=== PATIENT | male | born 1945 | race Caucasian/White ===

== ENCOUNTER → 2017-07-29 11:52 | Outpatient (CLI) | payer MEDICARE, SELFPAY ==
[2017-07-29 13:28] LABS: AST(SGOT) 51 U/L (15-37); Alanine Aminotransfer ALT/SGPT 31 U/L (16-61); Albumin, Serum 3.2 g/dL (3.2-5.0); Alkaline Phosphatase 59 U/L (45-117); Anion Gap 5 (5-15); BUN 24 mg/dL (7-18); BUN/Creat Ratio 18.9 RATIO (10-20); Calcium,Total 8.5 mg/dL (8.5-10.1); Chloride 105 mmol/L (98-107); Cholesterol 156 mg/dL (200); Creatinine, Serum 1.27 mg/dL (0.70-1.30); EST Glomerular Filtration Rate 59 mL/min (>60); Est Glom Filt Rate - Afr Amer 71 mL/min (>60); Globulin 3.9 g/dL (2.2-4.2); Glucose 100 mg/dL (74-106); High Density Lipoprotein 47 mg/dL; Protein, Total 7.1 g/dL (6.4-8.2); Sodium Level 141 mmol/L (136-145); Triglycerides 131 mg/dL; Very Low Density Lipoprotein 26 mg/dL (5-40)
== END ==
PROVIDERS: Family Provider Family Medicine; PCP Family Medicine; Visit Provider Internal Medicine Cardiovascular Disease
DX: E78.00 Pure hypercholesterolemia, unspecified (principal)
CPT/HCPCS: 36415; 80048; 80061; 80076

== ENCOUNTER → 2018-06-01 11:04 | Outpatient (CLI) | payer MEDICARE, SELFPAY ==
[2018-06-01 09:49] VITALS: BMI 33.7
[2018-06-01 12:03] LABS: Anion Gap 8 (5-15); BUN 22 mg/dL (7-18); BUN/Creat Ratio 16.1 RATIO (10-20); Calcium,Total 8.2 mg/dL (8.5-10.1); Chloride 109 mmol/L (98-107); Creatinine, Serum 1.37 mg/dL (0.70-1.30); EST Glomerular Filtration Rate 54 mL/min (>60); Est Glom Filt Rate - Afr Amer 65 mL/min (>60); Glucose 104 mg/dL (74-106); Potassium 3.8 mmol/L (3.5-5.1); Sodium Level 143 mmol/L (136-145)
[2018-06-01 12:19] LABS: BNP,B-Type NATRIURETIC PEPTIDE 68.5 pg/mL (0-100)
--- OUTSIDE RECORDS SUMMARY | 2018-09-02 19:56 | XMS RPT_ITS ---
:1945 Author Organization OHIP Support Name Relationship Address Phone R Unavailable Unavailable Unavailable STAKE, BERE Unavailable [address] + [place] [address] R Unavailable Unavailable Unavailable STAKE, BERE Unavailable [address] + [place] [address] R Unavailable Unavailable Unavailable STAKE, BERE Unavailable [address] + [place] [address] R Unavailable Unavailable Unavailable STAKE, BERE Unavailable [address] + [place] [address] STAKE, BERE Unavailable Unavailable + STAKE, BERE Unavailable Unavailable + STAKE, BERE Unavailable Unavailable + STAKE, BERE Unavailable [address] + [place] [address] STAKE, BERE Unavailable Unavailable + STAKE, BERE Unavailable Unavailable Unavailable STAKE SR., GLADYS Unavailable Unavailable Unavailable STAKE, BERE Unavailable Unavailable Unavailable STAKE SR., GLADYS Unavailable Unavailable Unavailable STAKE, BERE Unavailable [address] + [place] [address] STAKE, BERE Unavailable [address] + [place] [address] STAKE, BERE Unavailable Unavailable + STAKE, BERE Unavailable Unavailable + STAKE, BERE Unavailable Unavailable Unavailable STAKE SR., GLADYS Unavailable Unavailable Unavailable R Unavailable Unavailable Unavailable STAKE, BERE Unavailable [address] + [place] [address] STAKE, BERE Unavailable Unavailable + STAKE, BERE Unavailable Unavailable Unavailable STAKE SR., GLADYS Unavailable Unavailable Unavailable STAKE, BERE Unavailable Unavailable Unavailable STAKE SR., GLADYS Unavailable Unavailable Unavailable STAKE, BERE Unavailable Unavailable Unavailable STAKE SR., GLADYS Unavailable Unavailable Unavailable STAKE, BERE Unavailable Unavailable Unavailable STAKE SR., GLADYS Unavailable Unavailable Unavailable R Unavailable Unavailable Unavailable STAKE, BERE Unavailable [address] + [place] [address] R Unavailable Unavailable Unavailable STAKE, BERE Unavailable [address] + [place] [address] R Unavailable Unavailable Unavailable STAKE, BERE Unavailable [address] + [place] [address] STAKE, BERE Unavailable Unavailable Unavailable STAKE SR., GLADYS Unavailable Unavailable Unavailable STAKE, BERE Unavailable Unavailable Unavailable STAKE SR., GLADYS Unavailable Unavailable Unavailable R Unavailable Unavailable Unavailable STAKE, BERE Unavailable [address] + [place] [address] R Unavailable Unavailable Unavailable STAKE, BERE Unavailable [address] + [place] [address] R Unavailable Unavailable Unavailable STAKE, BERE Unavailable [address] + [place] [address] R Unavailable Unavailable Unavailable STAKE, BERE Unavailable [address] + [place] [address] Care Team Providers Name Role Phone José Aleman Attending Unavailable TOMLISK, TAYLA Referring Unavailable Rasheeda Moreau Attending Unavailable TOMCHAK, TAYLA Referring Unavailable Devora Sanders Attending Unavailable José Aleman Attending Unavailable TAYLA VICTORIA Referring Unavailable TOMLISK, TAYLA Primary Care Unavailable AshJosé bella Attending Unavailable Ash, José Referring Unavailable TOMCHAK, TAYLA Primary Care Unavailable Rasheeda Moreau Attending Unavailable TOMLISK, TAYLA Referring Unavailable Rossi Lynch Attending Unavailable Annita Carreon Attending Unavailable JOSE LUISKTAYLA Referring Unavailable TOMLISK, TAYLA Primary Care Unavailable Rasheeda Moreau Attending Unavailable TOMLISK, TAYLA Referring Unavailable TOMCHAK, TAYLA Primary Care Unavailable AshJosé bella Attending Unavailable Ash, [place] Referring Unavailable TOMCHAK, TAYLA Primary Care Unavailable Rasheeda Moreau Attending Unavailable JOSE LUISK, TAYLA Referring Unavailable Rasheeda Moreau Attending Unavailable TOMLISK, TAYLA Referring Unavailable Carlos Melissa Primary Care Unavailable VALUSCÉSAR Attending Unavailable SELF, SELF Referring Unavailable TOMCHAK, TAYLA Daniel Primary Care Unavailable VALUS, CÉSAR Daniel Attending Unavailable VALUS, CÉSAR Daniel Referring Unavailable TOMCHAK, TAYLA Daniel Primary Care Unavailable VALUS, CÉSAR Daniel Attending Unavailable VALUS, CÉSAR Daniel Referring Unavailable TOMCHAK, TAYLA Daniel Primary Care Unavailable KRISTINA MONTESINOS Attending Unavailable JAGUARKRISTINA Referring Unavailable TOMCHAK, TAYLA Daniel Primary Care Unavailable JAGUARKRISTINA BRITTON Attending Unavailable VALUSCÉSAR Referring Unavailable TOMCHAK, TAYLA Daniel Primary Care Unavailable JAGUARKRISTINA BRITTON Attending Unavailable TOMCHAK, TAYLA Daniel Referring Unavailable TOMCHAK, TAYLA Daniel Primary Care Unavailable JAGUARKRISTINA BRITTON Attending Unavailable TOMCHAK, TAYLA Daniel Referring Unavailable TOMCHAK, TAYLA Daniel Primary Care Unavailable KRISTINA MONTESINOS Attending Unavailable TOMCHAK, TAYLA Daniel Referring Unavailable TOMCHAK, TAYLA Daniel Primary Care Unavailable JAGUARKRISTINA Attending Unavailable SWATHI ZUÑIGA Referring Unavailable TOMCHAK, TAYLA Daniel Primary Care Unavailable Tomchak, Tayla Daniel Admitting Unavailable Tomchak, Tayla Daniel Attending Unavailable Tomchak, Tayla Daniel Primary Care Unavailable Tomchak, Tayla Daniel Primary Care Unavailable Sokari, Telemate Admitting Unavailable Sokari, Telemate Attending Unavailable VIAU, AVNI ALCALA Attending Unavailable TOMCHAK, TAYLA KHAN Primary Care Unavailable VIAU, AVNI ALCALA Attending Unavailable TOMCHAK, TAYLA KHAN Primary Care Unavailable VIAU, AVNI ALCALA Attending Unavailable TOMCHAK, TAYLA KHAN Primary Care Unavailable VIAU, AVNI ALCALA Attending Unavailable TOMCHAK, TAYLA KHAN Primary Care Unavailable VIAU, AVNI ALCALA Attending Unavailable TOMCHAK, TAYLA KHAN Primary Care Unavailable VIAU, AVNI ALCALA Attending Unavailable TOMCHAK, TAYLA KHAN Primary Care Unavailable VIAU, AVNI ALCALA Attending Unavailable TOMCHAK, TAYLA KHAN Primary Care Unavailable Viau, Dr. Avni Lemus Attending Unavailable Viau, Dr. Avni Lemus Admitting Unavailable Viau, Dr. Avni Lemus Admitting Unavailable Viau, Dr. Avni Lemus Attending Unavailable Viau, Dr. Avni Lemus Admitting Unavailable Viau, Dr. Avni Lemus Attending Unavailable PROBLEMS PROBLEMS DATE TYPE CONDITION / CODE ATTENDING STATUS SOURCE Unknown I50.22 - Chronic systolic Prieto, Active [place] 8 (congestive) heart [facility] Community failure / I50.22(ICD-10) Hospital Repository Unknown I48.1 - Persistent atrial Prieto Active [place] 8 fibrillation / [facility] I48.1(ICD-10) Hospital Repository Unknown Z95.810 - Presence of Jeff Moreau [place] 8 automatic (implantable) [facility] cardiac defibrillator / Hospital Z95.810(ICD-10) Repository Unknown I43 - Cardiomyopathy in Jeff Moreauoster 8 diseases classified [facility] elsewhere / I43(ICD-10) Hospital Repository Unknown I51.9 - Heart disease, Prieto, Active [place] 8 unspecified / [facility] I51.9(ICD-10) Hospital Repository Unknown I25.10 - Atherosclerotic Jeff Moreau [place] 8 heart disease of [place] [facility] coronary artery without Hospital angina pectoris / Repository I25.10(ICD-10) Unknown I10 - Essential (primary) Ash, [place] Active [place] 8 hypertension / Community I10(ICD-10) Hospital Repository Unknown Z95.5 - Presence of Ash, José Active [place] 8 coronary angioplasty [facility] implant and graft / Hospital Z95.5(ICD-10) Repository Admitting Spinal stenosis, VIA, [place] [address] diagnosis lumbosacral region / [facility] M48.07(ICD-10) Repository Admitting Spondylolisthesis, VIA, [place] [address] diagnosis lumbosacral region / [facility] Three M43.17(ICD-10) Repository Admitting Other intervertebral disc VIAU, [place] [address] diagnosis degeneration, lumbar [facility] Three region / M51.36(ICD-10) Repository Admitting Wedge compression [place] [address] diagnosis fracture of second lumbar [facility] Three vertebra, subsequent Repository encounter for fracture with routine healing / S32.020D(ICD-10) Admitting Unspecified fracture of VIAU, [place] [address] diagnosis second lumbar vertebra, [facility] Three initial encounter for Repository open fracture / S32.029B(ICD-10) Admitting Wedge compression [facility], [place] [address] diagnosis fracture of second lumbar [facility] Three vertebra, initial Repository encounter for closed fracture / S32.020A(ICD-10) Admitting Low back pain / AVNI CRUZ [place] [address] diagnosis M54.5(ICD-10) [facility] Repository Admitting Pain in left hip / JAGUAR [place] [address] diagnosis M25.552(ICD-10) [facility] Repository Admitting Follow-up / 145() JAGUAR, [place] [address] diagnosis [facility] Repository Admitting Unknown / UNK(Unknown) AVNI CRUZ [place] [address] diagnosis [facility] Repository Admitting Pain, unspecified / AVNI CRUZ [place] [address] diagnosis R52(ICD-10) [facility] Repository Admitting Paperwork / 111() JAGUAR, [place] [address] diagnosis [facility] Repository Admitting Lab Review / 165() JAGUAR, [place] [address] diagnosis [facility] Repository Admitting Presence of left VALUS, CÉSAR [place] [address] diagnosis artificial hip joint / [facility] Z96.642(ICD-10) [facility] Repository Unknown E78.00 - Pure Ash, [place] Active [place] 8 hypercholesterolemia, Community unspecified / Hospital E78.00(ICD-10) Repository Unknown E78.0 - Pure Ash, José Active [place] 8 hypercholesterolemia / Community E78.0(ICD-10) Hospital Repository PROCEDURES PROCEDURES No Procedure Records FoundRESULTS RESULTS PACEMAKER CHECK Observed: 06/01/2018 Status: F Source: [place] 12:53 PM [facility] RE[facility]IT[facility] [address] [place] [address]. [address] [place] [address] Pacemaker Check Date of Service: 06/01/18 1249 MR#: [id number] Acct: [id number] Name: GLADYS VIDAL Miguel Sr. Rep #: [id number] : 1945 From: Rasheeda Moreau Age/Sex: 73/M Location: [facility] Status: Signed Billing Codes ICD Device Billing: ICD Dev Prog Eval, Dual 06/01/18 1251 <Electronically signed by Rasheeda Moreau > Date Rasheeda Moreau 06/01/18 1253<Electronically signed by José Aleman MD> Cosigner Signature: Date (if applicable) José Aleman MD CC: BASIC METABOLIC Collected: 06/01/2018 Status: F Source: [place] PROFILE (BMP) 11:12 AM [facility] REPOSITORY TYPE CODE TESTS RESULT OUT OF RANGE REFERENCE UNITS LAB L501.0100 74-106 mg/dL Normal GLU 104 Result Comment: Fasting Glucose result from 100 to 125 mg/dL suggests IMPAIRED HOMEOSTASIS per A.D.A. criteria. Please note revised GLUCOSE reference range effective 2017. LAB L501.1000 7-18 mg/dL High BUN 22 LAB L501.1100 0.70-1.30 mg/dL High CREAT,SERUM 1.37 Result Comment: The validity of the calculated GFR AND GFRAA in patients over 70 years has not been determined. Clinical correlation is essential. LAB L501.1110 >60 mL/min Low EST GFR 54 Result Comment: Non- GFR Calc LAB L501.1115 >60 mL/min Normal EST GFR - AA 65 Result Comment: GFR Calc LAB L501.1300 10-20 RATIO Normal BUN/CRE 16.1 LAB L501.2200 8.5-10.1 mg/dL Low CA 8.2 LAB L501.5300 136-145 mmol/L NA Normal 143 LAB L501.5600 3.5-5.1 mmol/L K Normal 3.8 LAB L501.5900 98-107 mmol/L High CL 109 LAB L501.6100 21.0-32.0 mmol/L Normal CO2 26.0 LAB L501.6200 5-15 Normal GAP 8 Performed By: #### L500.2500 #### [facility] [address] [place], [address] BNP,B-TYPE NATRIURETIC Collected: 06/01/2018 Status: F Source: [place] PEPTIDE 11:12 AM [facility] REPOSITORY TYPE CODE TESTS RESULT OUT OF RANGE REFERENCE UNITS LAB L503.6620 0-100 pg/mL Normal B-TYPE 68.5 ANTONETTE PEP Performed By: #### L503.6620 #### [facility] [address] [place], [address] CARDIOLOGY VISIT Observed: 06/01/2018 Status: F Source: [place] REPORT 10:13 AM [facility] REPOSITORY [facility] [address] [place] [address] OFFICE VISIT Date of Service: 06/01/18 MR#: [id number] Acct: [id number] Name: GLADYS VIDAL . Rep #: [id number] : 1945 Provider: José Aleman MD Age/Sex: 73/M Location: [facility] Status: Signed HPI HPI Chief Complaint: Follow-up visit Details: GLADYS VIDAL, is a 73 M who presents to the office today for a follow-up visit. He is a gentleman with a history of cardiomyopathy that is out of proportion to his coronary artery disease. He did have an LAD stent placed in 2016. He also has a history of persistent atrial fibrillation. He denies any chest pain but has been markedly short of breath with exertion as well as at rest. He says that he has been compliant with his diet as well as with his diuretics. He remember he had been on amiodarone and he developed a rash and this was discontinued yesterday. He has had no dizziness or diaphoresis no near syncope or syncope. His physical exam today is significant for fine rales at the bases regular rate and rhythm and trace pitting edema. His blood pressure is under good control. Intake Vital Signs06/01/18 Height 5 ft 11 in 06/01/18 Weight: 242 lb 06/01/18 Body Mass Index (BMI) 33.7 06/01/18 Blood Pressure 124/72 H 06/01/18 Blood Pressure Location Lt brachial Intake Visit Reasons: 6 M FU Manager Strategy & Account Required: No Accompanied by: Is patient in pain?: No Allergies No Known Allergies Allergy (Verified 06/01/18 09:50) Medications Apixaban [Eliquis] 5 mg PO BID 10/31/15 [History Confirmed 06/01/18] Clopidogrel Bisulfate [Plavix] 75 mg PO DAILY 10/31/15 [History Confirmed 06/01/18] Lisinopril [Zestril] 2.5 mg PO DAILY 10/31/15 [History Confirmed 06/01/18] Multivitamins,Ther W-Minerals [Multivitamin With Minerals] 1 tab PO DAILY 10/31/15 [History Confirmed 06/01/18] Tamsulosin HCl [Flomax] 0.4 mg PO DAILY 10/31/15 [History Confirmed 06/01/18] Albuterol IH (ProAir) [Proair Hfa (SP)Vent Pts] 2 puff INHALATION Q4H PRN PRN 07/05/17 [History Confirmed 06/01/18] metoprolol succinate ER 50 mg tablet,extended release 24 hr 50 mg PO .COMPLEX #90 tab 08/13/17 [Rx Confirmed 06/01/18] furosemide 40 mg tablet 40 mg PO BID #180 tab 11/26/17 [Rx Confirmed 06/01/18] rosuvastatin 20 mg tablet 20 mg PO QDAY 11/26/17 [History Confirmed 06/01/18] spironolactone 50 mg tablet 50 mg PO DAILY #90 tab 06/01/18 [Rx Confirmed 06/01/18] PFSH Medical History Severe left ventricular systolic dysfunction (Chronic) Cardiomyopathy in diseases classified elsewhere (Chronic) Hypertension (Chronic) Persistent atrial fibrillation (Chronic) Chronic systolic (congestive) heart failure (Chronic) Atherosclerosis of coronary artery of [place] heart without angina pectoris (Chronic) Hyperlipidemia (Chronic) 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) BPH (benign prostatic hyperplasia) (Chronic) Surgical History History of coronary artery stent placement (Chronic 10/12/15) ICD (implantable cardioverter-defibrillator), dual, in situ (Chronic 02/25/16) History of cardioversion (Chronic 10/2015) History of total left hip arthroplasty (Chronic 02/24/17) Family History Brother Diabetes Social History Smoking Status: Never smoker second hand exposure: No alcohol intake: never substance use type: does not use caffeine: Yes Type: tea what type of physical activity do you participate in: walking frequency: daily duration: < 15 minutes/day seatbelt use: never do you feel safe at home: Yes ROS Const Const: Negative for fatigue, weakness, night sweats, excessive sweating, frequent falls, headache(s) or daytime sleepiness Eyes Eyes: Negative for loss of peripheral vision, transient loss of vision, blind spots, double vision or blurry vision ENT ENT: Negative for headache(s), dizziness, balance problems, Nosebleed/epistaxis, tongue swelling or lip swelling Cardio Chest Pain: No Palpitations: No Edema: None Muscle aches with walking: None Resp Respiratory: Positive for SOB at rest and SOB with activity; negative for SOB orthopnea\SOB lying down, Cough or paroxysmal nocturnal dyspnea GI GI: Negative nausea, vomiting, heartburn, black,tarry stools or bright, red blood in stools : Negative for hematuria Musc Musc: Negative for balance problems, muscle aches/ myalgia, muscle weakness or joint pain Skin Skin: Negative non-healing lesions, unusual bruising or rash Neuro Neuro: Negative for weakness, frequent falls, headache(s), double vision, dizziness, lightheadedness, orthostatic symptoms, blurry vision or lack of coordination Pascual Hematologic/Lymphatic: Negative for easy bruising or easy bleeding Endo Endo: Negative for fatigue, excessive sweating, cold intolerance, heat intolerance, increased thirst/drinking or hair loss Psych Psych: Negative for anxiety or depression Allergy Allergy/Immunology: Negative for throat swelling, Negative for tongue swelling, Negative for hives, Negative for rash, Negative for lip swelling Cardiology Exam Const Appearance: cooperative, healthy appearing, well developed, well groomed and no acute distress Nutritional Appearance: well nourished and average body habitus Orientation: alert, awake and oriented x3 Head Head: normal to inspection, normocephalic and atraumatic Ears: hearing grossly normal bilaterally and external ears normal Nose: external nose normal, nasal mucous membranes and turbinates normal, nares normal, septum normal, no nasal discharge Face and Sinus: face symmetric Mouth: oral mucosae normal, tongue normal, oropharynx normal and moist mucous membranes Teeth and gingiva: dentition normal Throat: posterior oropharynx normal, tonsils normal and uvula midline Eyes General: appearance normal, both eyes and all related structures Eyelids: eyelids normal Conjunctivae: conjunctivae normal Pupils: PERRL, normal by confrontation and accommodation normal EOM: EOM intact bilaterally Neck Neck: normal visual inspection, trachea midline and no JVD JVD: +5 Carotids: normal carotid upstroke and bounding pulses Chest Auscultation: Bilateral: Rales Cardio Palpation: normal PMI Rate: regular rate Rhythm: irregular rhythm Heart sounds: S1 normal, S2 normal and normal, physiologic split S2; negative rub, gallop or murmur GI GI: normal to inspection, soft, no hepatosplenomegaly and bowel sounds present Neuro General: alert, awake, oriented x3, no focal sensory deficit, gait normal and moves all extremities Skin Skin: no rashes or lesions noted Extremities Pulses: Normal: Right Femoral Pulse, Left Femoral Pulse, Right Dorsalis Pedis Pulse, Left Dorsalis Pedis Pulse, Right Posterior Tibial Pulse, Left Posterior Tibial Pulse, Right Radial Pulse, Left Radial Pulse Lower Extremity Edema: None: Bilateral Musculoskel Musculoskeletal: No joint tenderness Psych Psychological: normal affect Assessment AND Plan 1. Chronic systolic (congestive) heart failure I50.22 Plan He does have a history of chronic congestive heart failure he remains on the lisinopril as well as the metoprolol and also on potassium. My recommendation will be to continue the Lasix and add spironolactone 50 mg a day to his regimen. I do agree to discontinuing his amiodarone as I suspect this may be contributing to some of his shortness of breath. His last ejection fraction as you know was noted to be 20%. Orders Orders: 2. Persistent atrial fibrillation I48.1 Plan He does have a history of chronic persistent atrial fibrillation and is on anticoagulation as well as beta-tahir for rate control. 3. Essential hypertension I10 Plan He does have a history of hypertension which appears to well controlled with the lisinopril and the beta-tahir no changes will be made with regard to the above. 4. ICD (implantable cardioverter-defibrillator), dual, in situ Z95.810 [facility] DF4 @ [facility] per Dr Espinal Revision for dislodged atrial lead...Insertion of new atrial lead with atrial lead revision 04/2016 @ [facility] Plan He does have an ICD implanted which is being followed by transtelephonic monitoring. His last interrogation appeared to be in April. I would ask that this be rechecked again today. 5. History of coronary artery stent placement Z95.5 [id number] LAD @ [facility] Plan He does have a history of coronary artery disease status post angioplasty and stenting of his left anterior descending artery he has not had any angina and the plan will be to continue him on the same medications. Plan Detail Other Medications New: Discontinued: Follow Up 3 Months (mmm) Coding Level of Care Code Off vis,est,level 4 Diagnoses Chronic systolic (congestive) heart failure I50.22 Persistent atrial fibrillation I48.1 Essential hypertension I10 Hypertension type: essential hypertension ICD (implantable cardioverter-defibrillator), dual, in situ Z95.810 History of coronary artery stent placement Z95.5 Coding Level of Care Code Off vis,est,level 4 Diagnoses Chronic systolic (congestive) heart failure I50.22 Persistent atrial fibrillation I48.1 Essential hypertension I10 Hypertension type: essential hypertension ICD (implantable cardioverter-defibrillator), dual, in situ Z95.810 History of coronary artery stent placement Z95.5 06/01/18 1013 <Electronically signed by José Aleman MD> Date José Aleman MD Cosigner Signature: Date (if applicable) CC: Tayla Victoria MD PACEMAKER CHECK Observed: 04/29/2018 Status: F Source: [place] 3:53 PM [facility] REPOSITORY [place] [facility] [address] [place] [address] Pacemaker Check Date of Service: 04/28/18 9459 MR#: [id number] Acct: [id number] Name: GLADYS VIDAL . Rep #: [id number] : 1945 From: Rasheeda Moreau Age/Sex: 73/M Location: [facility] Status: Signed Billing Codes ICD Device Billing: ICD Dev Interrogate (Rmt) 04/28/18 1811 <Electronically signed by Rasheeda Moreau > Date Rasheeda Moreau 04/29/18 1553<Electronically signed by José Aleman MD> Cosigner Signature: Date (if applicable) José Aleman MD CC: BONE SCAN - WHOLE Observed: 03/18/2018 Status: F Source: [facility] BODY 1:12 PM [facility] REPOSITORY Final Report Accession No: [id number] Performed: Mar 18 2018 1:12PM Examination: BONE SCAN - WHOLE BODY NUCLEAR MEDICINE TOTAL BODY BONE SCAN HISTORY: Lumbar spine fracture; low back pain; left hip pain. COMPARISON: CT lumbar spine 03/08/2018. METHOD: The patient was injected intravenously with 22.7 mCi of Tc-99m MDP, scintigraphy of the entire skeleton was performed more than three hours later. FINDINGS: There is no evidence of significant uptake at L2. There is no evidence of increased linear uptake at L4. There is mild heterogeneous uptake in the cervical, thoracic, lumbar spine. There are degenerative changes in the major and minor joints bilaterally. IMPRESSION: No evidence of acute or subacute compression fractures. Degree of uptake at L2 is consistent with a chronic compression fracture. Degenerative changes throughout the spine as well as in the major and minor joints bilaterally. Interpreting Physician: NASEEM FRAGOSO M.D. Trans: istumb : cc: XR HIP LEFT 2 VIEWS Observed: 03/10/2018 Status: F Source: [facility] 1:45 PM [facility] REPOSITORY EXAM: XR HIP LEFT 3 VIEWS,, 03/10/2018 13:39 PM COMPARISON: Compared to prior study dated January 04, 2018. CLINICAL INDICATIONS: PAIN RELEVANT CLINICAL HISTORY: M25.552:Left hip pain FINDINGS: 3 images obtained. Soft Tissue: There is no obvious soft tissue swelling. Chondrocalcinosis evident within the symphysis pubis. Bone: No acute osseous abnormality is identified. Hip: Total hip arthroplasty in place. Hardware intact and stable in alignment. No periprosthetic lucency. IMPRESSION: Stable total hip arthroplasty. No acute osseous abnormality. SPINE LUMBAR W/O Observed: 03/08/2018 Status: F Source: [facility] CONTRAST 9:02 AM [facility] REPOSITORY Final Report Accession No: [id number] Performed: Mar 08 2018 9:02AM Examination: CT SPINE LUMBAR W/O CONTRAST EXAM: CT SPINE LUMBAR W/O CONTRAST CLINICAL STATEMENT: Low back pain. Previous lumbar spine surgery. COMPARISON: Lumbar spine x-rays, 02/11/2018. TECHNIQUE: CT examination of the lumbar spine without IV contrast. Coronal and sagittal reformations were performed. Dose reduction techniques were achieved by using automated exposure control and/or adjustment of mA and/or kV according to patient size and/or use of iterative reconstruction technique. FINDINGS: There are postoperative changes from previous laminectomy and pedicle screw and ana fixation as well as posterior osseous fusion at L3-L4 and L4-L5. The hardware is intact and in good position. There is good solid osseous fusion posteriorly along the posterior elements at L3-L4 and L4-L5. Grade 1 retrolisthesis at L5-S1 measures 3 mm. Osteopenia. Chronic compression fracture at L4 with 40% loss of vertebral body height is stable. Superior endplate compression fracture at L2 with 40% loss of vertebral body height. This may be a subacute compression fracture. No retropulsion of bone fragments into the spinal canal. This compression fracture is stable from the recent lumbar spine x-rays. No new compression fracture. L5-S1, moderate to severe degenerative disc disease with vacuum disc phenomenon. Severe facet arthropathy. Grade 1 retrolisthesis. These findings result in moderate central canal stenosis with lateral recess stenosis bilaterally. Disc space narrowing, endplate osteophytes and facet arthropathy result in severe foraminal narrowing bilaterally. L4-L5, the spinal canal is decompressed. No spinal canal stenosis. No foraminal narrowing. L3-L4, the spinal canal is decompressed. No significant spinal canal stenosis. No foraminal narrowing. L2-L3, severe facet arthropathy. Ligamentum flavum thickening. Mild degenerative disc disease. Diffuse disc bulge. Moderate central canal stenosis. No foraminal narrowing. Mild degenerative disc disease. No spinal stenosis. No foraminal narrowing. No paraspinal soft tissue swelling. No paraspinal masses. IMPRESSION: 1. There are postoperative changes from previous laminectomy, pedicle screw and ana fixation as well as posterior osseous fusion at L3-L4 and L4-L5. Hardware is intact. There is good solid osseous fusion posteriorly at these levels. 2. Chronic compression fracture at L4 is stable. 3. Compression fracture at L2 with 40% loss of vertebral body height may be subacute. This compression fracture is stable from lumbar spine x-rays from 02/11/2018. No retropulsion of bone fragments into the spinal canal. 4. Moderate to severe degenerative disc disease at L5-S1 and severe facet arthropathy. Grade 1 retrolisthesis at this level. These findings result in moderate central canal stenosis with stenosis of the lateral recesses bilaterally. Severe bilateral neural foraminal narrowing. 5. At L2-L3, there are severe facet arthropathy with ligamentum flavum thickening as well as disc bulge resulting in moderate spinal canal stenosis. Interpreting Physician: YUNIEL ZEPEDA M.D. Trans: bminni : cc: INJECT FOR MYELO Observed: 03/08/2018 Status: F Source: [facility] AND/OR CT-SPINE 9:02 AM [facility] REPOSITORY Final Report Accession No: [id number] Performed: Mar 08 2018 9:02AM Examination: INJECT FOR MYELO AND/OR CT-SPINE EXAMINATION: INJECT FOR MYELO AND/OR CT-SPINE CLINICAL STATEMENT: Low back pain with previous lumbar spine surgery. Injection for CT myelogram. COMPARISON: Plain film examination dated 02/11/2018. FLUOROSCOPY TIME: Fluoro time measures 41 seconds and 2 images were obtained. FINDINGS: According to the note from the technologist, the myelogram injection was attempted, but access could not be obtained. The myelogram was therefore aborted and the patient was sent to CT. IMPRESSION: Unsuccessful myelogram injection. Refer to the CT performed the same day. Interpreting Physician: AVNI PALAFOX M.D. Trans: n/a : cc: HISTORY AND Observed: 03/04/2018 Status: F Source: [facility] PHYSICAL-DICTATED 2:29 PM [facility] REPOSITORY [facility] Niurka [address] [place] [id number] NAME GLADYS VIDAL [facility] [id number] 1945 DATE PRE-SURGICAL HISTORY AND PHYSICAL CHIEF COMPLAINT A 72-year-old male with low left back pain and radiation to the posterior lateral thigh. HISTORY OF PRESENT ILLNESS This man underwent a laminectomy and fusion at L3 through L5 in the middle of 2012. He recently had a total hip replacement in February of 2017. Over the last month or so, he has complained of lower back pain, left lateral thigh pain, and was suggested by the total joint surgeon that he follow up with his lumbar spine. There has been no precipitating event or injury. On exam, there is left-sided low back discomfort, mild spasm [ ] motor, sensory reflex asymmetry of each lower extremity. X-rays obtained show previous laminectomy and fusion with instrumentation L3 through L5 with disk degeneration L5-S1. In light of his current complaint, it was recommended that he have an MRI. However, he cannot have an MRI, so CT myelogram of the lumbar spine was advised. PAST MEDICAL HISTORY Includes mitral regurgitation, hypertension, hyperlipidemia, heart failure, coronary artery disease, cardiomyopathy, benign prostatic hyperplasia, and atrial fibrillation. ALLERGIES He has no known drug allergies. MEDICATIONS Include aspirin, Plavix, Lasix, garlic, Mevacor, Lopressor, Micro-K, Xarelto, and tamsulosin. PHYSICAL EXAM GENERAL APPEARANCE: Alert, oriented. HEENT: Pupils equal, round, reactive. Extraocular muscles are intact. Trachea midline. NECK: Supple. No palpable masses. LUNGS: Clear bilateral. HEART: Normal sinus rhythm. No rub or gallop. ABDOMEN: Soft, nontender. Bowel sounds present x4. SPINE AND EXTREMITIES: As in History of Present Illness. No clubbing, cyanosis, or edema noted. IMPRESSION Status post spinal fusion. PLAN CT myelogram, lumbar. Dictated by JENNIFER Villela MD D 03/04/2018 14:29 [id number] T 03/04/2018 15:20 DKF/MODL Electronically Signed By Avni Cruz M.D. on 24 Mar 2018 17:57:43 GMT SPINE LUMBAR 2 OR 3 Observed: 02/11/2018 Status: F Source: [facility] VIEWS 10:15 AM [facility] REPOSITORY Final Report Accession No: [id number] Performed: Feb 11 2018 10:15AM Examination: SPINE LUMBAR 2 OR 3 VIEWS CLINICAL HISTORY: Having left-sided lower back and leg pain. History of left total hip replacement one year ago. LUMBAR SPINE: 02/11/2018 COMPARISON: Lumbar spine 03/11/2015. FINDINGS: Three views are provided which demonstrate five lumbar-type vertebral bodies which are normally aligned with previous posterior fusion extending from L3 through L5 with compression deformity of L4 now with some callus formation. There is compression deformity of the superior endplate of L2, new since the previous examination, however, of unknown chronicity. Degenerative disc disease at L3-L4, L4-L5 and L5-S1 persists. No subluxations or hardware associated complications. There is laminectomy at L3, L4 and L5. There is a partially visualized left hip prosthesis in place which is anatomically aligned. There are some calcified granulomas in the right aspect of the pelvis. The visualized pelvic bones appear intact. The surrounding soft tissues are normal. IMPRESSION: 1. Previous fusion extending from L3 through L5 without significant interval change or hardware associated complications. 2. Compression deformity of the superior endplate of L2, new since previous study, however, of unknown chronicity. 3. No obvious acute fractures or subluxations. Interpreting Physician: ITZEL KRISHNAMURTHY M.D. Trans: lcoope : cc: PACEMAKER CHECK Observed: 01/13/2018 Status: F Source: [facility] 4:35 PM [facility] REPOSITORY [facility] [address] [place] [address] Pacemaker Check Date of Service: 01/12/18 1310 MR#: [id number] Acct: [id number] Name: GLADYS VIDAL Miguel Sr. Rep #: [id number] : 1945 From: Rasheeda Moreau Age/Sex: 72/M Location: [facility] Status: Signed Billing Codes ICD Device Billing: ICD Dev Interrogate (Rmt) 01/12/18 1311 <Electronically signed by Rasheeda Moreau > Date Rasheeda Moreau 01/13/18 1635<Electronically signed by José Aleman MD> Cosigner Signature: Date (if applicable) José Aleman MD CC: C REACTIVE PROTEIN Collected: 01/04/2018 Status: F Source: [facility] 12:46 PM [facility] REPOSITORY TYPE CODE TESTS RESULT OUT OF REFERENCE UNITS RANGE LAB CRP <10.00 mg/L C High Reactive 11.80 Protein Performed By: #### CRP #### [place] [address] #### ESRE #### [place] [address] ESR WESTERGREN - [facility] Collected: 01/04/2018 Status: F Source: [facility] 12:46 PM [facility] REPOSITORY TYPE CODE TESTS RESULT OUT OF REFERENCE UNITS RANGE LAB ESR <20 mm/hr ESR High [place]gren 44 Performed By: #### CRP #### [address] [address] #### ESRE #### [address] [address] XR HIP LEFT 2 VIEWS Observed: 01/04/2018 Status: F Source: [facility] 11:49 AM [facility] REPOSITORY EXAM: Three-view left hip VIEWS,, 01/04/2018 11:43 AM COMPARISON: September 09, 2017 CLINICAL INDICATIONS: pain RELEVANT CLINICAL HISTORY: Z96.642:Status post total replacement of left hip 30MM Calibration sphere of left hip;AP/LAT view; FINDINGS: 3 images obtained. There is redemonstration of a total left hip replacement. No acute fracture or hardware failure. No radiopaque foreign body or pathologic soft tissue calcifications. Osteoarthritic changes are noted at the right hip and SI joints. There is partial visualization of a lumbar spine fixation IMPRESSION: Status post total left hip replacement without acute fracture or hardware failure HIP 2-3 VIEWS Observed: 12/29/2017 Status: F Source: [facility] LEFT + PELVIS 11:59 AM [facility] REPOSITORY Exam Date/Time: 12/29/2017 12:09 EDT Reason for Exam: left hip pain Report STUDY: XR Hip 2-3 Views Left + Pelvis; 12/29/2017 12:09 pm INDICATION: left hip pain. COMPARISON: None. ACCESSION NUMBER(S): [id number] ORDERING CLINICIAN: Tayla Victoria TECHNIQUE: A single AP view of the pelvis as well as AP and lateral views of the left hip were obtained. FINDINGS: The patient is status post left total hip arthroplasty. Postoperative changes are seen in the lower lumbar spine. There is no acute fracture or dislocation identified. Mild to moderate hypertrophic degenerative changes are seen in the sacroiliac joints and pubic symphysis. Multiple rounded calcifications are seen throughout the pelvis, most consistent with phleboliths. IMPRESSION: 1. Postoperative changes status post left total hip arthroplasty. 2. No evidence of acute fracture or dislocation. 3. Postoperative and degenerative changes, as described above. FINAL REPORT Dictated: 12/29/2017 3:16 pm Joaquin Garza MD Signed (Electronic Signature): 12/29/2017 3:16 pm Signed by: Joaquin Garza MD Technologist: MB CARDIOLOGY VISIT Observed: 11/27/2017 Status: F Source: [facility] REPORT 1:05 PM [facility] REPOSITORY [facility] [address] [place] [address]. [address] [place] [address] OFFICE VISIT Date of Service: 11/26/17 MR#: [id number] Acct: [id number] Name: MARCYGLADYS Rivera . Rep #: [id number] : 1945 Provider: Annita Carreon Age/Sex: 72/M Location: [facility] Status: Signed HPI [facility] Details: GLADYS VIDAL, is a 72 M who presents to the office today for a cardiovascular follow-up. He has a history of cardiomyopathy that is out of proportion with his coronary artery disease. He had stenting to his LAD in 2016. He also has a history of persistent atrial fibrillation and did require a pacemaker. At his last office visit we had adjusted his diuretics based upon his symptoms. Unfortunately had misunderstood instructions from her primary care doctor who wanted her to decrease this to once a day. She has discontinued this over the last several weeks and patient has noted increase in weight gain and lower extremity edema. He does not have any worsening shortness of breath. He does not have any chest heaviness/tightness or chest discomfort. He does not have any palpitations. He does not have any lightheadedness or dizziness. He does not have any near-syncope. Intake Vital Signs11/26/17 Height 5 ft 11 in 11/26/17 Weight: 243 lb 11/26/17 Body Mass Index (BMI) 33.9 Intake Visit Reasons: 4 M Manager Strategy & Account Required: No Is patient in pain?: No Allergies No Known Allergies Allergy (Verified 11/26/17 10:02) Medications Apixaban [Eliquis] 5 mg PO BID 10/31/15 [History Confirmed 11/26/17] Clopidogrel Bisulfate [Plavix] 75 mg PO DAILY 10/31/15 [History Confirmed 11/26/17] Garlic 1,500 mg PO DAILY 10/31/15 [History Confirmed 11/26/17] Lisinopril [Zestril] 2.5 mg PO DAILY 10/31/15 [History Confirmed 11/26/17] Multivitamins,Ther W-Minerals [Multivitamin With Minerals] 1 tab PO DAILY 10/31/15 [History Confirmed 11/26/17] Potassium Chloride [K-Dur] 10 meq PO BID 10/31/15 [History Confirmed 11/26/17] Tamsulosin HCl [Flomax] 0.4 mg PO DAILY 10/31/15 [History Confirmed 11/26/17] amiodarone 200 mg tablet 200 mg PO QDAY 06/01/17 [History Confirmed 11/26/17] Albuterol IH (ProAir) [Proair Hfa (SP)Vent Pts] 2 puff INHALATION Q4H PRN PRN 07/05/17 [History Confirmed 11/26/17] metoprolol succinate ER 50 mg tablet,extended release 24 hr 50 mg PO .COMPLEX #90 tab 08/13/17 [Rx Confirmed 11/26/17] furosemide 40 mg tablet 40 mg PO BID #180 tab 11/26/17 [Rx Confirmed 11/26/17] rosuvastatin 20 mg tablet 20 mg PO QDAY 11/26/17 [History Confirmed 11/26/17] Ejection fraction %: 20 to 24 PFSH Medical History Severe left ventricular systolic dysfunction (Chronic) Cardiomyopathy in diseases classified elsewhere (Chronic) Hypertension (Chronic) Persistent atrial fibrillation (Chronic) Chronic systolic (congestive) heart failure (Chronic) Atherosclerosis of coronary artery of [place] heart without angina pectoris (Chronic) Hyperlipidemia (Chronic) 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) BPH (benign prostatic hyperplasia) (Chronic) Surgical History History of coronary artery stent placement (Chronic 10/12/15) ICD (implantable cardioverter-defibrillator), dual, in situ (Chronic 02/25/16) History of cardioversion (Chronic 10/2015) History of total left hip arthroplasty (Chronic 02/24/17) Family History Brother Diabetes Social History Smoking Status: Never smoker second hand exposure: No alcohol intake: never substance use type: does not use caffeine: Yes Type: tea what type of physical activity do you participate in: walking frequency: daily duration: < 15 minutes/day seatbelt use: never do you feel safe at home: Yes ROS Const Const: Negative for fatigue, weakness, difficulty sleeping, frequent falls, headache(s) or excessive sweating Eyes Eyes: Negative for loss of peripheral vision, transient loss of vision, blurry vision or double vision ENT ENT: Negative for headache(s) or balance problems Cardio Chest Pain: No Edema: None, Bilateral (Trace ankle edema) Muscle aches with walking: None Resp Respiratory: Positive for SOB with activity (SOB when walking and with ADL) and other (slightly diminished); negative for SOB at rest, SOB orthopnea\SOB lying down or paroxysmal nocturnal dyspnea GI GI: Negative nausea or heartburn : Negative for hematuria Musc Musc: Negative for muscle aches/ myalgia, muscle weakness, joint pain or balance problems Skin Skin: Negative non-healing lesions, unusual bruising or rash Neuro Neuro: Negative for weakness, frequent falls, headache(s), blurry vision or double vision Pascual Hematologic/Lymphatic: Negative for easy bruising Endo Endo: Negative for fatigue or excessive sweating Psych Psych: Negative for anxiety or depression Allergy Allergy/Immunology: Negative for rash Cardiology Exam Const Appearance: cooperative, healthy appearing, well developed, well groomed and no acute distress Nutritional Appearance: well nourished and average body habitus Orientation: alert, awake and oriented x3 Head Head: normal to inspection, normocephalic and atraumatic Ears: hearing grossly normal bilaterally and external ears normal Nose: external nose normal, nasal mucous membranes and turbinates normal, nares normal, septum normal, no nasal discharge Face and Sinus: face symmetric Mouth: oral mucosae normal, tongue normal, oropharynx normal and moist mucous membranes Teeth and gingiva: dentition normal Throat: posterior oropharynx normal, tonsils normal and uvula midline Eyes General: appearance normal, both eyes and all related structures Eyelids: eyelids normal Conjunctivae: conjunctivae normal Pupils: PERRL, normal by confrontation and accommodation normal EOM: EOM intact bilaterally Neck Neck: normal visual inspection, trachea midline and no JVD JVD: +5 Carotids: normal carotid upstroke and bounding pulses Chest Chest inspection: normal inspection of the chest, symmetric chest movement and normal respiratory effort Auscultation: Bilateral: Clear to Auscultation Cardio Palpation: normal PMI Rate: regular rate Rhythm: regular rhythm Heart sounds: S1 normal, S2 normal and normal, physiologic split S2; negative rub, gallop or murmur GI GI: normal to inspection, soft, no hepatosplenomegaly and bowel sounds present Neuro General: alert, awake, oriented x3, no focal sensory deficit, gait normal and moves all extremities Skin Skin: no rashes or lesions noted Extremities Pulses: Normal: Right Femoral Pulse, Left Femoral Pulse, Right Dorsalis Pedis Pulse, Left Dorsalis Pedis Pulse, Right Posterior Tibial Pulse, Left Posterior Tibial Pulse, Right Radial Pulse, Left Radial Pulse Upper Extremity: amputated thumb and right index finger on left hand Lower Extremity Edema: None: Bilateral Musculoskel Musculoskeletal: No joint tenderness Psych Psychological: normal affect Supplemental Info Echocardiogram in 2017 demonstrated moderately dilated LV with an estimated ejection fraction of 20%. Severe global left ventricular dysfunction when compared to previous echocardiogram no significant change. BMP that was done in primary care office demonstrated BUN of 22, potassium 4.3, sodium 142 TSH was 1.68 Hemoglobin A1c was 6.3 Assessment AND Plan 1. Atherosclerosis of [place] coronary artery of [place] heart without angina pectoris I25.10 JME-LUS-Vxaq LAD 10/12/2015 Plan - BOB Choudhary Stable, from a cardiac standpoint patient does not have any symptoms of angina. We recommend that they continue with current aggressive medical management and risk factor modification. 2. Cardiomyopathy in diseases classified elsewhere I43 EF 20% per echo 09/2016 Plan - BOB Choudhary Patient does have some lower edema. His weight has gone up. He is not short of breath. He did accidentally stop his Lasix. Will resume this. His primary care doctor did instruct him to decrease it to once a day and use it twice a day if needed. Did verbalize this again with and . 3. Essential hypertension I10 Plan - BOB Choudhary Blood pressure is well controlled on current medications, we do not recommend any changes at this time. 4. Persistent atrial fibrillation I48.1 Plan - BOB Choudhary Rate is controlled. He is anticoagulated with a factor Xa inhibitor. Will not make any adjustments. 5. ICD (implantable cardioverter-defibrillator), dual, in situ Z95.810 [facility] [facility] Epi [employer] DF4 @ [facility] per Dr Espinal Revision for dislodged atrial lead...Insertion of new atrial lead with atrial lead revision 04/2016 @ [facility] Plan - BOB Choudhary ICD is functioning appropriately. We will continue to monitor with routine scheduled ICD interrogations. Patient has not had any discharges from their device. 6. Pure hypercholesterolemia E78.00 Plan - BOB Choudhary Recent lipid profile done from PCP demonstrates a total cholesterol 159, HDL 46, LDL 86. This is managed by primary care doctor. Will not make any adjustments. Plan Detail Other Medications New: Additional Comments - BOB Choudhary The above patient was discussed with Dr. Aleman, he agrees with plan of care. Thank you for allowing us to participate in patient's plan of care, if you have any questions please do not hesitate to call. This note was generated using a voice recognition system and there may be incorrect words, spelling or punctuation errors that were not noted when reviewing the office note prior to saving. Follow Up 6 Months (CLINICAL LABORATORY MANAGER) Coding Level of Care Code Off vis,est,level 3 Diagnoses Atherosclerosis of [place] coronary artery of [place] heart without angina pectoris I25.10 Coronary Disease-Associated Artery/Lesion type: [place] artery Cardiomyopathy in diseases classified elsewhere I43 Essential hypertension I10 Hypertension type: essential hypertension Persistent atrial fibrillation I48.1 ICD (implantable cardioverter-defibrillator), dual, in situ Z95.810 Pure hypercholesterolemia E78.00 Hyperlipidemia type: pure hypercholesterolemia Coding Level of Care Code Off vis,est,level 3 Diagnoses Atherosclerosis of [place] coronary artery of [place] heart without angina pectoris I25.10 Coronary Disease-Associated Artery/Lesion type: [place] artery Cardiomyopathy in diseases classified elsewhere I43 Essential hypertension I10 Hypertension type: essential hypertension Persistent atrial fibrillation I48.1 ICD (implantable cardioverter-defibrillator), dual, in situ Z95.810 Pure hypercholesterolemia E78.00 Hyperlipidemia type: pure hypercholesterolemia 11/26/17 1541 <Electronically signed by Annita ROJAS> Date Annita ROJAS 11/27/17 1305<Electronically signed by José Aleman MD> Cosigner Signature: Date (if applicable) José Aleman MD CC: TAYLA VICTORIA PACEMAKER CHECK Observed: 10/21/2017 Status: F Source: [facility] 11:50 AM [facility] REPOSITORY [facility] [address] [place] [address]. [address] [place] [address] Pacemaker Check Date of Service: 10/06/17 1457 MR#: [id number] Acct: [id number] Name: GLADYS VIDAL . Rep #: [id number] : 1945 From: Rasheeda Moreau Age/Sex: 72/M Location: [facility] Status: Signed Comments Summary Comments: Remote Dual Chamber ICD Evaluation: Remote interrogation shows no VT/VF episodes and 23 MS episodes since 06/26/17. Stored e-grams for MS episodes show PAT with appropriate MS. Presenting rhythm shows AAI pacing @ 65 ppm. APPIAN BPM DEVELOPER=1.7%. Battery longevity approx 5.7 to 6 yrs. Lead impedances and sensing remain stable. Normal remote ICD function. Pt notified remote transmission received and next f/u appt scheduled for in 3 mos. Device Device Date Interviewed: 10/06/17 Follow-up Location: remote Interview Reason: scheduled follow up Space Sciences Director: [employer] Name: Epi Martinez DR Model: [id number] Serial #: [id number] Implant Date: 02/25/16 Year(s): 1 Implant Physician: Dr. Khang Espinal/ [facility] Patient Characteristics Atrial Indication: Paroxysmal atrial fibrillation Patient Substrate: Ischemic cardiomyopathy Ejection fraction %: 20 to 24 (09/16/2016) By: Echo Underlying rhythm: Sinus rhythm Pacemaker Dependent: No Device Characteristics Device: Dual Chamber Type: Implantable defibrillator Remote Follow-Up: [employer] Leads Lead #1 Space Sciences Director Lead 1: [employer] Model Lead 1: Serial# Lead 1: [id number] Date Implanted Lead 1: 02/25/16 Position Lead 1: RA Lead #2 Space Sciences Director Lead 2: [employer] Model Lead 2: [id number] Serial# Lead 2: [id number] Date Implanted Lead 2: 02/25/16 Position Lead 2: RV Lead #3 Space Sciences Director Lead 3: [employer] Model Lead 3: Serial# Lead 3: [id number] Date Implanted Lead 3: 04/24/16 Position Lead 3: RA Diagnostics Pacing % RA Pacin % RV Pacin.7 Mode Switching Total # Episodes: 23 % Mode switched: 1 Arrhythmias VF Episodes: 0 Fast VT Episodes: 0 Slow VT Episodes: 0 Non-Sust Episodes: 0 Measurements Battery Charge Time (Sec): 9.5 Battery %: 79 Predicted Remaining Longevity (months or years): 5.7 to 6 years RA Measurements Signal Amplitude (mV): 3.0 Impedance (Ohms): 380 RV Measurements Signal Amplitude (mV): 11.7 Impedance (Ohms): 540 Shock Impedance (Ohms): 75 Tachy Settings VF Therapies VF Therapy Status On On On On On On Energy 30 30 30 30 30 30 Pathway ATP: During charging on FVT Therapies FVT Therapy Status On On On On On On VT Therapies FVT Therapy Status Off Off Off Off Off Off Comments: Emre Settings Emre Settings Pacemaker Mode DDDR Lower Rate Limit (bpm) 60 Hysteresis Rate (bpm) Max Track Rate (bpm) 130 Max Sensor Rate (bpm) Max AV Delay (msec) 250 Max PV Delay (msec) Max PVARP (msec) Output/Sensing V/PW (ms) 2.5/0.5 2.5/0.5 Sensitivity RA RV LV Comments: Billing Codes ICD Device Billing: ICD Dev Interrogate (Rmt) Assessment AND Plan Problems 1. ICD (implantable cardioverter-defibrillator), dual, in situ Z95.810 [facility] Fortify Assura DF4 @ [facility] per Dr Espinal Revision for dislodged atrial lead...Insertion of new atrial lead with atrial lead revision 04/2016 @ [facility] 2. Cardiomyopathy in diseases classified elsewhere I43 EF 20% per echo 09/2016 3. Persistent atrial fibrillation I48.1 4. Chronic systolic (congestive) heart failure I50.22 5. Severe left ventricular systolic dysfunction I51.9 10/21/17 0832 <Electronically signed by Rasheeda Moreau > Date Rasheeda Moreau 10/21/17 1150<Electronically signed by José Aleman MD> Ted Signature: Date (if applicable) José Aleman MD CC: XR HIP LEFT 2 VIEWS Observed: 09/09/2017 Status: F Source: [facility] 2:28 PM [facility] REPOSITORY EXAM: XR HIP LEFT 2 VIEWS VIEWS,, 09/09/2017 14:20 PM COMPARISON: June 17, 2017 CLINICAL INDICATIONS: PAIN RELEVANT CLINICAL HISTORY: M25.552:Pain in left hip AP,LAT W/30MM CALIBRATION SPHERE; FINDINGS: 3 images obtained. Soft Tissue: There is no obvious soft tissue swelling. Bone: No acute osseous abnormality is identified. Hip: Status post left total hip arthroplasty. The femoral and acetabular components appear unchanged. IMPRESSION: Intact left total hip arthroplasty. No acute osseous abnormality. C METABOLIC Collected: 07/29/2017 Status: F Source: [place] PROFILE (BMP) 12:02 PM [facility] REPOSITORY TYPE CODE TESTS RESULT OUT OF RANGE REFERENCE UNITS LAB L501.0100 74-106 mg/dL Normal GLU 100 Result Comment: Fasting Glucose result from 100 to 125 mg/dL suggests IMPAIRED HOMEOSTASIS per A.D.A. criteria. Please note revised GLUCOSE reference range effective 2017. LAB L501.1000 7-18 mg/dL High BUN 24 LAB L501.1100 0.70-1.30 mg/dL Normal CREAT,SERUM 1.27 Result Comment: The validity of the calculated GFR AND GFRAA in patients over 70 years has not been determined. Clinical correlation is essential. LAB L501.1110 >60 mL/min Low EST GFR 59 Result Comment: Non- GFR Calc LAB L501.1115 >60 mL/min Normal EST GFR - AA 71 Result Comment: GFR Calc LAB L501.1300 10-20 RATIO Normal BUN/CRE 18.9 LAB L501.2200 8.5-10.1 mg/dL CA Normal 8.5 LAB L501.5300 136-145 mmol/L NA Normal 141 LAB L501.5600 3.5-5.1 mmol/L K Normal 4.0 LAB L501.5900 98-107 mmol/L CL Normal 105 LAB L501.6100 21.0-32.0 mmol/L Normal CO2 31.0 LAB L501.6200 5-15 Normal GAP 5 Performed By: #### L500.2500, L500.3400, L500.4100 #### [facility] [address] [place], [address] LIVER PROFILE Collected: 07/29/2017 Status: F Source: [place] 12:02 PM [facility] REPOSITORY TYPE CODE TESTS RESULT OUT OF RANGE REFERENCE UNITS LAB L501.1500 6.4-8.2 g/dL Normal T PROT 7.1 LAB L501.1800 3.2-5.0 g/dL Normal ALB 3.2 LAB L501.1950 2.2-4.2 g/dL Normal GLOB 3.9 LAB L501.4100 15-37 U/L High AST 51 LAB L501.4305 45-117 U/L Normal ALK P 59 LAB L501.4405 16-61 U/L Normal ALT 31 Result Comment: Please note revised ALT reference range effective 2017. LAB L501.4600 0.20-1.00 mg/dL Normal T BILI 0.40 LAB L501.4700 0.00-0.30 mg/dL Normal D BILI 0.10 Performed By: #### L500.2500, L500.3400, L500.4100 #### [facility] [address] [place], [place], [address] LIPID PROFILE Collected: 07/29/2017 Status: F Source: [place] 12:02 [facility] REPOSITORY TYPE CODE TESTS RESULT OUT OF RANGE REFERENCE UNITS LAB L501.4900 200 mg/dL Normal CHOL 156 Result Comment: <200 mg/dL Desirable 200-240 mg/dL Borderline >240 mg/dL High Risk LAB L501.5000 mg/dL Normal TRIG 131 Result Comment: The drugs N-Acetylcysteine and Metamizole may falsely depress this assay. Serum Triglycerides Reference Interval Normal <150 mg/dL Borderline high 150 - 199 mg/dL High 200 - 499 mg/dL Very High > or = 500 mg/dL LAB L501.6400 mg/dL Normal HDL 47 Result Comment: The drugs N-Acetylcysteine and Metamizole may falsely depress this assay. Reference Range HDL <40 mg/dL Low HDL Cholesterol HDL >or= 60 mg/dL High HDL Cholesterol LAB L501.6500 0-130 mg/dL Normal LDL 83 LAB L501.6600 5-40 mg/dL Normal VLDL 26 Performed By: #### L500.2500, L500.3400, L500.4100 #### [facility] [address] [place], [address] CARDIOLOGY VISIT Observed: 07/29/2017 Status: F Source: [place] REPORT 11:40 AM [facility] REPOSITORY [facility] [address] [place] [address] OFFICE VISIT Date of Service: 07/29/17 MR#: [id number] Acct: [id number] Name: GLADYS VIDAL . Rep #: [id number] : 1945 Provider: José Aleman MD Age/Sex: 72/M Location: [facility] Status: Signed HPI HPI Chief Complaint: Follow-up visits. Details: GALDYS VIDAL, is a 72 M who presents to the office today for he is a gentleman with a history of ischemic cardiomyopathy out of proportion to his coronary artery disease. His estimated ejection fraction is approximately 20%. You do remember that his cardiac catheterization had demonstrated left anterior descending artery disease for which he underwent angioplasty and stenting. He also had atrial fibrillation and required a pacemaker defibrillator. He was recently evaluated and noted to be retaining fluid and had his Lasix increased. He appears to be much better at this time and his weight is remaining around 220 pounds. He has had no dizziness or diaphoresis no near syncope or syncope and has not had any neck arm or jaw discomfort to suggest angina. His physical exam today demonstrates clear lung lombardo regular rate and rhythm and trace pitting edema only. Intake Vital Signs07/29/17 Height 5 ft 11 in Intake Visit Reasons: f/up (had to cxl last apt d/t hand injury) Allergies No Known Allergies Allergy (Verified 11/11/15 10:20) Medications Apixaban [Eliquis] 5 mg PO BID 10/31/15 [History Confirmed 07/05/17] Clopidogrel Bisulfate [Plavix] 75 mg PO DAILY 10/31/15 [History Confirmed 07/05/17] Garlic 1,500 mg PO DAILY 10/31/15 [History Confirmed 07/05/17] Lisinopril [Zestril] 2.5 mg PO DAILY 10/31/15 [History Confirmed 07/05/17] Lovastatin [Mevacor] 40 mg PO QHS 10/31/15 [History Confirmed 07/05/17] Metoprolol(XL)Succ [Toprol Xl (Beta Tahir)] 50 mg PO BID 10/31/15 [History Confirmed 07/05/17] Multivitamins,Ther W-Minerals [Multivitamin With Minerals] 1 tab PO DAILY 10/31/15 [History Confirmed 07/05/17] Potassium Chloride [K-Dur] 10 meq PO BID 10/31/15 [History Confirmed 07/05/17] Tamsulosin HCl [Flomax] 0.4 mg PO DAILY 10/31/15 [History Confirmed 07/05/17] amiodarone 200 mg tablet 200 mg PO QDAY 06/01/17 [History Confirmed 07/05/17] furosemide 40 mg tablet 40 mg PO BID tab 06/16/17 [History Confirmed 07/05/17] Albuterol IH (ProAir) [Proair Hfa (SP)Vent Pts] 2 puff INHALATION Q4H PRN PRN 07/05/17 [History Confirmed 07/05/17] PFSH Medical History Severe left ventricular systolic dysfunction (Chronic) Cardiomyopathy in diseases classified elsewhere (Chronic) Hypertension (Chronic) Persistent atrial fibrillation (Chronic) Chronic systolic (congestive) heart failure (Chronic) Atherosclerosis of coronary artery of [place] heart without angina pectoris (Chronic) Hyperlipidemia (Chronic) 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) BPH (benign prostatic hyperplasia) (Chronic) Surgical History History of coronary artery stent placement (Chronic 10/12/15) ICD (implantable cardioverter-defibrillator), dual, in situ (Chronic 02/25/16) History of cardioversion (Chronic 10/2015) History of total left hip arthroplasty (Chronic 02/24/17) Family History Brother Diabetes Social History Smoking Status: Never smoker second hand exposure: No alcohol intake: never substance use type: does not use caffeine: Yes Type: tea what type of physical activity do you participate in: walking frequency: daily duration: < 15 minutes/day seatbelt use: never do you feel safe at home: Yes ROS Const Const: Negative for fatigue, weakness, difficulty sleeping, frequent falls, headache(s) or excessive sweating Eyes Eyes: Negative for loss of peripheral vision, transient loss of vision, blurry vision or double vision ENT ENT: Negative for headache(s), Negative for dizziness, Negative for Nosebleed/epistaxis, Negative for balance problems Cardio Chest Pain: No Edema: None, Bilateral (Trace ankle edema) Muscle aches with walking: None Resp Respiratory: Positive for SOB with activity (SOB when walking and with ADL) and other (slightly diminished); negative for SOB at rest, SOB orthopnea\SOB lying down or paroxysmal nocturnal dyspnea GI GI: Negative nausea or heartburn : Negative for hematuria Musc Musc: Negative for muscle aches/ myalgia, muscle weakness, joint pain or balance problems Skin Skin: Negative non-healing lesions, unusual bruising or rash Neuro Neuro: Negative for weakness, Negative for frequent falls, Negative for blurry vision, Negative for headache(s), Negative for dizziness, Positive for lightheadedness (Occasional dizziness when changing positions), Negative for orthostatic symptoms, Negative for double vision Pascual Hematologic/Lymphatic: Negative for easy bruising Endo Endo: Negative for fatigue, excessive sweating or increased thirst/drinking Psych Psych: Negative for anxiety or depression Allergy Allergy/Immunology: Negative for hives, Negative for rash Cardiology Exam Const Appearance: cooperative, healthy appearing, well developed, well groomed and no acute distress Nutritional Appearance: well nourished and average body habitus Orientation: alert, awake and oriented x3 Head Head: normal to inspection, normocephalic and atraumatic Ears: hearing grossly normal bilaterally and external ears normal Nose: external nose normal, nasal mucous membranes and turbinates normal, nares normal, septum normal, no nasal discharge Face and Sinus: face symmetric Mouth: oral mucosae normal, tongue normal, oropharynx normal and moist mucous membranes Teeth and gingiva: dentition normal Throat: posterior oropharynx normal, tonsils normal and uvula midline Eyes General: appearance normal, both eyes and all related structures Eyelids: eyelids normal Conjunctivae: conjunctivae normal Pupils: PERRL, normal by confrontation and accommodation normal EOM: EOM intact bilaterally Neck Neck: normal visual inspection, trachea midline and no JVD JVD: +5 Carotids: normal carotid upstroke and bounding pulses Chest Chest inspection: normal inspection of the chest, symmetric chest movement and normal respiratory effort Auscultation: Bilateral: Clear to Auscultation Cardio Palpation: normal PMI Rate: regular rate Rhythm: regular rhythm Heart sounds: S1 normal, S2 normal and normal, physiologic split S2; negative rub, gallop or murmur GI GI: normal to inspection, soft, no hepatosplenomegaly and bowel sounds present Neuro General: alert, awake, oriented x3, no focal sensory deficit, gait normal and moves all extremities Skin Skin: no rashes or lesions noted Extremities Pulses: Normal: Right Femoral Pulse, Left Femoral Pulse, Right Dorsalis Pedis Pulse, Left Dorsalis Pedis Pulse, Right Posterior Tibial Pulse, Left Posterior Tibial Pulse, Right Radial Pulse, Left Radial Pulse Lower Extremity Edema: None: Bilateral Musculoskel Musculoskeletal: No joint tenderness Psych Psychological: normal affect Assessment AND Plan 1. Severe left ventricular systolic dysfunction I51.9 Plan He does have evidence of severe left ventricular systolic dysfunction with global hypokinesis he is on the beta-tahir and SOILA inhibitor as well as diuretics which will be continued on a twice daily basis. I to obtain a chemistry profile today to make sure that his renal function and electrolytes are not being jeopardized. 2. Persistent atrial fibrillation I48.1 Plan He did have a history of atrial fibrillation and apparently appears to be in sinus rhythm at this time he will continue with his amiodarone also to decrease the amount of ventricular arrhythmias he has been having. 3. History of coronary artery stent placement Z95.5 JJM-XQZ-Cvta LAD @ [facility] Plan He does have a history of left anterior descending artery stent placement and he has not had any angina he will remain on the aspirin Plavix and beta-tahir for the above. 4. Essential hypertension I10 Plan His blood pressure remains under good control on the current medical therapy and I would not suggest that we make any changes. 5. Pure hypercholesterolemia E78.00 Plan Secondary risk factor modification with his statin will continue. Overall he continues to do well and I would not suggest any major changes. Orders Orders: 6. ICD (implantable cardioverter-defibrillator), dual, in situ Z95.810 [facility] Epi Hernandez DF4 @ [facility] per Dr Espinal Revision for dislodged atrial lead...Insertion of new atrial lead with atrial lead revision 04/2016 @ [facility] Plan He has been following up in our defibrillator clinic and his pacer ICD check from June did not demonstrate any VT or VF episodes and there was adequate lead and battery impedance noted. Plan Detail Other Orders Orders: Follow Up 4 Months Coding Level of Care Code Off vis,est,level 4 Diagnoses Severe left ventricular systolic dysfunction I51.9 Persistent atrial fibrillation I48.1 History of coronary artery stent placement Z95.5 Essential hypertension I10 Hypertension type: essential hypertension Pure hypercholesterolemia E78.00 Hyperlipidemia type: pure hypercholesterolemia ICD (implantable cardioverter-defibrillator), dual, in situ Z95.810 Coding Level of Care Code Off vis,est,level 4 Diagnoses Severe left ventricular systolic dysfunction I51.9 Persistent atrial fibrillation I48.1 History of coronary artery stent placement Z95.5 Essential hypertension I10 Hypertension type: essential hypertension Pure hypercholesterolemia E78.00 Hyperlipidemia type: pure hypercholesterolemia ICD (implantable cardioverter-defibrillator), dual, in situ Z95.810 07/29/17 1140 <Electronically signed by José Aleman MD> Date José Aleman MD Cosigner Signature: Date (if applicable) CC: TAYLA VICTORIA OFFICE VISIT REPORT Observed: 07/08/2017 Status: F Source: [place] 8:12 AM [place] [id number] [place] [address] OFFICE VISIT Date of Service: 06/26/17 MR#: [id number] Acct: [id number] Patient: GLADYS VIDAL Sr. Rep #: [id number] : 1945 Provider: Rasheeda Moreau Age/Sex: 72/M Location: [facility] Status: Signed Comments Summary Comments: Remote Dual Chamber ICD Evaluation: Remote ICD interrogation shows no VT/VF episodes and no MS episodes since last check 03/14 17. presenting rhythm shows AAI pacing @ 64 ppm. APPIAN BPM DEVELOPER=<1%. Battery longevity approx 6 to 6.3 yrs. Lead impedance and sensing remain stable. Normal remote ICD function. Pt notified remote transmission received and next f/u appt scheduled for in 3 mos. Device Device Date Interviewed: 06/27/17 Follow-up Location: remote Interview Reason: scheduled follow up Space Sciences Director: [facility] Name: Epi Martinez DR Model: [id number] Serial #: [id number] Implant Date: 02/25/16 Year(s): 1 Implant Physician: Dr. Khang Espinal/ [facility] Patient Characteristics Atrial Indication: Paroxysmal atrial fibrillation Patient Substrate: Ischemic cardiomyopathy Ejection fraction %: 20 to 24 (09/16/2016) By: Echo Underlying rhythm: Sinus rhythm Pacemaker Dependent: No Device Characteristics Device: Dual Chamber Type: Implantable defibrillator Remote Follow-Up: Karthik Device Physical Exam Yes Incision well healed Leads Lead #1 Space Sciences Director Lead 1: [facility] Model Lead 1: Serial# Lead 1: [id number] Date Implanted Lead 1: 02/25/16 Position Lead 1: RA Additional Details: Atrial Lead fell into ventricle replaced on 04/24/16 @ [facility] via Dr. Espinal Lead #2 Space Sciences Director Lead 2: [facility] [facility] Model Lead 2: [id number] Serial# Lead 2: [id number] Date Implanted Lead 2: 02/25/16 Position Lead 2: RV Lead #3 Space Sciences Director Lead 3: [facility] Model Lead 3: Serial# Lead 3: [id number] Date Implanted Lead 3: 04/24/16 Position Lead 3: RA Diagnostics Pacing % RA Pacin % RV Pacin Mode Switching Total # Episodes: 0 % Mode switched: 0 Arrhythmias VF Episodes: 0 Fast VT Episodes: 0 Slow VT Episodes: 0 Non-Sust Episodes: 0 Measurements Battery Charge Time (Sec): 9.3 Battery %: 82 Predicted Remaining Longevity (months or years): 6 to 6.3 years RA Measurements Signal Amplitude (mV): 3.2 Impedance (Ohms): 380 RV Measurements Signal Amplitude (mV): 11.7 Impedance (Ohms): 550 Shock Impedance (Ohms): 69 Tachy Settings VF Therapies VF Therapy Status On On On On On On Energy 30 30 30 30 30 30 Pathway ATP: During charging on FVT Therapies FVT Therapy Status On On On On On On VT Therapies FVT Therapy Status Off Off Off Off Off Off Comments: Emre Settings Emre Settings Pacemaker Mode DDDR Lower Rate Limit (bpm) 60 Hysteresis Rate (bpm) Max Track Rate (bpm) 130 Max Sensor Rate (bpm) Max AV Delay (msec) 250 Max PV Delay (msec) Max PVARP (msec) Output/Sensing V/PW (ms) 2.5/0.5 2.5/0.5 Sensitivity RA RV LV Comments: Billing Codes ICD Device Billing: ICD Dev Interrogate (Rmt) Assessment AND Plan Problems 1. ICD (implantable cardioverter-defibrillator), dual, in situ Z95.810 2. Ischemic cardiomyopathy I25.5 EF 20% 3. CHF (congestive heart failure) I50.33 4. Afib I48.2 06/30/17 1412 <Electronically signed by Rasheeda Moreau > Date Rasheeda Moreau 07/08/17 0812<Electronically signed by José Aleman MD> Ted Signature: Date (if applicable) José Aleman MD CC: ALLERGIES ALLERGIES DATE TYPE / CODE NAME / CODE REACTION SEVERITY SOURCE 06/01/2018 Drug No Known Unknown [facility] Allergy/416 Allergies/F34212 Hospital 387851(SNOM 0388(RXNORM) Repository ED CT) Drug NO KNOWN [facility] Three Class/88383 ALLERGIES Repository 1003(SNOMED CT) Drug/114611 No Known [facility] 003(SNOMED Allergies [facility] CT) System Repository ENCOUNTERS ENCOUNTERS ADMIT/DISCHARGE ACCOUNT NUMBER ADMITTING ENCOUNTER LOCATION SOURCE CLASS 06/01/2018 [id number] Ambulatory [facility] ding:LAB Repository 06/01/2018/06/01/20 [id number] Ambulatory BMSBuilding: [place] [address] B[facility] Repository 06/01/2018/06/01/20 [id number] Ambulatory BMSBuilding: [place] 18 BMS.[facility] Repository 05/12/2018/05/12/20 [id number] [place], [place] [address] [facility] EDRoom: Repository 05/12/2018 [id number] Ambulatory [address] [place] [address] Repository 04/28/2018/04/28/20 [id number] Ambulatory BMSBuilding: [place] 18 BMS[facility] Repository 04/08/2018/04/08/20 [id number] Ambulatory Building:[place] [address] [facility] R Repository 03/23/2018/03/27/20 [id number] [facility] [address] [facility] [id number] Ambulatory Building:[facility] Repository 03/18/[id number] Mame Ambulatory [facility] Repository 03/11/2018/03/11/20 [id number] [facility] 03/10/2018 [id number] Ambulatory Building:[facility] Repository 03/10/2018 [id number] Ambulatory Building:[facility] Repository 03/08/2018/03/08/[id number] Mame Ambulatory [address] lding:[address] CareRoom: [place] [address] 3117Bed: Repository [id number] 02/11/[id number] Mame Ambulatory [facility] Repository 02/11/2018/02/12/20 [id number] [facility] [facility] 02/11/2018 [id number] [facility] 01/20/2018 [id number] Ambulatory Building:[facility] Repository 01/12/2018/01/13/20 [id number] Ambulatory BMSBuilding: [place] 18 B[facility] Repository 01/11/2018 [id number] [facility] 01/04/2018 [id number] Ambulatory Building:[facility] Repository 01/04/2018 [id number] Ambulatory Building:[facility] Repository 01/04/2018 [id number] Ambulatory Building:[facility] Repository 12/29/2017 [id number] Ambulatory Building:[facility] Repository 12/29/2017/12/30/19 [id number] [facility] Catholic Roman Catholic [address] [place] [address] ding:[facility] Repository 12/29/2017 [id number] Ambulatory [address] [place] [address] Repository 11/26/2017/11/27/19 [id number] Ambulatory BMSBuilding: [place] 18 BMS[facility] Repository 11/25/2017 [id number] Ambulatory BMS [facility] Repository 10/06/2017/10/07/19 [id number] Ambulatory BMSBuilding: [place] 18 BMS[facility] Repository 09/09/2017 [id number] Ambulatory Building:[facility] Repository 09/09/2017 [id number] Ambulatory Building:[facility] Repository 07/29/2017 [id number] Ambulatory [facility] ding:LAB Repository 07/29/2017/07/29/19 [id number] Ambulatory BMSBuilding: [place] 18 BMS[facility] Repository 07/29/2017 [id number] Ambulatory BMSBuilding: [place] BMS.[facility] Repository 06/26/2017/06/26/19 [id number] Ambulatory BMSBuilding: [place] 18 BMS[facility] Repository PAYERS PAYERS ENCOUNTER GUARANTOR PAYER SUBSCRIBER SOURCE 06/01/2018 GLADYS VIDAL Primary GLADYS VIDAL [place] Sr[address] Insurance:ANTHEM : Community [employer] [id number] [place] Number: Repository [place] [address]Boq: [id number] Date:1972-44-95NV [address] () [address]QBT[place]Y, [place] [address]JY: 06/01/2018 Secondary NOT GIVENUNK [place] Insurance:SELF PAY [facility] Number: Effective Repository Date:2018-06-01 06/01/2018 GLADYS W STAKE Primary GLADYS W STAKE [place] Sr[address] Insurance:ANTHEM Sr.: Community [employer] [id number] [facility]oudoun [facility], [place] Number: Repository [place] [address]Gkt: [id number] Date:9956-45-59VO [address]OX () [address]BUQF[place], [place] [address]KP: 06/01/2018 Secondary NOT GIVENUNK [place] Insurance:SELF PAY [facility] Number: Effective Repository Date:2018-06-01 06/01/2018 GLADYS W STAKE Primary GLADYS W STAKE [place] Sr[address] Insurance:ANTHEM Sr.: Community [employer] [id number] [facility]oud[facility], [place] Number: Repository [place] [address]Smh: [id number] Date:4422-48-26HL [address]OX () [address]CGFISDH, [place] [address]WW: 06/01/2018 Secondary NOT GIVENUNK [place] Insurance:SELF PAY [facility] Number: Effective Repository Date:2018-06-01 05/12/2018 GLADYS W STAKE Primary GLADYS W STAKE Roman Catholic SRDOB: Insurance:ANTHEMPolic SRDOB: [facility] W y Number: Effective [id number] [place] [address] Date:2018-05-12 [facility] [id number] Name:CD:[id number] [address] [place] [address]Btz: 202129UHOJWUGSALONI WEBBER [address]Ouj: 17737CX: (855) (HP) [phone] (HP) (WP) 05/12/2018 GLADYS VIDALDOB: Primary GLADYS VIDALDOB: Turner W Insurance:[facility] [id number] [place] [address] Number: Miguel IRAHETA Repository VARGAS [id number] [place] [id number]: Date:Plan Name:Health [place] [id number]: (QG) (HP) 04/28/2018 GLADYS VIDAL Primary GLADYS Rivera [facility] [place] [address] Insurance:ANTHEM Sr.: Community [place] MEDICARE SENIOR [id number] [facility] Number: Repository [place] [address]Kut: [id number] Date:7091-24-90BW [address]OX () 120866HUBJWCU, [place] [address]PO: 04/28/2018 Secondary NOT GIVENUNK [place] Insurance:SELF PAY [facility] Number: Effective Repository Date:2018-04-28 04/08/2018 GLADYS VIDAL Primary GLADYS Rivera [facility]: Insurance:ANTHEM SR.: Three Repository W MANAGED [id number] [place] MEDICAREPolicy W [place] [facility], Number: ROCKY KAYE [address]Gpv: [id number] [place] [address]Hok: Date:3213-34-80WX BOX () 384951HDLQGML, [place] () [address]VW: 04/08/2018 Secondary GLADYS VIDAL [facility] Insurance:ANTHEM SR.: Three Repository MANAGED [id number] MEDICAREPolicy Miguel IRAHETA Number: VARGAS [id number] [place] [address]Lle: Date:1426-04-63BL [address]VEBWBEU, [place] () [address]YB: 03/23/2018 GLADYS VIDAL [facility] Insurance:ANTH SR.: Three Repository W MANAGED [id number] [place] MEDICAREPolicy W [place], Number: ROCKY KAYE [id number]: [id number] [place] [address]Waq: Date:8996-15-28HP BOX (HP) 376131YTPCKGQ, [place] () [address]TC: 03/23/2018 [facility] Insurance:[facility] Three Repository MANAGED [id number] MEDICAREJeseanselmo Rivera MYRTLE Number: VARGAS [id number] [place] [address]Fdb: Date:4682-36-00CK [address]MQUTLCB, [place] () [address]ES: 2018 GLADYS VIDAL [facility]: Insurance:HUMANA STAKEDOB: Three Repository W MANAGED [id number] MYRTLE MEDICAREPolanselmo LUKEKIMMANNY, Number: [place]OCK[place] KAYE [id number]: [id number] [place] [address] Date:2013-06-15 - (HP) 4961-59-62YU [address] [place] [address]JS: 2018 Secondary [facility] Insurance:[facility]: Three Repository MANAGED [id number] MEDICAREPolicy W [place] Number: VARGAS [id number] [place] [address] Date:0068-57-21PM [address]RQXVEWS, [place] [address]FL: 03/18/2018 Primary GLADYSEVE VIDAL [facility] Insurance:[employer] SRDOB: Lor buitrago [address] [place] [address] Number: [id number] [facility] [id number] Miguel IRAHETA Repository Date:Raheel VARGAS, Name:HealthKentucky [facility] [place] [address]Fzn: [place]ndon [place], [place] [address]RR: (780) (FW) [phone] 03/11/2018 GLADYS VIDAL Primary GLADYS VIDAL [facility].: Insurance:ANTHEM SR.: Three Repository W MANAGED [id number] IRAHE[place] MEDICAREPolicy Miguel IRAHETA [facility], Number: [place] [address]Bmv: [id number] [place] [address] Date:8067-27-18KI BOX (ON) 467700MPKIJJY, [place] [address]ZS: 03/11/2018 Secondary GLADYS VIDAL [facility] Insurance:ANTH SR.: Three Repository MANAGED [id number] MEDICAREPolicrigoberto Miguel IRAHETA Number: VARGAS [id number] [place] [address] Date:8604-37-82BQ [address] 000635FKAITDE, [place] [address]LU: 03/10/2018 GLADYS VIDAL Primary GLADYS VIDAL [facility].: Insurance:MEDICARE SR.: Turner W [facility] [place] [id number] Yariel IRAHETA [facility] Number: Miguel IRAHETA [place] STREETLOUDCLEVELAND CLIN[facility] [id number] STREETUDCLEVELAND CLINIC [facility] Repository [place], [place] [address]Rex: Date:4566-34-48Nqol [place], [place] [address]Zmn: Name:CARE (LZ) (RD) 03/10/2018 GLADYS Rivera STAKE Primary GLADYS W [facility].: Insurance:MEDICARE SR.: [place] [facility] [place] [id number] Yariel IRAHETA PPOPolicy Number: Miguel IRAHETA [place] STREETLOUDONVOHIOHEALTH DOCTORS [facility] [id number] STREETLOUDONVILL Repository [place], [place] [address]Rxj: Date:9309-03-56Yfwc E, [place] [address]Igp: Name:CARE (HP) (HP) 03/08/2018 Primary GLADYS Rivera [facility] Insurance:[facility] SRDOB: [place] [address]Pol[facility] Number: [id number] [facility] [id number] Miguel IRAHETA Repository Date:Plan [facility], Name:HealthElectronic [place] [address]Guh: [place], [place] [address]DZ: (025) (HP) [phone] 02/11/2018 Primary GLADYS Rivera [facility] Insurance:[facility] SRDOB: [place] [address]reat [facility] Number: [id number] [facility] [id number] Miguel IRAHETA Repository Date:Plan [facility], Name:HealthElectronic [place] [address]Zcd: [place], [place] [address]NT: (952) (HP) [phone] 02/11/2018 GLADYS VIDAL Primary GLADYS Rivera [facility].: Insurance:[facility] ER[facility] Repository MANAGED [id number] MYRTLE MEDICAREPolicy Miguel IRAHETA [facility], Number: [place], [place] [address]Ddx: [id number] [place] [address] Date:4641-00-75AS BOX () 516086ZCTZCNC, [place] [address]DT: 02/11/2018 Secondary GLADYS Rivera [facility] Insurance:[facility] ER.: Three Repository MANAGED [id number] MEDICAREPolanselmo IRAHETA Number: VARGAS [id number] [place] [address] Date:7612-18-24TU [address]03VTZGYLR, [place] [address]WU: 02/11/2018 GLADYS VIDAL Primary GLADYS MORENO [facility].: Insurance:HUMANA STAKEDOB: Three Repository W MANAGED [id number] [place] MEDICAREPolicy W [place], Number: ROCKY KAYE [address]Vhs: [id number] [place] [address] Date:2013-06-15 - () 8071-64-66FU [address] [place] [address]EU: 02/11/2018 Secondary GLADYS VIDAL [facility] Insurance:ANTHEM SR.: Three Repository [facility] [id number] MEDICAREPolicrigoberto IRAHETA Number: VARGAS [id number] [place] [address] Date:1690-69-96FH [address]857SWUIUET, [place] [address]ZV: 01/20/2018 GLADYS VIDAL Primary GLADYS VIDAL [facility]: Insurance:MEDICARE SR.: [place] [facility] [place] [id number] [facility] PPOPolicy Number: [facility] [id number] [facility] Rep[place], [place] [address]Ytl: Date:1413-82-02Gxcy [place], [place] [address]Qrk: Name:CARE () () 01/12/2018 GLADYS VIDAL Primary GLADYS VIDAL [place] [address] Insurance:ANTHEM Sr.: Community [place] MEDICARE SENIOR [id number] [facility] Number: [place]ository [place] [address]Kqw: [id number] Date:9488-94-17QJ BOX () 173471XJIYLXE, [place] [address]GB: 01/12/2018 Secondary NOT GIVENUNK [place] Insurance:SELF PAY [facility] Number: Effective Repository Date:2018-01-12 01/11/2018 GLADYS MORENO [facility] STAKEDOB: Insurance:HUMANA STAKEDOB: Three Repository W MANAGED [id number] [place] MEDICAREPolicy Miguel [place], Number: [place] [address]Wij: [id number] [place] [address] Date:7162-11-67UX BOX () 07648AHMWNYNFW, [place] [address]NZ: 01/04/[address] [facility].: Insurance:MEDICARE SR.: [place] [facility] [place] [id number] [place], [place] [address]OPolicy Number: Miguel [facility] STREETLOUDONVILL [id number] STREETLOUDONVILL Repository [place], [place] [address]Frf: Date:1108-81-79Bghs [place], [place] [address]Xbr: Name:CARE (HP) (HP) 01/04/[address] [facility].: Insurance:MEDICARE SR.: [place] [facility] [place] [id number] [place], [place] [address]OPolicy Number: Miguel [facility] STREETLOUDONVILL [id number] STREETLOUDONVILL Rep[place], [place] [address]Nrg: Date:8296-17-68Twaz [place], [place] [address]Yny: Name:CARE (HP) (HP) 01/04/[address] [facility].: Insurance:MEDICARE SR.: Turner [facility] [place] [id number] [facility] PPOPolicy Number: Miguel [facility] CountyLOGANCLEVELAND CLINIC [facility] [id number] STREETLOUDONVILL Repository [place], [place] [address]Ctg: Date:1305-38-59Witj [place], [place] [address]Who: Name:CARE (HP) (HP) 12/29/2017 GLADYS VIDAL Primary GLADYS VIDAL [facility] SR.: Insurance:MEDICARE SR.: [place] [facility] [place] [id number] [facility] PPOPolicy Number: Miguel [facility] DONELLOHIOHEALTH DOCTORS [facility] [id number] STREETLOUDONVILL Repository [place], [place] [address]Jbo: Date:3563-89-96Zhse [place], [place] [address]Npt: Name:CARE (HP) (HP) 12/29/2017 GLADYS VIDAL Primary GLADYS VIDAL [employer] SRDOB: Insurance:ANTHEMPolic SRDOB: [facility] y Number: Effective [id number] [facility] Date:2017-12-29 [facility], 6721-70-00Vuxh[address] Name:CD:[id number] [facility] [address]Mnx: [id number], [place] [address]Grx: [address]QD: (855) (VN) [phone] (HP) () 12/29/2017 GLADYS STAKEDOB: Primary GLADYS [facility]: Turner Insurance:[facility] [id number] [facility] y Number: Miguel IRAHETA [facility] CenterLOGANPROGRESS WEST HOSPITALKELLY, [id number] [place] [address]Cub: Date:Plan Name:[facility] [phone]: (HP) (HP) 11/26/2017 GLADYS VIDAL Primary GLADYS Rivera [facility] [place] Sr[address] Insurance:ANTHEM Sr.: Community [place] MEDICARE SENIOR [id number] Loudoun Medical Center, [place] Number: Repository [place] [address]Hzl: [id number] Date:2385-10-32YO BOX () 5[address]19NAXVOQX[address] [place] [address]JL: 11/26/2017 Secondary NOT GIVENUNK [place] Insurance:SELF PAY [facility] Number: Effective Repository Date:2017-11-26 11/25/2017 GLADYS VIDAL Primary GLADYS Rivera STAKE [place] Sr[address] Insurance:ANTHEM Sr.: Community [place] MEDICARE SENIOR [id number] Loudoun Medical Center, [place] Number: [place]ository [place] [address]Dvv: [id number] Date:6079-82-35OQ BOX () 76[address]17FRNHHXI[address] [place] [address]GX: 11/25/2017 Secondary NOT GIVENUNK [place] Insurance:SELF PAY [facility] Number: Effective Repository Date:2017-11-25 10/06/2017 GLADYS VIDAL Primary GLADYS Rivera STAKE [place] [address] Insurance:ANTHEM Sr.: Community [place] MEDICARE SENIOR [id number] Loudoun Medical Center, [place] Number: [place]ository [place] [address]Pwi: [id number] Date:8212-76-02ZF BOX () 280569EMFNOVL, [place] [address]XS: 10/06/2017 Secondary NOT GIVENUNK [place] Insurance:SELF PAY [facility] Number: Effective Repository Date:2017-10-06 09/09/2017 GLADYS VIDAL Primary GLADYS VIDAL [facility] SR: Insurance:MEDICARE SR.: Turner W [facility] [id number] [facility] Number: [facility] [id number] STREETLOUDONVILL Rep[place], [place] [address]Rmv: Date:7057-26-57Ulid [place], [place] [address]Aen: Name:CARE () (HP) 09/09/2017 GLADYS VIDAL Primary GLADYS VIDAL [facility] SR.: Insurance:MEDICARE SR.: [place] [id number] [facility] PPOPolicy Number: Miguel [facility] STREETLOUDONVOHIOHEALTH DOCTORS HOSPITAL [id number] STREETLOUDONVILL Rep[place], [place] [address]Ski: Date:6020-79-04Bzse [place], [place] [address]Znn: Name:CARE () (HP) 07/29/2017 GLADYS VIDAL Primary GLADYS Rivera [facility] [place] [address] Insurance:ANTHEM Sr.: Community [place] MEDICARE SENIOR [id number] Loudoun Medical Center, [place] Number: Repository [place] [address]Apr: [id number] Date:0312-43-39UW BOX () 732913UYLFZXI[address] [place] [address]RW: 07/29/2017 Secondary NOT GIVENUNK [place] Insurance:SELF PAY [facility] Number: Effective Repository Date:2017-07-29 07/29/2017 GLADYS VIDAL Primary GLADYS Rivera STAKE [place] [address] Insurance:ANTHEM .: Community [place] MEDICARE SENIOR [id number] Loudoun Medical Center, [place] Number: [place]ository [place] [address]Qml: [id number] Date:0514-35-47DL BOX () 726085CFRIOQG, [place] [address]UP: 07/29/2017 Secondary NOT GIVENUNK [place] Insurance:SELF PAY [facility] Number: Effective Repository Date:2017-07-28 07/29/2017 GLADYS VIDAL Primary GLADYS Rivera STAKE [place] [address] Insurance:ANTHEM Sr.: Community [place] MEDICARE SENIOR [id number] Loudoun Medical Center, [place] Number: Repository [place] [address]Yct: [id number] Date:9990-86-46OA BOX () 932909YZSDGFJ, [place] [address]CX: 07/29/2017 Secondary NOT GIVENUNK [place] Insurance:SELF PAY [facility] Number: Effective Repository Date:2017-07-29 06/26/2017 GLADYS W STAKE Primary GLADYS W STAKE [place] Sr[address] Insurance:ANTHEM Sr.: Community [place] MEDICARE SENIOR [id number] Loudoun Medical Center, [place], [facility] Number: [place]ository [place] [address]Mnf: [id number] Date:4922-42-72IR BOX () 530680JPZMTYN, [place] [address]CP: 06/26/2017 Secondary NOT GIVENUNK [place] Insurance:SELF PAY [facility] Number: Effective Repository Date:2017-05-19
== END ==
LOC: LAB 11:06
PROVIDERS: Family Provider Family Medicine; PCP Family Medicine; Referring Provider Internal Medicine Cardiovascular Disease; Visit Provider Internal Medicine Cardiovascular Disease
DX: I50.22 Chronic systolic (congestive) heart failure (principal)
CPT/HCPCS: 36415; 80048; 83880

== ENCOUNTER → 2018-08-31 11:20 | Outpatient (CLI) | payer MEDICARE, SELFPAY ==
[2018-08-31 10:20] VITALS: BMI 33.3
--- NOTE | 2018-08-31 11:30 | RAD_ITS ---
STUDY: X-RAY CHEST REASON FOR EXAM: Male, 73 years old. Shortness of breath. TECHNIQUE: Frontal and lateral views of the chest. COMPARISON: 04/25/2016. FINDINGS: The lungs are clear and expanded. There is no demonstrated pleural abnormality. Normal size heart. 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 Normal mediastinum and gideon. Normal visualized pulmonary arteries. Normal visualized aortic arch and descending thoracic aorta. There are diffuse degenerative changes of the visualized thoracic spine. Normal visualized ribs, clavicles, and shoulders. There is no demonstrated abnormality of the visualized soft tissue structures of the upper abdomen. RAD/Chest PA and Lateral IMPRESSION: No acute chest disease. Electronically Signed: Nino Milligan MD at 15:11 EDT , Service support ,
[2018-08-31 12:49] LABS: Absolute Lymphocyte Count 2.17 X10^3/ul (0.83-4.51); Absolute Neutrophil Count 6.2 X10^3/uL (2.0-7.7); Basophil# 0.01 X10^3/uL; Basophil% 0.1 % (0-1); Eosinophil# 0.35 X10^3/uL; Eosinophils% 3.6 % (0-5); Hematocrit 38.8 % (40-54); Hemoglobin 12.3 g/dl (13.0-16.5); Lymphocyte # 2.17 X10^3/ul (4.0); Lymphocyte % 22.1 % (19-41); Mean Corp Hgb Conc 31.7 g/gl (32-36); Mean Corpuscular Hgb 30.6 pg (27.0-32.0); Mean Corpuscular Volume 96.5 fL (80-94); Mean Platelet Vol. 10.9 fl (6.2-12.0); Monocyte# 1.02 X10^3/uL; Monocyte% 10.4 % (0-10); Neutrophil # 6.23 X10^3/uL (2.7-7.7); Neutrophil % 63.5 % (47-70); Platelet Count 215 K/mm3 (150-450); RBC Distribution Width CV 14.6 % (11.6-14.6); RBC Distribution Width SD 49.9 fl (35.1-43.9); Red Blood Count 4.02 M/mm3 (4.6-6.2); White Blood Count 9.8 K/mm3 (4.4-11.0)
[2018-08-31 12:50] LABS: POSITIVE COUNT NO; POSITIVE DIFFERENTIAL NO; POSITIVE MORPHOLOGY NO
[2018-08-31 13:25] LABS: BNP,B-Type NATRIURETIC PEPTIDE 34.6 pg/mL (0-100)
[2018-08-31 13:36] LABS: Anion Gap 11 (5-15); BUN 41 mg/dL (7-18); BUN/Creat Ratio 17.5 RATIO (10-20); Calcium,Total 8.9 mg/dL (8.5-10.1); Chloride 104 mmol/L (98-107); Creatinine, Serum 2.34 mg/dL (0.70-1.30); EST Glomerular Filtration Rate 29 mL/min (>60); Est Glom Filt Rate - Afr Amer 35 mL/min (>60); Glucose 90 mg/dL (74-106); Potassium 4.1 mmol/L (3.5-5.1); Sodium Level 139 mmol/L (136-145)
== END ==
PROVIDERS: Family Provider Family Medicine; PCP Family Medicine; Referring Provider Physician Assistant Medical; Visit Provider Physician Assistant Medical
DX: I11.0 Hypertensive heart disease with heart failure (principal); I50.22 Chronic systolic (congestive) heart failure; I43 Cardiomyopathy in diseases classified elsewhere; I48.1 Persistent atrial fibrillation; R06.09 Other forms of dyspnea
CPT/HCPCS: 36415; 71046; 80048; 83880; 85025

== ENCOUNTER → 2018-09-13 11:45 | Outpatient (CLI) | payer MEDICARE, SELFPAY ==
[2018-08-31 10:20] VITALS: BMI 33.3
[2018-09-13 12:49] LABS: Anion Gap 8 (5-15); BUN 39 mg/dL (7-18); BUN/Creat Ratio 19.2 RATIO (10-20); Calcium,Total 8.5 mg/dL (8.5-10.1); Chloride 107 mmol/L (98-107); Creatinine, Serum 2.03 mg/dL (0.70-1.30); EST Glomerular Filtration Rate 34 mL/min (>60); Est Glom Filt Rate - Afr Amer 41 mL/min (>60); Glucose 126 mg/dL (74-106); Potassium 3.6 mmol/L (3.5-5.1); Sodium Level 144 mmol/L (136-145)
== END ==
PROVIDERS: Family Provider Family Medicine; PCP Family Medicine; Referring Provider Physician Assistant Medical; Visit Provider Physician Assistant Medical
DX: I10 Essential (primary) hypertension (principal)
CPT/HCPCS: 36415; 80048

== ENCOUNTER → 2018-09-28 11:49 | Outpatient (CLI) | payer MEDICARE, SELFPAY ==
[2018-08-31 10:20] VITALS: BMI 33.3
--- NOTE | 2018-09-28 11:52 | US_ITS ---
HISTORY: SCROTAL MASS LEFT PAIN COUPLE MONTHS EXAMINATION: US Scrotum (Contents) TECHNIQUE: Realtime ultrasound of the testicles was performed with grayscale, Color Doppler and spectral Doppler analysis. COMPARISON: None FINDINGS: The right testicle shows normal size and echogenicity. Right testicle measures approximately 3.3 x 2.3 x 2.3 cm. The left testicle appears smaller than the right although this may be positional and artifactual. Left testicular measurements are 2 x 1.9 x 1.6 cm. Left intra-testicular circumscribed simple cyst measuring 0.4 x 0.3 cm. Bilateral testicular blood flow and no suspicious testicular lesion. Bilateral moderate hydroceles, predominately simple on the right and complex on the left. Left hydrocele shows internal echoes. No epididymal enlargement seen. A left inguinal hernia is suspected. US/Testicular with Arterial Flow IMPRESSION: 1. Bilateral moderate hydroceles, predominantly simple on the right and complex on the left. 2. A left inguinal hernia is suspected. If symptoms warrant, suggest further correlation with pelvic CT and this could be performed. without contrast. 3. No suspicious intratesticular lesion seen. at 0613 Reported and signed by: Tucker Wilkinson MD Electronically Signed: Tucker Wilkinson, at 6:12 EDT Tel , Service support ,
== END ==
PROVIDERS: Family Provider Family Medicine; PCP Family Medicine; Referring Provider Family Medicine; Visit Provider Family Medicine
DX: N50.89 Other specified disorders of the male genital organs (principal)
CPT/HCPCS: 76870; 93976

== ENCOUNTER → 2018-10-01 10:54 | Outpatient (CLI) | payer MEDICARE, SELFPAY ==
[2018-10-01 09:30] VITALS: BMI 33.9
[2018-10-01 11:07] VITALS: BP 137/71; PULSE 118; RESP 20; TEMP 36.7; O2SAT 98; BMI 33.9
[2018-10-01] MEDS: Furosemide 40 MG/4 ML Vial IV (12:04)
== END ==
PROVIDERS: Family Provider Family Medicine; PCP Family Medicine; Visit Provider Physician Assistant Medical
DX: I50.21 Acute systolic (congestive) heart failure (principal)
CPT/HCPCS: 96374; A4216; J1940

== ENCOUNTER 2018-10-02 08:34 | Outpatient (CLI) | payer MEDICARE, SELFPAY ==
[2018-10-01 11:07] VITALS: BMI 33.9
[2018-10-02] MEDS: Furosemide 40 MG/4 ML Vial IV (09:10)
[2018-10-02 09:11] VITALS: PULSE 60; RESP 16; TEMP 36.6; O2SAT 96; BMI 32.5
== END 2018-10-02 09:16 | disposition home or self-care (01) ==
PROVIDERS: Family Provider Family Medicine; PCP Family Medicine; Referring Provider Physician Assistant Medical; Visit Provider Physician Assistant Medical
DX: Z00.00 Encounter for general adult medical examination without abnormal findings (principal)
CPT/HCPCS: 96374; J1940

== ENCOUNTER → 2018-10-04 | Outpatient (CLI) | payer MEDICARE, SELFPAY ==
[2018-10-01 11:07] VITALS: BMI 33.9
[2018-10-02 09:11] VITALS: BMI 32.5
[2018-10-04] MEDS: Furosemide 40 MG/4 ML Vial IV (12:46)
[2018-10-04 12:47] VITALS: BP 120/67; PULSE 60; RESP 16; TEMP 36.7; O2SAT 97; BMI 31.8
== END | disposition home or self-care (01) ==
LOC: MEDOUTP 12:27
PROVIDERS: Family Provider Family Medicine; PCP Family Medicine; Referring Provider Physician Assistant Medical; Visit Provider Physician Assistant Medical
DX: I50.9 Heart failure, unspecified (principal)
CPT/HCPCS: 96374; A4216; J1940

== ENCOUNTER → 2018-10-05 | Outpatient (CLI) | payer MEDICARE, SELFPAY ==
[2018-10-01 11:07] VITALS: BMI 33.9
[2018-10-04 15:22] VITALS: BMI 31.8
[2018-10-05] MEDS: Furosemide 40 MG/4 ML Vial IV (12:32)
[2018-10-05 12:44] VITALS: BP 113/54; PULSE 59; RESP 18; TEMP 37.1; O2SAT 97; BMI 31.7
== END | disposition home or self-care (01) ==
LOC: MEDOUTP 12:18
PROVIDERS: Family Provider Family Medicine; PCP Family Medicine; Referring Provider Physician Assistant Medical; Visit Provider Physician Assistant Medical
DX: I50.9 Heart failure, unspecified (principal)
CPT/HCPCS: 96374; A4216; J1940

== ENCOUNTER → 2018-10-06 12:37 | Outpatient (CLI) | payer MEDICARE, SELFPAY ==
[2018-10-01 11:07] VITALS: BMI 33.9
[2018-10-05 12:44] VITALS: BMI 31.7
[2018-10-06 13:10] VITALS: BP 112/50; PULSE 55; RESP 18; TEMP 36.6; O2SAT 98; BMI 31.7
[2018-10-06] MEDS: Furosemide 40 MG/4 ML Vial IV (13:23)
[2018-10-06 13:38] LABS: Anion Gap 5 (5-15); BUN 37 mg/dL (7-18); BUN/Creat Ratio 16.9 RATIO (10-20); Calcium,Total 8.6 mg/dL (8.5-10.1); Chloride 105 mmol/L (98-107); Creatinine, Serum 2.19 mg/dL (0.70-1.30); EST Glomerular Filtration Rate 31 mL/min (>60); Est Glom Filt Rate - Afr Amer 38 mL/min (>60); Estimated Creatinine Clearance 32.48 ml/min; Glucose 110 mg/dL (74-106); Potassium 4.1 mmol/L (3.5-5.1); Sodium Level 141 mmol/L (136-145)
== END ==
PROVIDERS: Family Provider Family Medicine; PCP Family Medicine; Referring Provider Physician Assistant Medical; Visit Provider Physician Assistant Medical
DX: I50.9 Heart failure, unspecified (principal)
CPT/HCPCS: 96374; 36415; 80048; J1940

== ENCOUNTER → 2018-10-11 | Outpatient (CLI) | payer MEDICARE, SELFPAY ==
[2018-10-11 14:27] VITALS: BMI 32.1
[2018-10-11 16:37] LABS: Anion Gap 8 (5-15); BUN 34 mg/dL (7-18); BUN/Creat Ratio 16.1 RATIO (10-20); Calcium,Total 9.1 mg/dL (8.5-10.1); Chloride 102 mmol/L (98-107); Creatinine, Serum 2.11 mg/dL (0.70-1.30); EST Glomerular Filtration Rate 33 mL/min (>60); Est Glom Filt Rate - Afr Amer 40 mL/min (>60); Glucose 133 mg/dL (74-106); Potassium 4.4 mmol/L (3.5-5.1); Sodium Level 139 mmol/L (136-145)
== END | disposition home or self-care (01) ==
LOC: LAB 15:16
PROVIDERS: Family Provider Family Medicine; PCP Family Medicine; Referring Provider Physician Assistant Medical; Visit Provider Physician Assistant Medical
DX: I50.22 Chronic systolic (congestive) heart failure (principal)
CPT/HCPCS: 36415; 80048

== ENCOUNTER → 2018-10-14 | Outpatient (CLI) | payer MEDICARE, SELFPAY ==
[2018-10-11 14:27] VITALS: BMI 32.1
--- NOTE | 2018-10-14 14:48 | CT_ITS ---
STUDY: CT ABDOMEN AND PELVIS WITHOUT CONTRAST REASON FOR EXAM: Male, 73 years old. Left groin pain and swelling. RADIATION DOSAGE (If Supplied By Facility): CTDIvol = ( 16.95 ) mGy, DLP = ( 1364.79 ) mGycm TECHNIQUE: Transaxial images were obtained from the dome of the diaphragm to the symphysis pubis without oral contrast, and without intravenous contrast. Sagittal and coronal images were reconstructed. Individualized dose optimization techniques were used for this CT. COMPARISON: None. FINDINGS: The visualized lung bases are unremarkable. And dual-chamber pacemaker is seen. There is decreased attenuation of the liver consistent with steatosis. Normal gallbladder and extrahepatic biliary system. Normal spleen. There is diffuse atrophy of the pancreas. Normal bilateral adrenal glands. Normal right kidney. Normal left kidney. There is a small hiatal hernia. Normal small intestine. Normal colon. The appendix is visualized and appears normal. There is diffuse atherosclerotic calcification of the abdominal aorta, without a demonstrated aneurysm. Normal inferior vena cava. Normal retroperitoneum. Normal urinary bladder. There is enlargement of the prostate gland. It measures 4.6 cm x 5.8 cm. There is peripheral calcification along the left lateral wall of the prostate gland. Moderate sized left inguinal hernia containing a portion of the sigmoid colon. There are diffuse degenerative changes of the visualized lumbar spine. Prior intrapedicular screw fixation at the L3-L4, L4-L5 and L5-S1 levels. 50% loss of height of the superior endplate of the L4 vertebrae. CT/Abdomen/Pel W ORAL Cont Only IMPRESSION: Moderate sized left inguinal hernia containing a portion of the sigmoid colon. Fatty infiltration of the liver. Electronically Signed: Max Miranda, at 15:28 EDT , Service support ,
== END | disposition home or self-care (01) ==
LOC: CT 14:47
PROVIDERS: Family Provider Family Medicine; PCP Family Medicine; Referring Provider Surgery; Visit Provider Surgery
DX: R10.32 Left lower quadrant pain (principal); R19.09 Other intra-abdominal and pelvic swelling, mass and lump
CPT/HCPCS: 74176

== ENCOUNTER → 2018-10-21 | Outpatient (CLI) | payer MEDICARE, SELFPAY ==
[2018-10-21 15:17] VITALS: BMI 33.2
[2018-10-21 17:58] LABS: Anion Gap 10 (5-15); BUN 90 mg/dL (7-18); BUN/Creat Ratio 22.5 RATIO (10-20); Calcium,Total 8.8 mg/dL (8.5-10.1); Chloride 101 mmol/L (98-107); EST Glomerular Filtration Rate 16 mL/min (>60); Est Glom Filt Rate - Afr Amer 19 mL/min (>60); Glucose 135 mg/dL (74-106); Potassium 4.1 mmol/L (3.5-5.1); Sodium Level 141 mmol/L (136-145)
== END | disposition home or self-care (01) ==
LOC: LAB 16:20
PROVIDERS: Family Provider Family Medicine; PCP Family Medicine; Referring Provider Internal Medicine Cardiovascular Disease; Visit Provider Internal Medicine Cardiovascular Disease
DX: I48.92 Unspecified atrial flutter (principal)
CPT/HCPCS: 36415; 80048; 83735

== ENCOUNTER 2018-10-26 10:49 | Day surgery (SDC) | payer MEDICARE, SELFPAY ==
[2018-10-21 15:17] VITALS: BMI 33.2
--- NOTE | 2018-10-21 16:02 | HP_ITS ---
HPI HPI History of Present Illness Surgical H&P: Yes Details: GLADYS VIDAL, is a 73 M who presents to the office today for a cardiovascular follow-up, last week he was in the office for concerns over weight gain and increased shortness of breath and fatigue. We did in the past try adjusting oral diuretics, this did not seem to help, patient then did undergo IV diuretics last week.He has a history of cardiomyopathy that is out of proportion with his coronary artery disease. He had stenting to his LAD in 2016. He also has a history of persistent atrial fibrillation and did require a pacemaker defibrillator which is a dual-chamber. He has recently noted that he has been more short of breath and has also gained weight. He has gained approximately 12 to 14 pounds over the last year. He is fatigued and has been short of breath. His physical exam here today demonstrates occasional rales at the bases regular rate and rhythm and 1+ pitting edema. His electrocardiogram done today demonstrates what appears to be atrial flutter with a controlled rate at 81 bpm and ventricular pacing. Intake Vital Signs 10/21/18 Height 6 ft 10/21/18 Weight: 245 lb 10/21/18 Body Mass Index (BMI) 33.2 10/21/18 Blood Pressure 100/60 10/21/18 Respiratory Rate 28 H 10/21/18 Pulse Rate 80 10/21/18 Pulse Ox 94 Intake Visit Reasons: PreOp Clearance Allergies No Known Allergies Allergy (Verified 10/21/18 15:17) Medications Apixaban [Eliquis] 5 mg PO BID 10/31/15 [History Confirmed 10/11/18] Clopidogrel Bisulfate [Plavix] 75 mg PO DAILY 10/31/15 [History Confirmed 10/11/18] Lisinopril [Zestril] 2.5 mg PO DAILY 10/31/15 [History Confirmed 10/11/18] Multivitamins,Ther W-Minerals [Multivitamin With Minerals] 1 tab PO DAILY 10/31/15 [History Confirmed 10/11/18] Tamsulosin HCl [Flomax] 0.4 mg PO DAILY 10/31/15 [History Confirmed 10/11/18] metoprolol succinate ER 50 mg tablet,extended release 24 hr 50 mg PO .COMPLEX #90 tab 08/13/17 [Rx Confirmed 10/11/18] rosuvastatin 20 mg tablet 20 mg PO QDAY 11/26/17 [History Confirmed 10/11/18] albuterol sulfate HFA 90 mcg/actuation aerosol inhaler 1 puff INHALATION Q6H PRN 10/07/18 [History Confirmed 10/11/18] amiodarone 200 mg tablet 200 mg PO DAILY #60 tab 10/21/18 [Rx Confirmed 10/21/18] furosemide 40 mg tablet 60 mg PO BID tab 10/21/18 [History Confirmed 10/21/18] metolazone 2.5 mg tablet 2.5 mg PO .mon and thursday #20 tab 10/21/18 [Rx Confirmed 10/21/18] [facility] Medical History Ischemic cardiomyopathy (Chronic) Atrial flutter with rapid ventricular response (Acute 10/18/18) Essential (primary) hypertension (Chronic) Severe left ventricular systolic dysfunction (Chronic) Persistent atrial fibrillation (Chronic) Atherosclerosis of coronary artery of [place] heart without angina pectoris (Chronic) Hyperlipidemia (Chronic) BPH (benign prostatic hyperplasia) (Chronic) Surgical History History of coronary artery stent placement (Resolved 10/12/15) ICD (implantable cardioverter-defibrillator), dual, in situ (Chronic 02/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) History of colonoscopy (Acute ~2016) History of umbilical hernia repair (Acute) History of cardioversion (Chronic ~10/2015) History of total left hip arthroplasty (Chronic ~02/24/17) Traumatic amputation of multiple fingers (Resolved ~06/2017) Family History Brother Diabetes Heart disease Mother Heart disease Father Heart disease Social History Smoking Status: Never smoker second hand exposure: No alcohol intake: current alcohol intake frequency: holidays/special occasions only substance use type: does not use caffeine: No what type of physical activity do you participate in: walking frequency: daily duration: < 15 minutes/day seatbelt use: never do you feel safe at home: Yes ROS Const Const: Positive for fatigue and weakness; negative for headache(s), frequent falls, difficulty sleeping or excessive sweating Eyes Eyes: Negative for loss of peripheral vision, transient loss of vision, blurry vision, double vision or tunnel vision ENT ENT: Positive for dizziness; negative for headache(s), Nosebleed/epistaxis or balance problems Cardio Chest Pain: No Palpitations: No Edema: Right Muscle aches with walking: None Additional Details: Ascites and scrotal edema Resp Respiratory: Positive for SOB with activity (had to stop and rest walking in from lobby); negative for SOB at rest, SOB orthopnea\SOB lying down, Cough or paroxysmal nocturnal dyspnea GI GI: Negative nausea, vomiting, heartburn or black,tarry stools : Negative for hematuria Musc Musc: Negative for muscle aches/ myalgia, muscle weakness, joint pain or balance problems Skin Skin: Negative non-healing lesions, rash or unusual bruising Neuro Neuro: Positive for dizziness, lightheadedness and weakness; negative for near syncope, syncope, orthostatic symptoms, frequent falls, headache(s), blurry vision, double vision or lack of coordination [place] Hematologic/Lymphatic: Negative for easy bleeding or easy bruising Endo Endo: Positive for fatigue; negative for excessive sweating or increased thirst/drinking Psych Psych: Negative for anxiety or depression Allergy Allergy/Immunology: Negative for hives, Negative for rash Cardiology Exam Const Appearance: cooperative, healthy appearing, no acute distress, well developed and well groomed Nutritional Appearance: average body habitus and well nourished Orientation: alert, awake and oriented x3 Head Head: normal to inspection, normocephalic and atraumatic Ears: hearing grossly normal bilaterally and external ears normal Nose: external nose normal, nares normal, nasal mucous membranes and turbinates normal, septum normal, no nasal discharge Face and Sinus: face symmetric Mouth: oral mucosae normal, tongue normal, oropharynx normal and moist mucous membranes Teeth and gingiva: dentition normal Throat: posterior oropharynx normal, tonsils normal and uvula midline Eyes General: appearance normal, both eyes and all related structures Eyelids: eyelids normal Conjunctivae: conjunctivae normal Pupils: PERRL, normal by confrontation and accommodation normal EOM: EOM intact bilaterally Neck Neck: normal visual inspection, trachea midline and no JVD JVD: +5 Carotids: normal carotid upstroke and bounding pulses Chest Chest inspection: normal inspection of the chest, symmetric chest movement and normal respiratory effort Auscultation: Bilateral: Clear to Auscultation Cardio Palpation: normal PMI Rate: regular rate Rhythm: regular rhythm Heart sounds: S1 normal, S2 normal and normal, physiologic split S2; negative rub, gallop or murmur GI GI: normal to inspection, soft, no hepatosplenomegaly and bowel sounds present Neuro General: alert, awake, oriented x3, gait normal, moves all extremities and no focal sensory deficit Skin Skin: no rashes or lesions noted Extremities Lower Extremity Edema: +1: Bilateral Musculoskel Musculoskeletal: No joint tenderness Psych Psychological: normal affect Assessment & Plan 1. Acute on chronic systolic (congestive) heart failure I50.23 Plan He does have what appears to be an exacerbation of his congestive heart failure he currently is on an SOILA inhibitor, beta-tahir and diuretics. My recommendation would be in light of his renal dysfunction to increase his Lasix to 60 mg twice a day, discontinue his spironolactone, and use intermittent metolazone. 2. Atrial flutter with rapid ventricular response I48.92 Plan He does have atrial flutter with a rapid ventricular response rate he has been on anticoagulation. My recommendation will be for us to consider DC cardioversion to see whether improving atrial kick would improve his left ventricular function as well as prevent him from going to heart failure. As he has been on anticoagulation I will see whether we can perform this within the next 24 to 48 hours. I have plan on cardioverting him but he says that he has to go to a concert so we will plan on doing this next week. Orders Orders: 12 Lead EKG performed by [facility] Today Basic Metabolic Profile (BMP) Today Magnesium Today 3. Ischemic cardiomyopathy I25.5 Plan He does have a history of ischemic cardiomyopathy which is out of proportion to his coronary disease. Recommendation will be for him to remain on his current medical therapy. He may be considered a candidate for Entresto. 4. Atherosclerosis of [place] coronary artery of [place] heart without angina pectoris I25.10 [id number] LAD w/ 3.0 x 18 mm Resolute 10/12/2015 Plan He does have atherosclerotic cardiovascular disease but has not had any angina recently. We will continue to follow him. He is scheduled to have a stress test in the next few weeks. 5. ICD (implantable cardioverter-defibrillator), dual, in situ Z95.810 [facility] DF4 @ [facility] per Dr Espinal Revision for dislodged atrial lead...Insertion of new atrial lead with atrial lead revision 04/2016 @ [facility] Plan He does have a dual-chamber defibrillator it was recently evaluated and he was noted to have periods of atrial flutter. I would recommend that we attempt to DC cardioversion. After we are able to get him back in sinus rhythm he may be a candidate for amiodarone therapy to maintain sinus rhythm. 6. Pure hypercholesterolemia E78.00 Plan He does have a history of hyperlipidemia and will continue with aggressive risk factor modification. Plan Detail Other Medications New: amiodarone 200 mg PO DAILY 60 tabs 0RF Changed: From: metolazone take one tablet 30 minutes prior to your morning dose of lasix tomorrow morning then otherwise as directed 10 tabs 0RF To: metolazone 2.5 mg PO .thu and thursday 20 tabs 0RF Discontinued: spironolactone Discontinued Reason: Order Changed 25 mg (1/2 x 50 mg) PO DAILY 90 tabs 3RF Follow Up 1 Month (mmm) Coding Level of Care Code Off vis,est,level 5 Diagnoses Acute on chronic systolic (congestive) heart failure I50.23 Atrial flutter with rapid ventricular response I48.92 Ischemic cardiomyopathy I25.5 Atherosclerosis of [place] coronary artery of [place] heart without angina pectoris I25.10 ??Coronary Disease-Associated Artery/Lesion type: [place] artery ICD (implantable cardioverter-defibrillator), dual, in situ Z95.810 Pure hypercholesterolemia E78.00 ??Hyperlipidemia type: pure hypercholesterolemia Coding Level of Care Code Off vis,est,level 5 Diagnoses Acute on chronic systolic (congestive) heart failure I50.23 Atrial flutter with rapid ventricular response I48.92 Ischemic cardiomyopathy I25.5 Atherosclerosis of [place] coronary artery of [place] heart without angina pectoris I25.10 ??Coronary Disease-Associated Artery/Lesion type: [place] artery ICD (implantable cardioverter-defibrillator), dual, in situ Z95.810 Pure hypercholesterolemia E78.00 ??Hyperlipidemia type: pure hypercholesterolemia Supplemental Info Supplemental Information Diagnostics Electrocardiogram 10/21/18 Pacemaker Check 10/20/18 10/21/18 1602 <Electronically signed by José Aleman MD> Date José Aleman MD
[2018-10-25 14:30] VITALS: BMI 33.2
--- NOTE | 2018-10-26 12:40 | PCM.OP.PRO ---
Problem List (1) Ascites Status: Acute (2) Bilateral hydrocele Status: Acute (3) Atherosclerosis of coronary artery of [place] heart without angina pectoris Status: Chronic Qualifiers: Comment: [id number] LAD w/ 3.0 x 18 mm Resolute 10/12/2015 (4) Essential (primary) hypertension Status: Chronic (5) Hyperlipidemia Status: Chronic Qualifiers: (6) ICD (implantable cardioverter-defibrillator), dual, in situ Status: Chronic Comment: [facility] Fort[facility] Mary DF4 @ [facility] per Dr Espinal Revision for dislodged atrial lead...Insertion of new atrial lead with atrial lead revision 04/2016 @ [facility] (7) Ischemic cardiomyopathy Status: Chronic (8) Persistent atrial fibrillation Status: Chronic (9) Severe left ventricular systolic dysfunction Status: Chronic (10) History of coronary artery stent placement Status: Resolved Comment: [id number] LAD w/ 3.0 x 18 mm Resolute Procedure Report Date of Procedure: 10/26/18 - Conscious sedation CONSCIOUS SEDATION REPORT BRIEF HISTORY OF PRESENT ILLNESS: The patient is a 73-year-old male who presented to [facility] for an elective outpatient cardioversion due to underlying atrial fibrillation. The patient reports no PO intake since midnight. The patient does not have a history of obstructive sleep apnea, but does report snoring routinely. The patient reports no history of smoking and COPD. The patient denies any recent constitutional symptoms such as fevers, chills, nausea or vomiting. The patient denies previous anesthetic complications. Patient's last known ejection fraction was 20%. Patient did take his Eliquis on the morning of the procedure. PHYSICAL EXAMINATION: VITAL SIGNS: Reviewed and were acceptable. GENERAL: The patient is a male, in no apparent distress, speaking in full sentences. HEENT: Normocephalic, atraumatic. Poor dentition. Mucous membranes are moist and pink. Good mouth opening noted. Trachea is midline. Good neck mobility. MP IV CHEST: S1, S2 irregularly irregular. No murmurs, rubs or gallops were noted. LUNGS: Clear to auscultation bilaterally without appreciable wheezes, rales or rhonchi. ABDOMEN: Soft, nontender, nondistended. Positive bowel sounds. EXTREMITIES: There is no clubbing, cyanosis or edema. ASA Class: II DESCRIPTION OF PROCEDURE: After confirmation of informed consent, the patient's anesthesia plan was reviewed in detail. Etomidate was chosen. Risks and benefits were reviewed and the patient agreed to proceed. At 12:22 PM, the patient was given 4 mg of etomidate. The patient achieved an appropriate level of sedation and received 1 attempt synchronized cardioversion, at [address] Aleman at the bedside. This was successful in achieving normal sinus rhythm. The patient was monitored until 12:30 PM, at which time the patient reached their baseline mental status and function. The patient tolerated the procedure well. COMPLICATIONS: None ESTIMATED BLOOD LOSS: None RECOMMENDATIONS: Okay to recover in usual fashion. Code Visit 9xxxx: Other Procedure See Report - 28342 -8 minutes conscious sedation
--- NOTE | 2018-10-26 12:44 | PRO.PCM_ITS ---
Problem List (1) Ascites Status: Acute (2) Bilateral hydrocele Status: Acute (3) Atherosclerosis of coronary artery of [place] heart without angina pectoris Status: Chronic Qualifiers: Comment: [id number] LAD w/ 3.0 x 18 mm Resolute 10/12/2015 (4) Essential (primary) hypertension Status: Chronic (5) Hyperlipidemia Status: Chronic Qualifiers: (6) ICD (implantable cardioverter-defibrillator), dual, in situ Status: Chronic Comment: [facility] Fort[facility] Mary DF4 @ [facility] per Dr Espinal Revision for dislodged atrial lead...Insertion of new atrial lead with atrial lead revision 04/2016 @ [facility] (7) Ischemic cardiomyopathy Status: Chronic (8) Persistent atrial fibrillation Status: Chronic (9) Severe left ventricular systolic dysfunction Status: Chronic (10) History of coronary artery stent placement Status: Resolved Comment: [id number] LAD w/ 3.0 x 18 mm Resolute Procedure Report Date of Procedure: 10/26/18 - Conscious sedation CONSCIOUS SEDATION REPORT BRIEF HISTORY OF PRESENT ILLNESS: The patient is a 73-year-old male who presented to [facility] for an elective outpatient cardioversion due to underlying atrial fibrillation. The patient reports no PO intake since midnight. The patient does not have a history of obstructive sleep apnea, but does report snoring routinely. The patient reports no history of smoking and COPD. The patient denies any recent constitutional symptoms such as fevers, chills, nausea or vomiting. The patient denies previous anesthetic complications. Patient's last known ejection fraction was 20%. Patient did take his Eliquis on the morning of the procedure. PHYSICAL EXAMINATION: VITAL SIGNS: Reviewed and were acceptable. GENERAL: The patient is a male, in no apparent distress, speaking in full sentences. HEENT: Normocephalic, atraumatic. Poor dentition. Mucous membranes are moist and pink. Good mouth opening noted. Trachea is midline. Good neck mobility. MP IV CHEST: S1, S2 irregularly irregular. No murmurs, rubs or gallops were noted. LUNGS: Clear to auscultation bilaterally without appreciable wheezes, rales or rhonchi. ABDOMEN: Soft, nontender, nondistended. Positive bowel sounds. EXTREMITIES: There is no clubbing, cyanosis or edema. ASA Class: II DESCRIPTION OF PROCEDURE: After confirmation of informed consent, the patient's anesthesia plan was reviewed in detail. Etomidate was chosen. Risks and benefits were reviewed and the patient agreed to proceed. At 12:22 PM, the patient was given 4 mg of etomidate. The patient achieved an appropriate level of sedation and received 1 attempt synchronized cardioversion, at [address] Aleman at the bedside. This was successful in achieving normal sinus rhythm. The patient was monitored until 12:30 PM, at which time the patient reached their baseline mental status and function. The patient tolerated the procedure well. COMPLICATIONS: None ESTIMATED BLOOD LOSS: None RECOMMENDATIONS: Okay to recover in usual fashion. Code Visit 9xxxx: Other Procedure See Report - 34849 -8 minutes conscious sedation
--- NOTE | 2018-10-26 13:55 | CARDIOVERS ---
Cardioversion Cardioversion: DC cardioversion. 73-year-old man status post pacemaker placement with a history of symptomatic atrial flutter. The patient has been therapeutically anticoagulated. The patient was brought to the cardiac catheterization lab in the postabsorptive nonsedated state. Patient was seen by Dr. Dickson of the critical care division. Anterior-posterior pads were applied. The patient was administered 4 mg of intravenous etomidate. 200 J of synchronized DC cardioversion energy were applied with prompt reversal to AV sequentially paced rhythm. The patient tolerated the procedure well. Post op EKG confirmed the above. Conclusion: Successful DC cardioversion from atrial flutter to AV sequentially paced rhythm.
== END 2018-10-26 13:50 | disposition home or self-care (01) ==
LOC: CLSP 10:50
PROVIDERS: Family Provider Family Medicine; PCP Family Medicine; Referring Provider Internal Medicine Cardiovascular Disease; Visit Provider Internal Medicine Cardiovascular Disease
DX: I48.92 Unspecified atrial flutter (principal); I50.23 Acute on chronic systolic (congestive) heart failure; I25.5 Ischemic cardiomyopathy; I25.10 Atherosclerotic heart disease of native coronary artery without angina pectoris; E78.00 Pure hypercholesterolemia, unspecified; I48.1 Persistent atrial fibrillation; N40.0 Benign prostatic hyperplasia without lower urinary tract symptoms; Z95.810 Presence of automatic (implantable) cardiac defibrillator; Z79.01 Long term (current) use of anticoagulants; Z79.899 Other long term (current) drug therapy
CPT/HCPCS: 92960; 93005; J7040

== ENCOUNTER → 2018-10-29 | Outpatient (CLI) | payer MEDICARE, SELFPAY ==
[2018-10-07 09:32] VITALS: BMI 33.0
[2018-10-25 14:30] VITALS: BMI 33.2
--- NOTE | 2018-10-29 06:44 | ECHOCS_ITS ---
Reason For Study: DYSPNEA Procedure This was a 2D Doppler, Color Flow transthoracic echocardiogram. Contrast injection was performed. The study was technically difficult. Exam performed in department. Left Ventricle Normal LV size. The estimated ejection fraction is 50 %. No regional wall motion abnormalities noted. Right Ventricle Normal RV size. ICD or pacer leads identified within the right ventricle. Normal systolic function. Atria Normal left atrium. Normal right atrium. Mitral Valve Normal mitral valve. Mild (1+) eccentric mitral valve insufficiency. Tricuspid Valve Normal tricuspid valve. Aortic Valve Normal aortic valve. Pulmonic Valve Normal pulmonic valve. Great Vessels Normal aortic root. The pulmonary artery is normal size. Normal inferior vena cava. Pericardium/Pleural No pericardial effusion. Medication Diluted definity 4ml given slow IV push to enhance endocardial definition. MMode/2D Measurements & Calculations LVIDd: 5.1 cm IVSd: 0.78 cm Ao root diam: 4.1 cm LVIDs: 4.2 cm LVPWd: 0.86 cm RVDd: 4.3 cm FS: 17.9 % LAV(MOD-bp): 98.6 ml EDV(MOD-sp4): 148.4 ml EDV(MOD-sp2): 118.2 ml LAV(MOD-bp) Indexed: 42.5 ml/m2 ESV(MOD-sp4): 87.6 ml EF(MOD-sp2): 51.1 % LAV(MOD-sp2): 78.0 ml EF(MOD-sp4): 41.0 % LAV(MOD-sp4): 108.3 ml SV(MOD-sp4): 60.8 ml SV(MOD-sp2): 60.4 ml LA A4 area: 31.6 cm2 LA dimension(2D): 4.7 cm RA A4 area: 18.7 cm2 Time Measurements MV dec time: 0.16 sec Doppler Measurements & Calculations MV E max toni: 69.6 cm/sec Lat Peak E' Toni: 8.3 cm/sec Med Peak E' Toni: 3.3 cm/sec MV A max toni: 53.1 cm/sec E/E' lat: 8.4 E/E' med: 21.2 MV E/A: 1.3 Ao V2 max: 111.2 cm/sec LV V1 max: 80.2 cm/sec PA V2 max: 88.2 cm/sec Ao max P.0 mmHg LV V1 max P.6 mmHg TR max toni: 251.3 cm/sec TR max P.3 mmHg Interpretation Summary Normal LV size. The estimated ejection fraction is 50 %. No regional wall motion abnormalities noted. ICD or pacer leads identified within the right ventricle. Contrast injection was performed. Ordering Physician: Annita Carreon/José Aleman Referring Physician: TAYLA TOLLIVER Performed By: Shana Godfrey, LOPEZ, RVT
--- NOTE | 2018-10-29 16:02 | STRESSREP ---
Stress Test Report Pharmacologic myocardial perfusion stress test. 73-year-old man with a history of atrial fibrillation. Resting EKG demonstrates normal sinus rhythm with a rate of 60 bpm. Resting blood pressures 112/54 mmHg. 0.4 mg of regadenoson was infused per usual protocol followed by rapid intravenous and flush injection continuous EKG monitoring was performed. The maximum heart rate attained was 83 bpm which was 56% of maximum predicted heart rate the maximum workload was 1 metabolic equivalent. At rest there were no ST or T wave changes noted suggest abnormal flow reserve at peak infusion nonspecific ST-T wave changes were noted with no meet the criteria for ischemia. No clinical angina was noted. Myocardial perfusion protocol. 14.6 mCi of technetium 99 sestamibi was injected at rest. 0.4 mg of regadenoson was infused per usual protocol peak infusion 44.5 mCi of technetium 99m sestamibi was injected stress images were obtained stress and rest images were reconstructed in comparing the short axis vertical long horizontal long axis. Gated images were also obtained per Perfusion SPECT analysis: Review of the stress images demonstrate uniform perfusion of all areas of the myocardium except for small portion of the apex this is present on the stress and resting images. No obvious reversibility is no suggest ischemia. Gated SPECT analysis: The gated ejection fraction is noted to be 50% conclusion: Normal myocardial perfusion stress test with no obvious ischemia noted. Low normal ejection fraction.
== END | disposition home or self-care (01) ==
LOC: CVS 06:40
PROVIDERS: Family Provider Family Medicine; PCP Family Medicine; Referring Provider Physician Assistant Medical; Visit Provider Physician Assistant Medical
DX: I25.10 Atherosclerotic heart disease of native coronary artery without angina pectoris (principal); E78.5 Hyperlipidemia, unspecified; Z95.810 Presence of automatic (implantable) cardiac defibrillator; I48.1 Persistent atrial fibrillation; I11.0 Hypertensive heart disease with heart failure; I50.22 Chronic systolic (congestive) heart failure; R06.00 Dyspnea, unspecified
CPT/HCPCS: 78452; 93017; 93306; A9500; Q9957; A4216; C8929; J2785

== ENCOUNTER → 2018-11-02 | Outpatient (CLI) | payer MEDICARE, SELFPAY ==
[2018-10-25 14:30] VITALS: BMI 33.2
[2018-11-02 13:11] LABS: Anion Gap 10 (5-15); BUN 60 mg/dL (7-18); BUN/Creat Ratio 20.2 RATIO (10-20); Calcium,Total 9.2 mg/dL (8.5-10.1); Chloride 101 mmol/L (98-107); Creatinine, Serum 2.97 mg/dL (0.70-1.30); EST Glomerular Filtration Rate 22 mL/min (>60); Est Glom Filt Rate - Afr Amer 27 mL/min (>60); Glucose 133 mg/dL (74-106); Potassium 3.8 mmol/L (3.5-5.1); Sodium Level 141 mmol/L (136-145)
== END | disposition home or self-care (01) ==
LOC: LAB 12:03
PROVIDERS: Nurse Practitioner Family; Family Provider Family Medicine; PCP Family Medicine; Referring Provider Internal Medicine Cardiovascular Disease; Visit Provider Internal Medicine Cardiovascular Disease
DX: I25.10 Atherosclerotic heart disease of native coronary artery without angina pectoris (principal); I25.5 Ischemic cardiomyopathy; N17.9 Acute kidney failure, unspecified
CPT/HCPCS: 36415; 80048

== ENCOUNTER → 2019-01-18 | Outpatient (CLI) | payer MEDICARE, SELFPAY ==
[2018-12-02 12:05] VITALS: BMI 33.2
[2019-01-18 12:46] LABS: Hematocrit 40.3 % (40-54); Mean Corp Hgb Conc 32.3 g/dL (32-36); Mean Corpuscular Hgb 29.7 pg (27.0-32.0); Mean Corpuscular Volume 92.2 fL (80-94); Platelet Count 295 K/mm3 (150-450); RBC Distribution Width CV 15.1 % (11.6-14.6); RBC Distribution Width SD 51.6 fl (35.1-43.9); Red Blood Count 4.37 M/mm3 (4.6-6.2); White Blood Count 14.6 K/mm3 (4.4-11.0)
[2019-01-18 13:00] LABS: ALB/GLOB Ratio 0.8 RATIO (0.9-2.4); AST(SGOT) 51 U/L (15-37); Alanine Aminotransfer ALT/SGPT 36 U/L (16-61); Albumin, Serum 3.3 g/dL (3.2-5.0); Alkaline Phosphatase 54 U/L (45-117); Anion Gap 11 (5-15); BUN 56 mg/dL (7-18); BUN/Creat Ratio 21.8 RATIO (10-20); Calcium,Total 9.6 mg/dL (8.5-10.1); Chloride 104 mmol/L (98-107); Creatinine, Serum 2.57 mg/dL (0.70-1.30); EST Glomerular Filtration Rate 26 mL/min (>60); Est Glom Filt Rate - Afr Amer 32 mL/min (>60); Globulin 4.2 g/dL (2.2-4.2); Glucose 142 mg/dL (74-106); Potassium 5.2 mmol/L (3.5-5.1); Protein, Total 7.5 g/dL (6.4-8.2); Sodium Level 139 mmol/L (136-145)
[2019-01-18 13:20] LABS: PTHIN 107.6 pg/mL (18.4-80.1)
== END | disposition home or self-care (01) ==
LOC: POLAB3 11:06
PROVIDERS: Family Provider Family Medicine; PCP Family Medicine; Visit Provider Internal Medicine Nephrology
DX: N18.4 Chronic kidney disease, stage 4 (severe) (principal)
CPT/HCPCS: 36415; 80053; 83970; 85027

== ENCOUNTER → 2019-01-24 | Outpatient (CLI) | payer MEDICARE, SELFPAY ==
[2019-01-24 12:49] VITALS: BMI 33.2
== END | disposition home or self-care (01) ==
LOC: LABSPEC 16:27
PROVIDERS: Family Provider Family Medicine; PCP Family Medicine; Referring Provider Urology; Visit Provider Urology
DX: Z01.812 Encounter for preprocedural laboratory examination (principal); N40.0 Benign prostatic hyperplasia without lower urinary tract symptoms; R10.9 Unspecified abdominal pain
CPT/HCPCS: 87086

== ENCOUNTER → 2019-01-24 | Outpatient (CLI) | payer MEDICARE, SELFPAY ==
[2018-12-02 12:05] VITALS: BMI 33.2
--- NOTE | 2019-01-24 09:39 | US_ITS ---
STUDY: RENAL ULTRASOUND - COMPLETE REASON FOR EXAM: Male, 73 years old. Lower urinary tract infection TECHNIQUE: Ultrasound evaluation of the kidneys was performed with real-time and static luevano-scale imaging. COMPARISON: None. FINDINGS: RIGHT KIDNEY: Normal location of the right kidney, which is normal in size. The right kidney measures 10.2 x 4.8 x 5.8 cm. There is a normal cortex of the right kidney. The renal cortex measures 1.4 cm. There is no right renal mass or cyst. There are no right renal calculi. There is no right hydronephrosis. DISTAL RIGHT URETER: There is non-visualization of the distal right ureter. There is no demonstrated right ureterovesical junction calculus. There is a visualized right ureteral jet. LEFT KIDNEY: Normal location of the left kidney, which is normal in size. The left kidney measures 10.4 x 5 x 5.7 cm. There is a normal cortex of the left kidney. The renal cortex measures 1.3 cm. There is no left renal mass or cyst. There are no left renal calculi. There is no left hydronephrosis. Diffusely increased cortical echoes which may be consistent with nonspecific renal parenchymal disease DISTAL LEFT URETER: There is non-visualization of the distal left ureter. There is no demonstrated left ureterovesical junction calculus. There is a visualized left ureteral jet. BLADDER: The distended urinary bladder has a volume of 140.3 ml. The empty urinary bladder has a volume of 94.4 ml. There is a normal wall thickness of the distended urinary bladder. There is no demonstrated mass within the urinary bladder. There are no demonstrated bladder calculi. Incidental finding of enlarged prostate US/Kidney and Bladder IMPRESSION: Findings consistent with nonspecific renal parenchymal disease.. Nonspecific prominence of the prostate Electronically Signed: Carlos Mckee MD at 17:41 EDT , Service support ,
== END | disposition home or self-care (01) ==
LOC: US 09:35
PROVIDERS: Family Provider Family Medicine; PCP Family Medicine; Referring Provider Family Medicine Geriatric Medicine; Visit Provider Family Medicine Geriatric Medicine
DX: N39.0 Urinary tract infection, site not specified (principal); Z01.812 Encounter for preprocedural laboratory examination; N40.0 Benign prostatic hyperplasia without lower urinary tract symptoms; R10.9 Unspecified abdominal pain
CPT/HCPCS: 76770; 87086; 87088; 93005

== ENCOUNTER 2019-01-26 09:41 | Day surgery (SDC) | payer MEDICARE, SELFPAY ==
--- NOTE | 2019-01-24 01:55 | HP_ITS ---
Intake Vital Signs 01/24/19 Body Mass Index (BMI) 33.2 01/24/19 Height 5 ft 11 in 01/24/19 Weight: 230 lb 01/24/19 Body Mass Index (BMI) 32.1 01/24/19 Blood Pressure 150/89 H 01/24/19 Blood Pressure Location Rt brachial 01/24/19 Respiratory Rate 18 01/24/19 Pulse Rate 85 01/24/19 Temperature 97.8 F 01/24/19 Pulse Ox 97 01/24/19 Oxygen Delivery Method room air Intake Visit Reasons: Discuss Hernia Surgery Chief Complaint: LIH/ testicular swelling Gun Striper Required: No Is patient in pain?: No Allergies No Known Allergies Allergy (Verified 01/24/19 12:47) Medications Apixaban [Eliquis] 5 mg PO BID 10/31/15 [History Confirmed 12/02/18] Clopidogrel Bisulfate [Plavix] 75 mg PO DAILY 10/31/15 [History Confirmed 12/02/18] Multivitamins,Ther W-Minerals [Multivitamin With Minerals] 1 tab PO DAILY 10/31/15 [History Confirmed 12/02/18] Tamsulosin HCl [Flomax] 0.4 mg PO DAILY 10/31/15 [History Confirmed 12/02/18] metoprolol succinate ER 50 mg tablet,extended release 24 hr 50 mg PO .COMPLEX #90 tab 08/13/17 [Rx Confirmed 12/02/18] rosuvastatin 20 mg tablet 20 mg PO QDAY 11/26/17 [History Confirmed 12/02/18] albuterol sulfate HFA 90 mcg/actuation aerosol inhaler 1 puff INHALATION Q6H PRN 10/07/18 [History Confirmed 12/02/18] amiodarone 200 mg tablet 200 mg PO DAILY #60 tab 10/21/18 [Rx Confirmed 12/02/18] spironolactone 25 mg tablet 25 mg PO DAILY 01/24/19 [History Confirmed 01/24/19] PFS Medical History Ischemic cardiomyopathy (Chronic) Atrial flutter with rapid ventricular response (Acute 10/18/18) Essential (primary) hypertension (Chronic) Severe left ventricular systolic dysfunction (Chronic) Persistent atrial fibrillation (Chronic) Atherosclerosis of coronary artery of [place] heart without angina pectoris (Chronic) Hyperlipidemia (Chronic) BPH (benign prostatic hyperplasia) (Chronic) Surgical History History of coronary artery stent placement (Resolved 10/12/15) ICD (implantable cardioverter-defibrillator), dual, in situ (Chronic 02/25/16) History of colonoscopy (Acute ~2016) History of umbilical hernia repair (Acute) History of cardioversion (Chronic 10/26/18) History of total left hip arthroplasty (Chronic ~02/24/17) Traumatic amputation of multiple fingers (Resolved ~06/2017) Family History Brother Diabetes Heart disease Mother Heart disease Father Heart disease Social History (Updated 01/24/19 @ 13:55 by Christopher Kitchen MD) Smoking Status: Never smoker second hand exposure: No alcohol intake: current alcohol intake frequency: holidays/special occasions only substance use type: does not use caffeine: No what type of physical activity do you participate in: walking frequency: daily duration: < 15 minutes/day seatbelt use: never do you feel safe at home: Yes HPI HPI HPI: GLADYS VIDAL, is a 73 M who presents to the office today for HPI HPI Surgical H&P: Yes HPI: GLADYS VIDAL, is a 73 M who presents to the office today for surgical follow-up of left inguinal hernia. He just saw Dr. Jesi Nuñez. He was noted to have an elevated white blood cell count of 14.6. The patient and do not appear to understand the potential etiology to this. He denies cough or chest pain. He remains dyspneic on exertion. He states that his Spironolactone was [place]. He complains bitterly of left groin pain. He denies dysuria. Surgical follow-up regarding a symptomatic left inguinal hernia. I saw this patient late September 2018. He returns complaining of significant discomfort from his left inguinal hernia. My previous note retroflexed the following. HPI: GLADYS VIDAL, is a 73 M who presents to the office today for surgical consultation regarding left testicular pain swelling and left groin swelling with suspicion of a left inguinal hernia. The patient goes back to age 17 when he had the bumps. But then he goes fast forward to the past 2 months when he developed left testicular swelling and pain that radiated up to his groin. The patient was referred by his primary care physician Dr. Lobo Victoria and a written copy of my surgical consult recommendations will return to him. The patient however over the past couple months has had progressive weight gain. Apparently there is concerns about fluid retention. He has progressive chronic renal insufficiency. Apparently he has had significant weight gain and girth in the abdomen. On September 28, 2018 at the [facility] testicular ultrasound with arterial flow was obtained. Bilateral moderate hydroceles predominantly simple in the right complex on the left. A left inguinal hernia is suspected but apparently not definitively identified. There is no testicular mass. The patient is able to get up onto the exam table but is dyspneic with that exertion [facility] [address] [place] [address] MR#: [id number] Name: GLADYS VIDAL .Rep #:[id number] : 1945 73From: José Aleman MD Primary Care: FLORENCE Burdentatus: REG CLI Referring Dr: Annita Carreon PASex: Stress Test Report Pharmacologic myocardial perfusion stress test. 73-year-old man with a history of atrial fibrillation. Resting EKG demonstrates normal sinus rhythm with a rate of 60 bpm. Resting blood pressures 112/54 mmHg. 0.4 mg of regadenoson was infused per usual protocol followed by rapid intravenous and flush injection continuous EKG monitoring was performed. The maximum heart rate attained was 83 bpm which was 56% of maximum predicted heart rate the maximum workload was 1 metabolic equivalent. At rest there were no ST or T wave changes noted suggest abnormal flow reserve at peak infusion nonspecific ST-T wave changes were noted with no meet the criteria for ischemia. No clinical angina was noted. Myocardial perfusion protocol. 14.6 mCi of technetium 99 sestamibi was injected at rest. 0.4 mg of regadenoson was infused per usual protocol peak infusion 44.5 mCi of technetium 99m sestamibi was injected stress images were obtained stress and rest images were reconstructed in comparing the short axis vertical long horizontal long axis. Gated images were also obtained per Perfusion SPECT analysis: Review of the stress images demonstrate uniform perfusion of all areas of the myocardium except for small portion of the apex this is present on the stress and resting images. No obvious reversibility is no suggest ischemia. Gated SPECT analysis: The gated ejection fraction is noted to be 50% conclusion: Normal myocardial perfusion stress test with no obvious ischemia noted. Low normal ejection fraction. 10/29/18 1605<Electronically signed by José Aleman MD> Date José Aleman MD CC: Lobo Victoria MD; Annita Lauri ~ Date Dictated:10/29/18 160 Date Transcribed: 10/29/181601 Mold Parter:CO Signed 08/03 [facility] [address] [place] [id number] Abdomen/Pel W ORAL Cont Only MR#: [id number] Name: GLADYS VIDAL .Rep #:[id number] : 1945 73 From: Max Miranda MD PCP:Lobo Victoria MD Status:REG CLI Study:Abdomen/Pel W ORAL Cont Only Date of Exam:10/14/18 Exam#[id number] Ordering Dr: Christopher Kitchen MD STUDY: CT ABDOMEN AND PELVIS WITHOUT CONTRAST REASON FOR EXAM: Male, 73 years old. Left groin pain and swelling. RADIATION DOSAGE (If Supplied By Facility): CTDIvol = ( 16.95 ) mGy, DLP = ( 1364.79 ) mGycm TECHNIQUE: Transaxial images were obtained from the dome of the diaphragm to the symphysis pubis without oral contrast, and without intravenous contrast. Sagittal and coronal images were reconstructed. Individualized dose optimization techniques were used for this CT. COMPARISON: None. FINDINGS: The visualized lung bases are unremarkable. And dual-chamber pacemaker is seen. There is decreased attenuation of the liver consistent with steatosis. Normal gallbladder and extrahepatic biliary system. Normal spleen. There is diffuse atrophy of the pancreas. Normal bilateral adrenal glands. Normal right kidney. Normal left kidney. There is a small hiatal hernia. Normal small intestine. Normal colon. The appendix is visualized and appears normal. There is diffuse atherosclerotic calcification of the abdominal aorta, without a demonstrated aneurysm. Normal inferior vena cava. Normal retroperitoneum. Normal urinary bladder. There is enlargement of the prostate gland. It measures 4.6 cm x 5.8 cm. There is peripheral calcification along the left lateral wall of the prostate gland. Moderate sized left inguinal hernia containing a portion of the sigmoid colon. There are diffuse degenerative changes of the visualized lumbar spine. Prior intrapedicular screw fixation at the L3-L4, L4-L5 and L5-S1 levels. 50% loss of height of the superior endplate of the L4 vertebrae. CT/Abdomen/Pel W ORAL Cont Only IMPRESSION: Moderate sized left inguinal hernia containing a portion of the sigmoid colon. Fatty infiltration of the liver. Electronically Signed: Max Miranda, at 15:28 EDT , Service support , ROS General General: No weight change, appetite, fatigue, colon cancer, breast cancer or weakness HEENT HEENT: No difficulty swallowing, eye injury, eye surgery, swollen glands or hoarseness Endo Endocrine: No thyroid disease, diabetes mellitus, thyroid cancer, Hair loss, heat intolerance or cold intolerance Cardio Cardiovascular: Yes pacemaker, heart disease, atrial fibrillation, high blood pressure and heart stent; no murmur, heart attack, palpitations, shortness of breat with exertion or chest pain Psych Psychiatric: Yes anxiety; no depression or hearing voices Resp Respiratory: Yes shortness of breath, No sleep apnea, No cough, Yes COPD, No asthma, No emphysema, No wheezing Gastro Gastrointestinal: No abdominal pain, No nausea or vomiting, No diarrhea, No constipation, No blood in stool, No acid reflux, No hemorrhoids, No ulcers, No gallbladder problem, No black,tarry stools Neuro Neurologic: No weakness Exam Const General: cooperative, no acute distress Nutritional Appearance: obese Orientation: alert, awake, oriented x3 HENMT Head: normal to inspection Eyes General: appearance normal, both eyes and all related structures Chest Other: Increased anterior posterior diameter Resp Other: Poor respiratory excursion, dry bibasilar rales Cardio Rate: regular rate Rhythm: regular rhythm Heart Sounds: no murmurs GI Other: Obese, taut, nontender, normal bowel sounds Other: Bilateral testicles are descended and atrophic. Right groin solid. Significant loop of bowel involving the left groin tender and nonreducible Musc Cervical Spine: normal cervical lordosis Skin Other: Right lateral lower calf area of superficial excoriation Neuro Cognition: normal cognition Extrem General: no calf tenderness bilaterally Psych Affect: normal affect Assessment & Plan Problems 1. Incarcerated left inguinal hernia K40.30 2. ICD (implantable cardioverter-defibrillator), dual, in situ Z95.810 3. Chronic anticoagulation Z79. Plan Incarcerated left inguinal hernia with sigmoid colon involvement. Patient with combined pulmonary and cardiac disease. He has been evaluated per cardiology and is felt to be able to tolerate surgical procedure. The patient is absolutely adamant that we proceed with a left inguinal hernia repair. He claims that it is very uncomfortable. The patient's abdomen is very bulbous. He has odor in the groins. I believe that a laparoscopic approach would bring the incisions up out of that area and would allow the sigmoid colon to be inspected and would allow for a larger piece of mesh for repair. The patient is aware of technique, benefit, risks, alternatives. Absolutely no guarantees of success been offered. The patient is aware that he may end up being ventilator dependent. He has new leukocytosis undetermined. I suspect that urinary retention. We will obtain urine for UA [employer] and initiate the patient on ciprofloxacin. We will have him hold his Eliquis. We tentatively we will proceed with a lap scopic left anal hernia repair with mesh. CC: Dr. Lobo Kitchen M.D., F.A.C.S. Orders Orders: Basic Metabolic Profile (BMP) Today D72.829 CBC W/Diff, Automated Today D72.829, R18.8 Urinalysis, Complete Today D72.829 12 Lead EKG Today Z01.818 Coding Level of Care Code Off vis,est,level 3 Diagnoses Incarcerated left inguinal hernia K40.30 ICD (implantable cardioverter-defibrillator), dual, in situ Z95.810 Chronic anticoagulation Z79.01 01/24/19 1355 <Electronically signed by Christopher najera MD> Date _ Christopher Kitchen MD I have re-examined the patient. There are no clinical changes since date of exam.
[2019-01-24 12:49] VITALS: BMI 33.2
[2019-01-24 13:56] LABS: Bacteria 0 SEEN /hpf (None Seen); Mucous, Urine 0 SEEN /hpf (<or=2+)
[2019-01-24 14:11] LABS: Color, Urine Yellow (Yellow); Glucose, Dipstick Normal (Normal); Ketone-Dipstick Negative (Negative); Leukocyte Esterase-Dipstick 25 /ul (Negative); Nitrite-Dipstick Negative (Negative); Occult Blood-Urine 10 /ul (Negative); Protein-Dipstick 15 mg/dl (Negative); Specific Gravity, Urine 1.015 (1.002-1.030); Urine Bilirubin Dipstick Negative (Negative); Urine Clarity Sl. Cloudy (Clear); Urine Urobilinogen Normal (Normal)
[2019-01-24 14:14] LABS: Absolute Lymphocyte Count 1.84 X10^3/uL (0.83-4.51); Absolute Neutrophil Count 8.8 X10^3/uL (2.0-7.7); Basophil# 0.02 X10^3/uL; Basophil% 0.2 % (0-1); Eosinophil# 0.11 X10^3/uL; Eosinophils% 0.9 % (0-5); Hematocrit 43.3 % (40-54); Hemoglobin 14.2 g/dL (13.0-16.5); Lymphocyte # 1.84 X10^3/ul (4.0); Lymphocyte % 14.4 % (19-41); Mean Corp Hgb Conc 32.8 g/dL (32-36); Mean Corpuscular Hgb 30.3 pg (27.0-32.0); Mean Corpuscular Volume 92.5 fL (80-94); Mean Platelet Vol. 11.5 fl (6.2-12.0); Monocyte# 1.86 X10^3/uL; Monocyte% 14.5 % (0-10); NRBC Flagged by Analyzer 0 % (0-5); Neutrophil # 8.81 X10^3/uL (2.7-7.7); Neutrophil % 68.7 % (47-70); POSITIVE DIFFERENTIAL YES; Platelet Count 262 K/mm3 (150-450); RBC Distribution Width CV 15.2 % (11.6-14.6); RBC Distribution Width SD 51.7 fl (35.1-43.9); Red Blood Count 4.68 M/mm3 (4.6-6.2); White Blood Count 12.8 K/mm3 (4.4-11.0)
[2019-01-24 14:15] LABS: Differential Indicated SCAN CRITERIA MET
[2019-01-24 14:20] LABS: Hyaline Cast 5-10 SEEN /lpf (0-5); Red Blood Cells-Urine 0-5 SEEN /hpf (0-5); Squamous Epithelial Cells - UA 0-5 SEEN /hpf (0-5); White Blood Cells 0-5 SEEN /hpf (0-5)
[2019-01-24 14:27] LABS: Anion Gap 7 (5-15); BUN 62 mg/dL (7-18); BUN/Creat Ratio 23.9 RATIO (10-20); Calcium,Total 9.1 mg/dL (8.5-10.1); Chloride 102 mmol/L (98-107); Creatinine, Serum 2.59 mg/dL (0.70-1.30); EST Glomerular Filtration Rate 26 mL/min (>60); Est Glom Filt Rate - Afr Amer 31 mL/min (>60); Glucose 169 mg/dL (74-106); Potassium 4.6 mmol/L (3.5-5.1); Sodium Level 136 mmol/L (136-145)
[2019-01-25 15:40] LABS: Pathologist Review Reviewed
[2019-01-26] VITALS (9 sets, daily range): BP systolic 124–148; BP diastolic 64–91; PULSE 60–68; RESP 16–20; TEMP 35.9–36.2; O2SAT 91–96; BMI 33.1
--- NOTE | 2019-01-26 11:29 | DCINST_ITS ---
Discharge Diet: Light diet - advance as tolerated - if you have questions about your diet instructions, please talk to you doctor. Discharge Activity: May Not Drive - for 1 week or while taking narcotic pain medicine. May shower in (days): 1 Lifting Restrictions: 10 pounds Call your doctor if your incision/area has: Continuous Slow Oozing, Sudden Increased Bleeding, Increased Pain/ Swelling, Increased Redness, Foul Smelling Discharge Call your doctor if you observe: Fever of 101 or Higher Suture Line Care: Avoid Pulling/Pushing, Avoid Pinching/Bending Additional Dressing/Incision Instructions:: Change or remove dressing in 3 days. Leave steri-strips in place for 1 week. Allergies/Adverse Reactions: Allergies No Known Allergies Allergy (Verified 01/25/19 08:45) Medications to take at Discharge Apixaban [Eliquis] 5 mg PO BID 10/31/15 Clopidogrel Bisulfate [Plavix] 75 mg PO DAILY 10/31/15 Multivitamins,Ther W-Minerals [Multivitamin With Minerals] 1 tab PO DAILY 10/31/15 Tamsulosin HCl [Flomax] 0.4 mg PO DAILY 10/31/15 rosuvastatin 20 mg tablet 20 mg PO QDAY 11/26/17 albuterol sulfate HFA 90 mcg/actuation aerosol inhaler 1 puff INHALATION Q6H PRN 10/07/18 amiodarone 200 mg tablet 200 mg PO DAILY #60 tab 10/21/18 spironolactone 25 mg tablet 25 mg PO DAILY 01/24/19 Ciprofloxacin [Cipro] 250 mg PO BID 01/25/19 Dutasteride 0.5 mg PO DAILY 01/25/19 Furosemide 40 mg PO BID 01/25/19 Metoprolol(XL)Succ [Toprol Xl (Beta Noemy)] 50 mg PO BID 01/25/19 Primary Care Physician: Lobo Victoria MD [Primary Care Provider] - Test Results: Test results from this visit will be discussed in further detail at your follow- up appointment, if applicable. Please Follow Up With: Christopher Kitchen MD - [phone] When: Call to make an appointment to be seen in about 10 days.
[2019-01-26] MEDS: Cefazolin 2 GM in 0.9% Normal Saline 100 ML IV (11:48)
--- NOTE | 2019-01-26 12:48 | PCM.OPRPT ---
Problem List (1) Incarcerated left inguinal hernia Status: Acute Report of Operation Date of Procedure: 01/26/19 Pre-Operative Diagnosis: Incarcerated left inguinal hernia Post-Operative Diagnosis: Incarcerated left inguinal hernia with sigmoid colon involvement Surgery/Procedure Performed:: Laparoscopic left inguinal herniorrhaphy. Bard 3D max. Lot [id number], Ref [id number], exp date 07/12/20. Secure strap lot number [id number] Description of Surgical Findings:: Timeout informed consent was obtained. 73-year-old gentleman was taken out from placement table underwent general endotracheal intubation anesthesia. Ancef 2 g given intravenously preoperatively. The abdomen sterilely prepped and draped. 0.5% Marcaine was used as local anesthetic. Throughout the procedure total 30 cc was used. Skin sites were pre-anesthetized. An infraumbilical incision was created holding sutures of 0 Vicryl placed varies and of the surgeon seem to drop test performed the abdomen was insufflated with CO2 to a pressure of 12 mmHg pressure. Lesa trocar inserted. 10 lap scope inserted. No evidence retrograde injuries. 5 Albright ports were placed in the right and left lower quadrant. Under lap scopic visualization and a ilioinguinal nerve block was performed on the left. Sigmoid colon was noted to be incarcerated within the left inguinal hernia. It required both manual retraction and external compression of the scrotum area in order to reduce a significant amount of sigmoid. Fortunately the sigmoid all appeared to be viable. Then the peritoneum superior lateral to the internal ring was incised and carried medially. The peritoneum was then completely bluntly dissected free and quite a generous fashion. This gain access to the indirect sac source of problems as well as the direct and femoral area. This tissue was nicely bluntly dissected free and hemostasis was intact. A Bard 3 DMax extra-large left-sided mesh was selected. It was placed overlying the defect and very nicely is set into situation with excellent coverage laterally superiorly inferiorly and medially. The mesh just appeared to sit very comfortably in the position as needed. I secured it laterally superiorly and medially with secure strap. I then approximated the peritoneum to itself using secure strap and a couple hemo-lock clips. The umbilicus incision was closed with a [id number] suture of 0 Vicryl using a GraNee needle. Skin edges were approximate interrupted 4-0 Monocryl subdermal stitches. Steri-Strips Telfa and OpSite dressings applied sponge and instrument and needle counts were reported the surgeon be correct. Blood loss was minimal. He tolerated the procedure well was taken to the recovery area in satisfactory condition without apparent complication. Specimens none. Drains none. Blood loss minimal. Christopher Kitchen M.D., F.A.C.S. Type of Anesthesia:: General Anesthesiologist: Fernanda Eli
[2019-01-26] MEDS: Bupivacaine Mpf 0.5% 30 ML VIAL (12:49)
== END 2019-01-26 16:45 | disposition home or self-care (01) ==
LOC: SDC 09:42 → AC 09:42
PROVIDERS: Family Provider Family Medicine; PCP Family Medicine; Referring Provider Surgery; Visit Provider Surgery
PROC: (CPT 49650; principal; 2019-01-26 11:30)
DX: K40.30 Unilateral inguinal hernia, with obstruction, without gangrene, not specified as recurrent (principal); I25.10 Atherosclerotic heart disease of native coronary artery without angina pectoris; E78.00 Pure hypercholesterolemia, unspecified; I25.5 Ischemic cardiomyopathy; I48.1 Persistent atrial fibrillation; N40.0 Benign prostatic hyperplasia without lower urinary tract symptoms; I12.9 Hypertensive chronic kidney disease with stage 1 through stage 4 chronic kidney disease, or unspecified chronic kidney disease; N18.9 Chronic kidney disease, unspecified; Z95.5 Presence of coronary angioplasty implant and graft; Z95.810 Presence of automatic (implantable) cardiac defibrillator; Z79.01 Long term (current) use of anticoagulants; Z79.02 Long term (current) use of antithrombotics/antiplatelets; Z79.899 Other long term (current) drug therapy
CPT/HCPCS: 49650; 36415; 80048; 81001; 85025; 93005; J7030; J7120; C1781; J2405

== ENCOUNTER → 2019-03-04 13:06 | Outpatient (CLI) | payer MEDICARE, SELFPAY ==
[2019-01-31 08:55] VITALS: BMI 33.1
[2019-03-04 15:03] LABS: Albumin, Serum 3.2 g/dL (3.2-5.0); BUN 36 mg/dL (7-18); BUN/Creat Ratio 15.5 RATIO (10-20); Calcium,Total 8.8 mg/dL (8.5-10.1); Chloride 104 mmol/L (98-107); Creatinine, Serum 2.32 mg/dL (0.70-1.30); EST Glomerular Filtration Rate 29 mL/min (>60); Est Glom Filt Rate - Afr Amer 36 mL/min (>60); Glucose 141 mg/dL (74-106); Phosphorus 3.7 mg/dL (2.5-4.9); Sodium Level 139 mmol/L (136-145)
== END ==
PROVIDERS: Family Provider Family Medicine; PCP Family Medicine; Referring Provider Internal Medicine Nephrology; Visit Provider Internal Medicine Nephrology
DX: N17.9 Acute kidney failure, unspecified (principal)
CPT/HCPCS: 36415; 80069

== ENCOUNTER 2019-05-14 09:05 | Emergency (ER) | payer MEDICARE, SELFPAY ==
[2019-03-04 13:17] VITALS: BMI 32.5
[2019-05-14 09:06] VITALS: BP 167/86; PULSE 73; RESP 17; TEMP 36.4; O2SAT 96; BMI 32.6
--- NOTE | 2019-05-14 10:01 | ED.VISSUMM ---
- ER Visit Summary Date of Service: 05/14/19 Chief Complaint: Atraumatic left ankle and foot pain. With a history of gout History of Present Illness: The patient is a 74 M history of gout, CAD, hypertension, renal insufficiency stage IV and cardiac stent. Patient is on blood thinners both Eliquis and Plavix. States that for the last 3 to 4days he has had gradual onset of left ankle pain and swelling. Denies any falls injury or trauma. He is never had surgery to his left foot or ankle. He has had gout before it is primarily in his left great toe and this is primarily in his left ankle. Denies any knee or hip pain. No fever or chills. Physical Examination: Older male no acute distress vital signs are stable afebrile. HEENT exam unremarkable. Lungs are clear to auscultation. Heart is regular rhythm no murmur. Abdomen is soft and nontender. Patient is moving all 4 extremities. They are neurovascularly intact. His left hip is nontender his left knee is nontender with normal range of motion. His left ankle is swollen. Mildly warm to the touch. There is no redness. It does not look like a septic joint. This is and could be consistent with gout. DP pulses intact. He has mild swelling to the proximal aspect of his foot. His toes he is able to wiggle them there is no bony deformity or signs of trauma to his foot. No puncture wounds. And his foot itself is otherwise nontender except for around the ankle. Neurologically is awake and alert. Test Results: Left ankle x-ray 3 views read by myself and the radiologist shows soft tissue swelling and edema and what appears to be an old fracture of the distal fibula. Versus a nonunion. But no acute injury. I went over the x-rays with the patient. Emergency Department Course and Treatment: History and exam are consistent with acute gout flare of the left ankle. He will be given oral prednisone and [place]. Repeat exam at 10:55 AM he is doing well. The pain medication has helped. Treatment Plan: Treated his gout. Prednisone daily for 10 days. [place] for pain 20 no refill. Follow-up with his doctor or return if worse. Disposition: Discharge Impression: Left ankle pain and swelling secondary to acute gout This note was generated with [employer] software. It may contain incorrect words, spelling, and punctuation that were not noted in review of the chart prior to signing ED Disposition - Plan for ED Patient: Disposition: Home or Assisted Living Instructions: Gouty Arthritis Prescriptions: Prednisone [Deltasone] 40 mg PO DAILY 10 Days tab Prescription Printed Hydrocodone Bitart/Apap 5-325 [[place] 5MG-325MG] 1 tab PO Q4H PRN PRN 5 Days #20 tab PRN Reason: Pain Prescription Printed Referrals: Lobo Victoria MD [Primary Care Provider] - 3-5 Days if not improving Additional Instructions: Elevate your leg to decrease the swelling. Not ice your ankle or foot it will make the gout worse. Next [place] for pain. Prednisone daily 40 mg a day for the next 10 days that should decrease and resolve the gout. Follow-up with your doctor in 3 to 5 days if not improving.
--- NOTE | 2019-05-14 10:04 | DCINST.ED_ITS ---
ED Disposition - Plan for ED Patient: Disposition: Home or Assisted Living Instructions: Gouty Arthritis Prescriptions: Prednisone [Deltasone] 40 mg PO DAILY 10 Days tab Prescription Printed Hydrocodone Bitart/Apap 5-325 [[place] 5MG-325MG] 1 tab PO Q4H PRN PRN 5 Days #20 tab PRN Reason: Pain Prescription Printed Referrals: Lobo Victoria MD [Primary Care Provider] - 3-5 Days if not improving Additional Instructions: Elevate your leg to decrease the swelling. Not ice your ankle or foot it will make the gout worse. Next [place] for pain. Prednisone daily 40 mg a day for the next 10 days that should decrease and resolve the gout. Follow-up with your doctor in 3 to 5 days if not improving.
--- NOTE | 2019-05-14 10:05 | RAD_ITS ---
STUDY: X-RAY - LEFT ANKLE REASON FOR EXAM: Male, 74 years old. Ankle pain and swelling TECHNIQUE: 3 view(s) of the ankle. COMPARISON: None. FINDINGS: The bones are osteopenic. Normal medial and lateral malleoli. Normal tibiotalar articulation and ankle mortise. There is a well-corticated appearing density on the lateral side of the tibia suggesting possible old injury. There is a plantar and Achilles spur. The visualized subtalar, talonavicular, calcaneocuboid and tarsal articulations are normal. There is diffuse soft tissue edema about the ankle. RAD/Ankle min 3 Views IMPRESSION: Soft tissue edema possible old injury of the distal tibia versus nonunion of a ossification center. Diffuse soft tissue edema without acute fracture. Electronically Signed: Racquel Quiroz MD at 10:35 EST Tel , Service support ,
[2019-05-14] MEDS: HYDROcodone Bitartrate/Apap 5/325 Tablet PO (10:08)
[2019-05-14] MEDS: predniSONE 20 MG Tablet 60 MG PO (10:09)
[2019-05-14 11:15] VITALS: BP 134/75; PULSE 84; RESP 17; O2SAT 94
== END 2019-05-14 11:17 | disposition home or self-care (01) ==
PROVIDERS: Emergency Provider Emergency Medicine; Family Provider Family Medicine; PCP Family Medicine
DX: M25.572 Pain in left ankle and joints of left foot (principal); M79.89 Other specified soft tissue disorders; M10.9 Gout, unspecified; I12.9 Hypertensive chronic kidney disease with stage 1 through stage 4 chronic kidney disease, or unspecified chronic kidney disease; N18.4 Chronic kidney disease, stage 4 (severe); I25.10 Atherosclerotic heart disease of native coronary artery without angina pectoris; Z95.5 Presence of coronary angioplasty implant and graft; Z79.01 Long term (current) use of anticoagulants; Z79.02 Long term (current) use of antithrombotics/antiplatelets; Z79.899 Other long term (current) drug therapy
CPT/HCPCS: 73610; 99283

== ENCOUNTER → 2019-06-29 09:50 | Outpatient (CLI) | payer MEDICARE, SELFPAY ==
[2019-06-29 10:59] LABS: Hemoglobin A1c 7.3 % (4.2-6.3)
[2019-06-29 11:01] LABS: Absolute Lymphocyte Count 1.24 X10^3/uL (0.83-4.51); Absolute Neutrophil Count 6.2 X10^3/uL (2.0-7.7); Basophil# 0.03 X10^3/uL; Basophil% 0.3 % (0-1); Eosinophil# 0.21 X10^3/uL; Eosinophils% 2.3 % (0-5); Hematocrit 37.7 % (40-54); Lymphocyte # 1.24 X10^3/ul (4.0); Lymphocyte % 13.6 % (19-41); Mean Corp Hgb Conc 31.8 g/dL (32-36); Mean Corpuscular Hgb 29.3 pg (27.0-32.0); Mean Platelet Vol. 11.7 fl (6.2-12.0); Monocyte# 1.37 X10^3/uL; Monocyte% 15.1 % (0-10); NRBC Flagged by Analyzer 0 % (0-5); Neutrophil # 6.19 X10^3/uL (2.7-7.7); Neutrophil % 68.1 % (47-70); Platelet Count 214 K/mm3 (150-450); RBC Distribution Width CV 17.1 % (11.6-14.6); RBC Distribution Width SD 57.9 fl (35.1-43.9); White Blood Count 9.1 K/mm3 (4.4-11.0)
[2019-06-29 11:12] LABS: PTHIN 124.5 pg/mL (18.4-80.1); Vitamin B12 789 pg/mL (211-911); Vitamin D,25 Hydroxy 19.5 ng/mL (29.95-100.01)
[2019-06-29 11:13] LABS: ALB/GLOB Ratio 0.7 RATIO (0.9-2.4); AST(SGOT) 75 U/L (15-37); Alanine Aminotransfer ALT/SGPT 44 U/L (16-61); Albumin, Serum 2.7 g/dL (3.2-5.0); Alkaline Phosphatase 61 U/L (45-117); Anion Gap 6 (5-15); BUN 22 mg/dL (7-18); BUN/Creat Ratio 12.5 RATIO (10-20); Calcium,Total 8.8 mg/dL (8.5-10.1); Chloride 106 mmol/L (98-107); Cholesterol 118 mg/dL (200); Creatinine, Serum 1.76 mg/dL (0.70-1.30); EST Glomerular Filtration Rate 40 mL/min (>60); Est Glom Filt Rate - Afr Amer 49 mL/min (>60); Ferritin 121 ng/mL (26-388); Glucose 155 mg/dL (74-106); High Density Lipoprotein 39 mg/dL; Iron 44 ug/dL (65-175); Magnesium 2.2 mg/dL (1.6-2.6); Phosphorus 2.6 mg/dL (2.5-4.9); Potassium 4.1 mmol/L (3.5-5.1); Protein, Total 6.7 g/dL (6.4-8.2); Sodium Level 139 mmol/L (136-145); Thyroid Stim Hormone (TSH) 0.87 uIU/mL (0.358-3.74); Triglycerides 188 mg/dL; Uric Acid 6.4 mg/dL (3.5-7.2); Very Low Density Lipoprotein 38 mg/dL (5-40)
== END ==
LOC: LAB.FUTURE 09:55 → LAB 09:57
PROVIDERS: Family Provider Family Medicine; PCP Family Medicine; Referring Provider Family Medicine; Visit Provider Family Medicine
DX: I12.9 Hypertensive chronic kidney disease with stage 1 through stage 4 chronic kidney disease, or unspecified chronic kidney disease (principal); N18.4 Chronic kidney disease, stage 4 (severe); D64.9 Anemia, unspecified; R73.01 Impaired fasting glucose; E78.00 Pure hypercholesterolemia, unspecified; M10.9 Gout, unspecified
CPT/HCPCS: 36415; 80053; 80061; 82306; 82607; 82728; 83036; 83540; 83735; 83970; 84100; 84443; 84550; 85025

== ENCOUNTER → 2019-12-06 09:43 | Outpatient (CLI) | payer MEDICARE, SELFPAY ==
[2019-10-04 08:11] VITALS: BMI 31.8
[2019-12-06 10:49] LABS: Hematocrit 42.4 % (40-54); Hemoglobin 13.6 g/dL (13.0-16.5); Mean Corp Hgb Conc 32.1 g/dL (32-36); Mean Corpuscular Hgb 31.5 pg (27.0-32.0); Mean Corpuscular Volume 98.1 fL (80-94); Mean Platelet Vol. 11.6 fl (6.2-12.0); Platelet Count 211 K/mm3 (150-450); RBC Distribution Width CV 14.6 % (11.6-14.6); RBC Distribution Width SD 52.6 fl (35.1-43.9); Red Blood Count 4.32 M/mm3 (4.6-6.2)
[2019-12-06 11:16] LABS: Vitamin D,25 Hydroxy 31.6 ng/mL
[2019-12-06 11:18] LABS: Albumin, Serum 3.3 g/dL (3.2-5.0); BUN 28 mg/dL (7-18); BUN/Creat Ratio 15.9 RATIO (10-20); Calcium,Total 8.9 mg/dL (8.5-10.1); Chloride 103 mmol/L (98-107); Creatinine, Serum 1.76 mg/dL (0.70-1.30); EST Glomerular Filtration Rate 40 mL/min (>60); Est Glom Filt Rate - Afr Amer 49 mL/min (>60); Ferritin 165 ng/mL (26-388); Glucose 114 mg/dL (74-106); Iron 71 ug/dL (65-175); Iron Binding Capacity,Total 286 ug/dL (250-450); Phosphorus 2.8 mg/dL (2.5-4.9); Potassium 4.4 mmol/L (3.5-5.1); Sodium Level 137 mmol/L (136-145)
== END ==
LOC: LAB 09:44
PROVIDERS: PCP Family Medicine; Referring Provider Internal Medicine Nephrology; Visit Provider Internal Medicine Nephrology
DX: N18.4 Chronic kidney disease, stage 4 (severe) (principal); D50.9 Iron deficiency anemia, unspecified; E55.9 Vitamin D deficiency, unspecified
CPT/HCPCS: 36415; 80069; 82306; 82728; 83540; 83550; 85027

== ENCOUNTER → 2020-03-13 12:14 | Outpatient (CLI) | payer MEDICARE, SELFPAY ==
[2020-02-07 10:50] VITALS: BMI 32.3
--- NOTE | 2020-03-13 12:16 | RAD_ITS ---
STUDY: X-RAY CHEST REASON FOR EXAM: Male, 74 years old. 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 NO CHEST COMPLAINTS. ORDER STATES DYSPNEA TECHNIQUE: PA and lateral views of the chest. COMPARISON: Comparison is made with prior study dated 08/31/2018 FINDINGS: The seventh of increased interstitial markings at the lung bases suggestive of bibasilar scarring. This has progressed as compared to prior study. There is no demonstrated pleural abnormality. A left-sided dual-chamber pacemaker is seen. Normal mediastinum and gideon. Normal visualized pulmonary arteries. There is atherosclerotic calcification of the aortic arch with tortuosity. There are diffuse degenerative changes of the visualized thoracic spine. Normal visualized ribs, clavicles, and shoulders. There is no demonstrated abnormality of the visualized soft tissue structures of the upper abdomen. RAD/Chest PA and Lateral IMPRESSION: Increased interstitial markings at the lung bases suggestive of bibasilar scarring. This has progressed as compared to prior study. Electronically Signed: Max Miranda, at 13:53 EDT , Service support ,
[2020-03-13 13:38] LABS: AST(SGOT) 62 U/L (15-37); Alanine Aminotransfer ALT/SGPT 36 U/L (16-61); Albumin, Serum 3.3 g/dL (3.2-5.0); Alkaline Phosphatase 55 U/L (45-117); Bilirubin, Direct 0.17 mg/dL (0.00-0.30); Globulin 3.7 g/dL (2.2-4.2); Thyroid Stim Hormone (TSH) 1.28 uIU/mL (0.358-3.74)
--- NOTE | 2020-03-13 14:09 | PFTCOMP ---
COMPLETE PULMONARY FUNCTION TEST INTERPRETATION Brief HPI: Patient is a 74 year old male, currently under the care of Annita Carreon, who presents to [facility] for complete pulmonary function tests secondary to diagnosis of high risk med use. Respiratory therapist reports good effort, but difficulty with exhalation. Interpretation: Forced expiration spirometry shows no large airways obstructive ventilatory defect with an FEV1 of 62% predicted. There is no significant bronchodilator response by strict ATS criteria. Spirograms are of poor quality, but do not plateau. The respiratory flow volume loop shows a normal pattern. Lung volumes by body plethysmography show a decreased total lung capacity at 5.41 L, 78% predicted. All other lung volumes are within normal limits. Diffusion capacity by carbon monoxide is at the lower limit of normal at 68% predicted. The airway resistance is slightly elevated. No previous pulmonary function tests were available for review. Impression: Mild restrictive ventilatory defect with a symmetric reduction diffusion capacity.
== END ==
PROVIDERS: PCP Family Medicine; Referring Provider Physician Assistant Medical; Visit Provider Physician Assistant Medical
DX: I48.11 Longstanding persistent atrial fibrillation (principal); I50.22 Chronic systolic (congestive) heart failure; Z79.899 Other long term (current) drug therapy
CPT/HCPCS: 36415; 71046; 80076; 84443; 94060; 94726; 94729

== ENCOUNTER 2020-06-10 19:46 | Inpatient (IN) | payer MEDICARE, SELFPAY ==
[2020-02-07 10:50] VITALS: BMI 32.3
[2020-06-10] VITALS (8 sets, daily range): BP systolic 107–119; BP diastolic 52–59; PULSE 60–69; RESP 12–34; TEMP 36.2–37.3; O2SAT 82–100; BMI 32.3; BMI 32.4
--- NOTE | 2020-06-10 19:59 | EKG12_ITS ---
Test Reason : SOB Blood Pressure : / mmHG Vent. Rate : 060 BPM Atrial Rate : 051 BPM P-R Int : 218 ms QRS Dur : 102 ms QT Int : 452 ms P-R-T Axes : 000 -23 -46 degrees QTc Int : 452 ms Significant baseline artifact Probable NSR Nonspecific ST and T wave abnormality Abnormal ECG Confirmed by SALAS COYNE, TREVOR ([id number]), clinical editor ALCIDES VILLALPANDO ([id number]) on 06/14/2020 10:20:33 AM Referred By: AMIE Confirmed By:PENELOPE MARINA MD
--- NOTE | 2020-06-10 20:02 | ED.VISSUMM ---
- ER Visit Summary Date of Service: 06/10/20 Chief Complaint: Shortness of breath History of Present Illness: The patient is a [address] Nathaniel marques. He reports that he was diagnosed with Covid approximately 2 weeks ago. He had shortness of breath intermittently for the past 2 days. Reports that he does still have a cough. Is productive yellow sputum without blood. He denies any fever, chills, or chest pain. Patient reports that he is having diarrhea 3 times a day. He reports that this is a very black. He also complains of generalized weakness. Patient states that both yesterday and today he was walking with his walker when he fell. He denies any blow to the head or loss of consciousness. He is not on anticoagulants. He denies neck, back, shoulder, wrist, or hip pain. Physical Examination: Vitals: 97.8, 119/52, 69, 34, 82% on room air which is hypoxic. General: Well-nourished and well-developed. Head: Normocephalic atraumatic. Neck: Supple, no lymphadenopathy. No JVD. Nontender. Cardiovascular: Regular rate and rhythm. 2 out of 6 systolic murmur. Respiratory: Moderate respiratory distress. Clear to auscultation bilaterally. Abdominal: Soft, nontender, nondistended, normal bowel sounds. No guarding, rebound, or peritoneal signs. Back: Nontender. Extremities: Nontender, 1+ edema lower extremities bilaterally. Skin: Normal color, no rash. Neurologic: Alert and oriented ?3. Cranial nerves II through XII are intact. Normal strength and sensation. Psych: Normal affect. Test Results: EKG is atrial paced at 60 with radial artifact nonspecific ST changes. Troponin is negative. CBC shows an H&H 12.6 and 39.4, stable neutrophils 84, lymphocytes of 9. Chem-7 shows a BUN of 43, creatinine 1.86, glucose 146. LFTs show total protein of 6.3, albumin 2.4, AST of 62. LDH is 337. Troponin is negative. Procalcitonin 0.09. Lactic acid is 2.3. ABG shows a pH of 7.47 with a bicarb of 19.7, PCO2 of 27, PO2 of 115 on nonrebreather. D-dimer is 0.62. Clinical Impression(s) from Imaging Studies Chest X-Ray 06/10/20 20:38 IMPRESSION: Multilobar groundglass opacities with interstitial thickening, imaging features which have been reported with COVID associated pneumonia. Electronically Signed: Angus Najera MD (Brooks) at 21:05 EST , Service support , Emergency Department Course and Treatment: Patient was placed on a nonrebreather. His pulse ox is 94% on this. Is given a dose of dexamethasone IV. Patient appeared quite dyspneic still so was placed on BiPAP. He is now resting comfortably. Treatment Plan: Patient was discussed with Dr. Rodriguez. He will be admitted to the hospital for further evaluation and treatment. Disposition: Admitted in serious condition. Impression: 1. COVID-19 infection. 2. Hypoxia. 3. Respiratory failure on BiPAP. 4. Chronic renal insufficiency. 5. Critical care time 33 minutes. This note was generated with Datalot dictation software. It may contain incorrect words, spelling, and punctuation that were not noted in review of the chart prior to signing ED Disposition - Plan for ED Patient: Referrals: Lobo Victoria MD [Primary Care Provider] -
[2020-06-10 20:17] LABS: Absolute Lymphocyte Count 0.74 X10^3/uL (0.83-4.51); Absolute Neutrophil Count 7.3 X10^3/uL (2.0-7.7); Basophil# 0.01 X10^3/uL; Basophil% 0.1 % (0-1); Hematocrit 39.4 % (40-54); Hemoglobin 12.6 g/dL (13.0-16.5); Lymphocyte # 0.74 X10^3/ul (4.0); Lymphocyte % 8.5 % (19-41); Mean Platelet Vol. 11.1 fl (6.2-12.0); Monocyte# 0.52 X10^3/uL; NRBC Flagged by Analyzer 0 % (0-5); Neutrophil # 7.26 X10^3/uL (2.7-7.7); Neutrophil % 83.6 % (47-70); Platelet Count 278 K/mm3 (150-450); RBC Distribution Width SD 49.5 fl (35.1-43.9); Red Blood Count 4.06 M/mm3 (4.6-6.2); White Blood Count 8.7 K/mm3 (4.4-11.0)
[2020-06-10] MEDS: dexAMETHasone 10 MG/ML Vial 6 MG IV (20:34)
[2020-06-10 20:37] LABS: Procalcitonin 0.09 ng/mL (0.00-0.09)
--- NOTE | 2020-06-10 20:38 | RAD_ITS ---
STUDY: X-RAY CHEST REASON FOR EXAM: Male, 75 years old. shortness of breath worse today, cough, COVID + 1.5 WKS AGO TECHNIQUE: AP COMPARISON: 03/13/2020 FINDINGS: Two lead cardiac conduction device is seen via the left subclavian vein with lead tips projecting over the right atrium and right ventricle, respectively. EKG leads project over the chest. There are patchy groundglass opacities predominantly along the periphery of the upper lobes and left lung base. There is no demonstrated pleural abnormality. There is mild cardiac enlargement. Normal mediastinum and gideon. Normal visualized pulmonary arteries. Normal visualized aortic arch and descending thoracic aorta. Normal visualized thoracic spine. Normal visualized ribs, clavicles, and shoulders. There is no demonstrated abnormality of the visualized soft tissue structures of the upper abdomen. RAD/Chest 1 View (Portable) IMPRESSION: Multilobar groundglass opacities with interstitial thickening, imaging features which have been reported with COVID associated pneumonia. Electronically Signed: Angus Najera MD (Brooks) at 21:05 EST , Service support ,
[2020-06-10 20:45] LABS: Allen Test Positive; Base Excess -4 mmol/L (-2 to +2); Bicarbonate 19.7 mmol/L (22-26); Blood Gas Specimen Type ART; O2 Delivery Device NRB; PO2 115 mmHG (75-100); SITE R Radial; SO2 99 % (95-99); Total Carbon Dioxide 21 mmol/L; pH 7.47 (7.35-7.45)
[2020-06-10 20:57] LABS: ALB/GLOB Ratio 0.6 RATIO (0.9-2.4); AST(SGOT) 62 U/L (15-37); Alanine Aminotransfer ALT/SGPT 34 U/L (16-61); Albumin, Serum 2.4 g/dL (3.2-5.0); Alkaline Phosphatase 55 U/L (45-117); Anion Gap 8 (5-15); BUN 43 mg/dL (7-18); BUN/Creat Ratio 23.1 RATIO (10-20); CPK Total, Creatine Kinase 47 U/L (39-308); Calcium,Total 8.1 mg/dL (8.5-10.1); Chloride 105 mmol/L (98-107); Creatinine, Serum 1.86 mg/dL (0.70-1.30); EST Glomerular Filtration Rate 38 mL/min (>60); Est Glom Filt Rate - Afr Amer 46 mL/min (>60); Estimated Creatinine Clearance 37.08 ml/min; Globulin 3.9 g/dL (2.2-4.2); Glucose 146 mg/dL (74-106); LDH 337 U/L (87-241); Potassium 4.2 mmol/L (3.5-5.1); Protein, Total 6.3 g/dL (6.4-8.2); Sodium Level 137 mmol/L (136-145)
[2020-06-10 20:59] LABS: Lactic Acid 2.3 mmol/L (0.4-1.9)
[2020-06-10] MEDS: Ipratropium/Albuterol Sulfate 3 ML AMPUL.NEB INHALATION (21:03)
[2020-06-10 21:52] LABS: Fibrinogen 657 mg/dl (203-444)
[2020-06-10 22:16] LABS: D-Dimer Quantitative (DVT/PE) 0.62 FEU/ug/m (0.27-0.49)
--- NOTE | 2020-06-10 22:45 | PCM.HP.STD ---
Problem List (1) Acute respiratory failure with hypoxia Status: Acute (2) Acute bilateral COVID-19 pneumonia Status: Acute (3) Atherosclerosis of coronary artery of [place] heart without angina pectoris Status: Chronic Qualifiers: (4) Non-ischemic cardiomyopathy Status: Chronic (5) ICD (implantable cardioverter-defibrillator), dual, in situ Status: Chronic Comment: [facility] Mary DFSiobhan PRASAD 02/2016; Revision for dislodged atrial lead...Insertion of new atrial lead with atrial lead revision 04/2016 (6) Chronic systolic (congestive) heart failure Status: Chronic (7) Longstanding persistent atrial fibrillation Status: Chronic (8) Essential (primary) hypertension Status: Chronic (9) Hyperlipidemia Status: Chronic Qualifiers: History of Present Illness Date of Admission: 06/10/20 Chief Complaint: Shortness of breath. The patient is a 75 year old M with past medical history as mentioned above presented to the emergency room because of shortness of breath. Patient stated that he was diagnosed with COVID-19 2 weeks ago and COVID-19 test was done in [facility]. Over the last 2 to 3 days, he has been having increasing shortness of breath, both exertional and at rest, associated with productive cough with yellow sputum, aggravated by any type of activity and not relieved with rest. He denied fever or chills. He reported diarrhea couple of times a day, loose stool without blood. He denied abdominal pain, nausea or vomiting. In the emergency department, patient was afebrile, blood pressure and heart rate were stable, he was dyspneic and tachypneic, initial pulse ox was 82% on room air. He was placed on nonrebreather mask and then he was placed on BiPAP. Routine blood work was remarkable for BUN of 43, creatinine is 1.86. Lactic acid was 2.3. LFT was unremarkable. LDH was 337. Troponin and CPK were normal. Procalcitonin was 0.09. Fibrinogen was 657 and D-dimer was 0.62. EKG revealed paced rhythm. Chest x-ray revealed multilobar bilateral groundglass opacities. ABG while on BiPAP revealed pH of 7.47, PO2 of 115 and PCO2 of 27. He is being admitted for acute bilateral COVID-19 pneumonia complicated by acute hypoxic respiratory failure. Past Medical History Past Medical History (Chronic Problems): Chronic Problems (Last Reviewed 02/07/20 @ 11:57 by Annita Carreon PA, PA) Stage III chronic kidney disease (Chronic) Atherosclerosis of coronary artery of [place] heart without angina pectoris (Chronic) History of coronary artery stent placement (Chronic 10/12/15) [id number] LAD w/ 3.0 x 18 mm Resolute Non-ischemic cardiomyopathy (Chronic) ICD (implantable cardioverter-defibrillator), dual, in situ (Chronic 02/25/16) [facility] Epi [address] DR 02/2016; Revision for dislodged atrial lead...Insertion of new atrial lead with atrial lead revision 04/2016 Chronic systolic (congestive) heart failure (Chronic) Longstanding persistent atrial fibrillation (Chronic) Paroxysmal atrial flutter (Chronic) [facility] 10/2018 Essential (primary) hypertension (Chronic) Hyperlipidemia (Chronic) Chronic anticoagulation (Chronic) Medical History: Medical History (Last Reviewed 02/07/20 @ 11:57 by Annita Carreon PA, PA) Atherosclerosis of coronary artery of [place] heart without angina pectoris (Chronic) I25.10 Non-ischemic cardiomyopathy (Chronic) I42.8 Chronic systolic (congestive) heart failure (Chronic) I50.22 Longstanding persistent atrial fibrillation (Chronic) I48.11 Paroxysmal atrial flutter (Chronic) I48.92 [facility] 10/2018 Essential (primary) hypertension (Chronic) I10 Hyperlipidemia (Chronic) E78.5 Chronic anticoagulation (Chronic) Z79.01 BPH (benign prostatic hyperplasia) N40.0 Bilateral hydrocele N43.3 Obesity E66.9 Ascites R18.8 Atrial flutter with rapid ventricular response Onset Date: 10/18/18 I48.92 Incarcerated left inguinal hernia K40.30 Persistent atrial fibrillation (Inactive) I48.1 Severe left ventricular systolic dysfunction (Inactive) I51.9 Allergies No Known Allergies Allergy (Verified 06/10/20 19:51) Home Medications: Ambulatory Orders Medication Instructions Recorded Apixaban [Eliquis] 5 mg PO BID 10/31/15 Clopidogrel Bisulfate [Plavix] 75 mg PO DAILY 10/31/15 rosuvastatin 20 mg tablet 20 mg PO QDAY 11/26/17 Dutasteride 0.5 mg PO DAILY 01/25/19 furosemide 40 mg tablet 40 mg PO BID tab 01/23/20 cholecalciferol (vitamin D3) 25 25 mcg PO DAILY 10/04/19 mcg (1,000 unit) capsule ferrous sulfate 325 mg (65 mg 325 mg PO DAILY 10/04/19 iron) tablet metoprolol tartrate 50 mg tablet 50 mg PO BID tab 10/04/19 omeprazole 20 mg capsule,delayed 20 mg PO DAILY 10/04/19 release spironolactone 50 mg tablet 25 mg PO DAILY tab 10/04/19 tamsulosin 0.4 mg capsule 0.8 mg PO DAILY cap 10/04/19 allopurinol 100 mg tablet 100 mg PO DAILY 02/07/20 amiodarone 200 mg tablet 200 mg PO DAILY #90 tab 02/24/20 Surgical History: Surgical History (Last Updated 06/10/20 @ 22:[address] Kenisha Rodriguez MD) History of coronary artery stent placement (Chronic) Onset Date: 10/12/15 Z95.5 [id number] LAD w/ 3.0 x 18 mm Resolute ICD (implantable cardioverter-defibrillator), dual, in situ (Chronic) Onset Date: 02/25/[address] [facility] Epi Hernandez [id number] 02/2016; Revision for dislodged atrial lead...Insertion of new atrial lead with atrial lead revision 04/2016 History of cardioversion Onset Date: 10/26/18 Z98.890 History of total left hip arthroplasty Onset Date: 02/24/17 Z96.642 History of colonoscopy Onset Date: 2016 Z98.890 History of umbilical hernia repair Z98.890, Z87.19 Traumatic amputation of multiple fingers Onset Date: 06/2017 S68.119A Psychiatric History: No pertinent psych hx Lives: Spouse/ Significant Other Smoking Status: Never smoker Alcohol: None Drugs: None - *Family History Sibling Family History: Family History (Last Reviewed 02/07/20 @ 11:57 by Annita ROJAS, PA) Brother Diabetes Heart disease Mother Heart disease Father Heart disease History Items: Heart Disease - PACEMAKER AND STENTS Review of Systems Constitutional: Reports: Malaise, Weakness. Denies: Anorexia, Chills, Fever Eyes: Denies: Blurred vision, Double vision, Drainage, Redness HEENT: Denies: Difficulty Hearing, Ear Pain, Eye Pain, Nasal Congestion, Sore Throat Cardiovascular: Denies: Chest Pain, Chest Pressure, Heaviness, Light Headedness, Palpitations, Syncope Respiratory: Reports: Cough, Shortness of Breath, Shortness of breath at rest, Shortness of breath upon exertion, Sputum production. Denies: Pleuritic Pain, Wheezing Gastrointestinal: Reports: Diarrhea. Denies: Abdominal Pain, Constipation, Nausea, Vomiting Genitourinary: Denies: Dysuria, Frequency, Hematuria Musculoskeletal: Denies: Arm Pain, Back Pain, Foot Pain Skin: Denies: Dryness, Rash Neurological: Denies: Balance problems, Blurred vision, Change in Speech, Slurred speech, Headaches Psychiatric: Denies: Anxiety, Depression Endocrine: Denies: Change in Body Habitus, Polydipsia, Polyuria VTE Information - Inpt Only VTE Present on Admission: No VTE Mechan Device Prophylaxis: None VTE Pharm Prophylaxis ordered?: No Patient Problems: Active and Suspected Problems (Last Updated 06/10/20 @ 22:[address] Kenisha Rodriguez MD) Acute respiratory failure with hypoxia (Acute) Acute bilateral COVID-19 pneumonia (Acute) - Physical Exam Vitals/I&O's: Vital Signs Temp Pulse Resp BP Pulse Ox 97.8 F 62 20 H 107/55 L 100 06/10/20 19:50 06/10/20 21:04 06/10/20 21:04 06/10/20 20:31 06/10/20 21:01 Oxygen Flow Rate (L/min) 10 Oxygen Delivery Method Non-Rebreather Weight: 238 lb 15.697 oz Body Mass Index (BMI) 32.3 General: Alert, Oriented x3, Cooperative, - - Moderately short of breath, on BiPAP. HEENT: Atraumatic, PERRLA, EOMI, Normocephalic Oral: Moist Mucosa, No Gingival or Mucosal Lesions/ Ulcerations Neck: Supple, No JVD, Negative Carotid Bruits, Trachea Midline, Thyroid Normal Size and Texture Lungs: No wheeze, No rales, Diminished, Rhonchi, Short of Breath, Tachypneic, - - Decreased breath sounds bilateral, scattered rhonchi. Cardiovascular: Regular rate, Regular Rhythm, Normal S1, Normal S2, PMI Normal Abdomen: Bowel Sounds Present, Soft, Non Tender, Non-Distended, No Hepato-splenomegaly, Obese Extremities: No clubbing, No cyanosis, No edema Skin: No rashes, No breakdown Lymphatic: No Cervical, Supraclavicular, or Inguinal Adenopathy Neurological: Cranial nerves II-XII grossly intact, Motor Exam 5/5 strength throughout Psych/Mental Status: Normal Affect, Appropriate Laboratory Results 06/10/20 19:55: Fibrinogen 657 H, D-Dimer Quant (PE/DVT) 0.62 H* 06/10/20 19:55: Sodium 137, Potassium 4.2, Chloride 105, Carbon Dioxide 24.0, Anion Gap 8, BUN 43 H, Creatinine 1.86 H, Estim Creat Clear Calc 37.08, Est GFR (MDRD) Af Amer 46 L, Est GFR (MDRD) Non-Af 38 L, BUN/Creatinine Ratio 23.1 H, Glucose 146 H, Calcium 8.1 L, Total Bilirubin 0.40, AST 62 H, ALT 34, Alkaline Phosphatase 55, Lactate Dehydrogenase 337 H, Total Creatine Kinase 47, Troponin I < 0.015, C-React Prot Ext Range 71.00 H, Total Protein 6.3 L, Albumin 2.4 L, Globulin 3.9, Albumin/Globulin Ratio 0.6 L 06/10/20 19:55: Procalcitonin 0.09 06/10/20 19:55: WBC 8.7, RBC 4.06 L, Hgb 12.6 L, Hct 39.4 L, MCV 97.0 H, MCH 31.0, MCHC 32.0, RDW Std Deviation 49.5 H, RDW Coeff of Noemy 14.0, Plt Count 278, MPV 11.1, Immature Gran % (Auto) 1.800 H, Neut % (Auto) 83.6 H, Lymph % (Auto) 8.5 L, Todd % (Auto) 6.0, Eos % (Auto) 0.0, Baso % (Auto) 0.1, Absolute Neuts (auto) 7.3, Absolute Lymphs (auto) 0.74 L, Nucleated RBC % 0 06/10/20 19:55: Lactic Acid 2.3 H* 06/10/20 20:40: Specimen Type ART, Sample Site R Radial, pH 7.47 H, Bicarbonate Actual 19.7 L, Total CO2 21, Base Excess -4 L, O2 Saturation 99, ABG pCO2 27.0 L, ABG pO2 115 H, Sim Test Positive, O2 Delivery Device NRB Clinical Impression(s) from Imaging Studies Chest X-Ray 06/10/20 20:38 IMPRESSION: Multilobar groundglass opacities with interstitial thickening, imaging features which have been reported with COVID associated pneumonia. Electronically Signed: Angus Najera MD (Brooks) at 21:05 EST , Service support , Assessment/Plan All Active Problems (Last Updated 06/10/20 @ 22:[address] Kenisha Rodriguez MD) Acute respiratory failure with hypoxia (Acute) Acute bilateral COVID-19 pneumonia (Acute) This is a 75 years old male patient presented to the emergency room because of 3 days history of shortness of breath, cough with sputum production as well as weakness and diarrhea, reports that he tested positive for COVID-19 2 weeks ago at another facility and he was found to have bilateral multilobar groundglass opacities consistent with acute bilateral COVID-19 pneumonia complicated by acute hypoxic respiratory failure. #1 acute bilateral COVID-19 pneumonia: Chest x-ray reviewed. Currently, patient is on BiPAP. Fibrinogen, CRP and LDH are elevated. CPK and procalcitonin was normal. EKG revealed paced rhythm. Troponin is normal. ABG reviewed. Plan: Admit to [place] [id number] floor, isolation precautions, albuterol inhaler as needed, Tylenol as needed, Zofran as needed, start IV Decadron and IV remdesivir, continue BiPAP, infectious disease consult, repeat CBC and CMP tomorrow morning, PT OT evaluation and treatment. #2 acute hypoxic respiratory failure: Secondary to #1. Patient does not use home oxygen. ABG reviewed. Plan to treat underlying etiology as above, continue BiPAP, incentive spirometer. #3 CAD status post stents: Troponin is negative, no acute changes on EKG. Patient denied any chest pain. Continue Plavix, statins and metoprolol. #4 chronic systolic CHF/nonischemic cardiomyopathy/status post ICD: Currently, no evidence of acute CHF. Plan to continue Lasix twice daily, continue metoprolol and Aldactone. #5 chronic atrial fibrillation: Status post pacemaker. Heart rate stable, blood pressure is stable as well. Continue metoprolol and Eliquis. #6 hypertension: Plan to continue metoprolol, Lasix and Aldactone. #7 stage III chronic kidney disease: Baseline creatinine has been around 1.7 to 2.5 mg/dL. Admission creatinine is 1.86, stable at baseline. Plan to monitor. #8 hyperlipidemia: Continue statins. #9 CODE STATUS: I explained to the patient different types of CODE STATUS. I explained to the patient that the BiPAP is the last solution for this hypoxia and shortness of breath and the next step is to intubate him and start mechanical ventilation. He clearly mentioned that he does not want to be on a breathing machine or to be intubated. I asked him if he wants chest compressions for cardiac arrest and he clearly mentioned he does not want any invasive procedures or treatments. He confirmed that he wants no resuscitation efforts to be performed on him. I spoke with his Sandee choudhary and I informed her about her 's incision about CODE STATUS and she confirmed that that what he mentioned in the past. CODE STATUS is DNR CCA, no intubation. #10 DVT prophylaxis: Continue Eliquis. This note was generated with [employer] I/O dictation software. It may contain incorrect words, spelling, and punctuation that were not noted in checking the note before signing. Inpatient E&M: 20634 Init Hosp L3 Procedures: 86512 Advncd Care Plan 30 Min - Time spent with the patient in the room is 14 minutes. Spoke with the patient's over the phone which took about 5 minutes.
[2020-06-11] VITALS (19 sets, daily range): BP systolic 102–138; BP diastolic 59–71; PULSE 60–67; RESP 12–24; TEMP 36.4–36.6; O2SAT 93–99
[2020-06-11 00:07] LABS: Reflex Lactate? Y
[2020-06-11 01:29] LABS: Lactic Acid 1.7 mmol/L (0.4-1.9)
[2020-06-11 06:01] LABS: Absolute Lymphocyte Count 0.38 X10^3/uL (0.83-4.51); Absolute Neutrophil Count 5.8 X10^3/uL (2.0-7.7); Basophil# 0.01 X10^3/uL; Basophil% 0.2 % (0-1); Hematocrit 35.6 % (40-54); Hemoglobin 11.8 g/dL (13.0-16.5); Lymphocyte # 0.38 X10^3/ul (4.0); Lymphocyte % 5.9 % (19-41); Mean Corp Hgb Conc 33.1 g/dL (32-36); Mean Corpuscular Hgb 32.1 pg (27.0-32.0); Mean Corpuscular Volume 96.7 fL (80-94); Mean Platelet Vol. 11.2 fl (6.2-12.0); Monocyte# 0.24 X10^3/uL; Monocyte% 3.7 % (0-10); NRBC Flagged by Analyzer 0 % (0-5); Neutrophil # 5.78 X10^3/uL (2.7-7.7); POSITIVE DIFFERENTIAL YES; Platelet Count 227 K/mm3 (150-450); RBC Distribution Width CV 14.2 % (11.6-14.6); RBC Distribution Width SD 49.8 fl (35.1-43.9); Red Blood Count 3.68 M/mm3 (4.6-6.2); White Blood Count 6.5 K/mm3 (4.4-11.0)
[2020-06-11 06:12] LABS: Differential Indicated SCAN CRITERIA MET
[2020-06-11 06:20] LABS: International Normalized Ratio 1.4; Prothrombin Time (Protime)PT. 16.9 SECONDS (11.7-14.9)
[2020-06-11 06:30] LABS: ALB/GLOB Ratio 0.6 RATIO (0.9-2.4); AST(SGOT) 52 U/L (15-37); Alanine Aminotransfer ALT/SGPT 27 U/L (16-61); Albumin, Serum 2.1 g/dL (3.2-5.0); Alkaline Phosphatase 50 U/L (45-117); Anion Gap 9 (5-15); BUN 41 mg/dL (7-18); BUN/Creat Ratio 23.4 RATIO (10-20); Calcium,Total 7.9 mg/dL (8.5-10.1); Chloride 107 mmol/L (98-107); Creatinine, Serum 1.75 mg/dL (0.70-1.30); EST Glomerular Filtration Rate 41 mL/min (>60); Est Glom Filt Rate - Afr Amer 49 mL/min (>60); Estimated Creatinine Clearance 39.42 ml/min; Globulin 3.7 g/dL (2.2-4.2); Glucose 242 mg/dL (74-106); Potassium 4.7 mmol/L (3.5-5.1); Protein, Total 5.8 g/dL (6.4-8.2); Sodium Level 137 mmol/L (136-145)
--- NOTE | 2020-06-11 07:53 | PN_ITS ---
Patient Problems: Active and Suspected Problems (Last Updated 06/10/20 @ 22:[address] Kenisha Rodriguez MD) Acute respiratory failure with hypoxia (Acute) Acute bilateral COVID-19 pneumonia (Acute) Reason for Visit: Acute hypoxic respiratory failure secondary to COVID-19 pneumonia Objective: Patient on 50 to 60% of BiPAP last night. Chest x-ray shows multilobar groundglass opacities No fever or chills. Respiratory rate 20-23. Physical exam General: Alert, Oriented x3, Cooperative, obesity grade 3 BMI 32.4 kg/m?. HEENT: Atraumatic, PERRLA, EOMI, Normocephalic Oral: No Gingival or Mucosal Lesions/ Ulcerations Neck: Supple, No JVD, Negative Carotid Bruits Lungs: Air entry severely diminished in bilateral lung bases. Bilateral expiratory rhonchi present on BiPAP. Cardiovascular: Regular rate, Regular Rhythm, Normal S1, Normal S2, No murmurs Abdomen: Bowel Sounds Present, Soft, Non Tender, mild abdominal distention. : No renal angle tenderness. No suprapubic tenderness. Extremities: No edema, Capillary Refill Less than 3 Seconds Skin: No rashes, No breakdown Musculoskeletal: No Tenderness to Palpation of Joints or Extremities Neurological: Cranial nerves II-XII grossly intact, Deep Tendon Reflexes 2+/4 and Symmetrical, Neuro grossly intact Psych/Mental Status: Normal Affect, Appropriate. Vitals/I&O's: Vital Signs Temp Pulse Resp BP Pulse Ox 97.9 F 62 21 H 138/59 H 97 06/11/20 04:25 06/11/20 07:04 06/11/20 07:04 06/11/20 04:25 06/11/20 07:04 Oxygen Flow Rate (L/min) 10 Oxygen Delivery Method Bi-pap Weight: 238 lb 15.697 oz Body Mass Index (BMI) 32.3 Intake and Output for Last 24 Hours 06/09/20 06/10/20 06/11/20 23:59 23:59 23:59 Intake Total 500 / 500 Output Total 425 / 425 Balance 75 / 75 Laboratory Results 06/10/20 19:55: Fibrinogen 657 H, D-Dimer Quant (PE/DVT) 0.62 H* 06/10/20 19:55: Sodium 137, Potassium 4.2, Chloride 105, Carbon Dioxide 24.0, Anion Gap 8, BUN 43 H, Creatinine 1.86 H, Estim Creat Clear Calc 37.08, Est GFR (MDRD) Af Amer 46 L, Est GFR (MDRD) Non-Af 38 L, BUN/Creatinine Ratio 23.1 H, Glucose 146 H, Calcium 8.1 L, Total Bilirubin 0.40, AST 62 H, ALT 34, Alkaline Phosphatase 55, Lactate Dehydrogenase 337 H, Total Creatine Kinase 47, Troponin I < 0.015, C-React Prot Ext Range 71.00 H, Total Protein 6.3 L, Albumin 2.4 L, Globulin 3.9, Albumin/Globulin Ratio 0.6 L 06/10/20 19:55: Procalcitonin 0.09 06/10/20 19:55: WBC 8.7, RBC 4.06 L, Hgb 12.6 L, Hct 39.4 L, MCV 97.0 H, MCH 31.0, MCHC 32.0, RDW Std Deviation 49.5 H, RDW Coeff of Noemy 14.0, Plt Count 278, MPV 11.1, Immature Gran % (Auto) 1.800 H, Neut % (Auto) 83.6 H, Lymph % (Auto) 8.5 L, [place] % (Auto) 6.0, Eos % (Auto) 0.0, Baso % (Auto) 0.1, Absolute Neuts (auto) 7.3, Absolute Lymphs (auto) 0.74 L, Nucleated RBC % 0 06/10/20 19:55: Lactic Acid 2.3 H* 06/10/20 20:40: Specimen Type ART, Sample Site R Radial, pH 7.47 H, Bicarbonate Actual 19.7 L, Total CO2 21, Base Excess -4 L, O2 Saturation 99, ABG pCO2 27.0 L , ABG pO2 115 H, Sim Test Positive, O2 Delivery Device NRB 06/11/20 00:56: Lactic Acid 1.7 06/11/20 05:06: WBC 6.5, RBC 3.68 L, Hgb 11.8 L, Hct 35.6 L, MCV 96.7 H, MCH 32.1 H, MCHC 33.1, RDW Std Deviation 49.8 H, RDW Coeff of Noemy 14.2, Plt Count 227, MPV 11.2, Immature Gran % (Auto) 1.200 H, Neut % (Auto) 89.0 H, Lymph % (Auto) 5.9 L, [place] % (Auto) 3.7, Eos % (Auto) 0.0, Baso % (Auto) 0.2, Absolute Neuts (auto) 5.8, Absolute Lymphs (auto) 0.38 L, Nucleated RBC % 0 06/11/20 05:06: PT 16.9 H, INR 1.4 06/11/20 05:06: Sodium 137, Potassium 4.7, Chloride 107, Carbon Dioxide 21.0, Anion Gap 9, BUN 41 H, Creatinine 1.75 H, Estim Creat Clear Calc 39.42, Est GFR (MDRD) Af Amer 49 L, Est GFR (MDRD) Non-Af 41 L, BUN/Creatinine Ratio 23.4 H, Glucose 242 H, Calcium 7.9 L, Total Bilirubin 0.40, AST 52 H, ALT 27, Alkaline Phosphatase 50, Total Protein 5.8 L, Albumin 2.1 L, Globulin 3.7, Albumin /Globulin Ratio 0.6 L Current Medications Acetaminophen (Acetaminophen 325 Mg Tablet) 650 mg PO Q6H PRN PRN PRN Reason: Pain Score 1-10/Temp > 100.7 F Albuterol Sulfate (Albuterol Sulfate 18 Gm Inhaler (200 Puffs)) 2 puff IH Q4H PRN PRN PRN Reason: Shortness of breath, wheezing Allopurinol (Allopurinol 100 Mg Tablet) 100 mg PO DAILY [facility] Amiodarone HCl (Amiodarone 200 Mg Tablet) 200 mg PO DAILY [facility] Apixaban (Apixaban 5 Mg Tablet) 5 mg PO BID [facility] Atorvastatin Calcium (Atorvastatin Calcium 40 Mg Tablet) 40 mg PO DAILY@2200 [facility] Calamine/Phenol (Menthol/Lanolin/Calamine/Znox 113 Gm Tube) 1 applic TOPICAL BID [facility]; Protocol Clopidogrel Bisulfate (Clopidogrel Bisulfate 75 Mg Tablet) 75 mg PO DAILY [facility] Dexamethasone Sodium Phosphate (Dexamethasone 10 Mg/Ml Vial) 6 mg IV DAILY [facility] Ferrous Sulfate (Ferrous Sulfate 325 Mg Tablet) 325 mg PO DAILY [facility] Furosemide (Furosemide 40 Mg Tablet) 40 mg PO BID@1000,1700 [facility] Remdesivir 100 mg/ Sodium (Chloride) 250 mls @ 125 mls/hr IV DAILY@2200 [facility] Stop: 06/14/20 23:59 Sodium Chloride () 250 mls @ 15 mls/hr IV .[id number] PRN PRN Reason: Saline Flush Sodium Chloride () 250 mls @ 15 mls/hr IV .[id number] PRN PRN Reason: Additional IVPB Infusion Losartan Potassium (Losartan Potassium 25 Mg Tablet) 25 mg PO DAILY [facility] Metoprolol Tartrate (Metoprolol Tartrate 50 Mg Tablet) 50 mg PO BID [facility] Miscellaneous Information (Inhaler, Assist Devices 1 Each Spacer) 1 each INHALATION PRN PRN PRN Reason: WITH ALBUTEROL MDI Nutritional Formula (Lactose Free) (Ensure Enlive 120 Ml Liquid) 120 ml PO TIDCM [facility] Ondansetron HCl (Ondansetron 4 Mg/2 Ml Vial) 4 mg IV Q8H PRN PRN PRN Reason: NAUSEA/VOMITING Pantoprazole Sodium (Pantoprazole Sodium 20 Mg Tablet) 20 mg PO DAILY [facility] Senna/Docusate Sodium (Senna/Docusate Sodium 1 Tablet) 2 tablet PO BID PRN PRN PRN Reason: Constipation Sodium Chloride (0.9% Saline Lock 10 Ml Syringe) 10 - 40 ml IV UD PRN PRN Reason: SALINE FLUSH Spironolactone (Spironolactone 25 Mg Tablet) 25 mg PO DAILY [facility] Tamsulosin HCl (Tamsulosin Hcl 0.4 Mg Capsule) 0.8 mg PO DAILY [facility] STROKE Vital Signs/Narrative: Vital Signs Temp Pulse Resp BP Pulse Ox 06/11/20 07:04 62 21 H 97 06/11/20 05:35 63 06/11/20 04:45 60 20 H 97 06/11/20 04:25 97.9 F 63 19 H 138/59 H 97 Medical Necessity - Tobacco Use Smoking Status: Never smoker Assessment/Plan All Active Problems (Last Updated 06/10/20 @ 22:[address] Kenisha Rodriguez MD) Acute respiratory failure with hypoxia (Acute) Acute bilateral COVID-19 pneumonia (Acute) This is a 75 years old male patient who is admitted on Covid cohort floor through emergency room for 3 days history of shortness of breath, cough with sputum production as well as weakness and diarrhea, reports that he tested positive for COVID-19 2 weeks ago at another facility and he was found to have bilateral multilobar groundglass opacities consistent with acute bilateral COVID-19 pneumonia complicated by acute hypoxic respiratory failure. #1 acute bilateral COVID-19 pneumonia: Chest x-ray individually reviewed shows bilateral patchy groundglass opacity with mild interstitial edema. Currently, patient is on BiPAP. Fibrinogen, CRP and LDH are elevated. CPK and procalcitonin was normal. EKG revealed paced rhythm. Troponin is normal. ABG 7.47/27/115/20 on nonrebreather mask suggestive of severe hypoxia and hypercarbia, acute respiratory alkalosis. Lactic acidosis 2.3. Repeat lactic acid was normal Albuterol inhaler as needed. On IV Decadron and remdesivir. BiPAP support. ID consult. Monitor CBC and CMP daily. PT and OT eval. Other supportive medications Zofran, Tylenol as needed. #2 acute hypoxic respiratory failure: Secondary to acute bilateral COVID-19 pneumonia. Patient does not use home oxygen. Incentive spirometry and chest p hysiotherapy. Rest as mentioned above #3 CAD status post stents: Troponin is negative, no acute changes on EKG. Patient denied any chest pain. Continue Plavix, statins and metoprolol. #4 chronic systolic CHF/nonischemic cardiomyopathy/status post ICD: Lasix oral is changed to IV. No acute exacerbation. Continue metoprolol and Aldactone. #5 chronic atrial fibrillation: Status post pacemaker. Heart rate stable, blood pressure is stable as well. Continue metoprolol and Eliquis. #6 hypertension: Plan to continue metoprolol, Lasix. Hold Aldactone as potassium is 4.7. #7 stage III chronic kidney disease: Baseline creatinine has been around 1.7 to 2.5 mg/dL. BUN/creatinine shows slight improvement. #8 hyperlipidemia: Continue statins. #9 CODE STATUS: DNR CC arrest #10 DVT prophylaxis: Continue Eliquis. Inpatient E&M: 19700 Subs Hosp L2
[2020-06-11] MEDS: Amiodarone 200 MG Tablet PO (09:45)
[2020-06-11] MEDS: dexAMETHasone 10 MG/ML Vial 6 MG IV (09:46)
[2020-06-11] MEDS: Menthol/Lanolin/Calamine/Znox 113 GM Tube 1 APPLIC TOPICAL ×2 (09:47→21:44)
[2020-06-11] MEDS: Ferrous Sulfate 325 MG Tablet PO (09:48)
[2020-06-11] MEDS: Tamsulosin HCl 0.4 MG Capsule 0.8 MG PO (09:48)
[2020-06-11] MEDS: APIXABAN 5 MG TABLET PO ×2 (09:48→21:43)
[2020-06-11] MEDS: Furosemide 40 MG/4 ML Vial IV ×2 (09:49→16:33)
[2020-06-11] MEDS: Metoprolol Tartrate 50 MG Tablet PO ×2 (09:50→21:43)
[2020-06-11] MEDS: Pantoprazole Sodium 20 MG Tablet PO (09:51)
[2020-06-11] MEDS: Clopidogrel Bisulfate 75 MG Tablet PO (09:51)
[2020-06-11] MEDS: Allopurinol 100 MG Tablet PO (09:52)
[2020-06-11] MEDS: Polyethylene Glycol 3350 17 GM PACKET PO (12:20)
--- NOTE | 2020-06-11 14:58 | CASEMGMT ---
CHAZ CRAIG ASSESSMENT COVID-19 +. Had COVID testing completed @ [facility] in [place]. CHAZ CRAIG placed call to pt's room to meet for initial transition planning/care coordination assessment. Pt MI'KMAQ and also noted SOB w/conversation. Pt asked CHAZ CRAIG to call his . Call place to pt's at this time. Care providers, pharmacy, and demographics verified/updated at this time. PCP: Dr Victoria Specialists: Dr Aleman--cardiology, Dr Nuñez--nephrology Preferred Pharmacy: [facility] Retail Insurance: [employer] [facility] Prescription Benefit: Yes Living Will/HPOA: states they have the paperwork to complete but have not done yet. She was made aware SW can assist with filling out paperwork once pt is out of quarantine and provided with SW contact info. LNOK: , Sandee. Son: Emiliano Living Arrangements: Lives with his in 2-story home. FFSU. Pt was independent w/ADL's prior to illness. manages most home tasks, medications, and appts. Pt has been sleeping in hospital bed on main floor since becoming ill. Pt/ able to self-quarantine in the home. has not been ill. DIL, dtr, or neighbor able to bring groceries/supplies/medications. They have masks, roll tester, and disinfectants. Transportation: Pt, DME: Has the following DME: cane, hospital bed, grab bars, hand held shower, walker, Does not have home O2. If pt qualifies for Home O2, agreeable to [employer]. HHC/SNF: No hx of SNF. Has had HHC in the past--an agency in [facility]. does not remember name. aware PT/OT evals are pending. She states if pt is too weak to return home, that she is agreeable to him going to SNF, but she is not sure if he will be agreeable. PLAN: TBD. PT/OT evals pending. If pt able to return home, follow for any Home O2 needs @ d/c. Caitlin CAMACHO RN, CM
--- NOTE | 2020-06-11 16:04 | CON.PCM_ITS ---
Problem List (1) Acute bilateral COVID-19 pneumonia Status: Acute Reason for Consult: covid Consulted by: Dr. Peña History of Present Illness: The patient is a 75 year old M dx with covid about 2 weeks ago, reports mild symptoms until past 2-3 days with progressive dyspnea and cough. Admitted, on eliquis, dex, remdesivir. Feeling a little better today. Full ROS performed and neg except as noted above. - Medical History Past Medical History (Chronic Problems): Chronic Problems (Last Updated 06/10/20 @ 22:[address] 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 Epi [id number] 02/2016; Revision for dislodged atrial lead...Insertion of new atrial lead with atrial lead revision 04/2016 Chronic systolic (congestive) heart failure (Chronic) Longstanding persistent atrial fibrillation (Chronic) Paroxysmal atrial flutter (Chronic) DCCV 10/2018 Essential (primary) hypertension (Chronic) Hyperlipidemia (Chronic) Chronic anticoagulation (Chronic) Allergies/Adverse Reactions: Allergies No Known Allergies Allergy (Verified 06/10/20 19:51) Home Medications: Ambulatory Orders Medication Instructions Recorded Apixaban [Eliquis] 5 mg PO BID 10/31/15 Clopidogrel Bisulfate [Plavix] 75 mg PO DAILY 10/31/15 rosuvastatin 20 mg tablet 20 mg PO QDAY 11/26/17 furosemide 40 mg tablet 40 mg PO BID tab 07/07/19 cholecalciferol (vitamin D3) 25 25 mcg PO DAILY 10/04/19 mcg (1,000 unit) capsule ferrous sulfate 325 mg (65 mg 325 mg PO DAILY 10/04/19 iron) tablet metoprolol tartrate 50 mg tablet 50 mg PO BID tab 10/04/19 omeprazole 20 mg capsule,delayed 20 mg PO DAILY 10/04/19 release spironolactone 50 mg tablet 25 mg PO DAILY tab 10/04/19 tamsulosin 0.4 mg capsule 0.8 mg PO DAILY cap 10/04/19 allopurinol 100 mg tablet 100 mg PO DAILY 02/07/20 Amiodarone HCl 200 mg PO DAILY 06/10/20 Acetaminophen [Tylenol Arthritis] 650 mg PO Q6H PRN PRN 06/11/20 Albuterol Sulfate [Albuterol 1 - 2 puff IH Q6H PRN PRN 06/11/20 Sulfate HFA] Losartan Potassium 25 mg PO DAILY 06/11/20 - Social History Tobacco Use: non-smoker Vital Signs Temp Pulse Resp BP Pulse Ox 97.8 F 67 20 H 102/61 95 06/11/20 14:33 06/11/20 14:33 06/11/20 14:33 06/11/20 14:33 06/11/20 15:39 Oxygen Flow Rate (L/min) 6 Oxygen Delivery Method Nasal Cannula Weight: 108.4 kg Body Mass Index (BMI) 32.3 Laboratory Tests Past 24 Hrs 06/10/20 06/10/20 06/10/20 19:55 19:55 19:55 WBC RBC Hgb Hct MCV MCH MCHC RDW Std Deviation RDW Coeff of Noemy Plt Count MPV Immature Gran % (Auto) Neut % (Auto) Lymph % (Auto) [place] % (Auto) Eos % (Auto) Baso % (Auto) Absolute Neuts (auto) Absolute Lymphs (auto) Nucleated RBC % PT INR Fibrinogen 657 H D-Dimer Quant (PE/DVT) 0.62 H* Specimen Type Sample Site pH Bicarbonate Actual Total CO2 Base Excess O2 Saturation ABG pCO2 ABG pO2 Sim Test O2 Delivery Device Sodium 137 Potassium 4.2 Chloride 105 Carbon Dioxide 24.0 Anion Gap 8 BUN 43 H Creatinine 1.86 H Estim Creat Clear Calc 37.08 Est GFR (MDRD) Af Amer 46 L Est GFR (MDRD) Non-Af 38 L BUN/Creatinine Ratio 23.1 H Glucose 146 H Lactic Acid Calcium 8.1 L Total Bilirubin 0.40 AST 62 H ALT 34 Alkaline Phosphatase 55 Lactate Dehydrogenase 337 H Total Creatine Kinase 47 Troponin I < 0.015 C-React Prot Ext Range 71.00 H Total Protein 6.3 L Albumin 2.4 L Globulin 3.9 Albumin/Globulin Ratio 0.6 L Procalcitonin 0.09 06/10/20 06/10/20 06/10/20 19:55 19:55 20:40 WBC 8.7 RBC 4.06 L Hgb 12.6 L Hct 39.4 L MCV 97.0 H MCH 31.0 MCHC 32.0 RDW Std Deviation 49.5 H RDW Coeff of Noemy 14.0 Plt Count 278 MPV 11.1 Immature Gran % (Auto) 1.800 H Neut % (Auto) 83.6 H Lymph % (Auto) 8.5 L [place] % (Auto) 6.0 Eos % (Auto) 0.0 Baso % (Auto) 0.1 Absolute Neuts (auto) 7.3 Absolute Lymphs (auto) 0.74 L Nucleated RBC % 0 PT INR Fibrinogen D-Dimer Quant (PE/DVT) Specimen Type ART Sample Site R Radial pH 7.47 H Bicarbonate Actual 19.7 L Total CO2 21 Base Excess -4 L O2 Saturation 99 ABG pCO2 27.0 L ABG pO2 115 H Sim Test Positive O2 Delivery Device NRB Sodium Potassium Chloride Carbon Dioxide Anion Gap BUN Creatinine Estim Creat Clear Calc Est GFR (MDRD) Af Amer Est GFR (MDRD) Non-Af BUN/Creatinine Ratio Glucose Lactic Acid 2.3 H* Calcium Total Bilirubin AST ALT Alkaline Phosphatase Lactate Dehydrogenase Total Creatine Kinase Troponin I C-React Prot Ext Range Total Protein Albumin Globulin Albumin/Globulin Ratio Procalcitonin 06/11/20 06/11/20 06/11/20 00:56 05:06 05:06 WBC 6.5 RBC 3.68 L Hgb 11.8 L Hct 35.6 L MCV 96.7 H MCH 32.1 H MCHC 33.1 RDW Std Deviation 49.8 H RDW Coeff of Noemy 14.2 Plt Count 227 MPV 11.2 Immature Gran % (Auto) 1.200 H Neut % (Auto) 89.0 H Lymph % (Auto) 5.9 L [place] % (Auto) 3.7 Eos % (Auto) 0.0 Baso % (Auto) 0.2 Absolute Neuts (auto) 5.8 Absolute Lymphs (auto) 0.38 L Nucleated RBC % 0 PT 16.9 H INR 1.4 Fibrinogen D-Dimer Quant (PE/DVT) Specimen Type Sample Site pH Bicarbonate Actual Total CO2 Base Excess O2 Saturation ABG pCO2 ABG pO2 Sim Test O2 Delivery Device Sodium Potassium Chloride Carbon Dioxide Anion Gap BUN Creatinine Estim Creat Clear Calc Est GFR (MDRD) Af Amer Est GFR (MDRD) Non-Af BUN/Creatinine Ratio Glucose Lactic Acid 1.7 Calcium Total Bilirubin AST ALT Alkaline Phosphatase Lactate Dehydrogenase Total Creatine Kinase Troponin I C-React Prot Ext Range Total Protein Albumin Globulin Albumin/Globulin Ratio Procalcitonin 06/11/20 05:06 WBC RBC Hgb Hct MCV MCH MCHC RDW Std Deviation RDW Coeff of Noemy Plt Count MPV Immature Gran % (Auto) Neut % (Auto) Lymph % (Auto) [place] % (Auto) Eos % (Auto) Baso % (Auto) Absolute Neuts (auto) Absolute Lymphs (auto) Nucleated RBC % PT INR Fibrinogen D-Dimer Quant (PE/DVT) Specimen Type Sample Site pH Bicarbonate Actual Total CO2 Base Excess O2 Saturation ABG pCO2 ABG pO2 Sim Test O2 Delivery Device Sodium 137 Potassium 4.7 Chloride 107 Carbon Dioxide 21.0 Anion Gap 9 BUN 41 H Creatinine 1.75 H Estim Creat Clear Calc 39.42 Est GFR (MDRD) Af Amer 49 L Est GFR (MDRD) Non-Af 41 L BUN/Creatinine Ratio 23.4 H Glucose 242 H Lactic Acid Calcium 7.9 L Total Bilirubin 0.40 AST 52 H ALT 27 Alkaline Phosphatase 50 Lactate Dehydrogenase Total Creatine Kinase Troponin I C-React Prot Ext Range Total Protein 5.8 L Albumin 2.1 L Globulin 3.7 Albumin/Globulin Ratio 0.6 L Procalcitonin - Other Studies Radiology: [] reviewed Other Studies: [] Route of nutrition/ use of supplements: [] Nutritional Intake: [] IV Site: [] Lemus Catheter: [] - Physical Exam General: Alert, Oriented x3, Cooperative, No apparent distress HEENT: Atraumatic, PERRLA, EOMI Neck: Supple, No Nodes Lungs: Diminished Cardiovascular: Regular rate, Regular Rhythm Abdomen: Soft, Non Tender, Non-Distended Extremities: No edema Skin: No rashes IV Site: Peripheral, without redness Musculoskeletal: No Tenderness to Palpation of Joints or Extremities Neurological: Cranial nerves II-XII grossly intact - Assessment/Plan Antibiotics: [] Assessment/Plan: [] Active and Suspected Problems (Last Updated 06/10/20 @ 22:[address] Kenisha Rodriguez MD) Acute respiratory failure with hypoxia (Acute) Acute bilateral COVID-19 pneumonia (Acute) covid with hypoxia- on dex, remdesivir, eliquis. Lactate 2.3, d-dimer 0.6. On 6L NC this afternoon. Feeling better. Sx started about 2 weeks prior to admit. Thank you, will follow
[2020-06-11] MEDS: Atorvastatin Calcium 40 MG Tablet PO (21:43)
[2020-06-12] VITALS (14 sets, daily range): BP systolic 109–142; BP diastolic 63–77; PULSE 61–64; RESP 18–20; TEMP 36.1–37.2; O2SAT 92–94
--- NOTE | 2020-06-12 00:09 | CPS ---
Pt. adamant about not wearing BiPAP for the night. Pt. is holding normal SpO2 on 6L at this time.
--- NOTE | 2020-06-12 00:44 | PCS.PANDOC ---
PANDEMIC DOCUMENTATION INITIATED: Date: 06/11/2020 Time: 1904
[2020-06-12] MEDS: Menthol/Lanolin/Calamine/Znox 113 GM Tube 1 APPLIC TOPICAL ×3 (05:58→21:22)
[2020-06-12 07:02] LABS: Absolute Lymphocyte Count 0.57 X10^3/uL (0.83-4.51); Absolute Neutrophil Count 6.6 X10^3/uL (2.0-7.7); Differential Indicated SCAN CRITERIA MET; Hematocrit 37.4 % (40-54); Hemoglobin 12.2 g/dL (13.0-16.5); Lymphocyte # 0.57 X10^3/ul (4.0); Lymphocyte % 7.2 % (19-41); Mean Corp Hgb Conc 32.6 g/dL (32-36); Mean Corpuscular Volume 94.9 fL (80-94); Mean Platelet Vol. 11.4 fl (6.2-12.0); Monocyte# 0.57 X10^3/uL; Monocyte% 7.2 % (0-10); NRBC Flagged by Analyzer 0 % (0-5); Neutrophil % 83.7 % (47-70); POSITIVE DIFFERENTIAL YES; Platelet Count 283 K/mm3 (150-450); RBC Distribution Width SD 48.7 fl (35.1-43.9); Red Blood Count 3.94 M/mm3 (4.6-6.2); White Blood Count 7.9 K/mm3 (4.4-11.0)
[2020-06-12 07:33] LABS: ALB/GLOB Ratio 0.7 RATIO (0.9-2.4); AST(SGOT) 55 U/L (15-37); Alanine Aminotransfer ALT/SGPT 31 U/L (16-61); Albumin, Serum 2.3 g/dL (3.2-5.0); Alkaline Phosphatase 53 U/L (45-117); Anion Gap 8 (5-15); BUN 51 mg/dL (7-18); BUN/Creat Ratio 29.5 RATIO (10-20); Calcium,Total 8.4 mg/dL (8.5-10.1); Chloride 106 mmol/L (98-107); Creatinine, Serum 1.73 mg/dL (0.70-1.30); EST Glomerular Filtration Rate 41 mL/min (>60); Est Glom Filt Rate - Afr Amer 50 mL/min (>60); Estimated Creatinine Clearance 39.87 ml/min; Globulin 3.2 g/dL (2.2-4.2); Glucose 203 mg/dL (74-106); Magnesium 2.5 mg/dL (1.6-2.6); Potassium 4.7 mmol/L (3.5-5.1); Protein, Total 5.5 g/dL (6.4-8.2); Sodium Level 137 mmol/L (136-145)
[2020-06-12] MEDS: Polyethylene Glycol 3350 17 GM PACKET PO (09:40)
[2020-06-12] MEDS: Amiodarone 200 MG Tablet PO (09:41)
[2020-06-12] MEDS: dexAMETHasone 4 MG Tablet 6 MG PO (09:41)
[2020-06-12] MEDS: Tamsulosin HCl 0.4 MG Capsule 0.8 MG PO (09:43)
[2020-06-12] MEDS: APIXABAN 5 MG TABLET PO ×2 (09:43→21:22)
[2020-06-12] MEDS: Ferrous Sulfate 325 MG Tablet PO (09:43)
[2020-06-12] MEDS: Clopidogrel Bisulfate 75 MG Tablet PO (09:44)
[2020-06-12] MEDS: Furosemide 40 MG/4 ML Vial IV ×2 (09:44→16:45)
[2020-06-12] MEDS: Metoprolol Tartrate 50 MG Tablet PO ×2 (09:44→21:22)
[2020-06-12] MEDS: Allopurinol 100 MG Tablet PO (09:45)
[2020-06-12] MEDS: Pantoprazole Sodium 20 MG Tablet PO (09:45)
[2020-06-12] MEDS: Senna/Docusate Sodium 1 Tablet 2 TABLET PO ×2 (09:45→21:22)
--- NOTE | 2020-06-12 10:30 | CASEMGMT ---
Addendum entered by Edwige Iglesias 06/12/20 12:30: Social Work Return call from pt who states if pt needs SNF she would like [facility]. SW placed call to [facility] and they do accept Covid positive pt and are in network with pt insurance. They currently have beds available. Phone call to pt and updated about this. SW will follow up with tomorrow after pt has another day of therapy and pt has time to consider discharge options. NANCY Cuevas Original Note: Social Work SW reviewed pt therapy notes and pt required Min A x2 for transfers and took side steps by bed but did not ambulate. Phone call to pt room to discuss d/c plans with no answer. Phone call to pt Sandee who states pt is very hard of hearing and does not have hearing aids and will therefore not be able to talk on the phone. SW spoke with regarding pt functional ability in therapy and reviewed options of SNF and home health. stating that pt would not be agreeable to SNF. Reviewed with shelter medicare coverage and facilities that are in network with insurance and accepting Covid positive patients. states she has a granddaughter who is a nurse who said she can assist some. If the pt does need SNF states first preference is [facility] and does not want [facility]. SW explained that [facility] has been full recently but SW will check. List of other in network facilities provided and did not have a second choice at this time. Pt continues to require 6L of oxygen and per physician pt is not ready for discharge today. [facility] will continue to follow for SNF placement. NANCY Cuevas
--- NOTE | 2020-06-12 12:01 | PCM.PN.HOSP ---
Patient Problems: Active and Suspected Problems (Last Updated 06/10/20 @ 22:[address] Kenisha Rodriguez MD) Acute respiratory failure with hypoxia (Acute) Acute bilateral COVID-19 pneumonia (Acute) Reason for Visit: Follow-up for acute hypoxic respiratory failure secondary to COVID-19 pneumonia. Objective: Patient is still on 6 L of oxygen. Afebrile. Shortness of breath is better. Patient has dry cough. Patient moved bowel yesterday. Urine output is clear. Physical exam General: Alert, Oriented x3, Cooperative HEENT: Atraumatic, PERRLA, EOMI, Normocephalic Oral: No Gingival or Mucosal Lesions/ Ulcerations Neck: Supple, No JVD, Negative Carotid Bruits Lungs: Air entry diminished in bilateral lung bases. No crepitation/rhonchi. Severe hypoxia Cardiovascular: Regular rate, Regular Rhythm, Normal S1, Normal S2, No murmurs Abdomen: Bowel Sounds Present, Soft, Non Tender, Non-Distended : No renal angle tenderness. No suprapubic tenderness. Extremities: No edema, Capillary Refill Less than 3 Seconds Skin: No rashes, No breakdown Musculoskeletal: No Tenderness to Palpation of Joints or Extremities Neurological: Cranial nerves II-XII grossly intact, Deep Tendon Reflexes 2+/4 and Symmetrical, Neuro grossly intact Psych/Mental Status: Normal Affect, Appropriate. Vitals/I&O's: Vital Signs Temp Pulse Resp BP Pulse Ox 97.8 F 63 20 H 112/63 92 06/12/20 09:30 06/12/20 10:00 06/12/20 09:30 06/12/20 09:30 06/12/20 10:57 Oxygen Flow Rate (L/min) 6 Oxygen Delivery Method Nasal Cannula Weight: 238 lb 15.697 oz Body Mass Index (BMI) 32.3 Intake and Output for Last 24 Hours 06/10/20 06/11/20 06/12/20 23:59 23:59 23:59 Intake Total 1230 / 1230 240 / 240 Output Total 950 / 950 200 / 200 Balance 280 / 280 40 / 40 Laboratory Results 06/12/20 06:20: WBC 7.9, RBC 3.94 L, Hgb 12.2 L, Hct 37.4 L, MCV 94.9 H, MCH 31.0, MCHC 32.6, RDW Std Deviation 48.7 H, RDW Coeff of Noemy 14.0, Plt Count 283, MPV 11.4, Immature Gran % (Auto) 1.900 H, Neut % (Auto) 83.7 H, Lymph % (Auto) 7.2 L, [place] % (Auto) 7.2, Eos % (Auto) 0.0, Baso % (Auto) 0.0, Absolute Neuts (auto) 6.6, Absolute Lymphs (auto) 0.57 L, Nucleated RBC % 0 06/12/20 06:20: Sodium 137, Potassium 4.7, Chloride 106, Carbon Dioxide 23.0, Anion Gap 8, BUN 51 H, Creatinine 1.73 H, Estim Creat Clear Calc 39.87, Est GFR (MDRD) Af Amer 50 L, Est GFR (MDRD) Non-Af 41 L, BUN/Creatinine Ratio 29.5 H, Glucose 203 H, Calcium 8.4 L, Magnesium 2.5, Total Bilirubin 0.30, AST 55 H, ALT 31, Alkaline Phosphatase 53, Total Protein 5.5 L, Albumin 2.3 L, Globulin 3.2, Albumin/Globulin Ratio 0.7 L Current Medications Acetaminophen (Acetaminophen 325 Mg Tablet) 650 mg PO Q6H PRN PRN PRN Reason: Pain Score 1-10/Temp > 100.7 F Albuterol Sulfate (Albuterol Sulfate 18 Gm Inhaler (200 Puffs)) 2 puff IH Q4H PRN PRN PRN Reason: Shortness of breath, wheezing Last Admin: 06/12/20 03:20 Dose: 2 puff Documented by: Allopurinol (Allopurinol 100 Mg Tablet) 100 mg PO DAILY [facility] Last Admin: 06/12/20 09:45 Dose: 100 mg Documented by: Amiodarone HCl (Amiodarone 200 Mg Tablet) 200 mg PO DAILY [facility] Last Admin: 06/12/20 09:41 Dose: 200 mg Documented by: Apixaban (Apixaban 5 Mg Tablet) 5 mg PO BID [facility] Last Admin: 06/12/20 09:43 Dose: 5 mg Documented by: Atorvastatin Calcium (Atorvastatin Calcium 40 Mg Tablet) 40 mg PO DAILY@2200 [facility] Last Admin: 06/11/20 21:43 Dose: 40 mg Documented by: Calamine/Phenol (Menthol/Lanolin/Calamine/Znox 113 Gm Tube) 1 applic TOPICAL BID [facility]; Protocol Last Admin: 06/12/20 09:39 Dose: 1 applicatio Documented by: Clopidogrel Bisulfate (Clopidogrel Bisulfate 75 Mg Tablet) 75 mg PO DAILY [facility] Last Admin: 06/12/20 09:44 Dose: 75 mg Documented by: Dexamethasone (Dexamethasone 4 Mg Tablet) 6 mg PO DAILY [facility] Stop: 06/19/20 10:01 Last Admin: 06/12/20 09:41 Dose: 6 mg Documented by: Ferrous Sulfate (Ferrous Sulfate 325 Mg Tablet) 325 mg PO DAILY [facility] Last Admin: 06/12/20 09:43 Dose: 325 mg Documented by: Furosemide (Furosemide 40 Mg/4 Ml Vial) 40 mg IV BID@1000,1700 [facility] Last Admin: 06/12/20 09:44 Dose: 40 mg Documented by: Remdesivir 100 mg/ Sodium (Chloride) 250 mls @ 125 mls/hr IV DAILY@2200 [facility] Stop: 06/14/20 23:59 Last Infusion: 06/11/20 23:39 Dose: Infused Documented by: Sodium Chloride () 250 mls @ 15 mls/hr IV .[id number] PRN PRN Reason: Saline Flush Sodium Chloride () 250 mls @ 15 mls/hr IV .[id number] PRN PRN Reason: Additional IVPB Infusion Metoprolol Tartrate (Metoprolol Tartrate 50 Mg Tablet) 50 mg PO BID [facility] Last Admin: 06/12/20 09:44 Dose: 50 mg Documented by: Miscellaneous Information (Inhaler, Assist Devices 1 Each Spacer) 1 each INHALATION PRN PRN PRN Reason: WITH ALBUTEROL MDI Ondansetron HCl (Ondansetron 4 Mg/2 Ml Vial) 4 mg IV Q8H PRN PRN PRN Reason: NAUSEA/VOMITING Pantoprazole Sodium (Pantoprazole Sodium 20 Mg Tablet) 20 mg PO DAILY [facility] Last Admin: 06/12/20 09:45 Dose: 20 mg Documented by: Polyethylene Glycol (Polyethylene Glycol 3350 17 Gm Packet) 17 gm PO DAILY [facility] Last Admin: 06/12/20 09:40 Dose: 17 gm Documented by: Senna/Docusate Sodium (Senna/Docusate Sodium 1 Tablet) 2 tablet PO BID [facility] Last Admin: 06/12/20 09:45 Dose: 2 tablet Documented by: Sodium Chloride (0.9% Saline Lock 10 Ml Syringe) 10 - 40 ml IV UD PRN PRN Reason: SALINE FLUSH Tamsulosin HCl (Tamsulosin Hcl 0.4 Mg Capsule) 0.8 mg PO DAILY [facility] Last Admin: 06/12/20 09:43 Dose: 0.8 mg Documented by: STROKE Vital Signs/Narrative: Vital Signs Temp Pulse Resp BP Pulse Ox 06/12/20 10:57 92 06/12/20 10:00 63 06/12/20 09:44 61 06/12/20 09:30 97.8 F 61 20 H 112/63 92 Medical Necessity - Tobacco Use Smoking Status: Never smoker Assessment/Plan All Active Problems (Last Updated 06/10/20 @ 22:[address] Kenisha Rodriguez MD) Acute respiratory failure with hypoxia (Acute) Acute bilateral COVID-19 pneumonia (Acute) This is a 75 years old male patient who is admitted on Covid [facility] floor through emergency room for 3 days history of shortness of breath, cough with sputum production as well as weakness and diarrhea, reports that he tested positive for COVID-19 2 weeks ago at another facility and he was found to have bilateral multilobar groundglass opacities consistent with acute bilateral COVID-19 pneumonia complicated by acute hypoxic respiratory failure. #1 acute bilateral COVID-19 pneumonia: Chest x-ray individually reviewed shows bilateral patchy groundglass opacity with mild interstitial edema. Currently, patient is on BiPAP. Fibrinogen, CRP and LDH are elevated. CPK and procalcitonin was normal. EKG revealed paced rhythm. Troponin is normal. ABG 7.47//115/20 on nonrebreather mask suggestive of severe hypoxia and hypercarbia, acute respiratory alkalosis. Lactic acidosis 2.3. Repeat lactic acid was normal Albuterol inhaler as needed. On IV Decadron and remdesivir. ID consult. Monitor CBC and CMP daily. PT and OT eval. Other supportive medications Zofran, Tylenol as needed. 06/12: Patient oxygenation was changed to nasal cannula. Did not require BiPAP last night. Seen by ID and agree with above treatment. BiPAP on rescue. #2 acute hypoxic respiratory failure: Secondary to acute bilateral COVID-19 pneumonia. Patient does not use home oxygen. Incentive spirometry and chest physiotherapy. Rest as mentioned above #3 CAD status post stents: Troponin is negative, no acute changes on EKG. Patient denied any chest pain. Continue Plavix, statins and metoprolol. 06/12: No chest pain/tightness or pressure. #4 chronic systolic CHF/nonischemic cardiomyopathy/status post ICD: Lasix oral is changed to IV. No acute exacerbation. Continue metoprolol and Aldactone. 06/12: Patient had 950 mill urine output on 06/11. Positive fluid balance about 220 mL. #5 chronic atrial fibrillation: Status post pacemaker. Heart rate stable, blood pressure is stable as well. Continue metoprolol and Eliquis. #6 hypertension: Plan to continue metoprolol, Lasix. Hold Aldactone as potassium is 4.7. #7 stage III chronic kidney disease: Baseline creatinine has been around 1.7 to 2.5 mg/dL. BUN/creatinine shows slight improvement. #8 hyperlipidemia: Continue statins. #9 CODE STATUS: DNR CC arrest #10 DVT prophylaxis: Continue Eliquis. Inpatient E&M: 63306 Subs Hosp L2
--- NOTE | 2020-06-12 20:08 | CPS ---
PT REFUSED PAP
[2020-06-12] MEDS: Atorvastatin Calcium 40 MG Tablet PO (21:22)
[2020-06-13] VITALS (14 sets, daily range): BP systolic 100–129; BP diastolic 59–79; PULSE 60–73; RESP 18; TEMP 36.6–36.8; O2SAT 92–95
[2020-06-13 06:04] LABS: Absolute Lymphocyte Count 0.49 X10^3/uL (0.83-4.51); Absolute Neutrophil Count 8.3 X10^3/uL (2.0-7.7); Basophil# 0.02 X10^3/uL; Basophil% 0.2 % (0-1); Hematocrit 42.3 % (40-54); Hemoglobin 13.4 g/dL (13.0-16.5); Lymphocyte # 0.49 X10^3/ul (4.0); Lymphocyte % 5.1 % (19-41); Mean Corp Hgb Conc 31.7 g/dL (32-36); Mean Corpuscular Hgb 31.5 pg (27.0-32.0); Mean Corpuscular Volume 99.3 fL (80-94); Mean Platelet Vol. 11.5 fl (6.2-12.0); Monocyte# 0.77 X10^3/uL; Monocyte% 7.9 % (0-10); NRBC Flagged by Analyzer 0 % (0-5); Neutrophil # 8.28 X10^3/uL (2.7-7.7); Neutrophil % 85.5 % (47-70); POSITIVE DIFFERENTIAL YES; Platelet Count 247 K/mm3 (150-450); RBC Distribution Width CV 14.3 % (11.6-14.6); RBC Distribution Width SD 51.8 fl (35.1-43.9); Red Blood Count 4.26 M/mm3 (4.6-6.2); White Blood Count 9.7 K/mm3 (4.4-11.0)
[2020-06-13 06:06] LABS: Differential Indicated SCAN CRITERIA MET
[2020-06-13 06:37] LABS: ALB/GLOB Ratio 0.5 RATIO (0.9-2.4); AST(SGOT) 80 U/L (15-37); Alanine Aminotransfer ALT/SGPT 34 U/L (16-61); Alkaline Phosphatase 75 U/L (45-117); Anion Gap 8 (5-15); BUN 54 mg/dL (7-18); BUN/Creat Ratio 36.7 RATIO (10-20); Calcium,Total 8.4 mg/dL (8.5-10.1); Chloride 105 mmol/L (98-107); Creatinine, Serum 1.47 mg/dL (0.70-1.30); EST Glomerular Filtration Rate 50 mL/min (>60); Est Glom Filt Rate - Afr Amer 60 mL/min (>60); Estimated Creatinine Clearance 46.92 ml/min; Globulin 3.9 g/dL (2.2-4.2); Glucose 171 mg/dL (74-106); Protein, Total 5.9 g/dL (6.4-8.2); Sodium Level 133 mmol/L (136-145)
--- NOTE | 2020-06-13 08:00 | PCM.PN.HOSP ---
Patient Problems: Active and Suspected Problems (Last Updated 06/10/20 @ 22:[address] Kenisha Rodriguez MD) Acute respiratory failure with hypoxia (Acute) Acute bilateral COVID-19 pneumonia (Acute) Reason for Visit: Follow-up for acute hypoxic respiratory failure secondary to COVID-19 pneumonia Objective: No fever or chills. Patient is still short of breath. Very hard of hearing and uses hearing aid On 6 L of oxygen. Blood cultures x2 are negative. Mild dry cough. Patient had bowel movement yesterday. Physical exam General: Alert, Oriented x3, Cooperative HEENT: Atraumatic, PERRLA, EOMI, Normocephalic Oral: No Gingival or Mucosal Lesions/ Ulcerations Neck: Supple, No JVD, Negative Carotid Bruits Lungs: Air entry diminished in bilateral lung bases. Bilateral expiratory rhonchi. Cardiovascular: Regular rate, Regular Rhythm, Normal S1, Normal S2, No murmurs Abdomen: Bowel Sounds Present, Soft, Non Tender, Non-Distended : No renal angle tenderness. No suprapubic tenderness. Extremities: No edema, Capillary Refill Less than 3 Seconds Skin: No rashes, No breakdown Musculoskeletal: No Tenderness to Palpation of Joints or Extremities Neurological: Cranial nerves II-XII grossly intact, Deep Tendon Reflexes 2+/4 and Symmetrical, Neuro grossly intact Psych/Mental Status: Normal Affect, Appropriate. Vitals/I&O's: Vital Signs Temp Pulse Resp BP Pulse Ox 98.3 F 64 18 115/70 95 06/13/20 03:00 06/13/20 04:16 06/13/20 03:00 06/13/20 03:00 06/13/20 05:00 Oxygen Flow Rate (L/min) 6 Oxygen Delivery Method Nasal Cannula Weight: 238 lb 15.697 oz Body Mass Index (BMI) 32.3 Intake and Output for Last 24 Hours 06/11/20 06/12/20 06/13/20 23:59 23:59 23:59 Intake Total 1230 / 1230 240 / 440 750 / 750 Output Total 950 / 950 200 / 625 725 / 725 Balance 280 / 280 40 / -185 25 / 25 Microbiology Past 72 Hours 06/10/20 20:23 Blood Culture (Wb) - Anticubital Left Blood Culture - Preliminary No growth in 48 hours. 12/27/20 19:55 Blood Culture (Wb) - Anticubital Right Blood Culture - Preliminary No growth in 48 hours. Laboratory Results 06/13/20 05:08: WBC 9.7, RBC 4.26 L, Hgb 13.4, Hct 42.3, MCV 99.3 H, MCH 31.5, MCHC 31.7 L, RDW Std Deviation 51.8 H, RDW Coeff of Noemy 14.3, Plt Count 247, MPV 11.5, Immature Gran % (Auto) 1.300 H, Neut % (Auto) 85.5 H, Lymph % (Auto) 5.1 L, [place] % (Auto) 7.9, Eos % (Auto) 0.0, Baso % (Auto) 0.2, Absolute Neuts (auto) 8.3 H, Absolute Lymphs (auto) 0.49 L, Nucleated RBC % 0 06/13/20 05:08: Sodium 133 L, Potassium 5.0, Chloride 105, Carbon Dioxide 20.0 L, Anion Gap 8, BUN 54 H, Creatinine 1.47 H, Estim Creat Clear Calc 46.92, Est GFR (MDRD) Af Amer 60, Est GFR (MDRD) Non-Af 50 L, BUN/Creatinine Ratio 36.7 H, Glucose 171 H, Calcium 8.4 L, Total Bilirubin 0.50, AST 80 H, ALT 34, Alkaline Phosphatase 75, Total Protein 5.9 L, Albumin 2.0 L, Globulin 3.9, Albumin/Globulin Ratio 0.5 L Current Medications Acetaminophen (Acetaminophen 325 Mg Tablet) 650 mg PO Q6H PRN PRN PRN Reason: Pain Score 1-10/Temp > 100.7 F Albuterol Sulfate (Albuterol Sulfate 18 Gm Inhaler (200 Puffs)) 2 puff IH Q4H PRN PRN PRN Reason: Shortness of breath, wheezing Last Admin: 06/12/20 03:20 Dose: 2 puff Documented by: Allopurinol (Allopurinol 100 Mg Tablet) 100 mg PO DAILY [facility] Last Admin: 06/12/20 09:45 Dose: 100 mg Documented by: Amiodarone HCl (Amiodarone 200 Mg Tablet) 200 mg PO DAILY [facility] Last Admin: 06/12/20 09:41 Dose: 200 mg Documented by: Apixaban (Apixaban 5 Mg Tablet) 5 mg PO BID [facility] Last Admin: 06/12/20 21:22 Dose: 5 mg Documented by: Atorvastatin Calcium (Atorvastatin Calcium 40 Mg Tablet) 40 mg PO DAILY@2199 [facility] Last Admin: 06/12/20 21:22 Dose: 40 mg Documented by: Calamine/Phenol (Menthol/Lanolin/Calamine/Znox 113 Gm Tube) 1 applic TOPICAL BID [facility]; Protocol Last Admin: 06/12/20 21:22 Dose: 1 applicatio Documented by: Clopidogrel Bisulfate (Clopidogrel Bisulfate 75 Mg Tablet) 75 mg PO DAILY [facility] Last Admin: 06/12/20 09:44 Dose: 75 mg Documented by: Dexamethasone (Dexamethasone 4 Mg Tablet) 6 mg PO DAILY [facility] Stop: 06/19/20 10:01 Last Admin: 06/12/20 09:41 Dose: 6 mg Documented by: Ferrous Sulfate (Ferrous Sulfate 325 Mg Tablet) 325 mg PO DAILY [facility] Last Admin: 06/12/20 09:43 Dose: 325 mg Documented by: Furosemide (Furosemide 40 Mg/4 Ml Vial) 40 mg IV BID@1000,1700 [facility] Last Admin: 06/12/20 16:45 Dose: 40 mg Documented by: Remdesivir 100 mg/ Sodium (Chloride) 250 mls @ 125 mls/hr IV DAILY@2199 [facility] Stop: 06/14/20 23:59 Last Infusion: 06/13/20 00:14 Dose: Infused Documented by: Sodium Chloride () 250 mls @ 15 mls/hr IV .[id number] PRN PRN Reason: Saline Flush Sodium Chloride () 250 mls @ 15 mls/hr IV .[id number] PRN PRN Reason: Additional IVPB Infusion Metoprolol Tartrate (Metoprolol Tartrate 50 Mg Tablet) 50 mg PO BID [facility] Last Admin: 06/12/20 21:22 Dose: 50 mg Documented by: Miscellaneous Information (Inhaler, Assist Devices 1 Each Spacer) 1 each INHALATION PRN PRN PRN Reason: WITH ALBUTEROL MDI Ondansetron HCl (Ondansetron 4 Mg/2 Ml Vial) 4 mg IV Q8H PRN PRN PRN Reason: NAUSEA/VOMITING Pantoprazole Sodium (Pantoprazole Sodium 20 Mg Tablet) 20 mg PO DAILY [facility] Last Admin: 06/12/20 09:45 Dose: 20 mg Documented by: Polyethylene Glycol (Polyethylene Glycol 3350 17 Gm Packet) 17 gm PO DAILY [facility] Last Admin: 06/12/20 09:40 Dose: 17 gm Documented by: Senna/Docusate Sodium (Senna/Docusate Sodium 1 Tablet) 2 tablet PO BID [facility] Last Admin: 06/12/20 21:22 Dose: 2 tablet Documented by: Sodium Chloride (0.9% Saline Lock 10 Ml Syringe) 10 - 40 ml IV UD PRN PRN Reason: SALINE FLUSH Tamsulosin HCl (Tamsulosin Hcl 0.4 Mg Capsule) 0.8 mg PO DAILY [facility] Last Admin: 06/12/20 09:43 Dose: 0.8 mg Documented by: STROKE Vital Signs/Narrative: Vital Signs Pulse Pulse Ox 06/13/20 05:00 95 06/13/20 04:16 64 Medical Necessity - Tobacco Use Smoking Status: Never smoker Assessment/Plan All Active Problems (Last Updated 06/10/20 @ 22:[address] Kenisha Rodriguez MD) Acute respiratory failure with hypoxia (Acute) Acute bilateral COVID-19 pneumonia (Acute) This is a 75 years old male patient who is admitted on Covid [facility] floor through emergency room for 3 days history of shortness of breath, cough with sputum production as well as weakness and diarrhea, reports that he tested positive for COVID-19 2 weeks ago at another facility and he was found to have bilateral multilobar groundglass opacities consistent with acute bilateral COVID-19 pneumonia complicated by acute hypoxic respiratory failure. #1 acute bilateral COVID-19 pneumonia: Chest x-ray individually reviewed shows bilateral patchy groundglass opacity with mild interstitial edema. Currently, patient is on BiPAP. Fibrinogen, CRP and LDH are elevated. CPK and procalcitonin was normal. EKG revealed paced rhythm. Troponin is normal. ABG 7.47/27/115/20 on nonrebreather mask suggestive of severe hypoxia and hypercarbia, acute respiratory alkalosis. Lactic acidosis 2.3. Repeat lactic acid was normal Albuterol inhaler as needed. On IV Decadron and remdesivir. ID consult. Monitor CBC and CMP daily. PT and OT eval. Other supportive medications Zofran, Tylenol as needed. 06/12: Patient oxygenation was changed to nasal cannula. Did not require BiPAP last night. Seen by ID and agree with above treatment. BiPAP on rescue. 06/13: On 6 L of oxygen. No leukocytosis. Lymphopenia, ALC 0.49 thousand #2 acute hypoxic respiratory failure: Secondary to acute bilateral COVID-19 pneumonia. Patient does not use home oxygen. Incentive spirometry and chest physiotherapy. Rest as mentioned above #3 CAD status post stents: Troponin is negative, no acute changes on EKG. Patient denied any chest pain. Continue Plavix, statins and metoprolol. 06/12: No chest pain/tightness or pressure. #4 chronic systolic CHF/nonischemic cardiomyopathy/status post ICD: Lasix oral is changed to IV. No acute exacerbation. Continue metoprolol and Aldactone. 06/12: Patient had 950 mill urine output on 06/11. Positive fluid balance about 220 mL. 06/13: Patient on Lasix. Intake and output is managed. #5 chronic atrial fibrillation: Status post pacemaker. Heart rate stable, blood pressure is stable as well. Continue metoprolol and Eliquis. #6 hypertension: Plan to continue metoprolol, Lasix. Hold Aldactone as potassium is 4.7. #7 stage III chronic kidney disease: Baseline creatinine has been around 1.7 to 2.5 mg/dL. BUN/creatinine shows slight improvement. 06/13: BUN/creatinine baseline 54/1.47, it is better. #8 hyperlipidemia: Continue statins. #9 CODE STATUS: DNR CC arrest #10 DVT prophylaxis: Continue Eliquis. Microbiology Past 72 Hours 06/10/20 20:23 Blood Culture (Wb) - Anticubital Left Blood Culture - Preliminary No growth in 48 hours. 06/10/20 19:55 Blood Culture (Wb) - Anticubital Right Blood Culture - Preliminary No growth in 48 hours. Laboratory Results 06/13/20 05:08: WBC 9.7, RBC 4.26 L, Hgb 13.4, Hct 42.3, MCV 99.3 H, MCH 31.5, MCHC 31.7 L, RDW Std Deviation 51.8 H, RDW Coeff of Noemy 14.3, Plt Count 247, MPV 11.5, Immature Gran % (Auto) 1.300 H, Neut % (Auto) 85.5 H, Lymph % (Auto) 5.1 L, [place] % (Auto) 7.9, Eos % (Auto) 0.0, Baso % (Auto) 0.2, Absolute Neuts (auto) 8.3 H, Absolute Lymphs (auto) 0.49 L, Nucleated RBC % 0 06/13/20 05:08: Sodium 133 L, Potassium 5.0, Chloride 105, Carbon Dioxide 20.0 L, Anion Gap 8, BUN 54 H, Creatinine 1.47 H, Estim Creat Clear Calc 46.92, Est GFR (MDRD) Af Amer 60, Est GFR (MDRD) Non-Af 50 L, BUN/Creatinine Ratio 36.7 H, Glucose 171 H, Calcium 8.4 L, Total Bilirubin 0.50, AST 80 H, ALT 34, Alkaline Phosphatase 75, Total Protein 5.9 L, Albumin 2.0 L, Globulin 3.9, Albumin/Globulin Ratio 0.5 L Inpatient E&M: 80045 Subs Hosp L2
[2020-06-13] MEDS: Menthol/Lanolin/Calamine/Znox 113 GM Tube 1 APPLIC TOPICAL ×2 (09:26→21:13)
[2020-06-13] MEDS: dexAMETHasone 4 MG Tablet 6 MG PO (09:27)
[2020-06-13] MEDS: Ferrous Sulfate 325 MG Tablet PO (09:28)
[2020-06-13] MEDS: Allopurinol 100 MG Tablet PO (09:28)
[2020-06-13] MEDS: APIXABAN 5 MG TABLET PO ×2 (09:28→21:12)
[2020-06-13] MEDS: Pantoprazole Sodium 20 MG Tablet PO (09:28)
[2020-06-13] MEDS: Tamsulosin HCl 0.4 MG Capsule 0.8 MG PO (09:28)
[2020-06-13] MEDS: Clopidogrel Bisulfate 75 MG Tablet PO (09:28)
[2020-06-13] MEDS: Amiodarone 200 MG Tablet PO (09:29)
[2020-06-13] MEDS: Furosemide 40 MG/4 ML Vial IV ×2 (09:32→16:51)
[2020-06-13] MEDS: Metoprolol Tartrate 50 MG Tablet PO ×2 (09:40→21:16)
--- NOTE | 2020-06-13 10:49 | CASEMGMT ---
Social Work Note PATTI placed a call to pt's room to discuss discharge planning. PATTI introduced self and role at [facility]. Pt is alert and orientated, states he is able to hear this worker. PATTI spoke with pt regarding discharge plans. PATTI updated pt that with PT/OT yesterday pt was assist of 2 and recommendation is SNF and pt's requested [facility]. PATTI asked pt if he would be agreeable to SNF and pt denied. Pt states I am going home. PATTI asked pt how he is going to get around as it is taking two people to get him up and pt states I will get up, I can do it. PATTI encouraged pt to get up then with PT/OT again today. PATTI asked pt if he would be agreeable to [facility] for therapy and pt states is agreeable. PATTI updated RN CM on pt's request for HHC. Plan: At this time, pt is not agreeable to SNF placement, prefers to return home with HHC. Margie Bonilla SALES [employer]OC[employer]ATE [employer], PLATFORM [employer]
--- NOTE | 2020-06-13 13:36 | CHAPLAIN ---
Type of Pastoral Visit ___ Initial Visit ___ Follow-up Visit ___ On-call Visit ___ General Patient Visit ___ Spiritual Assessment ___ Family Conference ___ Bereavement ___ Rapid Response ___ Code Blue _x__ Other (describe below) Pastoral Care Referral From ___ Patient ___ Family ___ Nurse ___ Physician ___ Occupational Therapist Per Diem ___ Sales Office Administrator _x__ Other (describe below) Sacrament/Intervention _x__ Active listening ___ Anointing ___ Jain ___ Bereavement ___ Communion ___ Rita exploration ___ ___ Life review ___ Prayer ___ Reconciliation ___ Sacrament of Sick ___ Supportive presence ___ Wedding ___ Other (describe below) Pastoral Comments phone call into this isolation room; patient answers phone and this vibration technician introduces self and role; pt asks this vibration technician can I go home?; informed pt that request is out of my control; offered support, someone to talk with, or a prayer; pt states he is fine and does not need anything
--- NOTE | 2020-06-13 15:34 | PCM.PN.ID ---
Patient Problems: Active and Suspected Problems (Last Updated 06/10/20 @ 22:[address] Kenisha Rodriguez MD) Acute respiratory failure with hypoxia (Acute) Acute bilateral COVID-19 pneumonia (Acute) Subjective: Wants to leave, feels frustrated. No fever, no n/v/d. - Physical Exam Vitals/I&O's: Vital Signs Temp Pulse Resp BP Pulse Ox 96.9 F L 65 18 100/59 L 95 06/13/20 09:30 06/13/20 09:57 06/13/20 09:30 06/13/20 09:30 06/13/20 12:16 Oxygen Flow Rate (L/min) 6 Oxygen Delivery Method Nasal Cannula Weight: 108.4 kg Body Mass Index (BMI) 32.3 Intake and Output for Last 24 Hours 06/11/20 06/12/20 06/13/20 23:59 23:59 23:59 Intake Total 1230 / 1230 240 / 440 750 / 750 Output Total 950 / 950 200 / 625 725 / 725 Balance 280 / 280 40 / -185 General: Alert, Cooperative, No apparent distress Lungs: Diminished Cardiovascular: Regular rate, Regular Rhythm Abdomen: Soft, Non Tender, Non-Distended Skin: No rashes Microbiology Past 72 Hours 06/10/20 20:23 Blood Culture (Wb) - Anticubital Left Blood Culture - Preliminary No growth in 48 hours. 06/10/20 19:55 Blood Culture (Wb) - Anticubital Right Blood Culture - Preliminary No growth in 48 hours. Laboratory Results 06/13/20 05:08: WBC 9.7, RBC 4.26 L, Hgb 13.4, Hct 42.3, MCV 99.3 H, MCH 31.5, MCHC 31.7 L, RDW Std Deviation 51.8 H, RDW Coeff of Noemy 14.3, Plt Count 247, MPV 11.5, Immature Gran % (Auto) 1.300 H, Neut % (Auto) 85.5 H, Lymph % (Auto) 5.1 L, [place] % (Auto) 7.9, Eos % (Auto) 0.0, Baso % (Auto) 0.2, Absolute Neuts (auto) 8.3 H, Absolute Lymphs (auto) 0.49 L, Nucleated RBC % 0 06/13/20 05:08: Sodium 133 L, Potassium 5.0, Chloride 105, Carbon Dioxide 20.0 L, Anion Gap 8, BUN 54 H, Creatinine 1.47 H, Estim Creat Clear Calc 46.92, Est GFR (MDRD) Af Amer 60, Est GFR (MDRD) Non-Af 50 L, BUN/Creatinine Ratio 36.7 H, Glucose 171 H, Calcium 8.4 L, Total Bilirubin 0.50, AST 80 H, ALT 34, Alkaline Phosphatase 75, Total Protein 5.9 L, Albumin 2.0 L, Globulin 3.9, Albumin/Globulin Ratio 0.5 L Current Medications Acetaminophen (Acetaminophen 325 Mg Tablet) 650 mg PO Q6H PRN PRN PRN Reason: Pain Score 1-10/Temp > 100.7 F Albuterol Sulfate (Albuterol Sulfate 18 Gm Inhaler (200 Puffs)) 2 puff IH Q4H PRN PRN PRN Reason: Shortness of breath, wheezing Last Admin: 06/12/20 03:20 Dose: 2 puff Documented by: Allopurinol (Allopurinol 100 Mg Tablet) 100 mg PO DAILY [facility] Last Admin: 06/13/20 09:28 Dose: 100 mg Documented by: Amiodarone HCl (Amiodarone 200 Mg Tablet) 200 mg PO DAILY [facility] Last Admin: 06/13/20 09:29 Dose: 200 mg Documented by: Apixaban (Apixaban 5 Mg Tablet) 5 mg PO BID [facility] Last Admin: 06/13/20 09:28 Dose: 5 mg Documented by: Atorvastatin Calcium (Atorvastatin Calcium 40 Mg Tablet) 40 mg PO DAILY@2200 [facility] Last Admin: 06/12/20 21:22 Dose: 40 mg Documented by: Calamine/Phenol (Menthol/Lanolin/Calamine/Znox 113 Gm Tube) 1 applic TOPICAL BID [facility]; Protocol Last Admin: 06/13/20 09:26 Dose: 1 applicatio Documented by: Clopidogrel Bisulfate (Clopidogrel Bisulfate 75 Mg Tablet) 75 mg PO DAILY [facility] Last Admin: 06/13/20 09:28 Dose: 75 mg Documented by: Dexamethasone (Dexamethasone 4 Mg Tablet) 6 mg PO DAILY [facility] Stop: 06/19/20 10:01 Last Admin: 06/13/20 09:27 Dose: 6 mg Documented by: Ferrous Sulfate (Ferrous Sulfate 325 Mg Tablet) 325 mg PO DAILY [facility] Last Admin: 06/13/20 09:28 Dose: 325 mg Documented by: Furosemide (Furosemide 40 Mg/4 Ml Vial) 40 mg IV BID@1000,1700 [facility] Last Admin: 06/13/20 09:32 Dose: 40 mg Documented by: Remdesivir 100 mg/ Sodium (Chloride) 250 mls @ 125 mls/hr IV DAILY@2200 [facility] Stop: 06/14/20 23:59 Last Infusion: 06/13/20 00:14 Dose: Infused Documented by: Sodium Chloride () 250 mls @ 15 mls/hr IV .[id number] PRN PRN Reason: Saline Flush Sodium Chloride () 250 mls @ 15 mls/hr IV .[id number] PRN PRN Reason: Additional IVPB Infusion Metoprolol Tartrate (Metoprolol Tartrate 50 Mg Tablet) 50 mg PO BID [facility] Last Admin: 06/13/20 09:40 Dose: 50 mg Documented by: Miscellaneous Information (Inhaler, Assist Devices 1 Each Spacer) 1 each INHALATION PRN PRN PRN Reason: WITH ALBUTEROL MDI Ondansetron HCl (Ondansetron 4 Mg/2 Ml Vial) 4 mg IV Q8H PRN PRN PRN Reason: NAUSEA/VOMITING Pantoprazole Sodium (Pantoprazole Sodium 20 Mg Tablet) 20 mg PO DAILY [facility] Last Admin: 06/13/20 09:28 Dose: 20 mg Documented by: Polyethylene Glycol (Polyethylene Glycol 3350 17 Gm Packet) 17 gm PO DAILY [facility] Last Admin: 06/13/20 09:32 Dose: Not Given Documented by: Senna/Docusate Sodium (Senna/Docusate Sodium 1 Tablet) 2 tablet PO BID [facility] Last Admin: 06/13/20 09:32 Dose: Not Given Documented by: Sodium Chloride (0.9% Saline Lock 10 Ml Syringe) 10 - 40 ml IV UD PRN PRN Reason: SALINE FLUSH Tamsulosin HCl (Tamsulosin Hcl 0.4 Mg Capsule) 0.8 mg PO DAILY [facility] Last Admin: 06/13/20 09:28 Dose: 0.8 mg Documented by: Medical Necessity - Tobacco Use Smoking Status: Never smoker Route of nutrition/ use of supplements: [] Nutritional Intake: [] IV Site: [] Lemus Catheter: [] - Assessment/Plan Antibiotics: [] Assessment/Plan: [] Active and Suspected Problems (Last Updated 06/10/20 @ 22:[address] Kenisha Rodriguez MD) Acute respiratory failure with hypoxia (Acute) Acute bilateral COVID-19 pneumonia (Acute) covid with hypoxia- on dex, remdesivir, eliquis. Lactate 2.3, d-dimer 0.6. Still on 6L NC this afternoon. Feeling better. Sx started about 2 weeks prior to admit. Checking BNP in AM due to lack of progress. Will follow
--- NOTE | 2020-06-13 16:34 | CASEMGMT ---
RN CM Note: SW reported pt is refusing to go to SNF. Due to his living alone, weakness and need for further medical management with new oxygen and PT/OT, SNF is still recommended. Will continue to follow and assist with discharge planning.
[2020-06-13] MEDS: Acetaminophen 325 MG Tablet 650 MG PO (21:12)
[2020-06-13] MEDS: Atorvastatin Calcium 40 MG Tablet PO (21:12)
[2020-06-14] VITALS (15 sets, daily range): BP systolic 98–131; BP diastolic 62–76; PULSE 60–71; RESP 18; TEMP 36.3–36.5; O2SAT 90–97
[2020-06-14] MEDS: INHALER, ASSIST DEVICES 1 EACH SPACER INHALATION (02:28)
[2020-06-14 07:31] LABS: Hematocrit 37.4 % (40-54); Hemoglobin 12.3 g/dL (13.0-16.5); Mean Corp Hgb Conc 32.9 g/dL (32-36); Mean Corpuscular Hgb 30.8 pg (27.0-32.0); Mean Corpuscular Volume 93.5 fL (80-94); Mean Platelet Vol. 11.4 fl (6.2-12.0); Platelet Count 309 K/mm3 (150-450); RBC Distribution Width CV 13.6 % (11.6-14.6); RBC Distribution Width SD 46.4 fl (35.1-43.9); White Blood Count 9.9 K/mm3 (4.4-11.0)
--- NOTE | 2020-06-14 07:39 | PN_ITS ---
Patient Problems: Active and Suspected Problems (Last Updated 06/10/20 @ 22:[address] Kenisha Rodriguez MD) Acute respiratory failure with hypoxia (Acute) Acute bilateral COVID-19 pneumonia (Acute) Objective: No fever or chills. Blood pressure and heart rate in normal range. On 5 L of oxygen. Vitals/I&O's: Vital Signs Temp Pulse Resp BP Pulse Ox 97.5 F L 71 18 131/75 H 94 06/14/20 02:30 06/14/20 03:34 06/14/20 02:30 06/14/20 02:30 06/14/20 02:30 Oxygen Flow Rate (L/min) 5 Oxygen Delivery Method Nasal Cannula Weight: 238 lb 15.697 oz Body Mass Index (BMI) 32.3 Intake and Output for Last 24 Hours 06/12/20 06/13/20 06/14/20 23:59 23:59 23:59 Intake Total 240 / 440 1000 / 1000 Output Total 200 / 625 2024 / 2024 400 / 400 Balance 40 / -185 -1025 / -1025 -400 / -400 Microbiology Past 72 Hours 06/10/20 20:23 Blood Culture (Wb) - Anticubital Left Blood Culture - Preliminary No growth in 48 hours. 06/10/20 19:55 Blood Culture (Wb) - Anticubital Right Blood Culture - Preliminary No growth in 48 hours. Laboratory Results 06/14/20 06:30: WBC 9.9, RBC 4.00 L, Hgb 12.3 L, Hct 37.4 L, MCV 93.5 D, MCH 30.8, MCHC 32.9, RDW Std Deviation 46.4 H, RDW Coeff of Noemy 13.6, Plt Count 309, MPV 11.4 06/14/20 06:30: Sodium Pending, Potassium Pending, Chloride Pending, Carbon Dioxide Pending, Anion Gap Pending, BUN Pending, Creatinine Pending, Est GFR (MDRD) Af Amer Pending, Est GFR (MDRD) Non-Af Pending, BUN/Creatinine Ratio Pending, Glucose Pending, Calcium Pending, Total Bilirubin Pending, AST Pending, ALT Pending, Alkaline Phosphatase Pending, Total Protein Pending, Albumin Pending 06/14/20 06:30: B-Natriuretic Peptide Pending Current Medications Acetaminophen (Acetaminophen 325 Mg Tablet) 650 mg PO Q6H PRN PRN PRN Reason: Pain Score 1-10/Temp > 100.7 F Last Admin: 06/13/20 21:12 Dose: 650 mg Documented by: Albuterol Sulfate (Albuterol Sulfate 18 Gm Inhaler (200 Puffs)) 2 puff IH Q4H PRN PRN PRN Reason: Shortness of breath, wheezing Last Admin: 06/14/20 02:28 Dose: 2 puff Documented by: Allopurinol (Allopurinol 100 Mg Tablet) 100 mg PO DAILY [facility] Last Admin: 06/13/20 09:28 Dose: 100 mg Documented by: Amiodarone HCl (Amiodarone 200 Mg Tablet) 200 mg PO DAILY [facility] Last Admin: 06/13/20 09:29 Dose: 200 mg Documented by: Apixaban (Apixaban 5 Mg Tablet) 5 mg PO BID [facility] Last Admin: 06/13/20 21:12 Dose: 5 mg Documented by: Atorvastatin Calcium (Atorvastatin Calcium 40 Mg Tablet) 40 mg PO DAILY@2200 [facility] Last Admin: 06/13/20 21:12 Dose: 40 mg Documented by: Calamine/Phenol (Menthol/Lanolin/Calamine/Znox 113 Gm Tube) 1 applic TOPICAL BID [facility]; Protocol Last Admin: 06/13/20 21:13 Dose: 1 applicatio Documented by: Clopidogrel Bisulfate (Clopidogrel Bisulfate 75 Mg Tablet) 75 mg PO DAILY [facility] Last Admin: 06/13/20 09:28 Dose: 75 mg Documented by: Dexamethasone (Dexamethasone 4 Mg Tablet) 6 mg PO DAILY [facility] Stop: 06/19/20 10:01 Last Admin: 06/13/20 09:27 Dose: 6 mg Documented by: Ferrous Sulfate (Ferrous Sulfate 325 Mg Tablet) 325 mg PO DAILY [facility] Last Admin: 06/13/20 09:28 Dose: 325 mg Documented by: Furosemide (Furosemide 40 Mg/4 Ml Vial) 40 mg IV BID@1000,1700 [facility] Last Admin: 06/13/20 16:51 Dose: 40 mg Documented by: Remdesivir 100 mg/ Sodium (Chloride) 250 mls @ 125 mls/hr IV DAILY@2200 [facility] Stop: 06/14/20 23:59 Last Infusion: 06/13/20 23:31 Dose: Infused Documented by: Sodium Chloride () 250 mls @ 15 mls/hr IV .[id number] PRN PRN Reason: Saline Flush Sodium Chloride () 250 mls @ 15 mls/hr IV .[id number] PRN PRN Reason: Additional IVPB Infusion Metoprolol Tartrate (Metoprolol Tartrate 50 Mg Tablet) 50 mg PO BID [facility] Last Admin: 06/13/20 21:16 Dose: 50 mg Documented by: Miscellaneous Information (Inhaler, Assist Devices 1 Each Spacer) 1 each INHALATION PRN PRN PRN Reason: WITH ALBUTEROL MDI Last Admin: 06/14/20 02:28 Dose: 1 each Documented by: Ondansetron HCl (Ondansetron 4 Mg/2 Ml Vial) 4 mg IV Q8H PRN PRN PRN Reason: NAUSEA/VOMITING Pantoprazole Sodium (Pantoprazole Sodium 20 Mg Tablet) 20 mg PO DAILY [facility] Last Admin: 06/13/20 09:28 Dose: 20 mg Documented by: Polyethylene Glycol (Polyethylene Glycol 3350 17 Gm Packet) 17 gm PO DAILY [facility] Last Admin: 06/13/20 09:32 Dose: Not Given Documented by: Senna/Docusate Sodium (Senna/Docusate Sodium 1 Tablet) 2 tablet PO BID [facility] Last Admin: 06/13/20 21:16 Dose: Not Given Documented by: Sodium Chloride (0.9% Saline Lock 10 Ml Syringe) 10 - 40 ml IV UD PRN PRN Reason: SALINE FLUSH Tamsulosin HCl (Tamsulosin Hcl 0.4 Mg Capsule) 0.8 mg PO DAILY [facility] Last Admin: 06/13/20 09:28 Dose: 0.8 mg Documented by: Medical Necessity - Tobacco Use Smoking Status: Never smoker Assessment/Plan All Active Problems (Last Updated 06/10/20 @ 22:[address] Kenisha Rodriguez MD) Acute respiratory failure with hypoxia (Acute) Acute bilateral COVID-19 pneumonia (Acute)
[2020-06-14 07:51] LABS: ALB/GLOB Ratio 0.7 RATIO (0.9-2.4); AST(SGOT) 74 U/L (15-37); Alanine Aminotransfer ALT/SGPT 32 U/L (16-61); Albumin, Serum 2.2 g/dL (3.2-5.0); Alkaline Phosphatase 53 U/L (45-117); Anion Gap 10 (5-15); BUN 66 mg/dL (7-18); Calcium,Total 8.1 mg/dL (8.5-10.1); Chloride 102 mmol/L (98-107); Creatinine, Serum 1.65 mg/dL (0.70-1.30); EST Glomerular Filtration Rate 43 mL/min (>60); Est Glom Filt Rate - Afr Amer 52 mL/min (>60); Globulin 3.2 g/dL (2.2-4.2); Glucose 226 mg/dL (74-106); Potassium 4.6 mmol/L (3.5-5.1); Protein, Total 5.4 g/dL (6.4-8.2); Sodium Level 135 mmol/L (136-145)
[2020-06-14 08:35] LABS: BNP,B-Type NATRIURETIC PEPTIDE 75.2 pg/mL (0-100)
[2020-06-14] MEDS: APIXABAN 5 MG TABLET PO ×2 (08:49→20:38)
[2020-06-14] MEDS: Metoprolol Tartrate 50 MG Tablet PO ×2 (08:49→20:39)
[2020-06-14] MEDS: Clopidogrel Bisulfate 75 MG Tablet PO (08:49)
[2020-06-14] MEDS: Tamsulosin HCl 0.4 MG Capsule 0.8 MG PO (08:49)
[2020-06-14] MEDS: Pantoprazole Sodium 20 MG Tablet PO (08:49)
[2020-06-14] MEDS: Amiodarone 200 MG Tablet PO (08:49)
[2020-06-14] MEDS: Ferrous Sulfate 325 MG Tablet PO (08:49)
[2020-06-14] MEDS: Furosemide 40 MG/4 ML Vial IV (08:50)
[2020-06-14] MEDS: dexAMETHasone 4 MG Tablet 6 MG PO (08:50)
[2020-06-14] MEDS: Allopurinol 100 MG Tablet PO (08:50)
[2020-06-14] MEDS: Menthol/Lanolin/Calamine/Znox 113 GM Tube 1 APPLIC TOPICAL ×2 (08:52→20:39)
--- NOTE | 2020-06-14 09:47 | CASEMGMT ---
Addendum entered by Margie Bonilla 06/14/20 10:56: PATTI then received update that pt's daughter Owen would like a call back. PATTI placed a call to pt's daughter Owen ([phone]). Owen asked for what reasons pt was going to SNF. PATTI explained PT/OT recommendations and that pt is currently on oxygen so pt would be going for PT/OT and oxygen monitoring. Owen states she agrees that pt needs SNF but just wanted the reasons that pt needed SNF. Owen then stated frustration with not having a doctor speak to pt's since pt has been at [facility]. PATTI explained that it is likely due to the fact that pt is own person, alert and orientated, able to relay messages from the doctor himself to family but this worker would speak with physician to let physician know pt's would like to be updated as well. Owen asked about discharge date. PATTI explained that medically pt is ready for discharge, but this worker has to wait to hear from admissions at [facility] regarding acceptance and will need confirmation about insurance if pre-cert is required or not. PATTI explained that if [facility] is able to accept and pre-cert is not needed, pt would like discharge to [facility] today. Owen states understanding, denied additional needs or concerns at this time. Original Note: Social Work Note SW received update that pt's Sandee would like a call. PATTI placed a call to Sandee ([phone]). PATTI spoke with Sandee regarding discharge planning and answered Sandee's questions. Sandee state she still would like pt to discharge to [facility]. Sandee states their granddaughter is a nurse at [employer] [facility] [employer]. PATTI updated Sandee that this worker did speak to pt yesterday and pt refused SNF. Sandee states she talked to pt last night and thinks she has talked pt into going to [facility]. PATTI explained referral process and that this worker will keep her updated. Sandee states understanding. PATTI placed a call to pt's . Pt confirms is agreeable to [facility]. PATTI explained referral process. Pt states understanding. PATTI placed a call to Tamra at [facility] and left message regarding referral. PATTI asked Tamra about pt's insurance and if pre-cert will be needed as tomorrow is new year. SW faxed referral. Plan: [facility] pending acceptance Margie Bonilla END POLISHER, REPAIR ORDER CLERK
--- NOTE | 2020-06-14 10:26 | PCM.DC ---
- Discharge Diagnoses Current Active Problems: Current Active and Chronic Problems (Last Updated 06/10/20 @ 22:[address] 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 [employer] [place] DF4 02/2016; Revision for dislodged atrial lead...Insertion of new atrial lead with atrial lead revision 04/2016 Chronic systolic (congestive) heart failure (Chronic) Longstanding persistent atrial fibrillation (Chronic) Essential (primary) hypertension (Chronic) Hyperlipidemia (Chronic) You will use the following diet at home:: Cardiac Allergies/Adverse Reactions: Allergies No Known Allergies Allergy (Verified 06/10/20 19:51) Medications to take at Discharge Apixaban [Eliquis] 5 mg PO BID 10/31/15 Clopidogrel Bisulfate [Plavix] 75 mg PO DAILY 10/31/15 rosuvastatin 20 mg tablet 20 mg PO QDAY 11/26/17 furosemide 40 mg tablet 40 mg PO BID tab 07/07/19 cholecalciferol (vitamin D3) 25 mcg (1,000 unit) capsule 25 mcg PO DAILY 10/04/19 ferrous sulfate 325 mg (65 mg iron) tablet 325 mg PO DAILY 10/04/19 metoprolol tartrate 50 mg tablet 50 mg PO BID tab 10/04/19 omeprazole 20 mg capsule,delayed release 20 mg PO DAILY 10/04/19 spironolactone 50 mg tablet 25 mg PO DAILY tab 10/04/19 tamsulosin 0.4 mg capsule 0.8 mg PO DAILY cap 10/04/19 allopurinol 100 mg tablet 100 mg PO DAILY 02/07/20 Amiodarone HCl 200 mg PO DAILY 06/10/20 Acetaminophen [Tylenol Arthritis] 650 mg PO Q6H PRN PRN 06/11/20 Albuterol Sulfate [Albuterol Sulfate HFA] 1 - 2 puff IH Q6H PRN PRN 06/11/20 Losartan Potassium 25 mg PO DAILY 06/11/20 Primary Care Physician: Lobo Victoria MD [Primary Care Provider] - Test Results: Test results from this visit will be discussed in further detail at your follow-up appointment, if applicable.
--- NOTE | 2020-06-14 10:38 | PCM.TXEXTCAR ---
- Diet 06/10/20 23:44 Diet: Cardiac - Heart Healthy Food consistency:: Regular Liquid Consistency:: Regular/Thin Type of Dietary Supplement:: Ensure Enlive Diet Comments: 120 ml w/ meals - Routine Orders/Code Status Suppository Type: Dulcolax 10mg Suppository Frequency: Daily PRN Routine Lab Work: CBC - In 1 week for COVID-19 pneumonia, BMP - In 3 days Code Status: DNRCC-A - Therapies Weight Bearing: Weight bearing as tolerated Extremity Affected:: Bilateral Lower Physical Therapy: Eval and Treat Occupational Therapy: Eval and Treat Speech Therapy: Eval and Treat - Allergies/Procedures Done in Hospital Allergies/Adverse Reactions: Allergies No Known Allergies Allergy (Verified 06/10/20 19:51) - Type of Care/Length of Stay Estimated LOS: Convalescent Care Less Than 30 days Type of Care Needed: Skilled Rehab Potential: Good Prognosis: Good - Additional Orders/Day of Discharge Day of Discharge: 06/14/20 - Dietary and Speech Recommendations Dietitian Recommendations/Changes: Will continue ONS w/ meals. Will continue diet as ordered r/t pmhx - Follow Up Care Primary Care Physician: Lobo Victoria MD [Primary Care Provider] - Please follow up with your Primary Care Physician in: in 1-2 weeks Please Follow Up With: Christopher Park MD When: as needed for covid 19 pneumonia Please Follow Up With: Jesi Nuñez DO When: In 2 to 3 weeks for acute kidney injury on CKD Please Follow Up With: José Aleman MD When: As scheduled
--- NOTE | 2020-06-14 10:40 | PCM.DC.SUM ---
Discharge Date and Diagnosis - Problem List Patient Problems: Active and Suspected Problems (Last Updated 06/10/20 @ 22:[address] Kenisha Rodriguez MD) Acute respiratory failure with hypoxia (Acute) Acute bilateral COVID-19 pneumonia (Acute) Date of Admission: 06/10/20 Date of Discharge: 06/14/20 - Primary Discharge Diagnosis Acute Problems: Active Problems (Last Updated 06/10/20 @ 22:[address] Kenisha Rodriguez MD) Acute respiratory failure with hypoxia (Acute) Acute bilateral COVID-19 pneumonia (Acute) - Secondary Discharge Diagnosis Chronic Problems: Chronic Problems (Last Updated 06/10/20 @ 22:[address] 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 DF4 02/2016; Revision for dislodged atrial lead...Insertion of new atrial lead with atrial lead revision 04/2016 Chronic systolic (congestive) heart failure (Chronic) Longstanding persistent atrial fibrillation (Chronic) Paroxysmal atrial flutter (Chronic) DCCV 10/2018 Essential (primary) hypertension (Chronic) Hyperlipidemia (Chronic) Chronic anticoagulation (Chronic) Hospital Course and Treatment Summary of Care Provided: [] This is a 75 years old male patient who is admitted on [facility] floor through emergency room for 3 days history of shortness of breath, cough with sputum production as well as weakness and diarrhea, reports that he tested positive for COVID-19 2 weeks ago at another facility and he was found to have bilateral multilobar groundglass opacities consistent with acute bilateral COVID-19 pneumonia complicated by acute hypoxic respiratory failure. #1 acute bilateral COVID-19 pneumonia: Chest x-ray individually reviewed shows bilateral patchy groundglass opacity with mild interstitial edema. Currently, patient is on BiPAP. Fibrinogen, CRP and LDH are elevated. CPK and procalcitonin was normal. EKG revealed paced rhythm. Troponin is normal. ABG 7.47/27/115/20 on nonrebreather mask suggestive of severe hypoxia and hypercarbia, acute respiratory alkalosis. Lactic acidosis 2.3. Repeat lactic acid was normal Albuterol inhaler as needed. Overall patient oxygenation improved currently on 2 L. Patient denies shortness of breath, chest pressure or pain. Has mild occasional cough. Patient completed 5 days of remdesivir and is on Decadron. Discharged on Decadron to complete a total of 7 days. Patient did not have leukocytosis but lymphopenia, 0.49 thousand. Patient was seen by ID. #2 acute hypoxic respiratory failure: Secondary to acute bilateral COVID-19 pneumonia. Patient does not use home oxygen. And oxygenation improved from 10 L to 2 L incentive spirometry and chest physiotherapy. Rest as mentioned above #3 CAD status post stents: Troponin is negative, no acute changes on EKG. Patient denied any chest pain. Continue Plavix, statins and metoprolol. #4 chronic systolic CHF/nonischemic cardiomyopathy/status post ICD: Lasix oral is changed to IV. No acute exacerbation. Continue metoprolol and Aldactone. Patient urine output has been good. #5 chronic atrial fibrillation: Status post pacemaker. Heart rate stable, blood pressure is stable as well. Continue metoprolol and Eliquis. #6 hypertension: Plan to continue metoprolol, Lasix. Hold Aldactone as potassium is 4.7. #7 stage III chronic kidney disease: Baseline creatinine has been around 1.7 to 2.5 mg/dL. BUN/creatinine shows slight improvement. However her kidney function remained stable and initially showed improvement and slight increase BUN, creatinine 66/1.65 on last day. This probably related to hemodynamic fluid shift from diuretic. Lasix decreased to 40 mg daily. Adjust the dose of Lasix as per symptoms of heart failure and kidney function. #8 hyperlipidemia: Continue statins. #9 CODE STATUS: DNR CC arrest #10 DVT prophylaxis: Continue Eliquis. Discharge medication reconciliation done. Discharge follow-up instructions completed. Discharge process discussed with the patient and all questions were answered to patient's satisfaction. She is on Eliquis 5 mg twice daily for history of A. fib. Advised to hold losartan for 7 days.. Total time spent, exact 35 minutes on discharge meds reconciliation, examination, coordination of care with nurses and ancillary staff, review of imaging and blood test and discussion with the patient on follow-up instructions Patient Problems: Active and Suspected Problems (Last Updated 06/10/20 @ 22:[address] Kenisha Rodriguez MD) Acute respiratory failure with hypoxia (Acute) Acute bilateral COVID-19 pneumonia (Acute) Objective: No fever or chills. Blood pressure and heart rate in normal range. On 5 L of oxygen. - Physical Exam Vitals/I&O's: Vital Signs Temp Pulse Resp BP Pulse Ox 97.4 F L 62 18 129/76 H 94 06/14/20 08:40 06/14/20 08:49 06/14/20 08:40 06/14/20 08:40 06/14/20 08:40 Oxygen Flow Rate (L/min) 2 Oxygen Delivery Method Nasal Cannula Weight: 238 lb 15.697 oz Body Mass Index (BMI) 32.3 Intake and Output for Last 24 Hours 06/12/20 06/13/20 06/14/20 23:59 23:59 23:59 Intake Total 240 / 440 1000 / 1000 Output Total 200 / 625 2024 / 2024 400 / 400 Balance 40 / -185 -1025 / -1025 -400 / -400 Microbiology Past 72 Hours 06/10/20 20:23 Blood Culture (Wb) - Anticubital Left Blood Culture - Preliminary No growth in 48 hours. 06/10/20 19:55 Blood Culture (Wb) - Anticubital Right Blood Culture - Preliminary No growth in 48 hours. Laboratory Results 06/14/20 06:30: WBC 9.9, RBC 4.00 L, Hgb 12.3 L, Hct 37.4 L, MCV 93.5 D, MCH 30.8, MCHC 32.9, RDW Std Deviation 46.4 H, RDW Coeff of Noemy 13.6, Plt Count 309, MPV 11.4 06/14/20 06:30: Sodium 135 L, Potassium 4.6, Chloride 102, Carbon Dioxide 23.0, Anion Gap 10, BUN 66 H, Creatinine 1.65 H, Estim Creat Clear Calc 41.80, Est GFR (MDRD) Af Amer 52 L, Est GFR (MDRD) Non-Af 43 L, BUN/Creatinine Ratio 40.0 H, Glucose 226 H, Calcium 8.1 L, Total Bilirubin 0.40, AST 74 H, ALT 32, Alkaline Phosphatase 53, Total Protein 5.4 L, Albumin 2.2 L, Globulin 3.2, Albumin/Globulin Ratio 0.7 L 06/14/20 06:30: B-Natriuretic Peptide 75.2 Current Medications Acetaminophen (Acetaminophen 325 Mg Tablet) 650 mg PO Q6H PRN PRN PRN Reason: Pain Score 1-10/Temp > 100.7 F Last Admin: 06/13/20 21:12 Dose: 650 mg Documented by: Albuterol Sulfate (Albuterol Sulfate 18 Gm Inhaler (200 Puffs)) 2 puff IH Q4H PRN PRN PRN Reason: Shortness of breath, wheezing Last Admin: 06/14/20 02:28 Dose: 2 puff Documented by: Allopurinol (Allopurinol 100 Mg Tablet) 100 mg PO DAILY [facility] Last Admin: 06/14/20 08:50 Dose: 100 mg Documented by: Amiodarone HCl (Amiodarone 200 Mg Tablet) 200 mg PO DAILY [facility] Last Admin: 06/14/20 08:49 Dose: 200 mg Documented by: Apixaban (Apixaban 5 Mg Tablet) 5 mg PO BID [facility] Last Admin: 06/14/20 08:49 Dose: 5 mg Documented by: Atorvastatin Calcium (Atorvastatin Calcium 40 Mg Tablet) 40 mg PO DAILY@2200 [facility] Last Admin: 06/13/20 21:12 Dose: 40 mg Documented by: Calamine/Phenol (Menthol/Lanolin/Calamine/Znox 113 Gm Tube) 1 applic TOPICAL BID [facility]; Protocol Last Admin: 06/14/20 08:52 Dose: 1 applicatio Documented by: Clopidogrel Bisulfate (Clopidogrel Bisulfate 75 Mg Tablet) 75 mg PO DAILY [facility] Last Admin: 06/14/20 08:49 Dose: 75 mg Documented by: Dexamethasone (Dexamethasone 4 Mg Tablet) 6 mg PO DAILY [facility] Stop: 06/19/20 10:01 Last Admin: 06/14/20 08:50 Dose: 6 mg Documented by: Ferrous Sulfate (Ferrous Sulfate 325 Mg Tablet) 325 mg PO DAILY [facility] Last Admin: 06/14/20 08:49 Dose: 325 mg Documented by: Furosemide (Furosemide 40 Mg/4 Ml Vial) 40 mg IV BID@1000,1700 [facility] Last Admin: 06/14/20 08:50 Dose: 40 mg Documented by: Remdesivir 100 mg/ Sodium (Chloride) 250 mls @ 125 mls/hr IV DAILY@2200 [facility] Stop: 06/14/20 23:59 Last Infusion: 06/13/20 23:31 Dose: Infused Documented by: Sodium Chloride () 250 mls @ 15 mls/hr IV .[id number] PRN PRN Reason: Saline Flush Sodium Chloride () 250 mls @ 15 mls/hr IV .[id number] PRN PRN Reason: Additional IVPB Infusion Metoprolol Tartrate (Metoprolol Tartrate 50 Mg Tablet) 50 mg PO BID [facility] Last Admin: 06/14/20 08:49 Dose: 50 mg Documented by: Miscellaneous Information (Inhaler, Assist Devices 1 Each Spacer) 1 each INHALATION PRN PRN PRN Reason: WITH ALBUTEROL MDI Last Admin: 06/14/20 02:28 Dose: 1 each Documented by: Ondansetron HCl (Ondansetron 4 Mg/2 Ml Vial) 4 mg IV Q8H PRN PRN PRN Reason: NAUSEA/VOMITING Pantoprazole Sodium (Pantoprazole Sodium 20 Mg Tablet) 20 mg PO DAILY [facility] Last Admin: 06/14/20 08:49 Dose: 20 mg Documented by: Polyethylene Glycol (Polyethylene Glycol 3350 17 Gm Packet) 17 gm PO DAILY [facility] Last Admin: 06/14/20 08:50 Dose: Not Given Documented by: Senna/Docusate Sodium (Senna/Docusate Sodium 1 Tablet) 2 tablet PO BID [facility] Last Admin: 06/14/20 08:50 Dose: Not Given Documented by: Sodium Chloride (0.9% Saline Lock 10 Ml Syringe) 10 - 40 ml IV UD PRN PRN Reason: SALINE FLUSH Tamsulosin HCl (Tamsulosin Hcl 0.4 Mg Capsule) 0.8 mg PO DAILY [facility] Last Admin: 06/14/20 08:49 Dose: 0.8 mg Documented by: Home Medications: Medications to take at Discharge Apixaban [Eliquis] 5 mg PO BID 10/31/15 Clopidogrel Bisulfate [Plavix] 75 mg PO DAILY 10/31/15 rosuvastatin 20 mg tablet 20 mg PO QDAY 11/26/17 cholecalciferol (vitamin D3) 25 mcg (1,000 unit) capsule 25 mcg PO DAILY 10/04/19 ferrous sulfate 325 mg (65 mg iron) tablet 325 mg PO DAILY 10/04/19 metoprolol tartrate 50 mg tablet 50 mg PO BID tab 10/04/19 omeprazole 20 mg capsule,delayed release 20 mg PO DAILY 10/04/19 tamsulosin 0.4 mg capsule 0.8 mg PO DAILY cap 10/04/19 allopurinol 100 mg tablet 100 mg PO DAILY 02/07/20 Amiodarone HCl 200 mg PO DAILY 06/10/20 Acetaminophen [Tylenol Arthritis] 650 mg PO Q6H PRN PRN 06/11/20 Albuterol Sulfate [Albuterol Sulfate HFA] 2 puff IH Q6H PRN PRN #0 06/14/20 Dexamethasone [Decadron] 6 mg PO DAILY 6 Days #6 tab 06/14/20 Furosemide 40 mg PO DAILY #0 tab 06/14/20 Inhaler, Assist Devices [Pocket Chamber] 1 ea INHALATION PRN PRN spacer 06/14/20 Losartan Potassium 25 mg PO DAILY #0 06/14/20 Polyethylene Glycol 3350 [Miralax] 17 gm PO DAILY packet 06/14/20 Spironolactone 25 mg PO DAILY #0 tab 06/14/20 Following Prescriptions Were Given to Patient: Dexamethasone [Decadron] 6 mg PO DAILY 6 Days #6 tab Primary Care Physician: Lobo Victoria MD [Primary Care Provider] - Medical Necessity - Tobacco Use Smoking Status: Never smoker Meaningful Use Info Meaningful Use Diagnoses (Choose all that apply): None applicable Inpatient E&M: [id number] [facility]
--- NOTE | 2020-06-14 11:27 | CASEMGMT ---
Addendum entered by Margie Bonilla 06/14/20 14:07: PATTI received an email from Stephanie stating she checked with her jean-pierre and pt's benefits are out of network. Stephanie states the jean-pierre was unable to contact [facility] as their offices are closed for the holiday. Stephanie stated she was going to call Tamra and see if anything could be done to get the pt to [facility]. PATTI placed a call to Stephanie and left message asking for update. PATTI waiting for call back. Original Note: Social Work Note PATTI received call from Stephanie at [facility] stating she is covering for Tamra in admissions. Stephanie asked that referral be faxed to [phone] as it goes straight to her email. PATTI informed Stephanie that pt is medically ready for discharge today. Stephanie states she will need to check with billing to determine if pt will need pre-cert or not. PATTI updated physician that pt's Sandee would like to be called. PATTI also updated physician regarding insurance and how this worker is waiting to determine if pre-cert is needed or not. Plan: [facility] pending acceptance. PATTI also will need to determine if pre-cert is needed or not. Margie Bonilla INNER TUBE INSERTER, MID LEVEL JAVA DEVELOPER
[2020-06-14] MEDS: 0.9% Saline Lock 10 ML Syringe IV (14:00)
--- NOTE | 2020-06-14 14:19 | PHA.DC.MR ---
Pharmacy Service has performed discharge medication reconciliation for this patient upon transfer to [facility]. The patient's discharge medication list was reviewed for discrepancies and discrepancies were resolved. Home Medications Apixaban [Eliquis] 5 mg PO BID 10/31/15 Clopidogrel Bisulfate [Plavix] 75 mg PO DAILY 10/31/15 rosuvastatin 20 mg tablet 20 mg PO QDAY 11/26/17 cholecalciferol (vitamin D3) 25 mcg (1,000 unit) capsule 25 mcg PO DAILY 10/04/19 ferrous sulfate 325 mg (65 mg iron) tablet 325 mg PO DAILY 10/04/19 metoprolol tartrate 50 mg tablet 50 mg PO BID tab 10/04/19 omeprazole 20 mg capsule,delayed release 20 mg PO DAILY 10/04/19 tamsulosin 0.4 mg capsule 0.8 mg PO DAILY cap 10/04/19 allopurinol 100 mg tablet 100 mg PO DAILY 02/07/20 Amiodarone HCl 200 mg PO DAILY 06/10/20 Acetaminophen [Tylenol Arthritis] 650 mg PO Q6H PRN PRN 06/11/20 Albuterol Sulfate [Albuterol Sulfate HFA] 2 puff IH Q6H PRN PRN #0 06/14/20 Dexamethasone [Decadron] 6 mg PO DAILY 6 Days #6 tab 06/14/20 Furosemide 40 mg PO DAILY #0 tab 06/14/20 Inhaler, Assist Devices [Pocket Chamber] 1 ea INHALATION PRN PRN spacer 06/14/20 Losartan Potassium 25 mg PO DAILY #0 06/14/20 Polyethylene Glycol 3350 [Miralax] 17 gm PO DAILY packet 06/14/20 Spironolactone 25 mg PO DAILY #0 tab 06/14/20
--- NOTE | 2020-06-14 15:17 | CASEMGMT ---
Addendum entered by Margie Bonilla 06/14/20 16:00: PATIT placed a call to pt's room to update. PATTI updated pt that [facility] is now stating they are not in network with pt's insurance. SW updated pt that this worker is working with [facility] to see about different options on how to get pt to [facility]. PATTI asked pt if he would be agreeable to a different SNF if he is not able to get into [facility] [place] and pt states I guess I would have to be. PATTI informed pt that this worker will wait to hear from [facility] regarding any options to get pt to [facility] and will likely follow up with pt on Thursday. SW informed pt that he will be at [facility] through the weekend. SW updated pt that this worker did update his as well regarding insurance issues with [facility]. PATTI has called [facility] twice and emailed Kym regarding referral with no response. PTATI updated charge nurse, physician, and RN that pt will likely be at [facility] through the weekend as SW is having difficulty getting responses from [facility]. If pt wanted a different SNF, a new referral and pre-cert would be needed which would unlikely be obtained today and tomorrow is a holiday. SW to follow up with [facility] and pt Thursday. Plan: SNF pending acceptance and pre-cert Original Note: Social Work Note PATTI placed a call to pt's Sandee and updated her that pt's insurance is out of network. Sandee states she was told [facility] does take pt's insurance. PATTI informed Sandee that per admissions today and billing department, pt's insurance is out of network. PATIT informed Sandee that pt may have out of network benefits but again this worker is not sure. PATTI informed Sandee that pt will need to admit to a different SNF. Sandee asked how much it would be for private pay at [facility]. PATIT informed Sandee that this worker is not sure how much [facility]'s private pay rate is but informed Sandee that this worker can call and check. PATTI also informed Sandee that [facility] may have to pay a month up front as some SNF require it. Sandee states pt will not be at SNF for a month. PATTI informed Sandee that this worker understands that pt will likely not be at SNF for a month but states that some SNF just require a month up from regardless and any days use, the family would get reimbursed. Sandee asked for this worker to call [facility] [place] and ask about out of network benefits and private pay. PATTI placed a call to Kym at [facility] [place] and left message regarding referral and private pay. PATTI also emailed [facility] and asked about out of network benefits and private pay costs. PATTI waiting for response from [facility]. Margie Bonilla MULTIPLE DRUM SANDER HELPER, CRATE MAKER
--- NOTE | 2020-06-14 15:57 | PN_ITS ---
Patient Problems: Active and Suspected Problems (Last Updated 06/10/20 @ 22:[address] Kenisha Rodriguez MD) Acute respiratory failure with hypoxia (Acute) Acute bilateral COVID-19 pneumonia (Acute) Reason for Visit: Follow-up for acute hypoxic respiratory failure secondary to COVID-19 pneumonia. Objective: Patient no fever. Blood pressure, map more than 65. Pulse ox 96% on room air. No tachypnea General: Alert, Oriented x3, Cooperative HEENT: Atraumatic, PERRLA, EOMI, Normocephalic Oral: No Gingival or Mucosal Lesions/ Ulcerations Neck: Supple, No JVD, Negative Carotid Bruits Lungs: Air entry diminished in bilateral lung bases. Bilateral expiratory rhonchi. Cardiovascular: Regular rate, Regular Rhythm, Normal S1, Normal S2, No murmurs Abdomen: Bowel Sounds Present, Soft, Non Tender, Non-Distended : No renal angle tenderness. No suprapubic tenderness. Extremities: No edema, Capillary Refill Less than 3 Seconds Skin: No rashes, No breakdown Musculoskeletal: No Tenderness to Palpation of Joints or Extremities Neurological: Cranial nerves II-XII grossly intact, Deep Tendon Reflexes 2+/4 and Symmetrical, Neuro grossly intact Psych/Mental Status: Normal Affect, Appropriate. Vitals/I&O's: Vital Signs Temp Pulse Resp BP Pulse Ox 97.3 F L 65 18 98/68 96 06/14/20 14:01 06/14/20 14:01 06/14/20 14:01 06/14/20 14:01 06/14/20 14:01 Oxygen Flow Rate (L/min) 2 Oxygen Delivery Method Nasal Cannula Weight: 238 lb 15.697 oz Body Mass Index (BMI) 32.3 Intake and Output for Last 24 Hours 06/12/20 06/13/20 06/14/20 23:59 23:59 23:59 Intake Total 240 / 440 1000 / 1000 400 / 400 Output Total 200 / 625 2024 1000 / 1000 Balance 40 / -185 -1025 / -1025 -600 / -600 Microbiology Past 72 Hours 06/10/20 20:23 Blood Culture (Wb) - Anticubital Left Blood Culture - Preliminary No growth in 48 hours. 06/10/20 19:55 Blood Culture (Wb) - Anticubital Right Blood Culture - Preliminary No growth in 48 hours. Laboratory Results 06/14/20 06:30: WBC 9.9, RBC 4.00 L, Hgb 12.3 L, Hct 37.4 L, MCV 93.5 D, MCH 30.8, MCHC 32.9, RDW Std Deviation 46.4 H, RDW Coeff of Noemy 13.6, Plt Count 309, MPV 11.4 06/14/20 06:30: Sodium 135 L, Potassium 4.6, Chloride 102, Carbon Dioxide 23.0, Anion Gap 10, BUN 66 H, Creatinine 1.65 H, Estim Creat Clear Calc 41.80, Est GFR (MDRD) Af Amer 52 L, Est GFR (MDRD) Non-Af 43 L, BUN/Creatinine Ratio 40.0 H, Glucose 226 H, Calcium 8.1 L, Total Bilirubin 0.40, AST 74 H, ALT 32, Alkaline Phosphatase 53, Total Protein 5.4 L, Albumin 2.2 L, Globulin 3.2, Albumin/Globulin Ratio 0.7 L 06/14/20 06:30: B-Natriuretic Peptide 75.2 Current Medications Acetaminophen (Acetaminophen 325 Mg Tablet) 650 mg PO Q6H PRN PRN PRN Reason: Pain Score 1-10/Temp > 100.7 F Last Admin: 06/13/20 21:12 Dose: 650 mg Documented by: Albuterol Sulfate (Albuterol Sulfate 18 Gm Inhaler (200 Puffs)) 2 puff IH Q4H PRN PRN PRN Reason: Shortness of breath, wheezing Last Admin: 06/14/20 02:28 Dose: 2 puff Documented by: Allopurinol (Allopurinol 100 Mg Tablet) 100 mg PO DAILY [facility] Last Admin: 06/14/20 08:50 Dose: 100 mg Documented by: Amiodarone HCl (Amiodarone 200 Mg Tablet) 200 mg PO DAILY [facility] Last Admin: 06/14/20 08:49 Dose: 200 mg Documented by: Apixaban (Apixaban 5 Mg Tablet) 5 mg PO BID [facility] Last Admin: 06/14/20 08:49 Dose: 5 mg Documented by: Atorvastatin Calcium (Atorvastatin Calcium 40 Mg Tablet) 40 mg PO DAILY@2200 [facility] Last Admin: 06/13/20 21:12 Dose: 40 mg Documented by: Calamine/Phenol (Menthol/Lanolin/Calamine/Znox 113 Gm Tube) 1 applic TOPICAL BID [facility]; Protocol Last Admin: 06/14/20 08:52 Dose: 1 applicatio Documented by: Clopidogrel Bisulfate (Clopidogrel Bisulfate 75 Mg Tablet) 75 mg PO DAILY [facility] Last Admin: 06/14/20 08:49 Dose: 75 mg Documented by: Ferrous Sulfate (Ferrous Sulfate 325 Mg Tablet) 325 mg PO DAILY [facility] Last Admin: 06/14/20 08:49 Dose: 325 mg Documented by: Furosemide (Furosemide 40 Mg/4 Ml Vial) 40 mg IV BID@1000,1700 [facility] Last Admin: 06/14/20 08:50 Dose: 40 mg Documented by: Furosemide (Furosemide 40 Mg Tablet) 40 mg PO DAILY [facility] Remdesivir 100 mg/ Sodium (Chloride) 250 mls @ 125 mls/hr IV DAILY@2200 [facility] Stop: 06/14/20 23:59 Last Admin: 06/14/20 13:58 Dose: 125 mls/hr Documented by: Sodium Chloride () 250 mls @ 15 mls/hr IV .[id number] PRN PRN Reason: Saline Flush Sodium Chloride () 250 mls @ 15 mls/hr IV .[id number] PRN PRN Reason: Additional IVPB Infusion Metoprolol Tartrate (Metoprolol Tartrate 50 Mg Tablet) 50 mg PO BID [facility] Last Admin: 06/14/20 08:49 Dose: 50 mg Documented by: Miscellaneous Information (Inhaler, Assist Devices 1 Each Spacer) 1 each INHALATION PRN PRN PRN Reason: WITH ALBUTEROL MDI Last Admin: 06/14/20 02:28 Dose: 1 each Documented by: Ondansetron HCl (Ondansetron 4 Mg/2 Ml Vial) 4 mg IV Q8H PRN PRN PRN Reason: NAUSEA/VOMITING Pantoprazole Sodium (Pantoprazole Sodium 20 Mg Tablet) 20 mg PO DAILY [facility] Last Admin: 06/14/20 08:49 Dose: 20 mg Documented by: Polyethylene Glycol (Polyethylene Glycol 3350 17 Gm Packet) 17 gm PO DAILY [facility] Last Admin: 06/14/20 08:50 Dose: Not Given Documented by: Senna/Docusate Sodium (Senna/Docusate Sodium 1 Tablet) 2 tablet PO BID [facility] Last Admin: 06/14/20 08:50 Dose: Not Given Documented by: Sodium Chloride (0.9% Saline Lock 10 Ml Syringe) 10 - 40 ml IV UD PRN PRN Reason: SALINE FLUSH Last Admin: 06/14/20 14:00 Dose: 10 ml Documented by: Tamsulosin HCl (Tamsulosin Hcl 0.4 Mg Capsule) 0.8 mg PO DAILY [facility] Last Admin: 06/14/20 08:49 Dose: 0.8 mg Documented by: STROKE Vital Signs/Narrative: Vital Signs Temp Pulse Resp BP Pulse Ox 06/14/20 14:01 97.3 F L 65 18 98/68 96 06/14/20 13:33 97 06/14/20 12:44 97 06/14/20 12:11 97 Medical Necessity - Tobacco Use Smoking Status: Never smoker Assessment/Plan All Active Problems (Last Updated 06/10/20 @ 22:[address] Kenisha Rodriguez MD) Acute respiratory failure with hypoxia (Acute) Acute bilateral COVID-19 pneumonia (Acute) This is a 75 years old male patient who is admitted on Covid cohort floor through emergency room for 3 days history of shortness of breath, cough with sputum production as well as weakness and diarrhea, reports that he tested positive for COVID-19 2 weeks ago at another facility and he was found to have bilateral multilobar groundglass opacities consistent with acute bilateral COVID-19 pneumonia complicated by acute hypoxic respiratory failure. #1 acute bilateral COVID-19 pneumonia: Chest x-ray individually reviewed shows bilateral patchy groundglass opacity with mild interstitial edema. Currently, patient is on BiPAP. Fibrinogen, CRP and LDH are elevated. CPK and procalcitonin was normal. EKG revealed paced rhythm. Troponin is normal. ABG 7.47//115/20 on nonrebreather mask suggestive of severe hypoxia and hypercarbia, acute respiratory alkalosis. Lactic acidosis 2.3. Repeat lactic acid was normal Albuterol inhaler as needed. Overall patient oxygenation improved currently on 2 L. Patient denies shortness of breath, chest pressure or pain. Has mild occasional cough. Patient on 5 th day of remdesivir and is on Decadron. Patient did not have leukocytosis but lymphopenia, 0.49 thousand. Patient was seen by ID. #2 acute hypoxic respiratory failure: Secondary to acute bilateral COVID-19 pneumonia. Patient does not use home oxygen. Since oxygenation improved from 10 L to 2 L incentive spirometry and chest physiotherapy. #3 CAD status post stents: Troponin is negative, no acute changes on EKG. Patient denied any chest pain. Continue Plavix, statins and metoprolol. #4 chronic systolic CHF/nonischemic cardiomyopathy/status post ICD: Lasix oral is changed to IV. No acute exacerbation. Continue metoprolol and Aldactone. Patient urine output has been good. BP #5 chronic atrial fibrillation: Status post pacemaker. Heart rate stable, blood pressure is stable as well. Continue metoprolol and Eliquis. #6 hypertension: Plan to continue metoprolol, Lasix. Hold Aldactone as potassium is 4.7. #7 stage III chronic kidney disease: Baseline creatinine has been around 1.7 to 2.5 mg/dL. BUN/creatinine shows slight improvement. However her kidney function remained stable and initially showed improvement and slight increase BUN, creatinine 66/1.65 on last day. This probably related to hemodynamic fluid shift from diuretic. Lasix decreased to 40 mg daily. Adjust the dose of Lasix as per symptoms of heart failure and kidney function. #8 hyperlipidemia: Continue statins. #9 CODE STATUS: DNR CC arrest #10 DVT prophylaxis: Continue Eliquis. Discharge is canceled as patient did not had precertification for going to SNF. Inpatient E&M: [id number] Subs Hosp L2
--- NOTE | 2020-06-14 18:29 | NURSING ---
Patient wanting to leave AMA. Both this RN and yunior Mackenzie RN spoke to patient about oxygen need at home. Called son, Emiliano, who is going to call and speak to patient. Offered to provide tablet/zoom meeting between patient and family, family states possibly they will later.
[2020-06-14] MEDS: Atorvastatin Calcium 40 MG Tablet PO (20:38)
[2020-06-15] VITALS (12 sets, daily range): BP systolic 94–122; BP diastolic 53–65; PULSE 60–71; RESP 19–20; TEMP 36.4–36.7; O2SAT 94–96
[2020-06-15 05:13] LABS: Hematocrit 40.5 % (40-54); Hemoglobin 13.1 g/dL (13.0-16.5); Mean Corp Hgb Conc 32.3 g/dL (32-36); Mean Corpuscular Hgb 30.3 pg (27.0-32.0); Mean Corpuscular Volume 93.5 fL (80-94); Mean Platelet Vol. 11.5 fl (6.2-12.0); Platelet Count 288 K/mm3 (150-450); RBC Distribution Width CV 13.4 % (11.6-14.6); RBC Distribution Width SD 45.6 fl (35.1-43.9); Red Blood Count 4.33 M/mm3 (4.6-6.2); White Blood Count 9.6 K/mm3 (4.4-11.0)
[2020-06-15 05:40] LABS: ALB/GLOB Ratio 0.7 RATIO (0.9-2.4); AST(SGOT) 61 U/L (15-37); Alanine Aminotransfer ALT/SGPT 31 U/L (16-61); Albumin, Serum 2.2 g/dL (3.2-5.0); Alkaline Phosphatase 54 U/L (45-117); Anion Gap 8 (5-15); BUN 63 mg/dL (7-18); BUN/Creat Ratio 41.2 RATIO (10-20); Calcium,Total 8.2 mg/dL (8.5-10.1); Chloride 101 mmol/L (98-107); Creatinine, Serum 1.53 mg/dL (0.70-1.30); EST Glomerular Filtration Rate 47 mL/min (>60); Est Glom Filt Rate - Afr Amer 57 mL/min (>60); Estimated Creatinine Clearance 45.08 ml/min; Glucose 242 mg/dL (74-106); Potassium 4.9 mmol/L (3.5-5.1); Protein, Total 5.2 g/dL (6.4-8.2); Sodium Level 134 mmol/L (136-145)
[2020-06-15] MEDS: Menthol/Lanolin/Calamine/Znox 113 GM Tube 1 APPLIC TOPICAL ×2 (08:52→20:18)
[2020-06-15] MEDS: APIXABAN 5 MG TABLET PO ×2 (08:53→20:17)
[2020-06-15] MEDS: Ferrous Sulfate 325 MG Tablet PO (08:53)
[2020-06-15] MEDS: Tamsulosin HCl 0.4 MG Capsule 0.8 MG PO (08:53)
[2020-06-15] MEDS: Amiodarone 200 MG Tablet PO (08:53)
[2020-06-15] MEDS: Metoprolol Tartrate 50 MG Tablet PO ×2 (08:53→20:17)
[2020-06-15] MEDS: Furosemide 40 MG Tablet PO (08:53)
[2020-06-15] MEDS: Clopidogrel Bisulfate 75 MG Tablet PO (08:54)
[2020-06-15] MEDS: Senna/Docusate Sodium 1 Tablet 2 TABLET PO (08:54)
[2020-06-15] MEDS: Allopurinol 100 MG Tablet PO (08:54)
[2020-06-15] MEDS: Pantoprazole Sodium 20 MG Tablet PO (08:54)
--- NOTE | 2020-06-15 14:51 | PN_ITS ---
Patient Problems: Active and Suspected Problems (Last Updated 06/10/20 @ 22:[address] Kenisha Rodriguez MD) Acute respiratory failure with hypoxia (Acute) Acute bilateral COVID-19 pneumonia (Acute) Reason for Visit: Follow-up for acute COVID-19 pneumonia Objective: No fever or chills. Heart rate and blood pressure is good patient on 3 L of oxygen. Patient could not get pre-CERT yesterday therefore is staying over the weekend. Mild dry cough Physical exam General: Alert, Oriented x3, Cooperative HEENT: Atraumatic, PERRLA, EOMI, Normocephalic, chronic hearing loss bilateral Oral: No Gingival or Mucosal Lesions/ Ulcerations Neck: Supple, No JVD, Negative Carotid Bruits Lungs: Air entry diminished in bilateral lung bases. Mild bibasilar coarse crackles. Cardiovascular: Regular rate, Regular Rhythm, Normal S1, Normal S2, No murmurs Abdomen: Bowel Sounds Present, Soft, Non Tender, Non-Distended : No renal angle tenderness. No suprapubic tenderness. Extremities: No edema, Capillary Refill Less than 3 Seconds Skin: No rashes, No breakdown Musculoskeletal: No Tenderness to Palpation of Joints or Extremities Neurological: Cranial nerves II-XII grossly intact, Deep Tendon Reflexes 2+/4 and Symmetrical, Neuro grossly intact Psych/Mental Status: Normal Affect, Appropriate. Vitals/I&O's: Vital Signs Temp Pulse Resp BP Pulse Ox 97.9 F 67 20 H 94/53 L 95 06/15/20 14:39 06/15/20 14:39 06/15/20 14:39 06/15/20 14:39 06/15/20 14:39 Oxygen Flow Rate (L/min) 2 Oxygen Delivery Method Nasal Cannula Weight: 238 lb 15.697 oz Body Mass Index (BMI) 32.3 Intake and Output for Last 24 Hours 06/13/20 06/14/20 06/15/20 23:59 23:59 23:59 Intake Total 1000 / 1000 1010 / 1234 424 / 424 Output Total 2024 1400 / 1400 650 / 650 Balance -1025 / -1025 -390 / -166 -226 / -226 Microbiology Past 72 Hours 06/10/20 20:23 Blood Culture (Wb) - Anticubital Left Blood Culture - Preliminary No growth in 48 hours. 06/10/20 19:55 Blood Culture (Wb) - Anticubital Right Blood Culture - Preliminary No growth in 48 hours. Laboratory Results 06/15/20 04:30: WBC 9.6, RBC 4.33 L, Hgb 13.1, Hct 40.5, MCV 93.5, MCH 30.3, MCHC 32.3, RDW Std Deviation 45.6 H, RDW Coeff of Noemy 13.4, Plt Count 288, MPV 11.5 06/15/20 04:30: Sodium 134 L, Potassium 4.9, Chloride 101, Carbon Dioxide 25.0, Anion Gap 8, BUN 63 H, Creatinine 1.53 H, Estim Creat Clear Calc 45.08, Est GFR (MDRD) Af Amer 57 L, Est GFR (MDRD) Non-Af 47 L, BUN/Creatinine Ratio 41.2 H, Glucose 242 H, Calcium 8.2 L, Total Bilirubin 0.40, AST 61 H, ALT 31, Alkaline Phosphatase 54, Total Protein 5.2 L, Albumin 2.2 L, Globulin 3.0, Albumin/Globulin Ratio 0.7 L Current Medications Acetaminophen (Acetaminophen 325 Mg Tablet) 650 mg PO Q6H PRN PRN PRN Reason: Pain Score 1-10/Temp > 100.7 F Last Admin: 06/13/20 21:12 Dose: 650 mg Documented by: Albuterol Sulfate (Albuterol Sulfate 18 Gm Inhaler (200 Puffs)) 2 puff IH Q4H PRN PRN PRN Reason: Shortness of breath, wheezing Last Admin: 06/14/20 02:28 Dose: 2 puff Documented by: Allopurinol (Allopurinol 100 Mg Tablet) 100 mg PO DAILY [facility] Last Admin: 06/15/20 08:54 Dose: 100 mg Documented by: Amiodarone HCl (Amiodarone 200 Mg Tablet) 200 mg PO DAILY [facility] Last Admin: 06/15/20 08:53 Dose: 200 mg Documented by: Apixaban (Apixaban 5 Mg Tablet) 5 mg PO BID [facility] Last Admin: 06/15/20 08:53 Dose: 5 mg Documented by: Atorvastatin Calcium (Atorvastatin Calcium 40 Mg Tablet) 40 mg PO DAILY@2200 [facility] Last Admin: 06/14/20 20:38 Dose: 40 mg Documented by: Calamine/Phenol (Menthol/Lanolin/Calamine/Znox 113 Gm Tube) 1 applic TOPICAL BID [facility]; Protocol Last Admin: 06/15/20 08:52 Dose: 1 applicatio Documented by: Clopidogrel Bisulfate (Clopidogrel Bisulfate 75 Mg Tablet) 75 mg PO DAILY [facility] Last Admin: 06/15/20 08:54 Dose: 75 mg Documented by: Ferrous Sulfate (Ferrous Sulfate 325 Mg Tablet) 325 mg PO DAILY [facility] Last Admin: 06/15/20 08:53 Dose: 325 mg Documented by: Furosemide (Furosemide 40 Mg Tablet) 40 mg PO DAILY [facility] Last Admin: 06/15/20 08:53 Dose: 40 mg Documented by: Sodium Chloride () 250 mls @ 15 mls/hr IV .[id number] PRN PRN Reason: Saline Flush Sodium Chloride () 250 mls @ 15 mls/hr IV .[id number] PRN PRN Reason: Additional IVPB Infusion Metoprolol Tartrate (Metoprolol Tartrate 50 Mg Tablet) 50 mg PO BID [facility] Last Admin: 06/15/20 08:53 Dose: 50 mg Documented by: Miscellaneous Information (Inhaler, Assist Devices 1 Each Spacer) 1 each INHALATION PRN PRN PRN Reason: WITH ALBUTEROL MDI Last Admin: 06/14/20 02:28 Dose: 1 each Documented by: Ondansetron HCl (Ondansetron 4 Mg/2 Ml Vial) 4 mg IV Q8H PRN PRN PRN Reason: NAUSEA/VOMITING Pantoprazole Sodium (Pantoprazole Sodium 20 Mg Tablet) 20 mg PO DAILY [facility] Last Admin: 06/15/20 08:54 Dose: 20 mg Documented by: Polyethylene Glycol (Polyethylene Glycol 3350 17 Gm Packet) 17 gm PO DAILY [facility] Last Admin: 06/15/20 08:54 Dose: 17 gm Documented by: Senna/Docusate Sodium (Senna/Docusate Sodium 1 Tablet) 2 tablet PO BID [facility] Last Admin: 06/15/20 08:54 Dose: 2 tablet Documented by: Sodium Chloride (0.9% Saline Lock 10 Ml Syringe) 10 - 40 ml IV UD PRN PRN Reason: SALINE FLUSH Last Admin: 06/14/20 14:00 Dose: 10 ml Documented by: Tamsulosin HCl (Tamsulosin Hcl 0.4 Mg Capsule) 0.8 mg PO DAILY [facility] Last Admin: 06/15/20 08:53 Dose: 0.8 mg Documented by: STROKE Vital Signs/Narrative: Vital Signs Temp Pulse Resp BP Pulse Ox 06/15/20 14:39 97.9 F 67 20 H 94/53 L 95 06/15/20 12:17 96 Medical Necessity - Tobacco Use Smoking Status: Never smoker Assessment/Plan All Active Problems (Last Updated 06/10/20 @ 22:[address] Kenisha Rodriguez MD) Acute respiratory failure with hypoxia (Acute) Acute bilateral COVID-19 pneumonia (Acute) This is a 75 years old male patient who is admitted on Covid cohort floor through emergency room for 3 days history of shortness of breath, cough with sputum production as well as weakness and diarrhea, reports that he tested positive for COVID-19 2 weeks ago at another facility and he was found to have bilateral multilobar groundglass opacities consistent with acute bilateral COVID-19 pneumonia complicated by acute hypoxic respiratory failure. #1 acute bilateral COVID-19 pneumonia: Chest x-ray individually reviewed shows bilateral patchy groundglass opacity with mild interstitial edema. Currently, patient is on BiPAP. Fibrinogen, CRP and LDH are elevated. CPK and procalcitonin was normal. EKG revealed paced rhythm. Troponin is normal. ABG 7.47//115/20 on nonrebreather mask suggestive of severe hypoxia and hypercarbia, acute respiratory alkalosis. Lactic acidosis 2.3. Repeat lactic acid was normal Albuterol inhaler as needed. Overall patient oxygenation improved currently on 2 L. Patient denies shortness of breath, chest pressure or pain. Has mild occasional cough. Patient on 5 th day of remdesivir and is on Decadron. Patient did not have leukocytosis but lymphopenia, 0.49 thousand. Patient was seen by ID. 06/15: Continue oxygen therapy. Patient completed remdesivir on 06/14. On Eliquis. #2 acute hypoxic respiratory failure: Secondary to acute bilateral COVID-19 pneumonia. Patient does not use home oxygen. Since oxygenation improved from 10 L to 2 L incentive spirometry and chest physiotherapy. #3 CAD status post stents: Troponin is negative, no acute changes on EKG. Patient denied any chest pain. Continue Plavix, statins and metoprolol. #4 chronic systolic CHF/nonischemic cardiomyopathy/status post ICD: Lasix oral is changed to IV. No acute exacerbation. Continue metoprolol and Aldactone. Patient urine output has been good. #5 chronic atrial fibrillation: Status post pacemaker. Heart rate stable, blood pressure is stable as well. Continue metoprolol and Eliquis. #6 hypertension: Plan to continue metoprolol, Lasix. Hold Aldactone as potassium is 4.7. #7 stage III chronic kidney disease: Baseline creatinine has been around 1.7 to 2.5 mg/dL. BUN/creatinine shows slight improvement. However her kidney function remained stable and initially showed improvement and slight increase BUN, creatinine 66/1.65 on last day. This probably related to hemodynamic fluid shift from diuretic. Lasix decreased to 40 mg daily. Adjust the dose of Lasix as per symptoms of heart failure and kidney function. 06/15: BUN/creatinine stable 63/1.53. Sodium 134. Potassium normal. #8 hyperlipidemia: Continue statins. #9 CODE STATUS: DNR CC arrest #10 DVT prophylaxis: Continue Eliquis. Patient will stay until Thursday for precertification possible SNF discharge. Inpatient E&M: [id number] Subs Hosp L2
[2020-06-15] MEDS: Atorvastatin Calcium 40 MG Tablet PO (20:17)
[2020-06-16] VITALS (10 sets, daily range): BP systolic 100–127; BP diastolic 62–69; PULSE 60–71; RESP 18–20; TEMP 36.3–36.9; O2SAT 94–96
[2020-06-16] MEDS: INHALER, ASSIST DEVICES 1 EACH SPACER INHALATION (02:23)
--- NOTE | 2020-06-16 09:02 | NURSING ---
o2 decreased to 2l nc
[2020-06-16] MEDS: Ferrous Sulfate 325 MG Tablet PO (09:04)
[2020-06-16] MEDS: Menthol/Lanolin/Calamine/Znox 113 GM Tube 1 APPLIC TOPICAL ×2 (09:04→21:58)
[2020-06-16] MEDS: APIXABAN 5 MG TABLET PO ×2 (09:04→21:58)
[2020-06-16] MEDS: Amiodarone 200 MG Tablet PO (09:04)
[2020-06-16] MEDS: Tamsulosin HCl 0.4 MG Capsule 0.8 MG PO (09:04)
[2020-06-16] MEDS: Furosemide 40 MG Tablet PO (09:05)
[2020-06-16] MEDS: Metoprolol Tartrate 50 MG Tablet PO ×2 (09:05→21:57)
[2020-06-16] MEDS: Pantoprazole Sodium 20 MG Tablet PO (09:05)
[2020-06-16] MEDS: Clopidogrel Bisulfate 75 MG Tablet PO (09:05)
[2020-06-16] MEDS: Allopurinol 100 MG Tablet PO (09:06)
--- NOTE | 2020-06-16 13:20 | PCM.PN.HOSP ---
Patient Problems: Active and Suspected Problems (Last Updated 06/10/20 @ 22:[address] Kenisha Rodriguez MD) Acute respiratory failure with hypoxia (Acute) Acute bilateral COVID-19 pneumonia (Acute) Reason for Visit: Follow-up for acute COVID-19 pneumonia Objective: Patient no fever. On 3 L of oxygen. Minimal occasional cough. Patient wants to go home but daughter and prefers going to [place] [facility]. Physical exam General: Alert, Oriented x3, Cooperative HEENT: Atraumatic, PERRLA, EOMI, Normocephalic. Bilateral hearing loss Oral: No Gingival or Mucosal Lesions/ Ulcerations Neck: Supple, No JVD, Negative Carotid Bruits Lungs: Air entry diminished in bilateral lung bases. Mild bilateral coarse crepitations Cardiovascular: Regular rate, Regular Rhythm, Normal S1, Normal S2, No murmurs Abdomen: Bowel Sounds Present, Soft, Non Tender, Non-Distended : No renal angle tenderness. No suprapubic tenderness. Extremities: No edema, Capillary Refill Less than 3 Seconds Skin: No rashes, No breakdown Musculoskeletal: No Tenderness to Palpation of Joints or Extremities Neurological: Cranial nerves II-XII grossly intact, Deep Tendon Reflexes 2+/4 and Symmetrical, Neuro grossly intact Psych/Mental Status: Normal Affect, Appropriate. Vitals/I&O's: Vital Signs Temp Pulse Resp BP Pulse Ox 98.5 F 62 20 H 101/69 95 06/16/20 08:15 06/16/20 11:58 06/16/20 08:15 06/16/20 09:05 06/16/20 08:15 Oxygen Flow Rate (L/min) 3 Oxygen Delivery Method Nasal Cannula Weight: 238 lb 15.697 oz Body Mass Index (BMI) 32.3 Intake and Output for Last 24 Hours 06/14/20 06/15/20 06/16/20 23:59 23:59 23:59 Intake Total 1010 / 1234 424 / 424 Output Total 1400 / 1400 1425 / 1425 485 / 485 Balance -390 / -166 -1001 / -1001 -485 / -485 Microbiology Past 72 Hours 06/10/20 20:23 Blood Culture (Wb) - Anticubital Left Blood Culture - Final No growth in 5 days. 06/10/20 19:55 Blood Culture (Wb) - Anticubital Right Blood Culture - Final No growth in 5 days. Current Medications Acetaminophen (Acetaminophen 325 Mg Tablet) 650 mg PO Q6H PRN PRN PRN Reason: Pain Score 1-10/Temp > 100.7 F Last Admin: 06/13/20 21:12 Dose: 650 mg Documented by: Albuterol Sulfate (Albuterol Sulfate 18 Gm Inhaler (200 Puffs)) 2 puff IH Q4H PRN PRN PRN Reason: Shortness of breath, wheezing Last Admin: 06/16/20 02:23 Dose: 2 puff Documented by: Allopurinol (Allopurinol 100 Mg Tablet) 100 mg PO DAILY [facility] Last Admin: 06/16/20 09:06 Dose: 100 mg Documented by: Amiodarone HCl (Amiodarone 200 Mg Tablet) 200 mg PO DAILY [facility] Last Admin: 06/16/20 09:04 Dose: 200 mg Documented by: Apixaban (Apixaban 5 Mg Tablet) 5 mg PO BID [facility] Last Admin: 06/16/20 09:04 Dose: 5 mg Documented by: Atorvastatin Calcium (Atorvastatin Calcium 40 Mg Tablet) 40 mg PO DAILY@2200 [facility] Last Admin: 06/15/20 20:17 Dose: 40 mg Documented by: Calamine/Phenol (Menthol/Lanolin/Calamine/Znox 113 Gm Tube) 1 applic TOPICAL BID [facility]; Protocol Last Admin: 06/16/20 09:04 Dose: 1 applicatio Documented by: Clopidogrel Bisulfate (Clopidogrel Bisulfate 75 Mg Tablet) 75 mg PO DAILY [facility] Last Admin: 06/16/20 09:05 Dose: 75 mg Documented by: Ferrous Sulfate (Ferrous Sulfate 325 Mg Tablet) 325 mg PO DAILY [facility] Last Admin: 06/16/20 09:04 Dose: 325 mg Documented by: Furosemide (Furosemide 40 Mg Tablet) 40 mg PO DAILY [facility] Last Admin: 06/16/20 09:05 Dose: 40 mg Documented by: Sodium Chloride () 250 mls @ 15 mls/hr IV .[id number] PRN PRN Reason: Saline Flush Sodium Chloride () 250 mls @ 15 mls/hr IV .[id number] PRN PRN Reason: Additional IVPB Infusion Metoprolol Tartrate (Metoprolol Tartrate 50 Mg Tablet) 50 mg PO BID [facility] Last Admin: 06/16/20 09:05 Dose: 50 mg Documented by: Miscellaneous Information (Inhaler, Assist Devices 1 Each Spacer) 1 each INHALATION PRN PRN PRN Reason: WITH ALBUTEROL MDI Last Admin: 06/16/20 02:23 Dose: 1 each Documented by: Ondansetron HCl (Ondansetron 4 Mg/2 Ml Vial) 4 mg IV Q8H PRN PRN PRN Reason: NAUSEA/VOMITING Pantoprazole Sodium (Pantoprazole Sodium 20 Mg Tablet) 20 mg PO DAILY [facility] Last Admin: 06/16/20 09:05 Dose: 20 mg Documented by: Polyethylene Glycol (Polyethylene Glycol 3350 17 Gm Packet) 17 gm PO DAILY [facility] Last Admin: 06/16/20 09:20 Dose: Not Given Documented by: Senna/Docusate Sodium (Senna/Docusate Sodium 1 Tablet) 2 tablet PO BID [facility] Last Admin: 06/16/20 09:07 Dose: Not Given Documented by: Sodium Chloride (0.9% Saline Lock 10 Ml Syringe) 10 - 40 ml IV UD PRN PRN Reason: SALINE FLUSH Last Admin: 06/14/20 14:00 Dose: 10 ml Documented by: Tamsulosin HCl (Tamsulosin Hcl 0.4 Mg Capsule) 0.8 mg PO DAILY [facility] Last Admin: 06/16/20 09:04 Dose: 0.8 mg Documented by: STROKE Vital Signs/Narrative: Vital Signs Pulse 06/16/20 11:58 62 Medical Necessity - Tobacco Use Smoking Status: Never smoker Assessment/Plan All Active Problems (Last Updated 06/10/20 @ 22:[address] Kenisha Rodriguez MD) Acute respiratory failure with hypoxia (Acute) Acute bilateral COVID-19 pneumonia (Acute) This is a 75 years old male patient who is admitted on Covid cohort floor through emergency room for 3 days history of shortness of breath, cough with sputum production as well as weakness and diarrhea, reports that he tested positive for COVID-19 2 weeks ago at another facility and he was found to have bilateral multilobar groundglass opacities consistent with acute bilateral COVID-19 pneumonia complicated by acute hypoxic respiratory failure. #1 acute bilateral COVID-19 pneumonia: Chest x-ray individually reviewed shows bilateral patchy groundglass opacity with mild interstitial edema. Currently, patient is on BiPAP. Fibrinogen, CRP and LDH are elevated. CPK and procalcitonin was normal. EKG revealed paced rhythm. Troponin is normal. ABG 7.47/27/115/20 on nonrebreather mask suggestive of severe hypoxia and hypercarbia, acute respiratory alkalosis. Lactic acidosis 2.3. Repeat lactic acid was normal Albuterol inhaler as needed. Overall patient oxygenation improved currently on 2 L. Patient denies shortness of breath, chest pressure or pain. Has mild occasional cough. Patient on 5 day of remdesivir and is on Decadron. Patient did not have leukocytosis but lymphopenia, 0.49 thousand. Patient was seen by ID. 06/15: Continue oxygen therapy. Patient completed remdesivir on 06/14. On Eliquis. 06/16: On oxygen. Physical therapist recommended additional therapy and SNF. #2 acute hypoxic respiratory failure: Secondary to acute bilateral COVID-19 pneumonia. Patient does not use home oxygen. Since oxygenation improved from 10 L to 2-3 L incentive spirometry and chest physiotherapy. #3 CAD status post stents: Troponin is negative, no acute changes on EKG. Patient denied any chest pain. Continue Plavix, statins and metoprolol. #4 chronic systolic CHF/nonischemic cardiomyopathy/status post ICD: Lasix oral is changed to IV. No acute exacerbation. Continue metoprolol and Aldactone. Patient urine output has been good. #5 chronic atrial fibrillation: Status post pacemaker. Heart rate stable, blood pressure is stable as well. Continue metoprolol and Eliquis. #6 hypertension: Plan to continue metoprolol, Lasix. Hold Aldactone as potassium is 4.7. #7 stage III chronic kidney disease: Baseline creatinine has been around 1.7 to 2.5 mg/dL. BUN/creatinine shows slight improvement. However her kidney function remained stable and initially showed improvement and slight increase BUN, creatinine 66/1.65 on last day. This probably related to hemodynamic fluid shift from diuretic. Lasix decreased to 40 mg daily. Adjust the dose of Lasix as per symptoms of heart failure and kidney function. 06/15: BUN/creatinine stable 63/1.53. Sodium 134. Potassium normal. #8 hyperlipidemia: Continue statins. #9 CODE STATUS: DNR CC arrest #10 DVT prophylaxis: Continue Eliquis. Patient will stay until Thursday for precertification possible SNF discharge. Inpatient E&M: 96686 Subs Hosp L2
--- NOTE | 2020-06-16 14:41 | NURSING ---
O2 DECREASED TO 1L NC - WILL MONITOR
[2020-06-16] MEDS: Atorvastatin Calcium 40 MG Tablet PO (21:57)
[2020-06-17] VITALS (8 sets, daily range): BP systolic 98–117; BP diastolic 57–63; PULSE 60–68; RESP 16–18; TEMP 36.5–37.7; O2SAT 93–97
[2020-06-17] MEDS: Acetaminophen 325 MG Tablet 650 MG PO ×2 (04:40→22:06)
[2020-06-17] MEDS: Tamsulosin HCl 0.4 MG Capsule 0.8 MG PO (09:05)
[2020-06-17] MEDS: Pantoprazole Sodium 20 MG Tablet PO (09:05)
[2020-06-17] MEDS: Allopurinol 100 MG Tablet PO (09:05)
[2020-06-17] MEDS: Furosemide 40 MG Tablet PO (09:05)
[2020-06-17] MEDS: Menthol/Lanolin/Calamine/Znox 113 GM Tube 1 APPLIC TOPICAL ×2 (09:06→22:02)
[2020-06-17] MEDS: Clopidogrel Bisulfate 75 MG Tablet PO (09:06)
[2020-06-17] MEDS: Ferrous Sulfate 325 MG Tablet PO (09:06)
[2020-06-17] MEDS: APIXABAN 5 MG TABLET PO ×2 (09:06→22:02)
[2020-06-17] MEDS: Metoprolol Tartrate 50 MG Tablet PO ×2 (11:18→22:02)
[2020-06-17] MEDS: Amiodarone 200 MG Tablet PO (11:18)
--- NOTE | 2020-06-17 11:44 | PCM.PN.HOSP ---
Patient Problems: Active and Suspected Problems (Last Updated 06/10/20 @ 22:[address] Kenisha Rodriguez MD) Acute respiratory failure with hypoxia (Acute) Acute bilateral COVID-19 pneumonia (Acute) Objective: Patient respiratory status is good. Pulse ox 93% on room air. Not tachypneic. No fever. Heart rate and blood pressure in normal range. Physical exam General: Alert, Oriented x3, Cooperative HEENT: Atraumatic, PERRLA, EOMI, Normocephalic. Bilateral hearing loss uses hearing aid Oral: No Gingival or Mucosal Lesions/ Ulcerations Neck: Supple, No JVD, Negative Carotid Bruits Lungs: Air entry diminished in bilateral lung bases. No crepitation/rhonchi. No tachypnea Cardiovascular: Regular rate, Regular Rhythm, Normal S1, Normal S2, No murmurs Abdomen: Bowel Sounds Present, Soft, Non Tender, Non-Distended : No renal angle tenderness. No suprapubic tenderness. Extremities: No edema, Capillary Refill Less than 3 Seconds Skin: No rashes, No breakdown Musculoskeletal: No Tenderness to Palpation of Joints or Extremities Neurological: Cranial nerves II-XII grossly intact, Deep Tendon Reflexes 2+/4 and Symmetrical, Neuro grossly intact Psych/Mental Status: Normal Affect, Appropriate. Vitals/I&O's: Vital Signs Temp Pulse Resp BP Pulse Ox 98.0 F 60 18 112/63 93 06/17/20 08:58 06/17/20 11:18 06/17/20 08:58 06/17/20 11:16 06/17/20 11:40 Oxygen Flow Rate (L/min) 93 Oxygen Delivery Method Room Air Weight: 238 lb 15.697 oz Body Mass Index (BMI) 32.3 Intake and Output for Last 24 Hours 06/15/20 06/16/20 06/17/20 23:59 23:59 23:59 Intake Total 424 / 424 1300 / 1300 Output Total 1425 / 1425 1835 / 1835 350 / 350 Balance -1001 / -1001 -535 / -535 -350 / -350 Microbiology Past 72 Hours 06/10/20 20:23 Blood Culture (Wb) - Anticubital Left Blood Culture - Final No growth in 5 days. 06/10/20 19:55 Blood Culture (Wb) - Anticubital Right Blood Culture - Final No growth in 5 days. Current Medications Acetaminophen (Acetaminophen 325 Mg Tablet) 650 mg PO Q6H PRN PRN PRN Reason: Pain Score 1-10/Temp > 100.7 F Last Admin: 06/17/20 04:40 Dose: 650 mg Documented by: Albuterol Sulfate (Albuterol Sulfate 18 Gm Inhaler (200 Puffs)) 2 puff IH Q4H PRN PRN PRN Reason: Shortness of breath, wheezing Last Admin: 06/16/20 02:23 Dose: 2 puff Documented by: Allopurinol (Allopurinol 100 Mg Tablet) 100 mg PO DAILY [facility] Last Admin: 06/17/20 09:05 Dose: 100 mg Documented by: Amiodarone HCl (Amiodarone 200 Mg Tablet) 200 mg PO DAILY [facility] Last Admin: 06/17/20 11:18 Dose: 200 mg Documented by: Apixaban (Apixaban 5 Mg Tablet) 5 mg PO BID [facility] Last Admin: 06/17/20 09:06 Dose: 5 mg Documented by: Atorvastatin Calcium (Atorvastatin Calcium 40 Mg Tablet) 40 mg PO DAILY@2200 [facility] Last Admin: 06/16/20 21:57 Dose: 40 mg Documented by: Calamine/Phenol (Menthol/Lanolin/Calamine/Znox 113 Gm Tube) 1 applic TOPICAL BID [facility]; Protocol Last Admin: 06/17/20 09:06 Dose: 1 applicatio Documented by: Clopidogrel Bisulfate (Clopidogrel Bisulfate 75 Mg Tablet) 75 mg PO DAILY [facility] Last Admin: 06/17/20 09:06 Dose: 75 mg Documented by: Ferrous Sulfate (Ferrous Sulfate 325 Mg Tablet) 325 mg PO DAILY [facility] Last Admin: 06/17/20 09:06 Dose: 325 mg Documented by: Furosemide (Furosemide 40 Mg Tablet) 40 mg PO DAILY [facility] Last Admin: 06/17/20 09:05 Dose: 40 mg Documented by: Sodium Chloride () 250 mls @ 15 mls/hr IV .[id number] PRN PRN Reason: Saline Flush Sodium Chloride () 250 mls @ 15 mls/hr IV .[id number] PRN PRN Reason: Additional IVPB Infusion Metoprolol Tartrate (Metoprolol Tartrate 50 Mg Tablet) 50 mg PO BID [facility] Last Admin: 06/17/20 11:18 Dose: 50 mg Documented by: Miscellaneous Information (Inhaler, Assist Devices 1 Each Spacer) 1 each INHALATION PRN PRN PRN Reason: WITH ALBUTEROL MDI Last Admin: 06/16/20 02:23 Dose: 1 each Documented by: Ondansetron HCl (Ondansetron 4 Mg/2 Ml Vial) 4 mg IV Q8H PRN PRN PRN Reason: NAUSEA/VOMITING Pantoprazole Sodium (Pantoprazole Sodium 20 Mg Tablet) 20 mg PO DAILY [facility] Last Admin: 06/17/20 09:05 Dose: 20 mg Documented by: Polyethylene Glycol (Polyethylene Glycol 3350 17 Gm Packet) 17 gm PO DAILY [facility] Last Admin: 06/17/20 09:06 Dose: Not Given Documented by: Senna/Docusate Sodium (Senna/Docusate Sodium 1 Tablet) 2 tablet PO BID [facility] Last Admin: 06/17/20 09:07 Dose: Not Given Documented by: Sodium Chloride (0.9% Saline Lock 10 Ml Syringe) 10 - 40 ml IV UD PRN PRN Reason: SALINE FLUSH Last Admin: 06/14/20 14:00 Dose: 10 ml Documented by: Tamsulosin HCl (Tamsulosin Hcl 0.4 Mg Capsule) 0.8 mg PO DAILY [facility] Last Admin: 06/17/20 09:05 Dose: 0.8 mg Documented by: STROKE Vital Signs/Narrative: Vital Signs Temp Pulse Resp BP BP Pulse Ox 06/17/20 11:40 93 06/17/20 11:18 60 06/17/20 11:16 60 112/63 06/17/20 08:58 98.0 F 67 18 98/61 93 Medical Necessity - Tobacco Use Smoking Status: Never smoker Assessment/Plan All Active Problems (Last Updated 06/10/20 @ 22:[address] Kenisha Rodriguez MD) Acute respiratory failure with hypoxia (Acute) Acute bilateral COVID-19 pneumonia (Acute) This is a 75 years old male patient who is admitted on Covca cohort floor through emergency room for 3 days history of shortness of breath, cough with sputum production as well as weakness and diarrhea, reports that he tested positive for COVID-19 2 weeks ago at another facility and he was found to have bilateral multilobar groundglass opacities consistent with acute bilateral COVID-19 pneumonia complicated by acute hypoxic respiratory failure. #1 acute bilateral COVID-19 pneumonia: Chest x-ray individually reviewed shows bilateral patchy groundglass opacity with mild interstitial edema. Currently, patient is on BiPAP. Fibrinogen, CRP and LDH are elevated. CPK and procalcitonin was normal. EKG revealed paced rhythm. Troponin is normal. ABG 7.47/27/115/20 on nonrebreather mask suggestive of severe hypoxia and hypercarbia, acute respiratory alkalosis. Lactic acidosis 2.3. Repeat lactic acid was normal Albuterol inhaler as needed. Overall patient oxygenation improved currently on 2 L. Patient denies shortness of breath, chest pressure or pain. Has mild occasional cough. Patient on 5 th day of remdesivir and is on Decadron. Patient did not have leukocytosis but lymphopenia, 0.49 thousand. Patient was seen by ID. 06/15: Continue oxygen therapy. Patient completed remdesivir on 06/14. On Eliquis. 06/16: On oxygen. Physical therapist recommended additional therapy and SNF. 06/17: Patient is off oxygen, pulse of 93% on room air. #2 acute hypoxic respiratory failure: Secondary to acute bilateral COVID-19 pneumonia. Patient does not use home oxygen. Continue incentive spirometry and chest physiotherapy. Acute hypoxic respiratory failure resolved. #3 CAD status post stents: Troponin is negative, no acute changes on EKG. Patient denied any chest pain. Continue Plavix, statins and metoprolol. #4 chronic systolic CHF/nonischemic cardiomyopathy/status post ICD: Lasix oral is changed to IV. No acute exacerbation. Continue metoprolol and Aldactone. Patient urine output has been good. #5 chronic atrial fibrillation: Status post pacemaker. Heart rate stable, blood pressure is stable as well. Continue metoprolol and Eliquis. #6 hypertension: Plan to continue metoprolol, Lasix. Hold Aldactone as potassium is 4.7. #7 stage III chronic kidney disease: Baseline creatinine has been around 1.7 to 2.5 mg/dL. BUN/creatinine shows slight improvement. However her kidney function remained stable and initially showed improvement and slight increase BUN, creatinine 66/1.65 on last day. This probably related to hemodynamic fluid shift from diuretic. Lasix decreased to 40 mg daily. Adjust the dose of Lasix as per symptoms of heart failure and kidney function. 06/15: BUN/creatinine stable 63/1.53. Sodium 134. Potassium normal. #8 hyperlipidemia: Continue statins. #9 CODE STATUS: DNR CC arrest #10 DVT prophylaxis: Continue Eliquis. Discharge plan: Patient is ready for discharge. Patient will stay until Thursday for precertification possible SNF discharge. Inpatient E&M: [id number] Subs Hosp L2
[2020-06-17] MEDS: 0.9% Saline Lock 10 ML Syringe IV (17:27)
[2020-06-17] MEDS: Atorvastatin Calcium 40 MG Tablet PO (22:02)
[2020-06-18 03:33] VITALS: BP 107/74; PULSE 74; RESP 15; TEMP 37.1; O2SAT 95
[2020-06-18 09:30] VITALS: BP 131/67; PULSE 64; RESP 18; TEMP 36.6; O2SAT 96
[2020-06-18] MEDS: Ferrous Sulfate 325 MG Tablet PO (09:47)
[2020-06-18] MEDS: Amiodarone 200 MG Tablet PO (09:47)
[2020-06-18] MEDS: APIXABAN 5 MG TABLET PO (09:47)
[2020-06-18] MEDS: Tamsulosin HCl 0.4 MG Capsule 0.8 MG PO (09:47)
[2020-06-18 09:48] VITALS: PULSE 64
[2020-06-18] MEDS: Clopidogrel Bisulfate 75 MG Tablet PO (09:48)
[2020-06-18] MEDS: Pantoprazole Sodium 20 MG Tablet PO (09:48)
[2020-06-18] MEDS: Furosemide 40 MG Tablet PO (09:48)
[2020-06-18] MEDS: Metoprolol Tartrate 50 MG Tablet PO (09:48)
[2020-06-18] MEDS: Allopurinol 100 MG Tablet PO (09:49)
--- NOTE | 2020-06-18 10:36 | CASEMGMT ---
Addendum entered by Margie Bonilla 06/18/20 11:58: PATTI received message from Tamra at [facility] stating their intake apartment is running pt's insurance to determine out of network benefits. Tamra states that the intake department was unable to run pt's benefits before today as pt's insurance was closed for the holiday and the weekend. Tamra states she will call this worker back once she knows about pt's out of network benefits. Tamra states she will also speak to pt's granddaughter that works at [facility] once it is determined pt's out of network benefits. PATTI waiting for call back from Tamra at [facility]. Original Note: Social Work Note PATTI placed a call to Tamra at [facility] and left message regarding pt's insurance (out of network benefits, private pay, etc). Pt is medically ready for discharge today. PATTI waiting for call back from Tamra. Plan: SNF Margie Bonilla [employer] OPERATOR, [employer]
--- NOTE | 2020-06-18 12:20 | TREXTCAR_ITS ---
- Diet 06/10/20 23:44 Diet: Cardiac - Heart Healthy Food consistency:: Regular Liquid Consistency:: Regular/Thin Type of Dietary Supplement:: Ensure Enlive Diet Comments: 120 ml w/ meals - Routine Orders/Code Status Suppository Type: Dulcolax 10mg Suppository Frequency: Daily PRN O2 Liters per Minute: 2 O2 Frequency: Continuous Keep PO Greater than or Equal to (%): 92 Code Status: DNC-A - Suggestions for Active Care Change Position every (hours): 3 Hours to sit in a chair: 2 Times a day to sit in chair: 3 - Therapies Weight Bearing: Weight bearing as tolerated Extremity Affected:: Bilateral Lower Physical Therapy: Eval and Treat Occupational Therapy: Eval and Treat Speech Therapy: Eval and Treat - Problem/Diagnosis (1) Acute respiratory failure with hypoxia Status: Acute (2) Acute bilateral COVID-19 pneumonia Status: Acute (3) Atherosclerosis of coronary artery of [place] heart without angina pectoris Status: Chronic (4) Non-ischemic cardiomyopathy Status: Chronic (5) ICD (implantable cardioverter-defibrillator), dual, in situ Status: Chronic Comment: [facility] DF4 02/2016; Revision for dislodged atrial lead...Insertion of new atrial lead with atrial lead revision 04/2016 (6) Chronic systolic (congestive) heart failure Status: Chronic (7) Longstanding persistent atrial fibrillation Status: Chronic (8) Essential (primary) hypertension Status: Chronic (9) Hyperlipidemia Status: Chronic - Allergies/Procedures Done in Hospital Allergies/Adverse Reactions: Allergies No Known Allergies Allergy (Verified 06/10/20 19:51) - Type of Care/Length of Stay Estimated LOS: Convalescent Care Less Than 30 days Type of Care Needed: Skilled Rehab Potential: Good Prognosis: Good - Additional Orders/Day of Discharge H&P will serve as current which was dated: 06/10/20 Day of Discharge: 06/18/20 - Dietary and Speech Recommendations Dietitian Recommendations/Changes: Will continue ONS w/ meals. Will continue diet as ordered r/t pmhx - Follow Up Care Primary Care Physician: Lobo Victoria MD [Primary Care Provider] - Please follow up with your Primary Care Physician in: in 1-2 weeks Please Follow Up With: Christopher Park MD When: as needed for covid 19 pneumonia Please Follow Up With: José Aleman MD When: As scheduled
--- NOTE | 2020-06-18 12:36 | PN_ITS ---
Patient Problems: Active and Suspected Problems (Last Updated 06/10/20 @ 22:[address] Kenisha Rodriguez MD) Acute respiratory failure with hypoxia (Acute) Acute bilateral COVID-19 pneumonia (Acute) Subjective: Chief complaint: Follow-up after admission for acute bilateral COVID-19 pneumonia and acute hypoxic respiratory failure. Patient seen and examined. No acute events overnight. Today, he is feeling okay, remains on 2 L of oxygen. He has no more cough or sputum production. He is feeling better. His vital signs are stable. - Physical Exam Vitals/I&O's: Vital Signs Temp Pulse Resp BP Pulse Ox 97.8 F 64 18 131/67 H 96 06/18/20 09:30 06/18/20 09:48 06/18/20 09:30 06/18/20 09:30 06/18/20 09:30 Oxygen Flow Rate (L/min) 1 Oxygen Delivery Method Nasal Cannula Weight: 238 lb 15.697 oz Body Mass Index (BMI) 32.3 Intake and Output for Last 24 Hours 06/16/20 06/17/20 06/18/20 23:59 23:59 23:59 Intake Total 1300 / 1300 Output Total 1835 / 1835 1050 / 1050 Balance -535 / -535 -1050 / -1050 General: Alert, Oriented x3, Cooperative, No apparent distress HEENT: Atraumatic, PERRLA, EOMI, Normocephalic Oral: Moist Mucosa, No Gingival or Mucosal Lesions/ Ulcerations Neck: Supple, No JVD, Negative Carotid Bruits, Trachea Midline, Thyroid Normal Size and Texture Lungs: Clear to auscultation, No rhonchi, No wheeze, No rales, Diminished Cardiovascular: Regular rate, Regular Rhythm, Normal S1, Normal S2, PMI Normal Abdomen: Bowel Sounds Present, Soft, Non Tender, Non-Distended, No Hepato- splenomegaly Extremities: No clubbing, No cyanosis, No edema Skin: No rashes, No breakdown Lymphatic: No Cervical, Supraclavicular, or Inguinal Adenopathy Neurological: Cranial nerves II-XII grossly intact, Neuro grossly intact Psych/Mental Status: Normal Affect, Appropriate Microbiology Past 72 Hours 06/10/20 20:23 Blood Culture (Wb) - Anticubital Left Blood Culture - Final No growth in 5 days. 06/10/20 19:55 Blood Culture (Wb) - Anticubital Right Blood Culture - Final No growth in 5 days. Current Medications Acetaminophen (Acetaminophen 325 Mg Tablet) 650 mg PO Q6H PRN PRN PRN Reason: Pain Score 1-10/Temp > 100.7 F Last Admin: 06/17/20 22:06 Dose: 650 mg Documented by: Albuterol Sulfate (Albuterol Sulfate 18 Gm Inhaler (200 Puffs)) 2 puff IH Q4H PRN PRN PRN Reason: Shortness of breath, wheezing Last Admin: 06/16/20 02:23 Dose: 2 puff Documented by: Allopurinol (Allopurinol 100 Mg Tablet) 100 mg PO DAILY [facility] Last Admin: 06/18/20 09:49 Dose: 100 mg Documented by: Amiodarone HCl (Amiodarone 200 Mg Tablet) 200 mg PO DAILY [facility] Last Admin: 06/18/20 09:47 Dose: 200 mg Documented by: Apixaban (Apixaban 5 Mg Tablet) 5 mg PO BID [facility] Last Admin: 06/18/20 09:47 Dose: 5 mg Documented by: Atorvastatin Calcium (Atorvastatin Calcium 40 Mg Tablet) 40 mg PO DAILY@2200 [facility] Last Admin: 06/17/20 22:02 Dose: 40 mg Documented by: Calamine/Phenol (Menthol/Lanolin/Calamine/Znox 113 Gm Tube) 1 applic TOPICAL BID [facility]; Protocol Last Admin: 06/18/20 10:07 Dose: Not Given Documented by: Clopidogrel Bisulfate (Clopidogrel Bisulfate 75 Mg Tablet) 75 mg PO DAILY [facility] Last Admin: 06/18/20 09:48 Dose: 75 mg Documented by: Ferrous Sulfate (Ferrous Sulfate 325 Mg Tablet) 325 mg PO DAILY [facility] Last Admin: 06/18/20 09:47 Dose: 325 mg Documented by: Furosemide (Furosemide 40 Mg Tablet) 40 mg PO DAILY [facility] Last Admin: 06/18/20 09:48 Dose: 40 mg Documented by: Sodium Chloride () 250 mls @ 15 mls/hr IV .[id number] PRN PRN Reason: Saline Flush Sodium Chloride () 250 mls @ 15 mls/hr IV .[id number] PRN PRN Reason: Additional IVPB Infusion Metoprolol Tartrate (Metoprolol Tartrate 50 Mg Tablet) 50 mg PO BID [facility] Last Admin: 06/18/20 09:48 Dose: 50 mg Documented by: Miscellaneous Information (Inhaler, Assist Devices 1 Each Spacer) 1 each INHALATION PRN PRN PRN Reason: WITH ALBUTEROL MDI Last Admin: 06/16/20 02:23 Dose: 1 each Documented by: Ondansetron HCl (Ondansetron 4 Mg/2 Ml Vial) 4 mg IV Q8H PRN PRN PRN Reason: NAUSEA/VOMITING Pantoprazole Sodium (Pantoprazole Sodium 20 Mg Tablet) 20 mg PO DAILY [facility] Last Admin: 06/18/20 09:48 Dose: 20 mg Documented by: Polyethylene Glycol (Polyethylene Glycol 3350 17 Gm Packet) 17 gm PO DAILY [facility] Last Admin: 06/18/20 09:48 Dose: Not Given Documented by: Senna/Docusate Sodium (Senna/Docusate Sodium 1 Tablet) 2 tablet PO BID [facility] Last Admin: 06/18/20 09:49 Dose: Not Given Documented by: Sodium Chloride (0.9% Saline Lock 10 Ml Syringe) 10 - 40 ml IV UD PRN PRN Reason: SALINE FLUSH Last Admin: 06/17/20 17:27 Dose: 10 ml Documented by: Tamsulosin HCl (Tamsulosin Hcl 0.4 Mg Capsule) 0.8 mg PO DAILY [facility] Last Admin: 06/18/20 09:47 Dose: 0.8 mg Documented by: Medical Necessity - Tobacco Use Smoking Status: Never smoker Assessment/Plan All Active Problems (Last Updated 06/10/20 @ 22:[address] Kenisha Rodriguez MD) Acute respiratory failure with hypoxia (Acute) Acute bilateral COVID-19 pneumonia (Acute) This is a 75 years old male patient presented to the emergency room because of 3 days history of shortness of breath, cough with sputum production as well as weakness and diarrhea, reports that he tested positive for COVID-19 2 weeks ago at another facility and he was found to have bilateral multilobar groundglass opacities consistent with acute bilateral COVID-19 pneumonia complicated by acute hypoxic respiratory failure. #1 acute bilateral COVID-19 pneumonia: Patient completed IV remdesivir and IV Decadron, received total of 8 days of IV Decadron. He remained on 2 L of oxygen, respiratory status appears stable. Blood culture showed no growth in 5 days. Plan: [facility] #2 acute hypoxic respiratory failure: Secondary to #1. Patient does not use home oxygen. Initially, patient required BiPAP but with treatment, his oxygenation improved and currently, he is on 2 L. Plan to discharge patient to SNF on 2 L of oxygen. #3 CAD status post stents: Stable, continue Plavix, statins and metoprolol. #4 chronic systolic CHF/nonischemic cardiomyopathy/status post ICD: Compensated, stable continue Lasix twice daily and metoprolol. #5 chronic atrial fibrillation: Status post pacemaker. Heart rate stable, blood pressure is stable as well. Continue metoprolol and Eliquis. #6 hypertension: Plan to continue metoprolol, Lasix and Aldactone. #7 stage III chronic kidney disease: Baseline creatinine has been around 1.7 to 2.5 mg/dL. Most recent creatinine was 1.53 which was 3 days ago, stable at baseline. #8 hyperlipidemia: Continue statins. #9 CODE STATUS: DNR CCA, no intubation. #10 DVT prophylaxis: Continue Eliquis. This note was generated with [employer] dictation software. It may contain incorrect words, spelling, and punctuation that were not noted in checking the note before signing. Inpatient E&M: 06336 Subs Hosp L2
[2020-06-18 13:32] VITALS: O2SAT 93
--- NOTE | 2020-06-18 13:35 | CASEMGMT ---
Addendum entered by Margie Bonilla 06/18/20 15:54: PATTI finally received call from Tamra at [facility]. Tamra states pt has no out of network benefits, would be private pay for pt admit to [facility]. Tamra states she will speak with pt's granddaughter who works at [facility] regarding private pay and if pt gets home and not able to be at home, pt could admit to [facility] private pay. Original Note: Social Work Note RN asked this worker to call pt. PATTI placed a call to pt's room. PATTI updated pt that [facility] is checking out of network benefits for pt to determine if he is able to admit to [facility]. Pt states I am going home today regardless, you people are going to give me a heart attack. SW spoke with pt regarding his frustrations with insurance and how it was a holiday weekend. SW asked pt if he was moving around ok and pt states that he is. SW spoke with pt regarding HHC, pt states he doesn't think he needs HHC. Pt gave this worker permission to call his Sandee to continue discussion of discharge plans. Pt again states he is going home today. SW placed a call to pt's Sandee. PATTI updated Sandee that this worker is still waiting to hear from [facility] regarding out of network benefits for pt but informed Sandee that pt is stating he now wants to return home. Sandee states she is aware as pt has called her stating he is returning home. PATTI asked Sandee if she was agreeable to taking pt home and Sandee agreeable, is agreeable to HHC. Sandee asked if pt will need oxygen at home. PATTI informed pt that this worker is not sure, pt will need to get O2 tested before discharge home to see if pt qualifies. Sandee states she would like to know if pt needs oxygen or not and if she will need to learn how to do it. PATTI informed pt that RN RAFA arranges HHC and RN tests pt for oxygen so this worker will relay the message that pt and Sandee would like to take pt home now. PATTI informed Sandee that this worker will also call [facility] again to determine if pt has out of network benefits. Sandee states understanding. PATTI spoke with RN. RN states pt was able to get self out of bed today and back to bed. PATTI updated RN pt will need home oxygen testing. PATTI updated RN CM on pt and Sandee's wishes for pt to return home with HHC now and pt is adamant he is leaving today to go home. PATTI placed a call to [facility] and left message for Tamra regarding out of network benefits. Plan: Home with HHC now. PATTI waiting for call back from Tamra at [facility] regarding out of network benefits for pt too. Margie Bonilla SPINNING LATHE OPERATOR, VP REVENUE CYCLE
--- NOTE | 2020-06-18 13:48 | CASEMGMT ---
Addendum entered by Gabriel Silver 06/18/20 14:15: Referral also faxed to [facility] for review P [phone] F [phone] Original Note: CHAZ CRAIG Note: SW updated CM that patient is refusing to go to SNF and would like home with HHC. PT/Ot has not evaluated patient today- requested walking pulse oximeter testing to be completed. Will await Pt/OT to see patient and also oxygen testing prior to setting up HHC. -Call to [facility] in [place]. They are willing to review referral. updated that patient is recovering covid-19 positive. PH: [phone] FX: [phone] Lizandro FLORESN RN ACM
--- NOTE | 2020-06-18 14:16 | DCINST_ITS ---
- Discharge Diagnoses Current Active Problems: Current Active and Chronic Problems (Last Updated 06/10/20 @ 22:[address] Kenisha Rodriguez MD) Acute respiratory failure with hypoxia (Acute) Acute bilateral COVID-19 pneumonia (Acute) Atherosclerosis of coronary artery of [place] heart without angina pectoris (Chronic) Non-ischemic cardiomyopathy (Chronic) ICD (implantable cardioverter-defibrillator), dual, in situ (Chronic 02/25/16) [facility] Epi [address] 02/2016; Revision for dislodged atrial lead...Insertion of new atrial lead with atrial lead revision 04/2016 Chronic systolic (congestive) heart failure (Chronic) Longstanding persistent atrial fibrillation (Chronic) Essential (primary) hypertension (Chronic) Hyperlipidemia (Chronic) You will use the following diet at home:: Cardiac Your food should be the consistency of: Regular Discharge Activity: Return to Normal Activity Weight Bearing Status: Weight bearing as tolerated Call your doctor if you observe: Fever of 101 or Higher, Shortness of breath, Dizziness, Fainting spells, Chest pain, Increased palpitations (irregular heartbeat), Uncontrolled pain Instructions: Using Oxygen at Home Allergies/Adverse Reactions: Allergies No Known Allergies Allergy (Verified 06/10/20 19:51) Medications to take at Discharge Apixaban [Eliquis] 5 mg PO BID 10/31/15 Clopidogrel Bisulfate [Plavix] 75 mg PO DAILY 10/31/15 rosuvastatin 20 mg tablet 20 mg PO QDAY 11/26/17 cholecalciferol (vitamin D3) 25 mcg (1,000 unit) capsule 25 mcg PO DAILY 10/04/19 ferrous sulfate 325 mg (65 mg iron) tablet 325 mg PO DAILY 10/04/19 metoprolol tartrate 50 mg tablet 50 mg PO BID tab 10/04/19 omeprazole 20 mg capsule,delayed release 20 mg PO DAILY 10/04/19 tamsulosin 0.4 mg capsule 0.8 mg PO DAILY cap 10/04/19 allopurinol 100 mg tablet 100 mg PO DAILY 02/07/20 Amiodarone HCl 200 mg PO DAILY 06/10/20 Acetaminophen [Tylenol Arthritis] 650 mg PO Q6H PRN PRN 06/11/20 Albuterol Sulfate [Albuterol Sulfate HFA] 2 puff IH Q6H PRN PRN #0 06/14/20 Furosemide 40 mg PO DAILY #0 tab 06/14/20 Inhaler, Assist Devices [Pocket Chamber] 1 ea INHALATION PRN PRN spacer 06/14/20 Losartan Potassium 25 mg PO DAILY #0 06/14/20 Polyethylene Glycol 3350 [Miralax] 17 gm PO DAILY packet 06/14/20 Spironolactone 25 mg PO DAILY #0 tab 06/14/20 Primary Care Physician: Lobo Victoria MD [Primary Care Provider] - Please follow up with your Primary Care Physician in: in 1-2 weeks Test Results: Test results from this visit will be discussed in further detail at your follow- up appointment, if applicable. Please Follow Up With: Christopher Park MD When: as needed for covid 19 pneumonia Please Follow Up With: José Aleman MD When: As scheduled
[2020-06-18 14:25] VITALS: BP 130/63; PULSE 69; RESP 18; TEMP 36.6; O2SAT 98
[2020-06-18 14:31] VITALS: O2SAT 85; O2SAT 90; O2SAT 93
--- NOTE | 2020-06-18 14:49 | CASEMGMT ---
Addendum entered by Gabriel Silver 06/18/20 15:40: [facility] cannot accept referral. Awaiting jeffrey's review. Lizandro CARRASQUILLO Original Note: CHAZ CRAIG Note: oxygen testing is completed, script and information faxed to [facility]. Awaiting portable tank. -Call received from daughter Owen who was very upset that no one has called my mom that dad is going home. RN CM reviewed note from director of social media marketing that thoroughly documented conversation with patient's re: going home, home health care and oxygen. Also let daughter know that director of social media marketing updated RN CM on patient going home and conversation with . Daughter stated she would talk with her mother. Reviewed dc plan with daughter and reviewed that PT/OT and oxygen testing was completed so patient is cleared medically to return home with oxygen. Updated also that cm is attempting to set up HHC, though it is not always feasible due to location, insurance and staffing. RN CM let daughter know that even if HHC not completed this afternoon prior to dc, RN CM would continue to attempt to find agency prior to discharge. Daughter was much calmer after conversation. -attempted to call patient's room numerous times to update on oxygen being set up. No answer. Nurse will update pt when he goes back into room. -call to Emily @ [facility]. They will bring portable tank over as soon as possible to help facilitate discharge. Lizandro CARRASQUILLO
--- NOTE | 2020-06-18 16:36 | CASEMGMT ---
Social Work Note SW attempted to call pt's Sandee to update that pt will be going home on oxygen, no answer. PATTI spoke with RN. RN states pt's Sandee was updated already that pt will be going home with Oxygen and should be at [facility] soon to transport pt home. RN states he will be taking pt down and reviewing oxygen with Sandee as well. Margie Bonilla PROCESS CONSULTANT, SUPERVISOR BEAM DEPARTMENT
--- NOTE | 2020-06-18 17:58 | DS.PCM_ITS ---
Discharge Date and Diagnosis - Problem List Patient Problems: Active and Suspected Problems (Last Updated 06/10/20 @ 22:[address] Kenisha Rodriguez MD) Acute respiratory failure with hypoxia (Acute) Acute bilateral COVID-19 pneumonia (Acute) Date of Admission: 06/10/20 Date of Discharge: 06/18/20 - Primary Discharge Diagnosis Acute Problems: Active Problems (Last Updated 06/10/20 @ 22:[address] Kenisha Rodriguez MD) #1 acute respiratory failure with hypoxia (Acute) #2 acute bilateral COVID-19 pneumonia (Acute) - Secondary Discharge Diagnosis Chronic Problems: Chronic Problems (Last Updated 06/10/20 @ 22:[address] Kenisha Rodriguez MD) Stage III chronic kidney disease (Chronic) Atherosclerosis of coronary artery of [place] heart without angina pectoris (Chronic) History of coronary artery stent placement (Chronic 10/12/15) [id number] LAD w/ 3.0 x 18 mm Resolute Non-ischemic cardiomyopathy (Chronic) ICD (implantable cardioverter-defibrillator), dual, in situ (Chronic 02/25/16) [facility] Epi Hernandez DF4 02/2016; Revision for dislodged atrial lead...Insertion of new atrial lead with atrial lead revision 04/2016 Chronic systolic (congestive) heart failure (Chronic) Longstanding persistent atrial fibrillation (Chronic) Paroxysmal atrial flutter (Chronic) DCCV 10/2018 Essential (primary) hypertension (Chronic) Hyperlipidemia (Chronic) Chronic anticoagulation (Chronic) Hospital Course and Treatment Imaging Results: Clinical Impression(s) from Imaging Studies Chest X-Ray 06/10/20 20:38 IMPRESSION: Multilobar groundglass opacities with interstitial thickening, imaging features which have been reported with COVID associated pneumonia. Electronically Signed: Angus Najera MD (Brooks) at 21:05 EST , Service support , Dr. Park, infectious disease. Operations: None Procedures: None Summary of Care Provided: Patient seen and examined on the day of discharge and appeared to be stable to be discharged to home. Initially, plan was to discharge patient to intermediate facility. Later, patient states that he wants to go home as he thinks that he feels better. Reportedly, patient was able to ambulate more independently without assistance. His vital signs were stable, remained stable on 2 L of oxygen. The patient is a 75 year old M presented to the emergency room because of worsening shortness of breath, cough and sputum production as well as weakness and diarrhea after he tested positive for COVID-19 2 weeks before admission at another facility and he was found to have bilateral multilobar groundglass opacities on chest x-ray consistent with acute bilateral COVID-19 pneumonia which was complicated by acute hypoxic respiratory failure. Patient was admitted to [facility] COVID-19 floor and was started on IV Decadron, IV remdesivir and Eliquis. Patient was already on Eliquis twice daily for history of atrial fibrillation. His routine blood work was remarkable for chronic anemia with stable hemoglobin as well as chronic kidney disease and his creatinine was stable. Infectious disease consulted and patient was continued on IV remdesivir and Decadron which was completed. Blood culture showed no growth in 5 days. He required up to 10 L of oxygen and with treatment, we were able to take him down to 2 L of oxygen. Patient remained stable on 2 L of oxygen. Initially, plan was to discharge him to intermediate facility but patient thinks that he is getting better and he was able to ambulate more independently. Patient requested that he discharged home and he refused to go to intermediate facility anymore. Ambulatory pulse oximeter performed and his pulse ox was 85% on room air with ambulation and he did qualify for home oxygen to be able to ambulate around the house. Patient discharged home in a stable medical condition, he completed treatment with IV remdesivir and Decadron, he completed the 20 days of quarantine for COVID-19, discharged on home oxygen at 2 L, discharged on Eliquis twice daily which she has been on for history of atrial fibrillation, continued on his previous home medications without any changes, recommended follow-up with PCP in 1 to 2 weeks and follow-up with cardiology as scheduled. Patient Problems: Active and Suspected Problems (Last Updated 06/10/20 @ 22:[address] Kenisha Rodriguez MD) Acute respiratory failure with hypoxia (Acute) Acute bilateral COVID-19 pneumonia (Acute) - Physical Exam Vitals/I&O's: Vital Signs Temp Pulse Resp BP Pulse Ox 97.9 F 69 18 130/63 H 93 06/18/20 14:25 06/18/20 14:25 06/18/20 14:25 06/18/20 14:25 06/18/20 14:31 Oxygen Flow Rate (L/min) [ 2 AMBULATION with Oxygen] Oxygen Flow Rate (L/min) 2 Oxygen Delivery Method Nasal Cannula Weight: 238 lb 15.697 oz Body Mass Index (BMI) 32.3 Intake and Output for Last 24 Hours 06/16/20 06/17/20 06/18/20 23:59 23:59 23:59 Intake Total 1300 / 1300 Output Total 1835 / 1835 1050 / 1050 Balance -535 / -535 -1050 / -1050 General: Alert, Oriented x3, Cooperative, No apparent distress HEENT: Atraumatic, PERRLA, EOMI, Normocephalic Oral: Moist Mucosa, No Gingival or Mucosal Lesions/ Ulcerations Neck: Supple, No JVD, Negative Carotid Bruits, Trachea Midline, Thyroid Normal Size and Texture Lungs: Clear to auscultation, No rhonchi, No wheeze, No rales, Diminished Cardiovascular: Regular rate, Regular Rhythm, Normal S1, Normal S2, PMI Normal Abdomen: Bowel Sounds Present, Soft, Non Tender, Non-Distended, No Hepato- splenomegaly Extremities: No clubbing, No cyanosis, No edema Skin: No rashes, No breakdown Lymphatic: No Cervical, Supraclavicular, or Inguinal Adenopathy Neurological: Cranial nerves II-XII grossly intact, Neuro grossly intact Psych/Mental Status: Normal Affect, Appropriate Microbiology Past 72 Hours 06/10/20 20:23 Blood Culture (Wb) - Anticubital Left Blood Culture - Final No growth in 5 days. 06/10/20 19:55 Blood Culture (Wb) - Anticubital Right Blood Culture - Final No growth in 5 days. Discharge Activity: Return to Normal Activity Weight Bearing Status: Weight bearing as tolerated Call your doctor if you observe: Fever of 101 or Higher, Shortness of breath, Dizziness, Fainting spells, Chest pain, Increased palpitations (irregular heartbeat), Uncontrolled pain Home Medications: Medications to take at Discharge Apixaban [Eliquis] 5 mg PO BID 10/31/15 Clopidogrel Bisulfate [Plavix] 75 mg PO DAILY 10/31/15 rosuvastatin 20 mg tablet 20 mg PO QDAY 11/26/17 cholecalciferol (vitamin D3) 25 mcg (1,000 unit) capsule 25 mcg PO DAILY 10/04/19 ferrous sulfate 325 mg (65 mg iron) tablet 325 mg PO DAILY 10/04/19 metoprolol tartrate 50 mg tablet 50 mg PO BID tab 10/04/19 omeprazole 20 mg capsule,delayed release 20 mg PO DAILY 10/04/19 tamsulosin 0.4 mg capsule 0.8 mg PO DAILY cap 10/04/19 allopurinol 100 mg tablet 100 mg PO DAILY 02/07/20 Amiodarone HCl 200 mg PO DAILY 06/10/20 Acetaminophen [Tylenol Arthritis] 650 mg PO Q6H PRN PRN 06/11/20 Albuterol Sulfate [Albuterol Sulfate HFA] 2 puff IH Q6H PRN PRN #0 06/14/20 Furosemide 40 mg PO DAILY #0 tab 06/14/20 Inhaler, Assist Devices [Pocket Chamber] 1 ea INHALATION PRN PRN spacer 06/14/20 Losartan Potassium 25 mg PO DAILY #0 06/14/20 Polyethylene Glycol 3350 [Miralax] 17 gm PO DAILY packet 06/14/20 Spironolactone 25 mg PO DAILY #0 tab 06/14/20 Primary Care Physician: Lobo Victoria MD [Primary Care Provider] - Please follow up with your Primary Care Physician in: in 1-2 weeks Please Follow Up With: Christopher Park MD When: as needed for covid 19 pneumonia Please Follow Up With: Jesi Nuñez DO When: In 2 to 3 weeks for acute kidney injury on CKD Please Follow Up With: José Aleman MD When: As scheduled Patient Instructions: Using Oxygen at Home Disposition: Home Minutes spent on discharge:: 33 Patient Condition:: Stable Medical Necessity - Tobacco Use Smoking Status: Never smoker Meaningful Use Info Meaningful Use Diagnoses (Choose all that apply): None applicable Inpatient E&M: 69151 Disch Hosp
--- NOTE | 2020-06-19 08:45 | CASEMGMT ---
RN CM NOTE: Call received from [facility]. They are able to accept patient. DC Instructions and order faxed to them. Per Luly, they will contact patient today and anticipate start of care today. Call to patient's phone. No answer but message left outlining [facility], phone number and RN CM return call information if questions. Lizandro CAMACHO RN ACM
== END 2020-06-18 17:00 | disposition home health service (06) | DRG 177 ==
LOC: ED 21:06 → MS2 22:50
PROVIDERS: Internal Medicine; Internal Medicine Infectious Disease; Admitting Provider Hospitalist; Emergency Provider Emergency Medicine; PCP Family Medicine; Visit Provider Hospitalist
DX: U07.1 COVID-19 (principal); J12.82 Pneumonia due to coronavirus disease 2019; J96.01 Acute respiratory failure with hypoxia; J96.02 Acute respiratory failure with hypercapnia; I13.0 Hypertensive heart and chronic kidney disease with heart failure and stage 1 through stage 4 chronic kidney disease, or unspecified chronic kidney disease; I50.22 Chronic systolic (congestive) heart failure; N18.30 Chronic kidney disease, stage 3 unspecified; I48.11 Longstanding persistent atrial fibrillation; I42.8 Other cardiomyopathies; E87.2 Acidosis; R19.7 Diarrhea, unspecified; I25.10 Atherosclerotic heart disease of native coronary artery without angina pectoris; E78.5 Hyperlipidemia, unspecified; N40.0 Benign prostatic hyperplasia without lower urinary tract symptoms; Z66 Do not resuscitate; E66.9 Obesity, unspecified; Z68.32 Body mass index [BMI] 32.0-32.9, adult; Z79.01 Long term (current) use of anticoagulants; Z79.02 Long term (current) use of antithrombotics/antiplatelets; Z79.899 Other long term (current) drug therapy; Z95.810 Presence of automatic (implantable) cardiac defibrillator; Z95.5 Presence of coronary angioplasty implant and graft; Z96.642 Presence of left artificial hip joint
CPT/HCPCS: 36415; 36600; 71045; 80053; 82550; 82803; 83605; 83615; 83735; 83880; 84145; 84484; 85025; 85027; 85379; 85384; 85610; 86140; 87040; 93005; 94002; 94003; 94640; 94667; 94668; 97110; 97116; 97162; 97166; 97530; 97535; 99251; 99285; J7040; J7050; A4216; G0463; J1940

== ENCOUNTER → 2020-06-27 12:09 | Outpatient (CLI) | payer MEDICARE, SELFPAY ==
[2020-06-10 23:51] VITALS: BMI 32.3
[2020-06-27 12:45] LABS: Hematocrit 37.6 % (40-54); Hemoglobin 12.1 g/dL (13.0-16.5); Mean Corp Hgb Conc 32.2 g/dL (32-36); Mean Corpuscular Hgb 31.1 pg (27.0-32.0); Mean Corpuscular Volume 96.7 fL (80-94); Mean Platelet Vol. 11.4 fl (6.2-12.0); Platelet Count 161 K/mm3 (150-450); RBC Distribution Width SD 49.1 fl (35.1-43.9); Red Blood Count 3.89 M/mm3 (4.6-6.2)
[2020-06-27 13:06] LABS: Albumin, Serum 2.6 g/dL (3.2-5.0); BUN 29 mg/dL (7-18); BUN/Creat Ratio 16.3 RATIO (10-20); Calcium,Total 8.5 mg/dL (8.5-10.1); Chloride 103 mmol/L (98-107); Creatinine, Serum 1.78 mg/dL (0.70-1.30); EST Glomerular Filtration Rate 40 mL/min (>60); Est Glom Filt Rate - Afr Amer 48 mL/min (>60); Glucose 167 mg/dL (74-106); Phosphorus 2.6 mg/dL (2.5-4.9); Potassium 3.6 mmol/L (3.5-5.1); Sodium Level 136 mmol/L (136-145)
[2020-06-27 13:07] LABS: PTHIN 124.3 pg/mL (18.4-80.1)
== END ==
LOC: LAB 12:11
PROVIDERS: PCP Family Medicine; Referring Provider Internal Medicine Nephrology; Visit Provider Internal Medicine Nephrology
DX: N17.9 Acute kidney failure, unspecified (principal); N25.81 Secondary hyperparathyroidism of renal origin; D50.9 Iron deficiency anemia, unspecified
CPT/HCPCS: 36415; 80069; 83970; 85027

== ENCOUNTER → 2020-07-25 10:40 | Outpatient (CLI) | payer MEDICARE, SELFPAY ==
[2020-06-10 23:51] VITALS: BMI 32.3
[2020-07-25 11:39] LABS: BUN 32 mg/dL (7-18); BUN/Creat Ratio 18.4 RATIO (10-20); Calcium,Total 8.8 mg/dL (8.5-10.1); Chloride 107 mmol/L (98-107); Creatinine, Serum 1.74 mg/dL (0.70-1.30); EST Glomerular Filtration Rate 41 mL/min (>60); Est Glom Filt Rate - Afr Amer 49 mL/min (>60); Glucose 162 mg/dL (74-106); Phosphorus 2.7 mg/dL (2.5-4.9); Potassium 4.1 mmol/L (3.5-5.1); Sodium Level 140 mmol/L (136-145)
== END ==
PROVIDERS: PCP Family Medicine; Visit Provider Internal Medicine Nephrology
DX: N17.9 Acute kidney failure, unspecified (principal); N18.30 Chronic kidney disease, stage 3 unspecified
CPT/HCPCS: 36415; 80069

== ENCOUNTER → 2020-10-02 10:45 | Outpatient (CLI) | payer MEDICARE, SELFPAY ==
[2020-06-10 23:51] VITALS: BMI 32.3
[2020-10-02 12:15] LABS: Albumin, Serum 3.2 g/dL (3.2-5.0); BUN 38 mg/dL (7-18); BUN/Creat Ratio 19.3 RATIO (10-20); Calcium,Total 8.8 mg/dL (8.5-10.1); Chloride 104 mmol/L (98-107); Creatinine, Serum 1.97 mg/dL (0.70-1.30); EST Glomerular Filtration Rate 35 mL/min (>60); Est Glom Filt Rate - Afr Amer 43 mL/min (>60); Glucose 121 mg/dL (74-106); Phosphorus 2.8 mg/dL (2.5-4.9); Potassium 4.3 mmol/L (3.5-5.1); Sodium Level 139 mmol/L (136-145)
== END ==
PROVIDERS: PCP Family Medicine; Referring Provider Internal Medicine Nephrology; Visit Provider Internal Medicine Nephrology
DX: N17.9 Acute kidney failure, unspecified (principal); N18.30 Chronic kidney disease, stage 3 unspecified
CPT/HCPCS: 36415; 80069

== ENCOUNTER → 2020-12-25 10:20 | Outpatient (CLI) | payer MEDICARE, SELFPAY ==
[2020-10-16 07:55] VITALS: BMI 33.5
[2020-12-25 11:38] LABS: Hematocrit 40.3 % (40-54); Hemoglobin 12.8 g/dL (13.0-16.5); Mean Corp Hgb Conc 31.8 g/dL (32-36); Mean Corpuscular Hgb 31.2 pg (27.0-32.0); Mean Corpuscular Volume 98.3 fL (80-94); Mean Platelet Vol. 11.8 fl (6.2-12.0); Platelet Count 201 K/mm3 (150-450); RBC Distribution Width CV 14.4 % (11.6-14.6); RBC Distribution Width SD 52.3 fl (35.1-43.9); White Blood Count 6.5 K/mm3 (4.4-11.0)
[2020-12-25 11:53] LABS: PTHIN 142.3 pg/mL (18.4-80.1)
[2020-12-25 11:54] LABS: Albumin, Serum 3.1 g/dL (3.2-5.0); BUN 23 mg/dL (7-18); BUN/Creat Ratio 14.1 RATIO (10-20); Calcium,Total 8.7 mg/dL (8.5-10.1); Chloride 110 mmol/L (98-107); Creatinine, Serum 1.63 mg/dL (0.70-1.30); EST Glomerular Filtration Rate 44 mL/min (>60); Est Glom Filt Rate - Afr Amer 53 mL/min (>60); Glucose 92 mg/dL (74-106); Phosphorus 2.1 mg/dL (2.5-4.9); Potassium 4.2 mmol/L (3.5-5.1); Sodium Level 140 mmol/L (136-145)
== END ==
PROVIDERS: PCP Family Medicine; Referring Provider Internal Medicine Nephrology; Visit Provider Internal Medicine Nephrology
DX: N18.30 Chronic kidney disease, stage 3 unspecified (principal); N25.81 Secondary hyperparathyroidism of renal origin; D50.9 Iron deficiency anemia, unspecified
CPT/HCPCS: 36415; 80069; 83970; 85027

== ENCOUNTER → 2021-04-17 10:54 | Outpatient (CLI) | payer MEDICARE, SELFPAY ==
--- NOTE | 2021-04-17 10:56 | RAD_ITS ---
STUDY: X-RAY CHEST REASON FOR EXAM: Male, 76 years old. Cough and shortness of breath TECHNIQUE: PA and lateral views COMPARISON: 06/10/2020 FINDINGS: Stable appearance of a left subclavian pacemaker. Stable elevation of the right hemidiaphragm The lungs are clear and expanded. There is no demonstrated pleural abnormality. Normal size heart. Normal mediastinum and gideon. Normal visualized pulmonary arteries. Normal visualized aortic arch and descending thoracic aorta. There are diffuse degenerative changes of the visualized thoracic spine. Normal visualized ribs, clavicles, and shoulders. There is no demonstrated abnormality of the visualized soft tissue structures of the upper abdomen. RAD/Chest PA and Lateral IMPRESSION: No acute pulmonary process Electronically Signed: Alex Zaragoza MD at 11:45 EDT , Service support ,
[2021-04-17 11:22] LABS: Absolute Lymphocyte Count 1.94 X10^3/uL (0.83-4.51); Absolute Neutrophil Count 5.1 X10^3/uL (2.0-7.7); Basophil# 0.05 X10^3/uL; Basophil% 0.6 % (0-1); Eosinophil# 0.11 X10^3/uL; Eosinophils% 1.3 % (0-5); Hematocrit 43.1 % (40-54); Hemoglobin 13.9 g/dL (13.0-16.5); Lymphocyte # 1.94 X10^3/ul (0.83-4.51); Lymphocyte % 23.2 % (19-41); Mean Corp Hgb Conc 32.3 g/dL (32-36); Mean Platelet Vol. 11.4 fl (6.2-12.0); Monocyte# 1.13 X10^3/uL; Monocyte% 13.5 % (0-10); NRBC Flagged by Analyzer 0 % (0-5); Neutrophil % 60.9 % (47-70); Platelet Count 198 K/mm3 (150-450); RBC Distribution Width CV 13.7 % (11.6-14.6); RBC Distribution Width SD 48.6 fl (35.1-43.9); Red Blood Count 4.49 M/mm3 (4.6-6.2); White Blood Count 8.4 K/mm3 (4.4-11.0)
[2021-04-17 11:49] LABS: BNP,B-Type NATRIURETIC PEPTIDE 22.1 pg/mL (0-100)
[2021-04-17 12:11] LABS: ALB/GLOB Ratio 0.8 RATIO (0.9-2.4); AST(SGOT) 52 U/L (15-37); Alanine Aminotransfer ALT/SGPT 36 U/L (16-61); Albumin, Serum 3.3 g/dL (3.2-5.0); Alkaline Phosphatase 63 U/L (45-117); Anion Gap 5 (5-15); BUN 35 mg/dL (7-18); BUN/Creat Ratio 17.1 RATIO (10-20); Chloride 105 mmol/L (98-107); Creatinine, Serum 2.05 mg/dL (0.70-1.30); EST Glomerular Filtration Rate 34 mL/min (>60); Est Glom Filt Rate - Afr Amer 41 mL/min (>60); Glucose 150 mg/dL (74-106); Potassium 4.7 mmol/L (3.5-5.1); Protein, Total 7.3 g/dL (6.4-8.2); Sodium Level 138 mmol/L (136-145); Thyroid Stim Hormone (TSH) 1.63 uIU/mL (0.358-3.74)
== END ==
PROVIDERS: PCP Family Medicine; Referring Provider Physician Assistant Medical; Visit Provider Physician Assistant Medical
DX: R06.09 Other forms of dyspnea (principal); I25.10 Atherosclerotic heart disease of native coronary artery without angina pectoris; I42.8 Other cardiomyopathies; I10 Essential (primary) hypertension; E78.5 Hyperlipidemia, unspecified; Z79.899 Other long term (current) drug therapy
CPT/HCPCS: 36415; 71046; 80053; 83880; 84443; 85025

== ENCOUNTER → 2021-05-03 06:45 | Outpatient (CLI) | payer MEDICARE, SELFPAY ==
--- NOTE | 2021-05-03 06:47 | ECHOCS_ITS ---
Reason For Study: DYSPNEA/SOB Procedure This was a 2D Doppler, Color Flow transthoracic echocardiogram. The study was technically difficult. Due to body habitus. LV wall motion images are best with patient supine. Contrast injection was performed. Exam performed in department. Left Ventricle Normal LV size. Left ventricular systolic function is normal. The estimated ejection fraction is 55 %. Stage 2 diastolic dysfunction. No regional wall motion abnormalities noted. Right Ventricle Normal RV size. Normal systolic function. Atria The left atrium is mildly enlarged. Normal right atrium. Mitral Valve Normal mitral valve. Tricuspid Valve Normal tricuspid valve. Aortic Valve The aortic valve is not well visualized. Pulmonic Valve The pulmonic valve is not well visualized. Great Vessels Normal aortic root. The pulmonary artery is normal size. Normal inferior vena cava. Pericardium/Pleural No pericardial effusion. Medication 22 gauge I.V. with prn adaptor inserted into left arm. Diluted definity 3.0ml given slow IV push to enhance endocardial definition. MMode/2D Measurements & Calculations LVIDd: 5.7 cm IVSd: 1.3 cm Ao root diam: 3.6 cm LVIDs: 4.6 cm LVPWd: 1.3 cm FS: 20.0 % LAV(MOD-bp): 92.4 ml LA A4 area: 26.7 cm2 LA dimension(2D): 4.6 cm LAV(MOD-bp) Indexed: 40.5 ml/m2 LAV(MOD-sp2): 85.7 ml LAV(MOD-sp4): 95.5 ml Time Measurements MV dec time: 0.12 sec Doppler Measurements & Calculations MV E max toni: 72.3 cm/sec Lat Peak E' Toni: 9.6 cm/sec Med Peak E' Toni: 4.8 cm/sec MV A max toni: 44.9 cm/sec E/E' lat: 7.6 E/E' med: 14.9 MV E/A: 1.6 Ao V2 max: 103.4 cm/sec LV V1 max: 75.2 cm/sec PA V2 max: 72.4 cm/sec Ao max P.3 mmHg LV V1 max P.3 mmHg ECHO/Echo Complete W/ Contrast Interpretation Summary Normal LV size. Left ventricular systolic function is normal. Stage 2 diastolic dysfunction. The estimated ejection fraction is 55 %. The left atrium is mildly enlarged. Contrast injection was performed. The study was technically difficult. Ordering Physician: Annita Carreon Referring Physician: Lobo Victoria Performed By: Erin Dumont RDCS, RVT
--- NOTE | 2021-05-04 06:54 | PFT ---
INTRODUCTION: The patient is a 76-year-old male that presents for pulmonary function studies secondary to a diagnosis of dyspnea. Respiratory therapy reported good patient effort. Bronchodilators were used during testing. INTERPRETATION: Forced expiration spirometry demonstrates no evidence of a large airways obstructive ventilatory defect. There was a significant response to aerosolized bronchodilators noted. Spirograms are of good quality but terminate prior to 6 seconds, likely underestimating FVC. Body plethysmography was performed and revealed an decreased TLC to 4.0 L, 58% of predicted, indicative of a severe restrictive ventilatory impairment. The remainder of the lung volumes are symmetrically reduced. Diffusing capacity by single breath CO is reduced to 63% of predicted. When compared to previous pulmonary function studies from February 2020, there has been a 26% reduction in total lung capacity along with an 8% reduction in diffusing capacity. IMPRESSION: Severe restrictive ventilatory impairment with mild reduction in diffusing capacity. Significant bronchodilator response was noted.
== END ==
LOC: CVS 06:47
PROVIDERS: PCP Family Medicine; Referring Provider Physician Assistant Medical; Visit Provider Physician Assistant Medical
DX: I25.10 Atherosclerotic heart disease of native coronary artery without angina pectoris (principal); E78.5 Hyperlipidemia, unspecified; I10 Essential (primary) hypertension; I42.8 Other cardiomyopathies; R06.00 Dyspnea, unspecified; Z79.899 Other long term (current) drug therapy
CPT/HCPCS: 93306; 94060; 94726; 94729; Q9957; A4216; C8929; J3490

== ENCOUNTER 2021-05-26 21:26 | Emergency (ER) | payer MEDICARE, SELFPAY ==
[2021-05-26 21:27] VITALS: BP 145/60; PULSE 65; RESP 26; TEMP 36.2; O2SAT 98; BMI 4491.3
--- NOTE | 2021-05-26 21:30 | RAD_ITS ---
EXAM: XR RIGHT FOREARM, 2 VIEWS : 1945 CLINICAL INDICATION: fall, pain TECHNIQUE: Frontal and lateral views of the right forearm. This report was created using [employer] report generation technology. COMPARISON: None. FINDINGS: BONES/JOINTS: Unremarkable. No acute fracture. No dislocation. SOFT TISSUES: Unremarkable. RAD/Forearm 2 Views IMPRESSION: Negative right forearm x-rays. at 2218 Reported and signed by: Jorge Casanova MD Electronically Signed: Jorge Casanova MD at 22:17 EST Tel , Service support ,
--- NOTE | 2021-05-26 21:30 | RAD_ITS ---
EXAM: XR RIGHT WRIST COMPLETE, 3 OR MORE VIEWS : 1945 CLINICAL INDICATION: fall, pain TECHNIQUE: Frontal, lateral and oblique views of the right wrist. This report was created using [employer] report generation technology. COMPARISON: None. FINDINGS: BONES/JOINTS: Unremarkable. No acute fracture. No subluxation. Normal alignment. Preservation of the joint space. No sclerotic or destructive changes observed. SOFT TISSUES: Unremarkable. No soft tissue swelling or gas. No radiopaque foreign body. RAD/Wrist min 3 Views IMPRESSION: Negative right wrist x-rays. at 2218 Reported and signed by: Jorge Casanova MD Electronically Signed: Jorge Casanova MD at 22:17 EST Tel , Service support ,
--- NOTE | 2021-05-26 22:13 | CT_ITS ---
EXAM: CT HEAD WITHOUT INTRAVENOUS CONTRAST : 1945 CLINICAL INDICATION: trauma TECHNIQUE: Multiple axial images were obtained of the head without intravenous contrast. This CT exam was performed using one or more of the following dose reduction techniques: automated exposure control, adjustment of the mA and/or kV according to patient size, and/or use of iterative reconstruction technique. This report was created using [employer] report generation technology. COMPARISON: None. FINDINGS: BRAIN AND EXTRA-AXIAL SPACES: There is enlargement of the ventricular system and cortical sulci. There is minimal hypoattenuation in the periventricular white matter. No intra- or extra-axial hemorrhage. No evidence of acute infarct. No intracranial mass or mass effect. There is preservation of the aden/white matter interface. Posterior fossa structures are unremarkable. Basal cisterns are patent. BONES/JOINTS: Unremarkable. No discrete lytic or blastic abnormalities. SINUSES: Unremarkable as visualized. Clear. MASTOID AIR CELLS: Unremarkable. Clear. ORBITS: Visualized globes, extraocular muscles, optic nerves and retrobulbar fat appear unremarkable. CT/Brain/Head without Contrast IMPRESSION: 1. No acute intracranial abnormality. 2. Mild underlying senescent change with small vessel ischemia. Individualized dose optimization techniques were used for this CT. at 1524 Reported and signed by: Jorge Casanova MD Electronically Signed: Jorge Casanova MD at 23:13 EST Tel , Service support ,
--- NOTE | 2021-05-26 22:15 | RAD_ITS ---
EXAM: XR RIGHT HAND COMPLETE, 3 OR MORE VIEWS : 1945 CLINICAL INDICATION: trauma TECHNIQUE: Frontal, lateral and oblique views of the right hand. This report was created using [employer] report generation technology. COMPARISON: None. FINDINGS: BONES/JOINTS: There is a fracture of the base of the fifth metacarpal. There is overlying soft tissue swelling. Preservation of the joint space. No sclerotic or destructive changes observed. SOFT TISSUES: See above. RAD/Hand Min 3 Views IMPRESSION: Fracture of the base of the fifth metacarpal with soft tissue swelling. at 2316 Reported and signed by: Jorge Casanova MD Electronically Signed: Jorge Casanova MD at 23:15 EST Tel , Service support ,
--- NOTE | 2021-05-26 22:17 | ED.VIS.FALL ---
HPI HPI - Fall History of Present Illness Chief Complaint: Fall Informant: patient Occured/Mechanism Occurred: Yesterday Mechanism/Context: Yes same level fall and Yes cannot recall fall Usually ambulates: Walker Pain/Injury Pain Location: head and upper extremity Quality of Pain: Sharp Current Severity: Moderate Maximum Severity: Moderate Associated Symptoms Associated Symptoms: Negative for Parasthesias, Weakness, Loss of function, Inability to ambulate, Loss of consciousness and Amnesia Narrative Narrative: 76-year-old chronic kidney disease and A. fib on Plavix and Eliquis. States yesterday he felt does not remember much of the fall remembers getting up. Complaining of pain to his right forearm and hand.Male significant past medical history of cardiomyopathy, also did strike his head does not think he was knocked out. Denies any other complaints. Has not recently been ill. Has not recently been hospitalized. Prior similar symptoms: No Recent Illness/Hospitalization: No PFSH PFSH Medical History Acute respiratory failure with hypoxia Ascites Atherosclerosis of coronary artery of [place] heart without angina pectoris Atrial flutter with rapid ventricular response (10/18/18) Bilateral hydrocele BPH (benign prostatic hyperplasia) Chronic systolic (congestive) heart failure Essential (primary) hypertension Hyperlipidemia Incarcerated left inguinal hernia Longstanding persistent atrial fibrillation Non-ischemic cardiomyopathy Obesity Paroxysmal atrial flutter Persistent atrial fibrillation Pneumonia due to COVID-19 virus (06/10/20) Severe left ventricular systolic dysfunction Stage III chronic kidney disease Home Medications apixaban 5 mg PO BID 10/31/15 [History Last Taken 01/24/19] clopidogrel 75 mg PO DAILY 10/31/15 [History Last Taken 11/09/15] rosuvastatin 20 mg tablet 20 mg PO QDAY 11/26/17 [History Last Taken Unknown] cholecalciferol (vitamin D3) 25 mcg (1,000 unit) capsule 25 mcg PO DAILY 10/04/19 [History Last Taken Unknown] tamsulosin 0.4 mg capsule 0.8 mg PO DAILY cap 10/04/19 [History Last Taken Unknown] allopurinol 100 mg tablet 100 mg PO DAILY 02/07/20 [History Last Taken Unknown] acetaminophen 650 mg PO Q6H PRN PRN 06/11/20 [History Last Taken Unknown] albuterol sulfate 2 puff IH Q6H PRN PRN #0 06/14/20 [Rx Last Taken Unknown] inhalational spacing device spacer 06/14/20 [Rx Last Taken Unknown] spironolactone 25 mg PO DAILY #0 tab 06/14/20 [Rx Last Taken Unknown] amiodarone 200 mg tablet 200 mg PO DAILY #90 tab 08/29/20 [Rx Last Taken Unknown] ferrous sulfate 325 mg (65 mg iron) tablet 325 mg PO BID tab 10/16/20 [History Last Taken Unknown] furosemide 40 mg tablet 40 mg PO BID tab 10/16/20 [History Last Taken Unknown] handicap placcard #2 ea 04/17/21 [Rx Last Taken Unknown] metoprolol tartrate 50 mg tablet 25 mg PO BID tab 04/17/21 [History Last Taken Unknown] amlodipine 2.5 mg tablet 2.5 mg PO DAILY #30 tab 05/03/21 [Rx Last Taken Unknown] hydrocodone-acetaminophen 1 tab PO Q4H PRN 5 Days #14 tab 05/26/21 [Rx Last Taken Unknown] Allergy/AdvReac Type Severity Reaction Status Date / Time No Known Allergies Allergy Verified 04/17/21 10:09 Family History Brother Diabetes Heart disease Mother Heart disease Father Heart disease Surgical History History of cardioversion (10/26/18) History of colonoscopy (2016) History of coronary artery stent placement (10/12/15) History of implantable cardiac defibrillator (ICD) (02/2016) History of total left hip arthroplasty (02/24/17) History of umbilical hernia repair 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 Review of Systems ROS Unobtainable: Denies due to encephalopathy Constitutional Constitutional ED: Denies fever(s) Eyes Eyes: Denies change in vision ENT ENT ED: Denies ear pain Cardiovascular Cardiovascular: Denies chest pain Respiratory/Chest Respiratory/Chest: Denies dyspnea Gastrointestinal Gastrointestinal: Denies abdominal pain Genitourinary Genitourinary ED: Denies dysuria Musculoskeletal Musculoskeletal: Denies myalgias Integumentary Denies rash Neurologic Neurologic: Denies headache(s) Psychiatric Psychiatric: Denies depression Endocrine Endocrinology: Denies polyuria Hematologic/Lymphatic Hematologic/Lymphatic: Denies easy bruising Allergic/Immunologic Allergic/Immunologic ED: Denies urticaria EXAM Physical Exam Narrative Exam Narrative: 76-year-old male vital signs are stable afebrile. Family is at bedside. HEENT exam contusion right forehead and scalp. Dry reactive light. No facial trauma. No posterior scalp or neck pain. Trachea midline. Normal range of motion of his neck. Lungs clear to auscultation bilaterally. Heart irregularly irregular rate about 65. Chest wall and ribs nontender. Abdomen soft nontender. Pelvic girdle intact. Hips are nontender. He is able to flex and extend both hips. There is no shortening or rotation. Back nontender. Left upper arm is nontender with normal range of motion normal signal fitter strength. Right lower extremity is nontender with normal range of motion. Normal dorsi plantar flexion. Left knee minor contusion with mild bruising. He is able to flex extend the left hip, knee ankle and foot. Dorsi plantarflexion intact. Right shoulder is nontender. Right upper arm and elbow are nontender. He has tenderness to the right forearm distal end. Right wrist and proximal right hand. His initial blood pressure is limited flexion extension of the wrist due to pain. Back is nontender. Neurologically no deficit. Day, month and president. Acting appropriately. Answering questions and following commands. Const Vital Signs: 05/26/21 21:27 05/26/21 22:08 Temperature 97.2 F L Temperature Source Temporal Pulse Rate 65 Respiratory Rate 26 H Respiratory Effort Normal Non-Labored Blood Pressure 145/60 H Blood Pressure Mean 88 Pulse Ox 98 Oxygen Delivery Method Room Air Room Air Positive well nourished, well developed and obese; Negative for cachectic, contractures or unkempt General Appearance ED: well developed and NAD; Negative for unkempt, cachectic or contractures Nutritional Appearance: obese; Negative for cachectic HEENT Reports normocephalic trauma and tenderness; Negative for atraumatic Eyes PERRL and EOMs intact bilaterally General Eye ED: Negative for pale conjunctiva or scleral icterus Neck full ROM, no lymphadenopathy and supple General: Negative for tenderness Chest Wall inspection of chest normal and palpation of chest normal Resp normal respiratory effort, no retractions and clear to auscultation bilaterally Auscultation: Negative for rales, rhonchi, wheezes or diminished lung sounds Cardio no murmurs Cardio Narrative: A. fib rate about 65. GI non-tender, non-distended and no masses Inspection: Negative for abdominal distention Auscultation: normoactive bowel sounds Palpation: soft; Negative for guarding or rebound tenderness present Back/Spine no CVA tenderness General Back: Negative for CVA tenderness Cervical Spine: Negative for cervical spine tenderness Thoracic Spine / Upper Back: Negative for thoracic spinal tenderness Lumbar Spine / Lower Back: Negative for lumbar spinal tenderness Extremity Negative for normal to inspection or full ROM Extremity Narrative: Tenderness along right forearm, right wrist and hand. Mild swelling. Decreased flexion extension of right wrist. Contusion left knee. Minor bruising. Full flexion-extension of both hips, knees and ankles. Neuro oriented x3, CN's II-XII intact bilaterally, moves all extremities and no focal motor deficits Sriram Coma Scale: document GCS findings Spontaneous Obeys Commands Oriented 15 Sensorium / Orientation: alert, oriented to person, oriented to place and oriented to time; Negative for orientation impaired, confused, lethargic or stuporous Motor Exam: strength 5/5 throughout Psych mental status grossly normal and thought process normal Appearance: Negative for unkempt Mood & Affect: Negative for depressed or tearful Skin Skin Narrative: Contusion right forearm and left knees. Lesions: no lesions Rashes: no rashes MDM MDM MDM Narrative Medical decision making narrative: 76-year-old male on blood thinners fell and hit his head yesterday. CAT scan of his brain is being obtained. Also x-rays of his right distal arm wrist and hand are being obtained. At this history of his left knee is also being obtained. Patient be given [place] for pain. Patient has a fracture of the metacarpal of the small finger on his right hand. He will be placed in a short arm ulnar gutter splint of his right hand. Fabricated by myself. Ortho-Glass. Follow-up with orthopedics. Heather for pain. Repeat exam otherwise unchanged. I did go over all the x-rays with the patient and family. Radiography Diagnostic Testing: Clinical Impression(s) from Imaging Studies Forearm X-Ray 05/26/21 21:30 IMPRESSION: Negative right forearm x-rays. at 2218 Reported and signed by: Jorge Casanova MD Electronically Signed: Jorge Casanova MD at 22:17 EST Tel , Service support , Wrist X-Ray 05/26/21 21:30 IMPRESSION: Negative right wrist x-rays. at 2218 Reported and signed by: Jorge Casanova MD Electronically Signed: Jorge Casanova MD at 22:17 EST Tel , Service support , Brain CT 05/26/21 22:13 IMPRESSION: 1. No acute intracranial abnormality. 2. Mild underlying senescent change with small vessel ischemia. Individualized dose optimization techniques were used for this CT. at 7984 Reported and signed by: Jorge Casanova MD Electronically Signed: Jorge Casanova MD at 23:13 EST Tel , Service support , Hand X-Ray 05/26/21 22:15 IMPRESSION: Fracture of the base of the fifth metacarpal with soft tissue swelling. at 0870 Reported and signed by: Jorge Casanova MD Electronically Signed: Jorge Casanova MD at 23:15 EST Tel , Service support , Knee X-Ray 05/26/21 22:19 IMPRESSION: Negative left knee x-rays. at 2317 Reported and signed by: Jorge Casanova MD Electronically Signed: Jorge Casanova MD at 23:15 EST Tel , Service support , Right forearm x-ray 2 views interpreted by myself and radiologist shows no acute abnormality. X-ray right wrist shows no acute abnormality interpreted by myself and radiologist. X-ray right hand interpreted by myself and the radiologist shows fifth or small metacarpal proximal and fracture. X-ray left knee interpreted by both radiologist and myself shows no acute abnormality. Chronic changes. CT of the brain is read by the radiologist and reviewed by me shows no acute abnormality. Chronic changes. Procedures Upper Extremity Splints Upper Extremity Splint: Orthoglass and Sling Splint Fabrication: Fabricated Location: Right (Short arm, Ortho-Glass, fabricated right hand ulnar gutter splint.) Discharge Plan Triage Chief Complaint: Fall ED Provider: Artem Barahona Dx/Rx/DC Orders Clinical Impression: Fall, Closed fracture of metacarpal of right hand, Head injury Instructions: ED Fall with Uncertain Cause, ED Closed Hand Fracture (Adult), ED Head Injury (Adult) Prescriptions: New hydrocodone-acetaminophen 5-325 mg tablet 1 tab PO Q4H PRN (Reason: pain) 5 Days Qty: 14 RF: 0 No Action rosuvastatin 20 mg tablet 20 mg PO QDAY RF: 0 cholecalciferol (vitamin D3) 25 mcg (1,000 unit) capsule 25 mcg PO DAILY RF: 0 ferrous sulfate 325 mg (65 mg iron) tablet 325 mg PO BID RF: 0 metoprolol tartrate 50 mg tablet 25 mg PO BID RF: 0 allopurinol 100 mg tablet 100 mg PO DAILY RF: 0 furosemide 40 mg tablet 40 mg PO BID RF: 0 (DME) handicap placcard See Rx Instructions .Route .MEDSUPPLY Qty: 2 RF: 0 clopidogrel 75 MG tablet 75 mg PO DAILY RF: 0 apixaban 5 MG tablet 5 mg PO BID RF: 0 tamsulosin 0.4 mg capsule 0.8 mg PO DAILY RF: 0 acetaminophen 650 MG tablet extended release 650 mg PO Q6H PRN PRN (Reason: Pain 1-10 Or Fever) RF: 0 (DME) inhalational spacing device 1 EACH spacer 1 ea INHALATION PRN RF: 0 albuterol sulfate 1 PUFF inhaler 2 puff IH Q6H PRN PRN (Reason: Shortness Of Breath) Qty: 0 RF: 0 spironolactone 50 mg tablet 25 mg PO DAILY Qty: 0 RF: 0 amiodarone 200 mg tablet 200 mg PO DAILY Qty: 90 RF: 4 amlodipine 2.5 mg tablet 2.5 mg PO DAILY Qty: 30 RF: 11 Primary Care Provider: Lobo Victoria Referrals: Lobo Victoria MD [Primary Care Provider] - Carter Albright MD [STAFF PHYSICIAN] - As soon as possible Activity Restrictions/Additional Instructions: You have a broken metacarpal in your right hand of the small finger. Ice and elevate. [place] for pain. Make sure you are drinking plenty of water and fiber so that you do not get constipated by the pain medication. Call and follow-up with an orthopedic doctor. Ice to all sore areas. Return if severe headache, not acting right or vomiting. Disposition Disposition: Home, Self Care
--- NOTE | 2021-05-26 22:19 | RAD_ITS ---
EXAM: XR LEFT KNEE COMPLETE, 4 OR MORE VIEWS : 1945 CLINICAL INDICATION: trauma TECHNIQUE: Four or more views of the left knee. This report was created using [employer] report generation technology. COMPARISON: None. FINDINGS: BONES/JOINTS: Unremarkable. No acute fracture. No subluxation. Normal alignment. Preservation of the joint space. No sclerotic or destructive changes observed. SOFT TISSUES: Unremarkable. No soft tissue swelling or gas. No radiopaque foreign body. RAD/Knee 4 or More Views IMPRESSION: Negative left knee x-rays. at 2317 Reported and signed by: Jorge Casanova MD Electronically Signed: Jorge Casanova MD at 23:15 EST Tel , Service support ,
[2021-05-26] MEDS: HYDROcodone Bitartrate/Apap 5/325 Tablet PO (22:25)
== END 2021-05-27 00:27 | disposition home or self-care (01) ==
PROVIDERS: Emergency Provider Emergency Medicine; PCP Family Medicine
DX: S62.306A Unspecified fracture of fifth metacarpal bone, right hand, initial encounter for closed fracture (principal); S00.83XA Contusion of other part of head, initial encounter; S80.02XA Contusion of left knee, initial encounter; W18.30XA Fall on same level, unspecified, initial encounter; Y93.9 Activity, unspecified; Y92.9 Unspecified place or not applicable; Y99.9 Unspecified external cause status; I48.11 Longstanding persistent atrial fibrillation; I48.92 Unspecified atrial flutter; I13.0 Hypertensive heart and chronic kidney disease with heart failure and stage 1 through stage 4 chronic kidney disease, or unspecified chronic kidney disease; I50.22 Chronic systolic (congestive) heart failure; N18.30 Chronic kidney disease, stage 3 unspecified; I42.8 Other cardiomyopathies; I25.10 Atherosclerotic heart disease of native coronary artery without angina pectoris; E78.5 Hyperlipidemia, unspecified; N40.0 Benign prostatic hyperplasia without lower urinary tract symptoms; E66.9 Obesity, unspecified; Z79.01 Long term (current) use of anticoagulants; Z79.02 Long term (current) use of antithrombotics/antiplatelets; Z79.899 Other long term (current) drug therapy; Z86.16 Personal history of COVID-19; Z95.5 Presence of coronary angioplasty implant and graft; Z95.810 Presence of automatic (implantable) cardiac defibrillator; Z96.642 Presence of left artificial hip joint
CPT/HCPCS: 29125; 70450; 73090; 73110; 73130; 73564; 99283

== ENCOUNTER → 2021-05-27 08:31 | Outpatient (CLI) | payer MEDICARE, SELFPAY ==
[2020-10-16 07:55] VITALS: BMI 33.5
[2021-05-27 09:55] LABS: Albumin, Serum 3.2 g/dL (3.2-5.0); BUN 36 mg/dL (7-18); BUN/Creat Ratio 18.3 RATIO (10-20); Calcium,Total 8.8 mg/dL (8.5-10.1); Chloride 105 mmol/L (98-107); Creatinine, Serum 1.97 mg/dL (0.70-1.30); EST Glomerular Filtration Rate 35 mL/min (>60); Est Glom Filt Rate - Afr Amer 43 mL/min (>60); Glucose 147 mg/dL (74-106); PTHIN 164.7 pg/mL (18.4-80.1); Phosphorus 3.1 mg/dL (2.5-4.9); Potassium 4.2 mmol/L (3.5-5.1); Sodium Level 138 mmol/L (136-145)
== END ==
LOC: LAB 08:33
PROVIDERS: PCP Family Medicine; Visit Provider Internal Medicine Nephrology
DX: N18.30 Chronic kidney disease, stage 3 unspecified (principal); N25.81 Secondary hyperparathyroidism of renal origin
CPT/HCPCS: 36415; 80069; 83970

== ENCOUNTER 2021-07-02 10:26 | Outpatient (CLI) | payer MEDICARE, SELFPAY ==
[2021-07-02 12:02] LABS: Albumin, Serum 3.2 g/dL (3.2-5.0); BUN 33 mg/dL (7-18); BUN/Creat Ratio 19.1 RATIO (10-20); Chloride 105 mmol/L (98-107); Creatinine, Serum 1.73 mg/dL (0.70-1.30); EST Glomerular Filtration Rate 41 mL/min (>60); Est Glom Filt Rate - Afr Amer 50 mL/min (>60); Glucose 125 mg/dL (74-106); Phosphorus 2.7 mg/dL (2.5-4.9); Potassium 4.2 mmol/L (3.5-5.1); Sodium Level 140 mmol/L (136-145)
== END 2021-07-02 23:59 | disposition short-term general hospital (02) ==
PROVIDERS: PCP Family Medicine; Referring Provider Internal Medicine Nephrology; Visit Provider Internal Medicine Nephrology
DX: N17.9 Acute kidney failure, unspecified (principal)
CPT/HCPCS: 36415; 80069

== ENCOUNTER 2021-09-05 08:31 | Outpatient (CLI) | payer MEDICARE, SELFPAY ==
[2021-09-05 09:52] LABS: BUN 38 mg/dL (7-18); BUN/Creat Ratio 19.9 RATIO (10-20); Calcium,Total 8.6 mg/dL (8.5-10.1); Chloride 107 mmol/L (98-107); Creatinine, Serum 1.91 mg/dL (0.70-1.30); EST Glomerular Filtration Rate 37 mL/min (>60); Est Glom Filt Rate - Afr Amer 44 mL/min (>60); Glucose 139 mg/dL (74-106); Phosphorus 3.4 mg/dL (2.5-4.9); Potassium 4.2 mmol/L (3.5-5.1); Sodium Level 140 mmol/L (136-145)
== END 2021-09-05 23:59 | disposition home or self-care (01) ==
LOC: LAB 08:32
PROVIDERS: PCP Family Medicine; Referring Provider Internal Medicine Nephrology; Visit Provider Internal Medicine Nephrology
DX: N17.9 Acute kidney failure, unspecified (principal)
CPT/HCPCS: 36415; 80069

== ENCOUNTER → 2022-01-15 | Outpatient (CLI) | payer MEDICARE, SELFPAY ==
[2022-01-15 14:16] LABS: AST(SGOT) 53 U/L (15-37); Alanine Aminotransfer ALT/SGPT 35 U/L (16-61); Albumin, Serum 3.2 g/dL (3.2-5.0); Alkaline Phosphatase 62 U/L (45-117); Bilirubin, Direct 0.11 mg/dL (0.00-0.30); Globulin 3.6 g/dL (2.2-4.2); Protein, Total 6.8 g/dL (6.4-8.2); Thyroid Stim Hormone (TSH) 1.26 uIU/mL (0.358-3.74)
== END | disposition home or self-care (01) ==
LOC: LAB 12:01
PROVIDERS: PCP Family Medicine; Referring Provider Physician Assistant Medical; Visit Provider Physician Assistant Medical
DX: I25.10 Atherosclerotic heart disease of native coronary artery without angina pectoris (principal); I42.8 Other cardiomyopathies; I11.0 Hypertensive heart disease with heart failure; I50.22 Chronic systolic (congestive) heart failure; I48.0 Paroxysmal atrial fibrillation; E78.5 Hyperlipidemia, unspecified; Z95.810 Presence of automatic (implantable) cardiac defibrillator; Z79.899 Other long term (current) drug therapy
CPT/HCPCS: 36415; 80076; 84443

== ENCOUNTER 2022-01-22 19:32 | Emergency (ER) | payer MEDICARE, SELFPAY ==
[2022-01-22 19:33] VITALS: BP 118/100; PULSE 59; RESP 14; TEMP 36.6; O2SAT 96; BMI 32.3
--- NOTE | 2022-01-22 19:58 | EDS_ITS ---
HPI History of Present Illness Chief Complaint: Upper Extremity Injury Informant: patient and spouse/S.O. Narrative Narrative: [id number] male presents with spouse with a fall at 6 PM. He was working under his tractor when he got up falling down. Denies head injuries. He is on Eliquis for history of paroxysmal atrial fibrillation. He is on tramadol for sciatica pains. He had a previous left total hip arthroplasty in [place]. He had traumatic amputations of his left index and thumb from a table saw approximately 2 to 3 years ago he was transferred from this facility for management after being admitted initially. Pain is in his wrist with movement. No paresthesias. Abrasion to his right lower leg with no active bleeding. Prior similar symptoms: No PFSH PFSH Medical History Acute respiratory failure with hypoxia Ascites Atherosclerosis of coronary artery of [place] heart without angina pectoris Atrial flutter with rapid ventricular response (10/18/18) Bilateral hydrocele BPH (benign prostatic hyperplasia) Chronic systolic (congestive) heart failure Essential (primary) hypertension Hyperlipidemia Incarcerated left inguinal hernia Non-ischemic cardiomyopathy Obesity Paroxysmal atrial fibrillation Paroxysmal atrial flutter Persistent atrial fibrillation Pneumonia due to COVID-19 virus (06/10/20) Severe left ventricular systolic dysfunction Stage III chronic kidney disease Home Medications apixaban 5 mg tablet 5 mg PO BID Check with primary doctor 10/31/15 [History Last Taken 01/24/19] clopidogrel 75 mg tablet 75 mg PO DAILY Check with primary doctor 10/31/15 [History Last Taken 11/09/15] rosuvastatin 20 mg tablet 20 mg PO QDAY Check with primary doctor 11/26/17 [History Last Taken Unknown] cholecalciferol (vitamin D3) 25 mcg (1,000 unit) capsule 25 mcg PO DAILY Check with primary doctor 10/04/19 [History Last Taken Unknown] tamsulosin 0.4 mg capsule 0.8 mg PO DAILY Check with primary doctor 10/04/19 [History Last Taken Unknown] allopurinol 100 mg tablet 100 mg PO DAILY Check with primary doctor 02/07/20 [History Last Taken Unknown] acetaminophen 650 mg tablet,extended release 650 mg PO Q6H PRN PRN Pain 1-10 Or Fever 06/11/20 [History Last Taken Unknown] albuterol sulfate 90 mcg/actuation aerosol inhaler 2 puff IH Q6H PRN PRN Shortness Of Breath ##0 06/14/20 [Rx Last Taken Unknown] inhalational spacing device 06/14/20 [Rx Last Taken Unknown] ferrous sulfate 325 mg (65 mg iron) tablet 325 mg PO BID Check with primary doctor 10/16/20 [History Last Taken Unknown] handicap placcard #2 ea 04/17/21 [Rx Last Taken Unknown] metoprolol tartrate 50 mg tablet 25 mg PO BID Check with primary doctor 04/17/21 [History Last Taken Unknown] amlodipine 2.5 mg tablet 2.5 mg PO DAILY #30 tabs 05/03/21 [Rx Last Taken Unknown] amiodarone 200 mg tablet 200 mg PO DAILY #90 tabs 09/05/21 [Rx Last Taken Unknown] furosemide 40 mg tablet 40 mg PO DAILY Check with primary doctor 09/12/21 [History Last Taken Unknown] losartan 25 mg tablet 25 mg PO DAILY 10/17/21 [History Last Taken Unknown] omeprazole 10 mg capsule,delayed release 10 mg PO DAILY 10/17/21 [History Last Taken Unknown] spironolactone 25 mg tablet 25 mg PO DAILY 10/17/21 [History Last Taken Unknown] tramadol 50 mg tablet 50 mg PO DAILY PRN 10/17/21 [History Last Taken Unknown] Allergy/AdvReac Type Severity Reaction Status Date / Time No Known Allergies Allergy Verified 01/22/22 19:32 Family History Brother Diabetes Heart disease Mother Heart disease Father Heart disease Surgical History History of cardioversion (10/26/18) History of colonoscopy (2016) History of coronary artery stent placement (10/12/15) History of implantable cardiac defibrillator (ICD) (02/2016) History of total left hip arthroplasty (02/24/17) History of umbilical hernia repair 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) Social History Smoking Status: Never smoker second hand exposure: No alcohol intake: current alcohol intake frequency: holidays/special occasions only substance use type: does not use caffeine: No what type of physical activity do you participate in: walking frequency: daily duration: < 15 minutes/day seatbelt use: never do you feel safe at home: Yes ROS ROS ED Constitutional Constitutional ED: Denies chills, fever(s) or sweats Eyes Eyes: Denies change in vision ENT ENT ED: Denies dysphagia or sore throat Cardiovascular Cardiovascular: Denies chest pain, leg edema, palpitations or racing heartbeat Respiratory/Chest Respiratory/Chest: Denies cough, dyspnea or dyspnea on exertion Gastrointestinal Gastrointestinal: Denies abdominal pain, diarrhea, nausea or vomiting Genitourinary Genitourinary ED: Denies dysuria, hematuria or urinary frequency Musculoskeletal Musculoskeletal: Reports extremity pain and other Details: Right wrist pain. ; Denies back pain or neck pain Integumentary Reports wounds and other Details: Abrasion right lower leg ; Denies rash Neurologic Neurologic: Reports other; Denies headache(s), paresthesias or weakness EXAM Physical Exam Const Vital Signs: 01/22/22 19:33 Temperature 97.8 F Temperature Source Temporal Pulse Rate 59 L Respiratory Rate 14 Blood Pressure 118/100 H Blood Pressure Mean 106 Pulse Ox 96 Oxygen Delivery Method Room Air Positive well nourished and well developed General Appearance ED: well developed and NAD HEENT Reports moist mucous membranes normocephalic and atraumatic Eyes PERRL, EOMs intact bilaterally and conjunctivae normal General Eye ED: Yes normal appearance of both eyes Neck no lymphadenopathy and supple General: Negative for tenderness Chest Wall Chest: Negative for tenderness Resp normal respiratory effort and normal air movement Effort and Inspection: symmetric chest movement; Negative for respiratory distress Cardio regular rate, regular rhythm and no murmurs Peripheral Pulses: pulses 2+ throughout GI normal to inspection, nondistended, normoactive bowel sounds and non-tender Palpation: Negative for guarding or rebound tenderness present Back/Spine no CVA tenderness and no thoracic nor lumbar tenderness Extremity Extremity Narrative: Right upper extremity no shoulder or elbow pain. There is tenderness to the distal radius and ulna are slight deformity noted. No hand tenderness. Skin intact. Dirt debris of his distal forearm hands. General Extremety ED: Negative for edema or tenderness General Extremity: Negative for edema Neuro oriented x3 and no sensory deficits noted Sensorium / Orientation: awake and alert Skin no rashes or lesions noted Skin Narrative: Right lower leg superficial abrasion mid tibia, no active bleeding. MDM MDM MDM Narrative Medical decision making narrative: Mechanical fall tender distal right wrist. Patient declined any pain medicines. Three-view right wrist obtained reviewed by myself and read by radiology concerns for nondisplaced distal radius fracture. Discussed findings with the patient. I discussed with on-call orthopedist Dr. Obrien agrees with splinting and outpatient follow-up. Patient's skin was washed and cleansed by nursing. I placed a plaster AP splint for immobilization. He will maintain this. He will use his tramadol as at home. Discussed continue to ice and elevate to decrease swelling. He will follow with orthopedics. Procedure note: Splinting. Nylon dressing, Kerlix padding. 4 inch AP plaster splinting was placed in a neutral position. Mayito wrap to secure. Patient tolerated procedure well. Neurovascular intact after post splinting Discharge Plan Triage Chief Complaint: Upper Extremity Injury ED Provider: Jorge Luis Carmichael Dx/Rx/DC Orders Clinical Impression: Closed fracture of right distal radius, Fall, Paroxysmal atrial fibrillation Instructions: ED Forearm Fx Wo Redu Prescriptions: No Action rosuvastatin 20 mg tablet 20 mg PO QDAY cholecalciferol (vitamin D3) 25 mcg (1,000 unit) capsule 25 mcg PO DAILY ferrous sulfate 325 mg (65 mg iron) tablet 325 mg PO BID metoprolol tartrate 50 mg tablet 25 mg PO BID allopurinol 100 mg tablet 100 mg PO DAILY (DME) handicap placcard See Rx Instructions .Route .MEDSUPPLY Qty: 2 0RF Rx Instructions: Dx: Cardiomyopathy Duration: lifetime omeprazole 10 mg capsule,delayed release(DR/EC) 10 mg PO DAILY spironolactone 25 mg tablet 25 mg PO DAILY tramadol 50 mg tablet 50 mg PO DAILY PRN losartan 25 mg tablet 25 mg PO DAILY clopidogrel 75 MG tablet 75 mg PO DAILY Label Comments: STOPPING [id number] SURGERY apixaban 5 MG tablet 5 mg PO BID Label Comments: MAY BE STOPPING MED ON [id number] FOR SURGERY tamsulosin 0.4 mg capsule 0.8 mg PO DAILY Label Comments: URINE FLOW acetaminophen 650 MG tablet extended release 650 mg PO Q6H PRN PRN (Reason: Pain 1-10 Or Fever) (DME) inhalational spacing device 1 EACH spacer 1 ea INHALATION PRN 0RF albuterol sulfate 1 PUFF inhaler 2 puff IH Q6H PRN PRN (Reason: Shortness Of Breath) Qty: 0 0RF amlodipine 2.5 mg tablet 2.5 mg PO DAILY Qty: 30 11RF amiodarone 200 mg tablet 200 mg PO DAILY Qty: 90 4RF furosemide 40 mg tablet 40 mg PO DAILY Primary Care Provider: Lobo Victoria Referrals: Lobo Victoria MD [Primary Care Provider] - Joseph Obrien MD [Med Staff - Active Staff] - 3-5 Days Activity Restrictions/Additional Instructions: Nondisplaced closed fracture right distal radius. Keep splint on. Use your tramadol as needed. Follow-up with Dr. Obrien. Disposition Disposition: Home, Self Care Discharge Date/Time: 01/22/22 21:59
--- NOTE | 2022-01-22 20:10 | RAD_ITS ---
INDICATION: injury EXAMINATION/TECHNIQUE: X-RAY - RIGHT XR Wrist Min 3 Views 3 VIEWS COMPARISON: 05/26/2021 and x-rays. FINDINGS: SOFT TISSUES: There is some mild soft tissue swelling of the dorsal wrist. There are peripheral vascular calcifications. BONES/JOINTS: There is diffusely decreased bone mineral density which can decrease sensitivity for nondisplaced fracture. There is a subtle cortical irregularity base of the radial styloid process and questionable lucency in the metadiaphyseal region of the distal radius, best seen on the dorsal view. The sella questionable findings may represent nondisplaced fracture. There is mild positive ulnar variance, unchanged. There are mild degenerative changes first metacarpophalangeal joint. RAD/Wrist min 3 Views IMPRESSION: Soft tissues swelling dorsal wrist with no definite fracture. Subtle cortical irregularity base of radial styloid process and questionable metadiaphyseal lucency, both on the dorsal view may potentially represent nondisplaced fractures in this patient with decreased bone mineral density. Peripheral atherosclerosis. Electronically Signed: Amador Aguilar DO at 20:38 EDT ,
[2022-01-22 20:18] VITALS: BP 120/51; PULSE 60; RESP 16; O2SAT 94
[2022-01-22 21:58] VITALS: BP 139/85; PULSE 72; RESP 16; O2SAT 93
== END 2022-01-22 21:59 | disposition home or self-care (01) ==
PROVIDERS: Emergency Provider Emergency Medicine; PCP Family Medicine; Visit Provider Emergency Medicine
DX: S52.501A Unspecified fracture of the lower end of right radius, initial encounter for closed fracture (principal); I50.22 Chronic systolic (congestive) heart failure; I13.0 Hypertensive heart and chronic kidney disease with heart failure and stage 1 through stage 4 chronic kidney disease, or unspecified chronic kidney disease; I48.0 Paroxysmal atrial fibrillation; N18.30 Chronic kidney disease, stage 3 unspecified; S80.811A Abrasion, right lower leg, initial encounter; W19.XXXA Unspecified fall, initial encounter; M54.30 Sciatica, unspecified side; M25.531 Pain in right wrist; I25.10 Atherosclerotic heart disease of native coronary artery without angina pectoris; E78.5 Hyperlipidemia, unspecified; N40.0 Benign prostatic hyperplasia without lower urinary tract symptoms; E66.9 Obesity, unspecified; Z79.01 Long term (current) use of anticoagulants; Z79.02 Long term (current) use of antithrombotics/antiplatelets; Z79.899 Other long term (current) drug therapy; Z96.642 Presence of left artificial hip joint; Z95.5 Presence of coronary angioplasty implant and graft; Z95.810 Presence of automatic (implantable) cardiac defibrillator
CPT/HCPCS: 73110; 99283

== ENCOUNTER → 2022-01-28 | Outpatient (CLI) | payer MEDICARE, SELFPAY ==
[2022-01-28 12:37] LABS: Hematocrit 40.9 % (40-54); Hemoglobin 13.6 g/dL (13.0-16.5); Mean Corp Hgb Conc 33.3 g/dL (32-36); Mean Corpuscular Hgb 31.9 pg (27.0-32.0); Mean Corpuscular Volume 95.8 fL (80-94); Mean Platelet Vol. 10.5 fl (6.2-12.0); Platelet Count 266 K/mm3 (150-450); RBC Distribution Width CV 13.2 % (11.6-14.6); RBC Distribution Width SD 46.7 fl (35.1-43.9); Red Blood Count 4.27 M/mm3 (4.6-6.2); White Blood Count 7.3 K/mm3 (4.4-11.0)
[2022-01-28 13:02] LABS: Albumin, Serum 3.1 g/dL (3.2-5.0); BUN 30 mg/dL (7-18); BUN/Creat Ratio 17.8 RATIO (10-20); Calcium,Total 9.3 mg/dL (8.5-10.1); Chloride 105 mmol/L (98-107); Creatinine, Serum 1.69 mg/dL (0.70-1.30); EST Glomerular Filtration Rate 42 mL/min (>60); Est Glom Filt Rate - Afr Amer 51 mL/min (>60); Glucose 98 mg/dL (74-106); Phosphorus 2.9 mg/dL (2.5-4.9); Potassium 3.9 mmol/L (3.5-5.1); Sodium Level 139 mmol/L (136-145)
== END | disposition home or self-care (01) ==
LOC: LAB 12:18
PROVIDERS: PCP Family Medicine; Referring Provider Internal Medicine Nephrology; Visit Provider Internal Medicine Nephrology
DX: N18.32 Chronic kidney disease, stage 3b (principal); N25.81 Secondary hyperparathyroidism of renal origin; D50.9 Iron deficiency anemia, unspecified
CPT/HCPCS: 36415; 80069; 83970; 85027

== ENCOUNTER 2022-05-15 11:12 | Day surgery (SDC) | payer MEDICARE, SELFPAY ==
[2022-05-05 10:17] LABS: Absolute Lymphocyte Count 2.02 X10^3/uL (0.83-4.51); Absolute Neutrophil Count 5.3 X10^3/uL (2.0-7.7); Basophil# 0.03 X10^3/uL; Basophil% 0.3 % (0-1); Eosinophil# 0.16 X10^3/uL; Eosinophils% 1.8 % (0-5); Hematocrit 41.9 % (40-54); Hemoglobin 13.4 g/dL (13.0-16.5); Lymphocyte # 2.02 X10^3/ul (0.83-4.51); Lymphocyte % 22.7 % (19-41); Mean Platelet Vol. 11.7 fl (6.2-12.0); Monocyte# 1.37 X10^3/uL; Monocyte% 15.4 % (0-10); NRBC Flagged by Analyzer 0 % (0-5); Neutrophil # 5.27 X10^3/uL (2.7-7.7); Neutrophil % 59.5 % (47-70); Platelet Count 195 K/mm3 (150-450); RBC Distribution Width CV 14.4 % (11.6-14.6); RBC Distribution Width SD 51.8 fl (35.1-43.9); Red Blood Count 4.32 M/mm3 (4.6-6.2); White Blood Count 8.9 K/mm3 (4.4-11.0)
[2022-05-05 10:37] LABS: Anion Gap 5 (5-15); BUN 39 mg/dL (7-18); BUN/Creat Ratio 21.9 RATIO (10-20); Chloride 108 mmol/L (98-107); Creatinine, Serum 1.78 mg/dL (0.70-1.30); EST Glomerular Filtration Rate 40 mL/min (>60); Est Glom Filt Rate - Afr Amer 48 mL/min (>60); Glucose 144 mg/dL (74-106); Potassium 4.2 mmol/L (3.5-5.1); Sodium Level 142 mmol/L (136-145)
--- NOTE | 2022-05-05 10:41 | EKG12_ITS ---
Test Reason : PREOP Blood Pressure : / mmHG Vent. Rate : 060 BPM Atrial Rate : 060 BPM P-R Int : 242 ms QRS Dur : 140 ms QT Int : 460 ms P-R-T Axes : 000 -28 050 degrees QTc Int : 460 ms Atrial-paced rhythm with prolonged AV conduction and PVC's Non-specific intra-ventricular conduction block Nonspecific T wave abnormality Abnormal ECG Confirmed by CHACORTA COYNE, WEST ([id number]), editor magazine ALCIDES VILLALPANDO ([id number]) on 05/06/2022 8:47:12 AM Referred By: CASSIDY Confirmed By:WEST WHATLEY MD
--- NOTE | 2022-05-15 | BON_PTH ---
PATIENT: GLADYS VIDAL Sr. LOC: [facility] [place] U#:[id number] AGE/SX: 77/M ROOM: RE05/15/[address]: Dr. Thom Camara DO : 1945 BED: DIS: 05/15/2022 SPEC #: [id number] RECD: 05/16/22 07:20 STATUS: AALIYAH REPako #: [id number] PHILIP: 05/15/22 00:[address]: Thom Camara DEPT: SURGICAL PATHOLOGY RECD BY: Javier Lo ENTERED: 05/16/22 09:02 SP TYPE: Bone OTHR DR: Dr. 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 SJ:john 05/21/2022 MICROSCOPIC DESCRIPTION Slides are reviewed. GROSS DESCRIPTION Received in fixative is one container labeled with the patient's name and designated left second ray. The specimen consists of an amputated stump containing skin, bone and soft tissue measuring 3.5 cm in length and 3 cm in average diameter. Also present in the specimen container is an elongated fragment of bone with one articular surface measuring 5 cm in length and 1.5 cm in diameter. Serial sections of the stump do not reveal mass lesions. Sectioning of the second fragment also does not reveal mass lesions. Processing Assistant sections from both fragments are submitted in two cassettes after decalcification. The stump is represented in cassette 1. / AM:john 05/16/2022 TC:5 CPT: 86292, 49741
[2022-05-15 12:20] VITALS: BP 127/57; PULSE 60; RESP 18; TEMP 36.6; O2SAT 96; BMI 34.5
[2022-05-15] MEDS: Cefazolin 2 GM in 0.9% Normal Saline 100 ML IV (14:17)
[2022-05-15] MEDS: Bupivacaine 0.25% 30 ML Vial (15:27)
[2022-05-15 15:45] VITALS: BP 127/57; BP 135/75; PULSE 60; RESP 12; TEMP 36.9; O2SAT 97
--- NOTE | 2022-05-15 15:52 | DCINST_ITS ---
Discharge Instructions Follow Up Care Test Results: Test results from this visit will be discussed in further detail at your follow- up appointment, if applicable. Discharge Plan Admission Primary Reason for Your Visit: Left hand revision amputations Attending Provider: Thom Camara Primary Care Provider: Lobo Victoria Instructions Additional Instructions / Restrictions: Follow preprinted instructions from your surgeons office Discharge Orders/Prescriptions Prescriptions: New oxycodone 5 mg tablet 5 mg PO Q6H PRN (Reason: pain) 7 Days Qty: 28 0RF Continued rosuvastatin 20 mg tablet 20 mg PO QDAY cholecalciferol (vitamin D3) 25 mcg (1,000 unit) capsule 50 mcg PO DAILY ferrous sulfate 325 mg (65 mg iron) tablet 325 mg PO BID metoprolol tartrate 50 mg tablet 12.5 mg PO BID allopurinol 100 mg tablet 100 mg PO DAILY (DME) handicap placcard See Rx Instructions .Route .MEDSUPPLY Qty: 2 0RF Rx Instructions: Dx: Cardiomyopathy Duration: lifetime omeprazole 10 mg capsule,delayed release(DR/EC) 10 mg PO DAILY spironolactone 25 mg tablet 12.5 mg PO DAILY tramadol 50 mg tablet 50 mg PO DAILY PRN (Reason: Pain) clopidogrel 75 MG tablet 75 mg PO DAILY Label Comments: STOPPING 05/08/22 FOR SURGERY apixaban 5 MG tablet 5 mg PO BID Label Comments: STOPPING MED ON 05/12/22 FOR SURGERY tamsulosin 0.4 mg capsule 0.8 mg PO DAILY Label Comments: URINE FLOW acetaminophen 650 MG tablet extended release 650 mg PO Q6H PRN PRN (Reason: Pain 1-10 Or Fever) (DME) inhalational spacing device 1 EACH spacer 1 ea INHALATION PRN 0RF albuterol sulfate 1 PUFF inhaler 2 puff IH Q6H PRN PRN (Reason: Shortness Of Breath) Qty: 0 0RF amiodarone 200 mg tablet 200 mg PO DAILY Qty: 90 4RF furosemide 40 mg tablet 40 mg PO DAILY Referrals / Follow Up: Lobo Victoria MD [Primary Care Provider] - Thom Camara DO [Med Staff - Active Staff] - Disposition Disposition (needs filled in before D/C Order can be placed): Home, Self Care
[2022-05-15 16:00] VITALS: BP 127/57; BP 153/78; PULSE 60; RESP 14; O2SAT 98
[2022-05-15 16:15] VITALS: BP 127/57; BP 152/78; PULSE 60; RESP 14; O2SAT 94
[2022-05-15 16:30] VITALS: BP 127/57; BP 149/81; PULSE 63; RESP 16; TEMP 37.1; O2SAT 96
--- NOTE | 2022-05-15 16:53 | OP.PCM_ITS ---
Report of Operation Date of Procedure: 05/15/22 Description of Surgical Findings:: Preoperative diagnosis: 1. Painful left thumb amputation with suspected seroma and recurrent nail growth 2. Left index finger nonfunctional revision amputation at the proximal phalanx level Postoperative diagnosis 1. Painful left thumb amputation with sebaceous cyst and recurrent nail growth 2. Left index finger nonfunctional revision amputation at the proximal phalanx level Procedures: 1. Left thumb excision of sebaceous cyst 2. Left thumb nailbed ablation with germinal matrix excision and nail plate removal 3. Left index finger ray resection Surgeon: Thom Camara DO Puppy Trainer: ARNOLDO Lynn Anesthesia: General LMA Anesthesiologist: Dr. Schultz Complications: None apparent Drains: None Estimated blood loss: 25 cc Urinary output: None measured IV fluids: Per anesthesia record Specimens: Left index finger ray resection Surgical implants: None Surgical indications: This is a 77-year-old male seen in the outpatient setting for left thumb pain. Approximately 2 years ago patient had a tablesaw injury which resulted in amputation of the thumb at the mid distal phalanx level and the index finger at the proximal phalanx level. He has had focal swelling over the tip of the thumb with a pinpoint recurrence of the nail plate. I recommended surgical intervention in the form of revision amputation of the left thumb with nailbed ablation. 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 The risks, benefits, alternatives to the procedure reviewed with the patient at length and he agreed to proceed. Risk included but were not limited to bleeding, infection, loss of life or limb, need for additional surgery, persistent pain, nonhealing wounds, neurovascular injury, DVT or PE, loss of function of the hand. Patient expressed understanding these risks and wished to proceed with surgery. Description of procedure: Patient was seen in preoperative holding area. He was identified by name, medical record number, date of . The operative extremity was marked with a surgical marker. We confirmed informed consent with the patient and all ques tions were answered to his satisfaction. At time of his procedure, patient was brought to the operative suite and positioned supine a standard operating table. All bony prominences were well- padded. General anesthesia was induced and endotracheal tube placed. The left upper extremity was then prepped for surgery by first applying a well-padded pneumatic tourniquet to the left forearm. The hand table attached to the left side of the table. We spun the bed 90 degrees. The left upper extremity was then prepped and draped in normal, sterile orthopedic fashion. 2 g Ancef was administered prior to incision by anesthesia staff. We performed a timeout at this point confirming side, site, and operation to be performed. No concerns voiced and elected to proceed. We first exsanguinated the left upper extremity with a an Esmarch bandage. Tourniquet was inflated to 250 mmHg were made up for approximately 20 minutes. First entered my attention to the thumb. A fishmouth incision was made along th e distal tip. Along the radial aspect there is a 5 x 5 x 5 mm suspected fluid collection. I incorporated this into the fishmouth ellipticized skin. Upon skin incision, sebaceous material was noted and expressed from the wound. This was consistent with a sebaceous cyst. I expressed all the cyst material. There was no gross purulence noted. There were no signs or symptoms of infection. I then proceeded with elliptical excision of the distal 3 mm of skin from the thumb. Cyst wall was excised sharply with 15 blade scalpel. I then identified the primitive nail plate which was excised. I tracked this back to remaining germinal matrix. Matrix was identified along the dorsal aspect of the remaining distal phalanx and was sharply debrided with a 15 blade scalpel. I then used a curette to debride any remaining microscopic germinal matrix. I then cauterized this with bipolar cautery in hopes of prevent recurrence of the nail. I then turned my attention to the left index finger. A transverse incision was made over the lying the left index finger metacarpal with fishmouth extension along the MCP joint. Skin was sharply incised with 15 blade scalpel down to the level of the extensor tendon of the index finger. I then transected the extensor tendon overlying the metacarpal shaft allowing it to retract. I then utilized a microsagittal saw to perform an osteotomy of the left second metacarpal just distal to the FCR insertion. I then subperiosteally elevated the metacarpal releasing the MCP ligamentous attachments and excised the metacarpal from the wound. I then isolated the ulnar and radial neurovascular bundles. I cauterized the vessels with bipolar cautery at the level of the MCP joint. Digital nerves were isolated and tensioned. I then cut the digital nerves as proximal as possible along to them to retract within the wound and soft tissues. I then transected the flexor tendons to the index finger at the level of the osteotomy and allow them to retract into the wound. The remaining index finger was excised and sent to pathology. I then copiously irrigated the wounds with normal saline solution. Tourniquet was deflated and hemostasis achieved with bipolar cautery. I then closed the deep soft tissue in interrupted [id number] fashion with 2-0 Vicryl suture. Ray resection skin was closed in layered fashion with a buried 3-0 Vicryl suture in the dermal layer and interrupted horizontal mattress 4-0 Prolene suture. The thumb was closed in simple fashion with interrupted 4-0 Prolene suture. I administered a field block as well as radial and median nerve blocks with 30 cc total 0.25% plain bupivacaine. Loose sterile dressing was applied. Patient was then safely awoken from anesthesia and safely extubated in the operative suite. Is transferred to his gurney and subsequently to PACU in stable condition. Post Operative Plan: Weightbearing: Nonweightbearing operative extremity Antibiotics: Ancef 2 g x 1 dose preoperatively DVT Prophylaxis: Restart home Eliquis and Plavix postoperative day #1 Lemus: None Dressing: Maintain dressing x2 days then okay to shower Pain Medication: Oxycodone prescription provided Follow-up: 1 week in the office as previously scheduled
[2022-05-15 16:55] VITALS: BP 127/57; BP 131/58; PULSE 63; RESP 16; TEMP 36.3; O2SAT 92
== END 2022-05-15 17:14 | disposition home or self-care (01) ==
LOC: SDC 11:15 → AC 11:16
PROVIDERS: PCP Family Medicine; Referring Provider Student in an Organized Health Care Education/Training Program; Visit Provider Student in an Organized Health Care Education/Training Program
PROC: (CPT 11750; principal; 2022-05-15 13:00)
DX: S68.119A Complete traumatic metacarpophalangeal amputation of unspecified finger, initial encounter (principal); J44.9 Chronic obstructive pulmonary disease, unspecified; I50.22 Chronic systolic (congestive) heart failure; I42.8 Other cardiomyopathies; I13.0 Hypertensive heart and chronic kidney disease with heart failure and stage 1 through stage 4 chronic kidney disease, or unspecified chronic kidney disease; I48.0 Paroxysmal atrial fibrillation; N18.30 Chronic kidney disease, stage 3 unspecified; L72.3 Sebaceous cyst; I25.10 Atherosclerotic heart disease of native coronary artery without angina pectoris; E78.5 Hyperlipidemia, unspecified; Z95.810 Presence of automatic (implantable) cardiac defibrillator; M10.9 Gout, unspecified; Z99.81 Dependence on supplemental oxygen; R94.31 Abnormal electrocardiogram [ECG] [EKG]; Z96.642 Presence of left artificial hip joint; N40.0 Benign prostatic hyperplasia without lower urinary tract symptoms; F90.9 Attention-deficit hyperactivity disorder, unspecified type
CPT/HCPCS: 11750; 26989; 00400; 36415; 80048; 85025; 87081; 88304; 88305; 88311; 93005; J7040; J2405

== ENCOUNTER → 2022-09-10 | Outpatient (CLI) | payer MEDICARE, SELFPAY ==
[2022-09-10 13:11] LABS: Albumin, Serum 3.2 g/dL (3.2-5.0); BUN 32 mg/dL (7-18); BUN/Creat Ratio 16.4 RATIO (10-20); Calcium,Total 8.8 mg/dL (8.5-10.1); Chloride 105 mmol/L (98-107); Creatinine, Serum 1.95 mg/dL (0.70-1.30); EST Glomerular Filtration Rate 36 mL/min (>60); Est Glom Filt Rate - Afr Amer 43 mL/min (>60); Glucose 131 mg/dL (74-106); Potassium 5.1 mmol/L (3.5-5.1); Sodium Level 135 mmol/L (136-145)
== END | disposition home or self-care (01) ==
LOC: POLAB3 09:23
PROVIDERS: PCP Family Medicine; Visit Provider Internal Medicine Nephrology
DX: N17.9 Acute kidney failure, unspecified (principal); N18.32 Chronic kidney disease, stage 3b
CPT/HCPCS: 36415; 80069

== ENCOUNTER 2022-11-22 10:24 | Emergency (ER) | payer MEDICARE, SELFPAY ==
[2022-11-22 10:26] VITALS: BP 124/110; PULSE 131; RESP 14; TEMP 36.1; O2SAT 97; BMI 34.1
--- NOTE | 2022-11-22 10:37 | EDS_ITS ---
HPI History of Present Illness Chief Complaint: Upper Extremity Injury Detail of Chief Complaint: Injury left hand Informant: patient Narrative Narrative: Patient presents the emergency department complaint of an injury to his left hand. Patient was using a table saw when he accidentally cut his left fingers. Patient is right-hand dominant. Unsure of his last tetanus. Patient on Eliquis as well as Plavix. [facility] Medical History (Updated 11/22/22 @ 11:[address] Rosendo Phillips, DO) Acute respiratory failure with hypoxia Ambulates with cane Anemia Arthritis Ascites Atherosclerosis of coronary artery of [place] heart without angina pectoris Atrial flutter with rapid ventricular response (10/18/18) Back pain Bilateral hydrocele BPH (benign prostatic hyperplasia) Cardiology follow-up encounter Chronic cough Chronic systolic (congestive) heart failure COPD (chronic obstructive pulmonary disease) Easy bruising Essential (primary) hypertension Excessive bleeding Gastric reflux Gout High cholesterol History of atrial fibrillation History of echocardiogram History of renal disease History of stress test Hyperlipidemia Hypertension Incarcerated left inguinal hernia Non-ischemic cardiomyopathy Non-smoker Obesity On home oxygen therapy Paroxysmal atrial fibrillation Paroxysmal atrial flutter Persistent atrial fibrillation Pneumonia due to COVID-19 virus (06/10/20) Severe left ventricular systolic dysfunction Stage III chronic kidney disease Walker as ambulation aid Wears dentures Wears glasses Wears hearing aid Home Medications apixaban 5 mg tablet 5 mg PO BID Check with primary doctor 10/31/15 [History Last Taken 05/13/22] clopidogrel 75 mg tablet 75 mg PO DAILY Check with primary doctor 10/31/15 [History Last Taken 05/08/22] rosuvastatin 20 mg tablet 20 mg PO QDAY Check with primary doctor 11/26/17 [History Last Taken 05/14/22] cholecalciferol (vitamin D3) 25 mcg (1,000 unit) capsule 50 mcg PO DAILY Check with primary doctor 10/04/19 [History Last Taken 05/14/22] tamsulosin 0.4 mg capsule 0.8 mg PO DAILY Check with primary doctor 10/04/19 [History Last Taken 05/14/22] allopurinol 100 mg tablet 100 mg PO DAILY Check with primary doctor 02/07/20 [History Last Taken 05/14/22] acetaminophen 650 mg tablet,extended release 650 mg PO Q6H PRN PRN Pain 1-10 Or Fever 06/11/20 [History Last Taken Unknown] albuterol sulfate 90 mcg/actuation aerosol inhaler 2 puff IH Q6H PRN PRN Shortness Of Breath ##0 06/14/20 [Rx Last Taken 05/14/22] inhalational spacing device 06/14/20 [Rx Last Taken Unknown] ferrous sulfate 325 mg (65 mg iron) tablet 325 mg PO BID Check with primary doctor 10/16/20 [History Last Taken 05/14/22] handicap placcard #2 ea 04/17/21 [Rx Last Taken Unknown] metoprolol tartrate 50 mg tablet 12.5 mg PO BID Check with primary doctor 04/17/21 [History Last Taken 05/14/22] amiodarone 200 mg tablet 200 mg PO DAILY #90 tabs 09/05/21 [Rx Last Taken 05/14/22] furosemide 40 mg tablet 40 mg PO DAILY Check with primary doctor 09/12/21 [History Last Taken 05/14/22] omeprazole 10 mg capsule,delayed release 10 mg PO DAILY 10/17/21 [History Last Taken 05/14/22] spironolactone 25 mg tablet 12.5 mg PO DAILY 10/17/21 [History Last Taken 05/14/22] tramadol 50 mg tablet 50 mg PO DAILY PRN Pain 10/17/21 [History Last Taken 05/14/22] Allergy/AdvReac Type Severity Reaction Status Date / Time No Known Allergies Allergy Verified 11/22/22 10:28 Family History Brother Diabetes Heart disease Mother Heart disease Father Heart disease Surgical History History of back surgery History of cardioversion (10/26/18) History of colonoscopy (2016) History of coronary artery stent placement (10/12/15) History of implantable cardiac defibrillator (ICD) (02/2016) History of total left hip arthroplasty (02/24/17) History of umbilical hernia repair Hx of inguinal hernia surgery 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) Social History Smoking Status: Never smoker second hand exposure: No alcohol intake: current alcohol intake frequency: holidays/special occasions only substance use type: does not use caffeine: No what type of physical activity do you participate in: walking frequency: daily duration: < 15 minutes/day seatbelt use: never do you feel safe at home: Yes ROS ROS ED Review of Systems ROS Unobtainable: other Constitutional Constitutional ED: Reports lethargy; Denies chills, fever(s), sweats or weight loss Eyes Eyes: Denies blurry vision, change in vision or diplopia ENT ENT ED: Denies rhinorrhea or sore throat Cardiovascular Cardiovascular: Denies chest pain, orthopnea or racing heartbeat Respiratory/Chest Respiratory/Chest: Denies cough, dyspnea, dyspnea on exertion, orthopnea or sputum Gastrointestinal Gastrointestinal: Denies abdominal pain, diarrhea, nausea or vomiting Genitourinary Genitourinary ED: Denies dysuria, hematuria or urinary frequency Musculoskeletal Musculoskeletal: Reports other Details: Left hand-lacerations to the ring and middle fingers ; Denies arthralgias, back pain, myalgias or neck pain Integumentary Denies abscess, Abrasions or rash Neurologic Neurologic: Denies headache(s) or weakness Psychiatric Psychiatric: Denies anxiety, depression or suicidal thoughts Endocrine Endocrinology: Denies polydipsia, polyphagia or polyuria Hematologic/Lymphatic Hematologic/Lymphatic: Denies easy bleeding, easy bruising or lymphadenopathy Allergic/Immunologic Allergic/Immunologic ED: Denies mouth swelling, tongue swelling or urticaria EXAM Physical Exam Const Vital Signs: 11/22/22 10:26 Temperature 97 F L Temperature Source Temporal Pulse Rate 131 H Respiratory Rate 14 Blood Pressure 124/110 H Blood Pressure Mean 114 Pulse Ox 97 Oxygen Delivery Method Room Air Positive well nourished and well developed General Appearance ED: well developed and NAD HEENT Reports TM's clear and moist mucous membranes normocephalic and atraumatic; Negative for trauma or tenderness Tympanic Membrane ED: Yes TM's clear Eyes PERRL and EOMs intact bilaterally General Eye ED: Negative for pale conjunctiva or scleral icterus Neck no lymphadenopathy, supple and no JVD General: Negative for tenderness Chest Wall inspection of chest normal and palpation of chest normal Chest: Negative for tenderness Resp normal respiratory effort and clear to auscultation bilaterally Effort and Inspection: Negative for respiratory distress or pain with movement Auscultation: Negative for rhonchi, wheezes or diminished lung sounds Cardio regular rate, regular rhythm, S1 normal heart sound, S2 normal heart sound and no murmurs Peripheral Pulses: pulses 2+ throughout GI normal to inspection, nondistended, normoactive bowel sounds, soft to palpation, non-tender, non-distended and no masses Back/Spine no CVA tenderness and no thoracic nor lumbar tenderness Extremity Extremity Narrative: Left hand-patient has complete transection and avulsion of distal phalanx of the left ring finger. Patient with amputation through the middle phalanx of the long finger. Patient with partial amputation through the IP joint of ring finger. Small amount of tissue holding the distal phalanx in place however there is rotational deformity. General Extremety ED: Negative for edema General Extremity: Negative for edema Neuro oriented x3, CN's II-XII intact bilaterally, no sensory deficits noted and gait normal Sensorium / Orientation: awake, alert, oriented to person, oriented to place and oriented to time Motor Exam: strength 5/5 throughout and strength abnormal Psych mental status grossly normal Skin no rashes or lesions noted and no wounds MDM MDM MDM Narrative Medical decision making narrative: Patient presents with amputations to his left long and ring fingers. Patient initially given morphine and Zofran IV. He had x-rays that showed complete amputation of the middle finger through the middle phalanx and then partial amputation of the distal phalanx through the DIP joint of the ring finger. Patient continued complaint of pain and had digital blocks performed using 1% lidocaine. Patient had his wedding ring cut off as we could not remove it otherwise. Patient was given Ancef and tetanus. Case discussed with [facility] who recommended transfer to hand surgery. I discussed case with Dr. Umanzor as well however he is not available to see the patient today. Discussed case with Dr. Phillips at [facility] who accepted transfer of patient there. Patient would like to have his daughter drive him and I think this is reasonable. We did wrap the wounds with Coban to obtain hemostasis. Radiography Diagnostic Testing: Three-view x-rays of the left hand obtained interpreted by myself as amputation through middle phalanx of middle finger. Patient also with partial amputation through the distal phalanx of the ring finger. Radiology in agreement. Discharge Plan Triage Chief Complaint: Upper Extremity Injury ED Provider: Rosendo Phillips Dx/Rx/DC Orders Clinical Impression: Amputation of finger Prescriptions: No Action rosuvastatin 20 mg tablet 20 mg PO QDAY cholecalciferol (vitamin D3) 25 mcg (1,000 unit) capsule 50 mcg PO DAILY ferrous sulfate 325 mg (65 mg iron) tablet 325 mg PO BID metoprolol tartrate 50 mg tablet 12.5 mg PO BID allopurinol 100 mg tablet 100 mg PO DAILY (DME) handicap placcard See Rx Instructions .Route .MEDSUPPLY Qty: 2 0RF Rx Instructions: Dx: Cardiomyopathy Duration: lifetime omeprazole 10 mg capsule,delayed release(DR/EC) 10 mg PO DAILY spironolactone 25 mg tablet 12.5 mg PO DAILY tramadol 50 mg tablet 50 mg PO DAILY PRN (Reason: Pain) clopidogrel 75 MG tablet 75 mg PO DAILY Label Comments: STOPPING 05/08/22 FOR SURGERY apixaban 5 MG tablet 5 mg PO BID Label Comments: STOPPING MED ON 05/12/22 FOR SURGERY tamsulosin 0.4 mg capsule 0.8 mg PO DAILY Label Comments: URINE FLOW acetaminophen 650 MG tablet extended release 650 mg PO Q6H PRN PRN (Reason: Pain 1-10 Or Fever) (DME) inhalational spacing device 1 EACH spacer 1 ea INHALATION PRN 0RF albuterol sulfate 1 PUFF inhaler 2 puff IH Q6H PRN PRN (Reason: Shortness Of Breath) Qty: 0 0RF amiodarone 200 mg tablet 200 mg PO DAILY Qty: 90 4RF furosemide 40 mg tablet 40 mg PO DAILY Primary Care Provider: Lobo Victoria Referrals: Lobo Victoria MD [Primary Care Provider] - Disposition Disposition: DC/Tx to Another Type of HCF
[2022-11-22] MEDS: Diphth,Pertuss(Acell),Tet Vac 0.5 ML Vial IM (10:44)
[2022-11-22] MEDS: Morphine 4 MG/ML Syringe IV (10:45)
[2022-11-22] MEDS: Ondansetron 4 MG/2 ML Vial IV (10:45)
[2022-11-22] MEDS: Cefazolin 1 GM/50 ML BAG IV (10:50)
--- NOTE | 2022-11-22 11:00 | RAD_ITS ---
STUDY: X-RAY - LEFT HAND REASON FOR EXAM: Male, 77 years old. injury TECHNIQUE: 3 view(s) of the hand. COMPARISON: 07/05/2017 FINDINGS: Normal radiocarpal articulation. Normal distal radioulnar joint. Normal visualized carpal bones. Normal carpal articulations Normal carpometacarpal articulation of the thumb. Normal second through fifth carpometacarpal joints. Interval amputation of the second digit at the base of the second metacarpal bone. Normal metacarpophalangeal joint of the thumb. Normal interphalangeal joint of the thumb. Interval amputation of the distal aspect of the first distal phalanx. Normal metacarpophalangeal joints of the second through fifth fingers. Normal proximal and distal interphalangeal joints of the second through fifth fingers. Suspect acute amputation the distal third digit through the neck of the middle phalanx. Acute comminuted fractures of the fourth distal and middle phalanges with deformity of the distal interphalangeal joint. The soft tissue structures are unremarkable. RAD/Hand Min 3 Views IMPRESSION: Suspect acute amputation of the third digit through the neck of the middle phalanx an acute comminuted fractures of the fourth distal and middle phalanges with deformity of the fourth distal interphalangeal joint. Electronically Signed: Juve Weston MD at 11:37 EDT ,
[2022-11-22 11:25] VITALS: BP 119/85; PULSE 60; RESP 16; O2SAT 99
[2022-11-22] MEDS: Lidocaine 1% (20 ml mdv) 20 ML Vial 15 ML INFILT (11:32)
--- NOTE | 2022-11-22 11:33 | NURSING ---
CALLED [facility] FOR TRANSFER. FAXED FACESHEET
[2022-11-22 12:25] VITALS: BP 124/76; PULSE 60; RESP 18; O2SAT 97
[2022-11-22 12:45] VITALS: BP 128/73; PULSE 60; RESP 16; TEMP 36.7; O2SAT 98
== END 2022-11-22 12:45 | disposition short-term general hospital (02) ==
PROVIDERS: Emergency Provider Emergency Medicine; PCP Family Medicine; Visit Provider Emergency Medicine
DX: S68.113A Complete traumatic metacarpophalangeal amputation of left middle finger, initial encounter (principal); S68.125A Partial traumatic metacarpophalangeal amputation of left ring finger, initial encounter; W31.2XXA Contact with powered woodworking and forming machines, initial encounter; Z23 Encounter for immunization; J44.9 Chronic obstructive pulmonary disease, unspecified; I13.0 Hypertensive heart and chronic kidney disease with heart failure and stage 1 through stage 4 chronic kidney disease, or unspecified chronic kidney disease; I50.22 Chronic systolic (congestive) heart failure; N18.30 Chronic kidney disease, stage 3 unspecified; I48.0 Paroxysmal atrial fibrillation; E78.00 Pure hypercholesterolemia, unspecified; I25.10 Atherosclerotic heart disease of native coronary artery without angina pectoris; Z79.01 Long term (current) use of anticoagulants; Z79.02 Long term (current) use of antithrombotics/antiplatelets; Z79.899 Other long term (current) drug therapy
CPT/HCPCS: 73130; 90715; 96365; 96375; 99284; J7040; J2405

== ENCOUNTER 2022-12-01 14:52 | Emergency (ER) | payer MEDICARE, SELFPAY ==
[2022-12-01 14:53] VITALS: BP 106/89; PULSE 64; RESP 18; TEMP 36.6; O2SAT 97
[2022-12-01 15:44] VITALS: BMI 32.8
--- NOTE | 2022-12-01 16:01 | RAD_ITS ---
STUDY: XR Foot Min 3 Views CLINICAL: Male, 77 years old. injury TECHNIQUE: XR Foot Min 3 ViewsLEFT COMPARISON: None. FINDINGS: There is a plantar calcaneal spur. There is an enthesophyte involving the posterior superior calcaneus at the site of insertion of the Achilles tendon. Normal visualized subtalar, talonavicular, calcaneocuboid, tarsal and tarsometatarsal articulations. Normal metatarsi. There is degenerative arthrosis of the metatarsophalangeal joint of the hallux . Normal tibial and fibular sesamoid bones. Normal interphalangeal joint of the great toe. Normal phalanges of the great toe. Normal second through fifth metatarsophalangeal joints. Normal interphalangeal joints and phalanges of the lesser toes. There is non-specific soft tissue swelling of the foot. RAD/Foot min 3 Views IMPRESSION: There is non-specific soft tissue swelling of the foot. Electronically Signed: Shane Patel MD at 16:57 EDT ,
--- NOTE | 2022-12-01 16:02 | ED.VIS.FALL ---
HPI HPI - Fall History of Present Illness Chief Complaint: Fall Informant: patient and spouse/S.O. Occured/Mechanism Occurred: Yesterday Narrative Narrative: Patient presents after a syncopal episode and fall down steps yesterday. He states when he got up yesterday morning he walked to the landing. He felt somewhat fatigued and lightheaded but felt the urge to go to the bathroom. He started on the steps but states about 4 steps down he became too lightheaded and tried to sit. The next thing he knows his was waking him at the bottom of the steps on the floor. He presents today with pain to the left foot and left elbow along with the ribs. He has multiple areas of ecchymoses noted. Patient is noted to be on Eliquis for a history of A-fib. His left hand is bandaged from a table saw injury that occurred on the . [facility] Medical History Acute respiratory failure with hypoxia Ambulates with cane Anemia Arthritis Ascites Atherosclerosis of coronary artery of [place] heart without angina pectoris Atrial flutter with rapid ventricular response (10/18/18) Back pain Bilateral hydrocele BPH (benign prostatic hyperplasia) Cardiology follow-up encounter Chronic cough Chronic systolic (congestive) heart failure COPD (chronic obstructive pulmonary disease) Easy bruising Essential (primary) hypertension Excessive bleeding Gastric reflux Gout High cholesterol History of atrial fibrillation History of echocardiogram History of renal disease History of stress test Hyperlipidemia Hypertension Incarcerated left inguinal hernia Non-ischemic cardiomyopathy Non-smoker Obesity On home oxygen therapy Paroxysmal atrial fibrillation Paroxysmal atrial flutter Persistent atrial fibrillation Pneumonia due to COVID-19 virus (06/10/20) Severe left ventricular systolic dysfunction Stage III chronic kidney disease Walker as ambulation aid Wears dentures Wears glasses Wears hearing aid Home Medications apixaban 5 mg tablet 5 mg PO BID Check with primary doctor 10/31/15 [History Last Taken 05/13/22] clopidogrel 75 mg tablet 75 mg PO DAILY Check with primary doctor 10/31/15 [History Last Taken 05/08/22] rosuvastatin 20 mg tablet 20 mg PO QDAY Check with primary doctor 11/26/17 [History Last Taken 05/14/22] cholecalciferol (vitamin D3) 25 mcg (1,000 unit) capsule 50 mcg PO DAILY Check with primary doctor 10/04/19 [History Last Taken 05/14/22] tamsulosin 0.4 mg capsule 0.8 mg PO DAILY Check with primary doctor 10/04/19 [History Last Taken 05/14/22] allopurinol 100 mg tablet 100 mg PO DAILY Check with primary doctor 02/07/20 [History Last Taken 05/14/22] acetaminophen 650 mg tablet,extended release 650 mg PO Q6H PRN PRN Pain 1-10 Or Fever 06/11/20 [History Last Taken Unknown] albuterol sulfate 90 mcg/actuation aerosol inhaler 2 puff IH Q6H PRN PRN Shortness Of Breath ##0 06/14/20 [Rx Last Taken 05/14/22] inhalational spacing device 06/14/20 [Rx Last Taken Unknown] ferrous sulfate 325 mg (65 mg iron) tablet 325 mg PO BID Check with primary doctor 10/16/20 [History Last Taken 05/14/22] handicap placcard #2 ea 04/17/21 [Rx Last Taken Unknown] metoprolol tartrate 50 mg tablet 12.5 mg PO BID Check with primary doctor 04/17/21 [History Last Taken 05/14/22] amiodarone 200 mg tablet 200 mg PO DAILY #90 tabs 09/05/21 [Rx Last Taken 05/14/22] furosemide 40 mg tablet 40 mg PO DAILY Check with primary doctor 09/12/21 [History Last Taken 05/14/22] omeprazole 10 mg capsule,delayed release 10 mg PO DAILY 10/17/21 [History Last Taken 05/14/22] spironolactone 25 mg tablet 12.5 mg PO DAILY 10/17/21 [History Last Taken 05/14/22] tramadol 50 mg tablet 50 mg PO DAILY PRN Pain 10/17/21 [History Last Taken 05/14/22] Allergy/AdvReac Type Severity Reaction Status Date / Time No Known Allergies Allergy Verified 12/01/22 14:57 Family History Brother Diabetes Heart disease Mother Heart disease Father Heart disease Surgical History History of back surgery History of cardioversion (10/26/18) History of colonoscopy (2017) History of coronary artery stent placement (10/12/15) History of implantable cardiac defibrillator (ICD) (02/2016) History of total left hip arthroplasty (02/24/17) History of umbilical hernia repair Hx of inguinal hernia surgery 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) Social History Smoking Status: Never smoker second hand exposure: No alcohol intake: current alcohol intake frequency: holidays/special occasions only substance use type: does not use caffeine: No what type of physical activity do you participate in: walking frequency: daily duration: < 15 minutes/day seatbelt use: never do you feel safe at home: Yes ROS ROS ED Constitutional Constitutional ED: Denies chills or fever(s) Eyes Eyes: Denies change in vision or discharge from eye(s) ENT ENT ED: Denies discharge from eye(s), rhinorrhea or sore throat Cardiovascular Cardiovascular: Reports other Details: Rib pain, left greater than right. ; Denies palpitations Respiratory/Chest Respiratory/Chest: Denies cough or dyspnea Gastrointestinal Gastrointestinal: Denies abdominal pain, diarrhea, nausea or vomiting Genitourinary Genitourinary ED: Denies dysuria Musculoskeletal Musculoskeletal: Reports extremity pain; Denies back pain Integumentary Reports Abrasions and other Details: Multiple areas of ecchymoses. ; Denies rash Neurologic Neurologic: Denies headache(s) or weakness Psychiatric Psychiatric: Denies anxiety or depression Allergic/Immunologic Allergic/Immunologic ED: Denies lip swelling or urticaria EXAM Physical Exam Const Vital Signs: 12/01/22 14:53 12/01/22 15:57 Temperature 97.9 F Temperature Source Temporal Pulse Rate 64 Respiratory Rate 18 Respiratory Effort Normal Non-Labored Respiratory Depth Normal Respiratory Pattern Normal Blood Pressure 106/89 H Blood Pressure Mean 94 Pulse Ox 97 Oxygen Delivery Method Room Air Room Air Positive well nourished and well developed General Appearance ED: well developed HEENT Reports normocephalic HEENT Narrative: Small area of ecchymosis noted to the right parietal scalp. Eyes PERRL and EOMs intact bilaterally Neck supple Chest Wall Chest Narrative: Ecchymosis noted to the left lateral posterior ribs and left shoulder posteriorly. Resp normal respiratory effort and clear to auscultation bilaterally Cardio regular rate and regular rhythm GI normal to inspection, nondistended, normoactive bowel sounds Palpation: soft Back/Spine no CVA tenderness Extremity Extremity Narrative: Skin tear measuring approximately 4 cm on the extensor surface of the left elbow. Minimal bony tenderness with good range of motion. Left hand is wrapped from prior injury. He states he just came from his doctor's office who removed the stitches and was happy with how it is healing. Left foot exam reveals subungual hematoma of the left great toe with some ecchymosis noted to the second and third toes. Neuro oriented x3 and no sensory deficits noted Sensorium / Orientation: alert Motor Exam: strength 5/5 throughout Psych mental status grossly normal MDM MDM MDM Narrative Medical decision making narrative: Labwork obtained to evaluate for leukocytosis, anemia, and electrolyte derangement. Patient given fentanyl for pain. CT scan of the head, C-spine, chest, abdomen, and pelvis obtained. X-rays of the left elbow obtained along with a left foot. Lab Data Attestation: I reviewed the patient's lab results. Labs: Laboratory Results - last 24 hr 12/01/22 12/01/22 12/01/22 16:10 16:10 16:10 WBC 10.6 RBC 4.14 L Hgb 13.0 Hct 39.5 L MCV 95.4 H MCH 31.4 MCHC 32.9 RDW Std Deviation 48.1 H RDW Coeff of Noemy 13.8 Plt Count 199 MPV 11.7 Immature Gran % (Auto) 0.700 Neut % (Auto) 75.0 H Lymph % (Auto) 10.7 L Winn % (Auto) 12.9 H Eos % (Auto) 0.3 Baso % (Auto) 0.4 Absolute Neuts (auto) 8.0 H Absolute Lymphs (auto) 1.13 Nucleated RBC % 0 PT 17.3 H INR 1.4 APTT 35.5 Sodium 137 Potassium 4.4 Chloride 103 Carbon Dioxide 26.0 Anion Gap 8 BUN 37 H Creatinine 2.10 H Estim Creat Clear Calc 31.82 Est GFR (MDRD) Af Amer 39 L Est GFR (MDRD) Non-Af 33 L BUN/Creatinine Ratio 17.6 Glucose 180 H Calcium 9.3 Radiography Diagnostic Testing: Clinical Impression(s) from Imaging Studies Foot X-Ray 12/01/22 16:01 IMPRESSION: There is non-specific soft tissue swelling of the foot. Electronically Signed: Shane Patel MD at 16:57 EDT , Elbow X-Ray 12/01/22 16:20 IMPRESSION: Positive fat pad sign, suggesting a radiographically occult fracture of the elbow. Electronically Signed: Shane Patel MD at 16:56 EDT , Brain CT 12/01/22 16:50 IMPRESSION: There are no acute findings. Chronic involutional changes of the brain. Electronically Signed: Shane Patel MD at 17:12 EDT , Cervical Spine CT 12/01/22 16:50 IMPRESSION: Degenerative changes of the cervical spine. There are no acute findings. Electronically Signed: Shane Patel MD at 17:20 EDT , Chest/Abdomen/Pelvis CT 12/01/22 16:50 IMPRESSION: 1. L2 compression deformity. This is age indeterminate. MRI can better evaluate. 2. 9 mm nodule in the right perinephric space. This is nonspecific. This may be a small lymph node. Electronically Signed: Shane Patel MD at 17:29 EDT , EKG Initial EKG: Attestation: I personally reviewed and interpreted this EKG as follows: Interpretation: - (Paced rhythm at 60 bpm. No acute ischemia.) Treatment and Re-Evaluation Narrative: CBC and chemistry studies significant for a BUN of 37 and a creatinine 2.1. Glucose is 180. INR is 1.4. Left elbow x-ray per my interpretation reveals no obvious fracture. Radiology feels there is a fat pad sign. On exam patient is able to fully flex extend and rotate without difficulty. He will be placed in a sling and have repeat imaging performed in a week. Left foot x-ray per my interpretation reveals no obvious fracture. Radiology interpretation is reviewed and agrees. CT scan of the head and C-spine reveal chronic changes only. CT scan of the chest, abdomen, pelvis significant for compression fracture of L2, age undetermined. Patient is not having significant pain to this area. I advised him even if this is a new fracture it does not change our treatment. He has tramadol at home and does not want anything stronger for pain. He did have a syncopal episode but it sounds like it was vasovagal in nature and he already has a pacemaker in place. I do not feel he needs hospital admission for observation. Discharge Plan Triage Chief Complaint: Fall ED Provider: Rhonda Zaldivar Dx/Rx/DC Orders Clinical Impression: Syncope, Fall, Rib contusion, Abrasion of elbow, Closed fracture of radial head, Subungual hematoma of great toe of left foot Instructions: ED Chest Wall Contusion, ED Elbow Fracture, ED Skin Avulsion, ED Fainting, Vagal Reaction Prescriptions: No Action rosuvastatin 20 mg tablet 20 mg PO QDAY cholecalciferol (vitamin D3) 25 mcg (1,000 unit) capsule 50 mcg PO DAILY ferrous sulfate 325 mg (65 mg iron) tablet 325 mg PO BID metoprolol tartrate 50 mg tablet 12.5 mg PO BID allopurinol 100 mg tablet 100 mg PO DAILY (DME) handicap placcard See Rx Instructions .Route .MEDSUPPLY Qty: 2 0RF Rx Instructions: Dx: Cardiomyopathy Duration: lifetime omeprazole 10 mg capsule,delayed release(DR/EC) 10 mg PO DAILY spironolactone 25 mg tablet 12.5 mg PO DAILY tramadol 50 mg tablet 50 mg PO DAILY PRN (Reason: Pain) clopidogrel 75 MG tablet 75 mg PO DAILY Label Comments: STOPPING 05/08/22 FOR SURGERY apixaban 5 MG tablet 5 mg PO BID Label Comments: STOPPING MED ON 05/12/22 FOR SURGERY tamsulosin 0.4 mg capsule 0.8 mg PO DAILY Label Comments: URINE FLOW acetaminophen 650 MG tablet extended release 650 mg PO Q6H PRN PRN (Reason: Pain 1-10 Or Fever) (DME) inhalational spacing device 1 EACH spacer 1 ea INHALATION PRN 0RF albuterol sulfate 1 PUFF inhaler 2 puff IH Q6H PRN PRN (Reason: Shortness Of Breath) Qty: 0 0RF amiodarone 200 mg tablet 200 mg PO DAILY Qty: 90 4RF furosemide 40 mg tablet 40 mg PO DAILY Primary Care Provider: Lobo Victoria Referrals: Lobo Victoria MD [Primary Care Provider] - 1 Week Activity Restrictions/Additional Instructions: Please follow-up with your doctor in 1 week for repeat x-rays of your left elbow. Disposition Disposition: Home, Self Care
[2022-12-01] MEDS: fentaNYL 100 MCG/2 ML Ampul 25 MCG IV (16:11)
--- NOTE | 2022-12-01 16:20 | RAD_ITS ---
STUDY: XR Elbow Min 3 Views REASON FOR EXAM: Male, 77 years old. PAIN TECHNIQUE: XR Elbow Min 3 Views LEFT COMPARISON: None. FINDINGS: Normal visualized humerus, radius and ulna. Normal radiocapitellar and ulnotrochlear articulations. Anterior humeral line and radiocapitellar line are preserved. Positive fat pad sign, suggesting a radiographically occult fracture of the elbow. RAD/Elbow min 3 Views IMPRESSION: Positive fat pad sign, suggesting a radiographically occult fracture of the elbow. Electronically Signed: Shane Ptael MD at 16:56 EDT Reading Location ID and State: [id number] / [place] , Service support ,
[2022-12-01 16:24] LABS: Absolute Lymphocyte Count 1.13 X10^3/uL (0.83-4.51); Basophil# 0.04 X10^3/uL; Basophil% 0.4 % (0-1); Eosinophil# 0.03 X10^3/uL; Eosinophils% 0.3 % (0-5); Hematocrit 39.5 % (40-54); Lymphocyte # 1.13 X10^3/ul (0.83-4.51); Lymphocyte % 10.7 % (19-41); Mean Corp Hgb Conc 32.9 g/dL (32-36); Mean Corpuscular Hgb 31.4 pg (27.0-32.0); Mean Corpuscular Volume 95.4 fL (80-94); Mean Platelet Vol. 11.7 fl (6.2-12.0); Monocyte# 1.37 X10^3/uL; Monocyte% 12.9 % (0-10); NRBC Flagged by Analyzer 0 % (0-5); Neutrophil # 7.95 X10^3/uL (2.7-7.7); Platelet Count 199 K/mm3 (150-450); RBC Distribution Width CV 13.8 % (11.6-14.6); RBC Distribution Width SD 48.1 fl (35.1-43.9); Red Blood Count 4.14 M/mm3 (4.6-6.2); White Blood Count 10.6 K/mm3 (4.4-11.0)
[2022-12-01 16:35] LABS: Anion Gap 8 (5-15); BUN 37 mg/dL (7-18); BUN/Creat Ratio 17.6 RATIO (10-20); Calcium,Total 9.3 mg/dL (8.5-10.1); Chloride 103 mmol/L (98-107); EST Glomerular Filtration Rate 33 mL/min (>60); Est Glom Filt Rate - Afr Amer 39 mL/min (>60); Estimated Creatinine Clearance 31.82 ml/min; Glucose 180 mg/dL (74-106); Potassium 4.4 mmol/L (3.5-5.1); Sodium Level 137 mmol/L (136-145)
--- NOTE | 2022-12-01 16:50 | CT_ITS ---
EXAM: CT CHEST, ABDOMEN AND PELVIS WITHOUT INTRAVENOUS CONTRAST CLINICAL INDICATION: trauma TECHNIQUE: Helically acquired images were obtained of the chest, abdomen and pelvis without intravenous contrast. This CT exam was performed using one or more of the following dose reduction techniques: automated exposure control, adjustment of the mA and/or kV according to patient size, and/or use of iterative reconstruction technique. RADIATION DOSE: CTDIvol = 26.87 mGy, DLP = 2372.35 mGy-cm COMPARISON: No relevant prior studies available. FINDINGS: CHEST: LUNGS AND PLEURAL SPACES: There is no pneumothorax. There is no demonstrated pleural abnormality. No mass. HEART: There is borderline cardiomegaly. There are calcifications of the coronary arteries. No pericardial effusion. MEDIASTINUM: There is a small hiatal hernia. No mediastinal or hilar adenopathy. Esophagus is unremarkable. THYROID: Unremarkable. No thyroid lesions. ABDOMEN: LIVER: Normal liver. GALLBLADDER AND BILE DUCTS: Unremarkable. No calcified gallstones. No gallbladder distention or wall edema. No intra- or extrahepatic biliary ductal dilation. Normal gallbladder and extrahepatic biliary system. PANCREAS: There is diffuse atrophy of the pancreas. No focal cystic mass. SPLEEN: Unremarkable. Normal spleen. ADRENALS: Unremarkable. Normal bilateral adrenal glands. KIDNEYS AND URETERS: 9 mm nodule in the right perinephric space. This is nonspecific. This may be a small lymph node. Normal renal size and position. No acute findings of the right kidney. No acute findings of the left kidney. STOMACH AND BOWEL: There are multiple colonic diverticula consistent with diverticulosis. No stomach or bowel distention. No focal inflammatory change. Normal small intestine. PELVIS: APPENDIX: The appendix is visualized and appears normal. BLADDER: Unremarkable. Normal urinary bladder. REPRODUCTIVE: There is enlargement of the prostate gland. CHEST, ABDOMEN and PELVIS: INTRAPERITONEAL SPACE: Unremarkable. No ascites or other fluid collection. No free air. BONES/JOINTS: L2 compression deformity. This is age indeterminate. MRI can better evaluate. There are degenerative changes of the shoulders. There are multi-level degenerative changes of the thoracic spine. Total left hip arthroplasty. There are diffuse degenerative changes of the visualized lumbar spine. Spinal fixation hardware. No suspicious lytic or blastic abnormality. SOFT TISSUES: Unremarkable. No discrete abdominal or pelvic wall hernia. Normal abdominal wall. VASCULATURE: There is atherosclerotic calcification of the aortic arch with tortuosity and elongation of the aortic arch and descending thoracic aorta. There are calcifications of the abdominal aorta. This is consistent for atherosclerotic disease. There is no abdominal aortic aneurysm. Normal pulmonary arteries. LYMPH NODES: See above. TUBES, LINES AND DEVICES: There is a left sided pacemaker batterypack. CT/CT Chest, Abd, Pelvis WO Cont IMPRESSION: 1. L2 compression deformity. This is age indeterminate. MRI can better evaluate. 2. 9 mm nodule in the right perinephric space. This is nonspecific. This may be a small lymph node. Electronically Signed: Shane Patel MD at 17:29 EDT ,
--- NOTE | 2022-12-01 16:50 | CT_ITS ---
EXAM: CT SPINE - CERVICAL WITHOUT IV REASON FOR EXAM: Male, 77 years old. NECK PAIN trauma HISTORY: NECK PAIN trauma Individualized dose optimization techniques were used for this CT. TECHNIQUE: Multiplanar images were obtained of the cervical spine. IV contrast was not utilized. COMPARISON: None. FINDINGS: The vertebral bodies do maintain their height. The odontoid process is intact. No pre-vertebral soft tissue swelling is seen. The intravertebral disc height is lost. There are scattered lymph nodes in the neck. There are degenerative changes of the osseous structures. There is bilateral facet arthropathy. There are scattered levels of foraminal stenosis. There are vascular calcifications. CT/Spine Cervical without Contras IMPRESSION: Degenerative changes of the cervical spine. There are no acute findings. Electronically Signed: Shane Patel MD at 17:20 EDT ,
--- NOTE | 2022-12-01 16:50 | CT_ITS ---
STUDY: CT BRAIN WITHOUT CONTRAST REASON FOR EXAM: Male, 77 years old. trauma Individualized dose optimization techniques were used for this CT. TECHNIQUE: Transaxial CT imaging of the brain was performed without administration of intravenous contrast material. COMPARISON: 05.26.21 FINDINGS: There are calcifications around the carotid artery. These are noted in the cavernous carotid arteries. Normal calvarium. Normal soft tissues. There is mild cerebral atrophy with widening of the extra-axial spaces and ventricular dilatation. There are areas of decreased attenuation within the white matter tracts of the supratentorial brain, consistent with microvascular disease changes. Normal basal ganglia and thalami. Normal brainstem. There is mild cerebellar atrophy. There is no intracranial hemorrhage. There are no findings of an acute ischemic infarction. Normal visualized paranasal sinuses. ASPECTS Score for Acute Strokes: 10/10 CT/Brain/Head without Contrast IMPRESSION: There are no acute findings. Chronic involutional changes of the brain. Electronically Signed: Shane Patel MD at 17:12 EDT ,
[2022-12-01 16:51] LABS: International Normalized Ratio 1.4; Prothrombin Time (Protime)PT. 17.3 SECONDS (11.7-14.9)
[2022-12-01 16:52] LABS: Partial Thromboplast Time 35.5 Seconds (24.1-36.2)
== END 2022-12-01 18:40 | disposition home or self-care (01) ==
PROVIDERS: Emergency Provider Emergency Medicine; PCP Family Medicine; Visit Provider Emergency Medicine
DX: S52.122A Displaced fracture of head of left radius, initial encounter for closed fracture (principal); J44.9 Chronic obstructive pulmonary disease, unspecified; I13.0 Hypertensive heart and chronic kidney disease with heart failure and stage 1 through stage 4 chronic kidney disease, or unspecified chronic kidney disease; I50.22 Chronic systolic (congestive) heart failure; I48.0 Paroxysmal atrial fibrillation; N18.30 Chronic kidney disease, stage 3 unspecified; S90.112A Contusion of left great toe without damage to nail, initial encounter; S50.312A Abrasion of left elbow, initial encounter; E78.00 Pure hypercholesterolemia, unspecified; I25.10 Atherosclerotic heart disease of native coronary artery without angina pectoris; S20.212A Contusion of left front wall of thorax, initial encounter; W10.9XXA Fall (on) (from) unspecified stairs and steps, initial encounter; R55 Syncope and collapse; E66.9 Obesity, unspecified; Z95.810 Presence of automatic (implantable) cardiac defibrillator; Z95.5 Presence of coronary angioplasty implant and graft; Z68.32 Body mass index [BMI] 32.0-32.9, adult; Z79.01 Long term (current) use of anticoagulants; Z79.02 Long term (current) use of antithrombotics/antiplatelets; Z79.899 Other long term (current) drug therapy; Z86.16 Personal history of COVID-19
CPT/HCPCS: 70450; 71250; 72125; 73080; 73630; 74176; 80048; 85025; 85610; 85730; 93005; 96374; 99284; A4216

== ENCOUNTER → 2022-12-17 | Outpatient (CLI) | payer MEDICARE, SELFPAY ==
[2022-12-17 11:25] LABS: Hematocrit 38.4 % (40-54); Hemoglobin 12.6 g/dL (13.0-16.5)
== END | disposition home or self-care (01) ==
PROVIDERS: PCP Family Medicine; Referring Provider Physician Assistant Medical; Visit Provider Physician Assistant Medical
DX: Z79.01 Long term (current) use of anticoagulants (principal)
CPT/HCPCS: 36415; 85014; 85018

== ENCOUNTER → 2023-01-06 | Outpatient (CLI) | payer MEDICARE, SELFPAY ==
[2023-01-06 10:44] LABS: Anion Gap 4 (5-15); BUN 24 mg/dL (7-18); BUN/Creat Ratio 13.6 RATIO (10-20); Calcium,Total 8.9 mg/dL (8.5-10.1); Chloride 111 mmol/L (98-107); Creatinine, Serum 1.76 mg/dL (0.70-1.30); EST Glomerular Filtration Rate 40 mL/min (>60); Est Glom Filt Rate - Afr Amer 48 mL/min (>60); Glucose 143 mg/dL (74-106); Potassium 4.5 mmol/L (3.5-5.1); Sodium Level 141 mmol/L (136-145)
[2023-01-06 10:51] LABS: BNP,B-Type NATRIURETIC PEPTIDE 551.2 pg/mL (0-100)
== END | disposition home or self-care (01) ==
LOC: LAB 09:34
PROVIDERS: PCP Family Medicine; Referring Provider Physician Assistant Medical; Visit Provider Physician Assistant Medical
DX: R06.09 Other forms of dyspnea (principal); I50.22 Chronic systolic (congestive) heart failure; I13.0 Hypertensive heart and chronic kidney disease with heart failure and stage 1 through stage 4 chronic kidney disease, or unspecified chronic kidney disease; N18.30 Chronic kidney disease, stage 3 unspecified
CPT/HCPCS: 36415; 80048; 83880

== ENCOUNTER → 2023-04-29 | Outpatient (CLI) | payer MEDICARE, SELFPAY ==
[2023-04-29 10:29] LABS: Albumin, Serum 3.1 g/dL (3.2-5.0); BUN 20 mg/dL (7-18); BUN/Creat Ratio 14.1 RATIO (10-20); Calcium,Total 8.6 mg/dL (8.5-10.1); Chloride 111 mmol/L (98-107); Creatinine, Serum 1.42 mg/dL (0.70-1.30); EST Glomerular Filtration Rate 51 mL/min (>60); Est Glom Filt Rate - Afr Amer 62 mL/min (>60); Glucose 141 mg/dL (74-106); Potassium 4.9 mmol/L (3.5-5.1); Sodium Level 144 mmol/L (136-145)
== END | disposition home or self-care (01) ==
LOC: LAB 09:19
PROVIDERS: PCP Internal Medicine; Referring Provider Internal Medicine Nephrology; Visit Provider Internal Medicine Nephrology
DX: N18.32 Chronic kidney disease, stage 3b (principal)
CPT/HCPCS: 36415; 80069

== ENCOUNTER → 2023-06-24 | Outpatient (CLI) | payer MEDICARE, SELFPAY ==
[2023-06-24 15:39] LABS: Absolute Lymphocyte Count 1.65 X10^3/uL (0.83-4.51); Absolute Neutrophil Count 5.6 X10^3/uL (2.0-7.7); Basophil# 0.04 X10^3/uL; Basophil% 0.5 % (0-1); Eosinophil# 0.09 X10^3/uL; Eosinophils% 1.1 % (0-5); Hematocrit 42.4 % (40-54); Hemoglobin 13.6 g/dL (13.0-16.5); Lymphocyte # 1.65 X10^3/ul (0.83-4.51); Lymphocyte % 19.5 % (19-41); Mean Corp Hgb Conc 32.1 g/dL (32-36); Mean Corpuscular Hgb 31.1 pg (27.0-32.0); Mean Corpuscular Volume 96.8 fL (80-94); Monocyte# 1.06 X10^3/uL; Monocyte% 12.6 % (0-10); NRBC Flagged by Analyzer 0 % (0-5); Neutrophil # 5.58 X10^3/uL (2.7-7.7); Neutrophil % 66.1 % (47-70); Platelet Count 173 K/mm3 (150-450); RBC Distribution Width CV 13.5 % (11.6-14.6); Red Blood Count 4.38 M/mm3 (4.6-6.2); White Blood Count 8.4 K/mm3 (4.4-11.0)
[2023-06-24 16:12] LABS: Vitamin B12 584 pg/mL (211-911); Vitamin D,25 Hydroxy 66.6 ng/mL
[2023-06-24 16:24] LABS: ALB/GLOB Ratio 0.9 RATIO (0.9-2.4); AST(SGOT) 51 U/L (15-37); Alanine Aminotransfer ALT/SGPT 27 U/L (16-61); Albumin, Serum 3.4 g/dL (3.2-5.0); Alkaline Phosphatase 57 U/L (45-117); Anion Gap 6 (5-15); BUN 26 mg/dL (7-18); BUN/Creat Ratio 14.4 RATIO (10-20); Calcium,Total 8.9 mg/dL (8.5-10.1); Chloride 110 mmol/L (98-107); Cholesterol 128 mg/dL (200); Creatinine, Serum 1.81 mg/dL (0.70-1.30); EST Glomerular Filtration Rate 39 mL/min (>60); Est Glom Filt Rate - Afr Amer 47 mL/min (>60); Globulin 3.6 g/dL (2.2-4.2); Glucose 121 mg/dL (74-106); High Density Lipoprotein 54 mg/dL; Potassium 4.7 mmol/L (3.5-5.1); Sodium Level 143 mmol/L (136-145); Thyroid Stim Hormone (TSH) 0.95 uIU/mL (0.358-3.74); Triglycerides 99 mg/dL; Very Low Density Lipoprotein 20 mg/dL (5-40)
== END | disposition home or self-care (01) ==
LOC: BIMLAB 14:08
PROVIDERS: PCP Internal Medicine; Visit Provider Internal Medicine
DX: I25.10 Atherosclerotic heart disease of native coronary artery without angina pectoris (principal); N18.30 Chronic kidney disease, stage 3 unspecified; I12.9 Hypertensive chronic kidney disease with stage 1 through stage 4 chronic kidney disease, or unspecified chronic kidney disease; E56.9 Vitamin deficiency, unspecified; N40.0 Benign prostatic hyperplasia without lower urinary tract symptoms
CPT/HCPCS: 36415; 80053; 80061; 82306; 82607; 84153; 84443; 85025

== ENCOUNTER → 2023-08-20 | Outpatient (CLI) | payer MEDICARE, SELFPAY ==
[2023-08-20 11:29] LABS: Hemoglobin 13.3 g/dL (13.0-16.5); Mean Corp Hgb Conc 32.4 g/dL (32-36); Mean Corpuscular Hgb 31.4 pg (27.0-32.0); Mean Corpuscular Volume 96.9 fL (80-94); Mean Platelet Vol. 11.8 fl (6.2-12.0); Platelet Count 172 K/mm3 (150-450); RBC Distribution Width CV 14.4 % (11.6-14.6); Red Blood Count 4.23 M/mm3 (4.6-6.2)
[2023-08-20 11:40] LABS: PTHIN 115.7 pg/mL (18.4-80.1)
[2023-08-20 11:47] LABS: Albumin, Serum 3.1 g/dL (3.2-5.0); BUN 29 mg/dL (7-18); BUN/Creat Ratio 17.2 RATIO (10-20); Calcium,Total 8.9 mg/dL (8.5-10.1); Chloride 110 mmol/L (98-107); Creatinine, Serum 1.69 mg/dL (0.70-1.30); EST Glomerular Filtration Rate 42 mL/min (>60); Est Glom Filt Rate - Afr Amer 51 mL/min (>60); Ferritin 289 ng/mL (26-388); Glucose 136 mg/dL (74-106); Iron 103 ug/dL (65-175); Iron Binding Capacity,Total 279 ug/dL (250-450); PERCENT IRON SATURATION 36.9 % (15.0-55.0); Phosphorus 2.9 mg/dL (2.5-4.9); Sodium Level 146 mmol/L (136-145)
== END | disposition home or self-care (01) ==
LOC: LAB 10:00
PROVIDERS: PCP Internal Medicine; Referring Provider Internal Medicine Nephrology; Visit Provider Internal Medicine Nephrology
DX: N18.32 Chronic kidney disease, stage 3b (principal); N25.81 Secondary hyperparathyroidism of renal origin; D50.9 Iron deficiency anemia, unspecified
CPT/HCPCS: 36415; 80069; 82728; 83540; 83550; 83970; 85027

== ENCOUNTER → 2024-04-05 | Outpatient (CLI) | payer MEDICARE, SELFPAY ==
--- OUTSIDE RECORDS SUMMARY | 2024-04-05 05:55 | XMS RPT_ITS | CCD ---
Author Organization [facility] Care Team Providers Care Automatic Chief Name Role Phone Rhonda WARE, Melissa Andersen Unavailable Unavailable Pérez, Kimberly Y Unavailable Pérez, Kimberly Y Unavailable Maninder, Harumi Y Unavailable Unavailable CHAZ Sanders, Devora Ramos Unavailable Unavailabl tessa Ellis RN, Melissa Andersen Unavailable Unavailable Jalen Dumont Unavailable Unavailable TomchaTayla richardson Unavailable Unavailable TomchakTayla Unavailable Unavailable TomchakTayla Unavailable Unavailable VALUS, CÉSAR Daniel Unavailable Unavailable SELF, SELF Unavailable Unavailable TOMCHAK, TAYLA Daniel Unavailable Unavailable VALUS, CÉSAR Daniel Unavailable Unavailable VALUS, CÉSAR Daniel Unavailable Unavailable TOMCHAKTAYLA Unavailable Unavailable VALUS, CÉSAR Daniel Unavailable Unavailable VALUS, CÉSAR J Unavailable Unavailable TOMCHAK, TAYLA Daniel Unavailable Unavailable JAGUAR, KRISTINA K Unavailable Unavailable JAGUAR, KRISTINA K Unavailable Unavailable TOMCHAK, TAYLA Daniel Unavailable Unavailable JAGUAR, KRISTINA K Unavailable Unavailable TOMCHAKTAYLA Unavailable Unavailable TOMCHAK, TAYLA Daniel Unavailable Unavailable JAGUAR, KRISTINA K Unavailable Unavailable TOMCHAKTAYLA Unavailable Unavailable TOMCHAK, TAYLA Daniel Unavailable Unavailable JAGUAR, KRISTINA K Unavailable Unavailable VALUS, CÉSAR J Unavailable Unavailable TOMCHAK, TAYLA Daniel Unavailable Unavailable JAGUAR, KRISTINA K Unavailable Unavailable TOMCHAKTAYLA Unavailable Unavailable TOMCHAK, TAYLA Daniel Unavailable Unavailable JAGUAR, KRISTINA K Unavailable Unavailable SWATHI ZUÑIGA Unavailable Unavailable TOMCHAKTAYLA Unavailable Unavailable CHAZ Moreau, Moni Ramos Unavailable Unavailable CHAZ Moreau, Moni Ramos Unavailable Unavailable Viau, Avni R Unavailable Unavailable Viau, Avni R Unavailable Unavailable Viau, Avni R Unavailable Unavailable Viau, Avni R Unavailable Unavailable Viau, Avni R Unavailable Unavailable Viau, Avni R Unavailable Unavailable TomTayla joy Primary Care Provider Unavai lable DeFinis, Harumi Y Unavailable Unavailable DeFinis, Harumi Y Unavailable Unavailable Rhonda WARE, Melissa Andersen Unavailable Unavailable Tayla Victoria Primary Care Provider JOSH ROLON Attending Unavailable JOSH ROLON Primary Care Unavailable JOSH ROLON Admitting Unavailable Tayla Victoria MD Primary Care Provider Tayla Victoria MD Primary Care Provider AVNI CRUZ Attending Unavailable VIAU, AVNI STRANGE Referring Unavailable TOMCHAK, TAYLA KHAN Primary Care Unavailable VIAU, AVNI STRANGE Attending Unavailable VIAU, AVNI STRANGE Referring Unavailable TOMCHAK, TAYLA KHAN Primary Care Unavailable VIAU, AVNI STRANGE Attending Unavailable VIAU, AVNI STRANGE Referring Unavailable TOMCHAK, TAYLA KHAN Primary Care Unavailable VIAU, AVNI STRANGE Attending Unavailable TOMCHAK, TAYLA KHAN Primary Care Unavailable VIAU, AVNI STRANGE Attending Unavailable TOMCARLOS, TAYLA KHAN Primary Care Unavailable VIAU, AVNI STRANGE Attending Unavailable TOMCHATAYLA Richardson Primary Care Unavailable VIAU, AVNI STRANGE Attending Unavailable [facility] TAYLA KHAN Primary Care Unavailable YOU CHACON Attending Unavailable VOLSWATHI Arora Attending Unavailable DUKE, SHAE Referring Unavailable [facility] Unavailable Medications Current Medications Medication Drug Class(es) Dates Sig (Normalized) Sig (Original) [id number] 200 actuat albuterol 0.09 mg/actuat metered dose inhaler (20 sources) beta2-Adrenergic Agonist Start: 07-05-2017 albuterol 90 mcg/actuation inhaler 2 puffs. 0 07/05/2017 Active Start: 07-05-2017 albuterol 90 m cg/actuation inhaler 2 puffs. 0 07/05/2017 Active Start: 07-05-2017 albuterol 90 m cg/actuation inhaler 2 puffs. 0 07/05/2017 Active Start: 09-18-2015 PROAIR HFA 108 (90 Base) MCG/ACT AERS as directed ALBUTEROL SULFATE [id number] Devora Sanders RN Start: 09-18-2015 End: 01-16-2017 PROAIR HFA 108 (90 Base) MCG /ACT AERS as directed ALBUTEROL SULFATE [id number] José Aleman MD Start: 09-18-2015 End: 01-16-2017 PROAIR HFA 108 (90 Base) MCG /ACT AERS as directed ALBUTEROL SULFATE [id number] Devora Sanders RN Start: 09-18-2015 End: 01-16-2017 PROAIR HFA 108 (90 Base) MCG /ACT AERS as directed ALBUTEROL SULFATE [id number] José Aleman MD Start: 09-18-2015 PROAIR HFA 108 (90 Base) MCG/ACT AERS as directed ALBUTEROL SULFATE [id number] Devora Sanders RN lisinopril 2.5 mg oral tablet (20 sources) Angiotensin Converting Enzyme Inhibitor Start: 10-31-2015 lisinopril (PRINIVIL,ZESTRIL) 2.5 MG tablet LISINOPRIL 2.5 MG TABS 0 10/31/2015 Active methylPREDNISolone (1 source) Corticosteroid Start: 10-07-2021 methylPREDNISolone (MEDROL DOSEPACK) 4 mg tablet Indications: Lumbar degenerative disc disease Follow package directions . 21 tablet 0 10/07/2021 Active traMADol hydrochloride 50 mg oral tablet (20 sources) Opioid Agonist Start: 01-16-2017 End: 10-01-2021 traMADoL (ULTRAM) 50 mg tablet Indications: Spinal stenosis of lumbar region with neurogenic claudication Take 1 (one) tablet (50 mg total) by mouth every 6 (six) hours as needed for pain (Days supply per fill: 7 . 28 tablet 0 09/24/2021 10/01/2021 Active Start: 01-16-2017 End: 09-24-2021 traMADol (ULTRAM) 50 mg tabl et TRAMADOL HCL 50 MG TABS 0 01/16/2017 09/24/2021 Discontinued (Reorder) Completed/Discontinued Medications Medication Drug Class(es) Dates Sig (Normalized) Sig (Original) amiodarone hydrochloride 200 mg oral tablet (20 sources) Antiarrhythmic Start: 05-21-2016 take 1 tablet by mouth once daily AMIODARONE HCL 200 MG TABS One tablet by mouth daily AMIODARONE HCL [id number] José Aleman MD Start: 11-09-2015 End: 02-01-2016 AMIODARONE HCL 200 MG TABS O ne tablet by mouth daily X 6 weeks, then stop AMIODARONE HCL [id number] Annita Carreon PA-C apixaban 5 mg oral tablet (17 sources) Factor Xa Inhibitor Start: 09-18-2015 take 1 tablet by mouth twice daily ELIQUIS 5 MG TABS One tablet by mouth twice daily APIXABAN [id number] José Aleman MD aspirin 81 mg oral tablet (20 sources) Platelet Aggregation Inhibitor, Nonsteroidal Anti-inflammatory Drug Start: 09-19-2015 End: 03-06-2016 take 1 tablet by mouth once daily ASPIRIN 81 MG TABS One tablet by mouth daily ASPIRIN [id number] José Aleman MD Start: 09-19-2015 End: 03-06-2016 take 1 tablet by mouth once daily ASPIRIN 81 MG TABS One tablet by mouth daily ASPIRIN [id number] José Aleman MD take 1 tablet by malissa th once daily aspirin 81 MG EC tablet Take 81 mg by mouth daily. 0 Active clopidogrel 75 mg oral tablet (20 sources) P2Y12 Platelet Inhibitor Start: 05-21-2016 take 1 tablet by mouth once daily PLAVIX 75 MG TABS One tablet by mouth daily CLOPIDOGREL BISULFATE [id number] José Aleman MD Start: 10-09-2015 End: 04-21-2016 take 1 tablet by mouth once daily PLAVIX 75 MG TABS One tablet by mouth daily CLOPIDOGREL BISULFATE [id number] Moni Moreau RN digoxin 0.125 mg oral tablet (20 sources) Cardiac Glycoside Start: 10-31-2015 End: 11-09-2015 take 1 tablet by mouth once daily DIGOXIN 125 MCG TABS One tablet by mouth daily DIGOXIN [id number] José Aleman MD furosemide 20 mg oral tablet (20 sources) Loop Diuretic Start: 09-19-2015 take 1 tablet by mouth once daily LASIX 20 MG TABS One tablet by mouth daily FUROSEMIDE [id number] José Aleman MD Start: 09-19-2015 take 1 tablet by malissa th once daily LASIX 40 MG TABS One tablet by mouth daily FUROSEMIDE [id number] José Aleman MD GARLIC CAPS (20 sources) Non-Standardized Food Allergenic Extract Start: 10-31-2015 take 1 tablet by mouth once daily GARLIC CAPS One tablet by mouth daily GARLIC CAPS José Aleman MD Start: 10-31-2015 take 1 tablet by malissa th once daily GARLIC CAPS One tablet by mouth daily ZULEYMALIC CAPS José Aleman MD Start: 10-31-2015 take 1 tablet by malissa th once daily GARLIC CAPS One tablet by mouth daily ZULEYMALIC CAPS José Aleman MD take 1 capsule by mo ut once daily garlic 500 mg cap Take 500 mg by mouth daily. 0 Active take 1 capsule by mo uth once daily garlic 500 mg cap Take 500 mg by mouth daily. 0 Active take 1 capsule by mo uth once daily garlic 500 mg cap Take 500 mg by mouth daily. 0 Active HANDICAP PLACARD (11 sources) Start: 04-18-[address] Lifetime duration HANDICAP PLACARD José Aleman MD Start: 04-18-[address] Lifetime duration HANDICAP PLACARD José Aleman MD lovastatin 20 mg oral tablet (20 sources) HMG-CoA Reductase Inhibitor Start: 09-18-2015 take 2 tablets by mouth once daily in the evening LOVASTATIN 20 MG TABS Two tablets by mouth every evening LOVASTATIN [id number] Devora Sanders RN Start: 09-18-2015 take 1 tablet by malissa th once daily LOVASTATIN 40 MG TABS One tablet by mouth daily LOVASTATIN [id number] José Aleman MD 24 hr metoprolol succinate 50 mg extended release oral tablet (20 sources) beta-Adrenergic Noemy Start: 07-24-2016 METOPR OLOL SUCCINATE ER 50 MG [id number] One and half tablets by mouth twice daily METOPROLOL SUCCINATE [id number] José Aleman MD Start: 09-18-2015 take 1 tablet by malissa th twice daily METOPROLOL SUCCINATE ER 50 MG [id number] One tablet by mouth twice daily METOPROLOL SUCCINATE [id number] José Aleman MD Start: 09-18-2015 take 1 tablet by malissa th twice daily METOPROLOL TARTRATE 25 MG TABS One tablet by mouth twice daily METOPROLOL TARTRATE [id number] Devora Sanders RN take 1 tablet by malissa th twice daily metoprolol tartrate (LOPRESSOR) 50 MG tablet Take 50 mg by mouth 2 (two) times a day. 0 Active MULTIPLE VITAMIN (11 sources) Start: 09-19-2015 take 1 tablet by mouth once daily MULTIVITAMINS TABS One tablet by mouth daily MULTIPLE VITAMIN José Aleman MD Start: 09-19-2015 take 1 tablet by malissa th once daily MULTIVITAMINS TABS One tablet by mouth daily NBA VITAMIN José Aleman MD potassium chloride 10 meq extended release oral tablet (20 sources) Start: 09-19-2015 take 1 tablet by mouth once daily POTASSIUM CHLORIDE ER 10 MEQ CR-TABS One tablet by mouth daily POTASSIUM CHLORIDE [id number] José Aleman MD potassium chlori de (MICRO-K) 10 MEQ CR capsule Take 10 mEq by mouth daily. 0 Active rivaroxaban 20 mg oral tablet (20 sources) Factor Xa Inhibitor Start: 09-18-2015 take 1 tablet by mouth once daily XARELTO 20 MG TABS One tablet by mouth daily RIVAROXABAN [id number] Devora Sanders RN take 10 mg by mouth once daily r ivaroxaban (XARELTO) 20 mg Tab Take 10 mg by mouth daily. 0 Active tamsulosin hydrochloride 0.4 mg oral capsule (20 sources) alpha-Adrenergic Noemy Start: 09-18-2015 take 1 tablet by mouth once daily TAMSULOSIN HCL 0.4 MG CAPS One tablet by mouth daily TAMSULOSIN HCL [id number] Devora Sanders RN take 40 mg by mouth twice daily TAMSULOSIN HCL (TAMSULOSIN ORAL) Take 40 mg by mouth 2 (two) times a day. 0 Active take 40 mg by mouth twice daily TAMSULOSIN HCL (TAMSULOSIN ORAL) Take 40 mg by mouth 2 (two) times a day. Active 1 ml triamcinolone acetonide 40 mg/ml injection (2 sources) Corticosteroid Start: 11-11-2018 End: 11-11-2018 triamcinolone acetonide (KENALOG-40) injection 120 mg Start: 08-10-2018 End: 08-10-2018 triamcinolone acetonide (JACQUELYN ALOG-40) injection 120 mg Problems Active Problems Problem Classification Problem Date Documented Date Episodic/Chronic Cardiac dysrhythmias (20 sources) Permanent atrial fibrillation ; Translations: [Persistent atrial fibrillation] Onset: 6 02-01-2016 Chronic Conduction disorders (11 sources) Automatic implantable cardiac defibrillator in situ; Translations: [Presence of automatic (implantable) cardiac defibrillator] Onset: 6 02-27-2016 Chronic Congestive heart failure; nonhypertensive (20 sources) Chronic systolic (congestive) heart failure; Translations: [Heart failure] Onset: 6 09-26-2015 Chronic Coronary atherosclerosis and other heart disease (20 sources) Old myocardial infarction; Translations: [Atherosclerotic heart disease of [place] coronary artery without angina pectoris] Onset: 6 09-18-2015 Chronic Disorders of lipid metabolism (20 sources) Hyperlipidemia; Translations: [Hyperlipidemia, unspecified] Onset: 6 09-18-2015 Chronic Essential hypertension (20 sources) Hypertensive disorder; Translations: [Essential (primary) hypertension] Onset: 6 09-18-2015 Chronic External Injury - Machinery (2 sources) Contact with powered woodworking and forming machines, initial encounter; Translations: [Contact w powered woodworking and forming machines, init] Onset: 8 Heart valve disorders (20 sources) Nonrheumatic mitral (valve) insufficiency; Translations: [Mitral valve regurgitation] Onset: 6 09-18-2015 Chronic Open wounds of extremities (4 sources) 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, initial encounter; Translations: [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, initial encounter] Onset: 8 Chronic Other acquired deformities (9 sources) Spondylolisthesis L5/S1 level; Translations: [Spondylolisthesis of lumbosacral region] Onset: 8 03-23-2018 Chronic Other circulatory disease (2 sources) Hemorrhage, not elsewhere classified; Translations: [Hemorrhage, not elsewhere classified] Onset: 3 Episodic Other injuries and conditions due to external causes (2 sources) Unspecified injury of unspecified wrist, hand and finger(s), initial encounter; Translations: [Unspecified injury of unspecified wrist, hand and finger(s), initial encounter] Onset: 3 Episodic Other injuries and conditions due to external causes (2 sources) Unspecified injury of left wrist, hand and finger(s), initial encounter; Translations: [Unspecified injury of left wrist, hand and finger(s), initial encounter] Onset: 3 Episodic Other lower respiratory disease (2 sources) Shortness of breath; Translations: [Shortness of breath] Onset: 0 Episodic Betzy-; endo-; and myocarditis; cardiomyopathy (except that caused by tuberculosis or sexually transmitted disease) (20 sources) Dilated cardiomyopathy; Translations: [Cardiomyopathy] Onset: 6 09-18-2015 Chronic Residual codes; unclassified (2 sources) Pain; Translations: [Pain, unspecified] Episodic Spondylosis; intervertebral disc disorders; other back problems (20 sources) Degeneration of lumbar intervertebral disc; Translations: [Other intervertebral disc degeneration, lumbar region] Onset: 8 03-23-2018 Chronic Unclassified (12 sources) Placement of stent in coronary artery ; Translations: [Presence of cardiac and vascular implant and graft, unspecified] Onset: 6 10-29-2015 Unclassified (5 sources) Preoperative cardiovascular examination ; Translations: [Encounter for preprocedural cardiovascular examination] Onset: 7 01-16-2017 Unclassified (1 source) Pain in left hip / M25.552(ICD-10) Onset: 8 Unclassified (1 source) Follow-up / 145() Onset: 8 Unclassified (1 source) Paperwork / 111() Onset: 8 Unclassified (1 source) Lab Review / 165() Onset: 8 Unclassified (1 source) Presence of left artificial hip joint / Z96.642(ICD-10) Onset: 8 Unclassified (5 sources) Long-term drug therapy; Translations: [Other senior living (current) drug therapy] Onset: 6 09-18-2015 Unclassified (1 source) COVID-19; Translations: [COVID-19] Onset: 0 Past or Other Problems Problem Classification Problem Date Documented Da te Episodic/Chronic Nonspecific chest pain (20 sources) Chest pain on exertion; Translations: [Chest pain] Onset: 09-10-2015 09-12-2015 Episodic Open wounds of extremities (2 sources) Laceration without foreign body of left hand, initial encounter; Translations: [Laceration without foreign body of left hand, init encntr] Onset: 07-05-2017 Episodic Other acquired deformities (8 sources) Spondylolisthesis; Translations: [Spondylolisthesis, lumbosacral region] Onset: 03-23-2018 03-23-2018 Episodic Other aftercare (6 sources) Other intermediate card tender (current) drug therapy; Translations: [Other senior living (current) drug therapy] Onset: 09-18-2015 09-18-2015 Episodic Other fractures (12 sources) Closed fracture lumbar vertebra, wedge ; Translations: [Wedge compression fracture of second lumbar vertebra, initial encounter for closed fracture] Onset: 03-11-2018 03-11-2018 Episodic Other fractures (4 sources) Compression fracture of L2; Translations: [Wedge compression fracture of second lumbar vertebra, initial encounter for closed fracture] Onset: 03-11-2018 03-11-2018 Episodic Other nutritional; endocrine; and metabolic disorders (17 sources) Body mass index (BMI) 28.0-28.9, adult; Translations: [Body mass index (BMI) 29.0-29.9, adult] Onset: 02-01-2016 02-01-2016 Episodic Other nutritional; endocrine; and metabolic disorders (5 sources) Body mass index (BMI) 29.0-29.9, adult; Translations: [Body mass index (BMI) 29.0-29.9, adult] Onset: 02-01-2016 09-18-2016 Episodic Other screening for suspected conditions (not mental disorders or infectious disease) (11 sources) Abnormal findings on diagnostic imaging of other specified body structures; Translations: [Abnormal findings on diagnostic imaging of other specified body structures] Onset: 09-10-2015 09-12-2015 Episodic Spondylosis; intervertebral disc disorders; other back problems (20 sources) Low back pain; Translations: [Spinal stenosis] Onset: 02-11-2018 02-11-2018 Episodic Unclassified (1 source) Pain in left hip; Translations: [Pain in left hip] Onset: 03-10-2018 Unclassified (1 source) Follow-up; Translations: [Follow-up] Onset: 03-10-2018 Unclassified (1 source) Paperwork; Translations: [Paperwork] Onset: 01-20-2018 Unclassified (1 source) Lab Review; Translations: [Lab Review] Onset: 01-20-2018 Unclassified (1 source) Presence of left artificial hip joint; Translations: [Presence of left artificial hip joint] Onset: 01-04-2018 Results Test Name Value Interpretation Reference Range Facility Consulton 11-22-2022 Consult Ortho Consult Patient: Gladys Vidal Date of : 1945 Acct: [id number] PCP: No primary care provider on file. Date of Admission: 11/22/2022 Date of Service: Pt seen/examined on 11/22/2022 Chief Complaint: left hand tablesaw injury History Of Present Illness: This is a 77 y.o. right hand dominant male who presents with left hand pain after a tablesaw injury that occurred today. He was originally seen at [facility], for which he was sent to [facility] for further evaluation/care. Patient reports that he accidentally got his left index and long digits partially amputated with a table saw. Denies pain anywhere else on his body other than mentioned above. Endorses not having sensation distal to laceration. Denies any recent fever/chills/nausea/vomiting. Had a similar incident done previously where he amputated his left thumb sometime ago. 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 Patient ambulation status: no difficulty. Antiplatelets/Anticoagulation includes: ASA and Plavix. Profession/Employment: Retired Home Medications: Prior to Admission medications Not on File Current Hospital Medications: Current Facility-Administered Medications: bacitracin ointment, , Topical, PRN, Rita Soria MD lidocaine (Xylocaine) 1 % injection 20 mL, 20 mL, Injection, Once, Rita Sorai MD No current outpatient medications on file. Allergies: Patient has no known allergies. Social History: Social History Socioeconomic History Marital status: Spouse name: Not on file Number of children: Not on file Years of education: Not on file Highest education level: Not on file Occupational History Not on file Tobacco Use Smoking status: Not on file Smokeless tobacco: Not on file Substance and Sexual Activity Alcohol use: Not on file Drug use: Not on file Sexual activity: Not on file Other Topics Concern Not on file Social History Narrative Not on file Social Determinants of Health Financial Resource Strain: Not on file Food Insecurity: Not on file Transportation Needs: Not on file Physical Activity: Not on file Stress: Not on file Social Connections: Not on file Intimate Partner Violence: Not on file Housing Stability: Not on file Family History: @[email or web address] [facility] Family History is noncontributory to this injury. REVIEW OF SYSTEMS: Review of Systems - General ROS: negative for - chills, fatigue, fever, malaise or night sweats Psychological ROS: negative Ophthalmic ROS: negative ENT ROS: negative for - headaches or sore throat Hematological and Lymphatic ROS: negative for - bleeding problems or blood clots Respiratory ROS: no cough, shortness of breath, or wheezing Cardiovascular ROS: no chest pain or dyspnea on exertion Gastrointestinal ROS: negative Musculoskeletal ROS: See HPI Neurological ROS: negative for - bowel and bladder control changes, gait disturbance or numbness/tingling All other systems reviewed and are negative PHYSICAL EXAM: BP 98/53 Pulse 61 Temp 36.7 ?C (98 ?F) Resp 16 Wt 109 kg (240 lb) SpO2 96% GENERAL APPEARANCE: Awake and oriented x3. No acute distress, except appropriate to injury. MOOD AND AFFECT: Calm appropriate to situation GAIT AND STATION: Patient is in bed and able to ambulate COORDINATION and BALANCE: Patient is grossly coordinated Lymphadenopathy: none on examination of the affected extremity(s) Left Upper Extremity: No obvious pain or deformity to inspection with normal joint range of motion, stability, and muscle strength except noted below. Sensation intact to light touch in radial/median/and ulnar nerve distributions. Radial pulse 2+. No Lymphedema. Skin intact except where noted below. Painless passive range of motion at shoulder/elbow/wrist, no tenderness to palpation over clavicle/shoulder/humerus/elbo w/forearm/distal radius/hand. Please see clinical pictures below. There is a complete transverse amputation at the level of the DIP joint on the long finger with exposed bone and soft tissues. Similarly, there is an incomplete amputation of the ring finger at the level of the DIP joint with distal appendages/tip of digit hanging via soft tissue bridges. No Doppler pulses found on ring finger distal to amputation site. Similarly, no sensation to light touch present distal to amputation site of ring finger. Small laceration noted on the pinky finger as well. Motor + AIN/PIN/Ulnar. Absent active flexion of the long finger at the DIP. Radial pulse 2+. BCR <2s to tip of all digits except index and long fingers. Of note, previous healed partial rotation of the thumb digits noted. Labs: CBC: No results found for: WBC, RBC BMP:No results found for: GLUCOSE, SODIUM, POTASSIUM, CHLORIDE, CO2, BUN, CREATININE, CALCIUM PT/INR: No results found for: PT, INR, APTT Type and Screen: No results found for: RH, LABANTI CRP: No results found for: CRP (more content not included)... Normal [facility] ED Nursing Noteon 11-22-2022 ED Nursing Note RN to Dr. Rosado to inform her that this patient was discharged and they placed him back into his previous room due to some bleeding present on the gauze when walking to car. Provider to room to assess patient. States she will consult Ortho. David Cisneros RN 11/22/222025 [facility] ED Nursing Note Bed: 19 Expected date: 11/22/22 Expected time: Means of arrival: Comments: Save for offload Maryuri Melissa RN 11/22/222001 [facility] ED Provider Noteon ED Provider Note Emergency Department Encounter [facility] EMERGENCY DEPT Patient: Gladys Vidal : 1945 Date of Evaluation: 11/22/2022 ED Supervising Physician: You Chacon DO I independently examined and evaluated Gladys Vidal. This will serve as my Supervisory note and shared attestation. I did perform a substantive portion of the visit including all aspects of the Medical Decision Making. I wore appropriate PPE for the entirety of this encounter. In brief, Gladys Vidal is a 77 y.o. male that presents to the emergency department with chief complaint of bleeding from left hand injury. Patient was just discharged from this facility after wound was repaired by orthopedic surgery. He noted bleeding began shortly after he left the emergency department to check back in for further evaluation. Focused exam: Left hand wrapped in bulky dressing with ABDs overlying. Did not take down dressing as it was just placed by orthopedics after further evaluation. Brief ED course/MDM: Patient suitable for discharge. No further bleeding noted from wound. Vital stable. All diagnostic, treatment, and disposition decisions were made by myself in conjunction with the Resident. I also supervised brown portions of any procedures performed by the Resident. For all further details of the patient's emergency department visit, please see their documentation. (Comment: Please note this report has been produced using speech recognition software and may contain errors related to that system including errors in grammar, punctuation, and spelling, as well as words and phrases that may be inappropriate. If there are any questions or concerns please feel free to contact the dictating provider for clarification.) You Chacon, [employer] You Chacon DO 11/22/222136 [facility] ED Provider Note EMERGENCY DEPARTMENT ENCOUNTER Pt Name: Gladys Vidal Birthdate 1945 Date of evaluation: 11/22/2022 ED Provider: Nola Rosado MD CHIEF COMPLAINT No chief complaint on file. HISTORY OF PRESENT ILLNESS (Location/Symptom, Timing/Onset, Context/Setting, Quality, Duration, Modifying Factors, Severity) Note limiting factors. I wore appropriate PPE for the entirety of this encounter. HPI Gladys Vidal is a 77 y.o. male who presents to the emergency department with chief complaint of bleeding. He was just seen and discharged with the same, in the ED lobby noted his wounds soaked through his bandage and came back in for eval. He is on blood thinners ASA and plavix. Nursing Notes were reviewed. Limitations to history: None Outside historians: None REVIEW OF SYSTEMS Review of Systems Pertinent positives and negatives as per HPI. PAST MEDICAL HISTORY No past medical history on file. SURGICAL HISTORY No past surgical history on file. CURRENT MEDICATIONS Discharge Medication List as of 11/22/2022 9:27 PM CONTINUE these medications which have NOT CHANGED Details cephalexin (Keflex) 500 MG capsule Take 1 capsule (500 mg) by mouth in the morning and 1 capsule (500 mg) at noon and 1 capsule (500 mg) in the evening and 1 capsule (500 mg) before bedtime. Do all this for 10 days., Starting 11/22/2022, Until 12/02/2022, Print ALLERGIES Patient has no known allergies. FAMILY HISTORY No family history on file. SOCIAL HISTORY Social History Socioeconomic History Marital status: SCREENINGS PHYSICAL EXAM ED Triage Vitals Temp Heart Rate Resp BP 11/22/22202711/22/22202611/22/22202611/22/222026 36.8 ?C (98.2 ?F) 64 16 110/62 SpO2 Temp src Heart Rate Source Patient Position 11/22/222026 -- -- -- 98 % BP Location FiO2 (%) -- -- Physical Exam Vitals and nursing note reviewed. Constitutional: General: He is not in acute distress. Appearance: He is well-developed. HENT: Head: Normocephalic and atraumatic. Eyes: Conjunctiva/sclera: Conjunctivae normal. Cardiovascular: Rate and Rhythm: Normal rate and regular rhythm. Heart sounds: No murmur heard. Pulmonary: Effort: Pulmonary effort is normal. No respiratory distress. Breath sounds: Normal breath sounds. Abdominal: Palpations: Abdomen is soft. Tenderness: There is no abdominal tenderness. Musculoskeletal: General: Deformity present. Cervical back: Neck supple. Comments: Patient does have visible deformity to multiple digits of his left hand hand. There is suture in place, active oozing at all sites. Palpable radial pulse. Skin: General: Skin is warm. Capillary Refill: Capillary refill takes less than 2 seconds. Neurological: Mental Status: He is alert. Psychiatric: Mood and Affect: Mood normal. DIAGNOSTIC RESULTS Procedures/EKG: EKG was reviewed by myself. Physician EKG interpretation can be found in [facility] RADIOLOGY (Per Emergency Physician): Interpretation per the Radiologist below, if available at the time of this note: No orders to display ED BEDSIDE ULTRASOUND: Performed by ED Physician - none LABS: Labs Reviewed - No data to display All other labs were within normal range or not returned as of this dictation. EMERGENCY DEPARTMENT COURSE and DIFFERENTIAL DIAGNOSIS/MDM: Vitals: Vitals: 11/22/22202611/22/222027 BP: 110/62 Pulse: 64 Resp: 16 Temp: 36.8 ?C (98.2 ?F) SpO2: 98% Diagnoses as of 11/23/22 0316 Bleeding Injury of hand, unspecified laterality, initial encounter The patient presented with chief complaint of bleeding. The differential diagnosis associated with this patient's presentation includes known open fractures, bleeding at post-op sites. Our workup consisted of ordering/reviewing: images and notes from previous visit.. Patient is in agreement with this plan. He has bleeding at his prior sutures that were just placed by orthopedics. I did take down the splint to observe this. We consulted Ortho to evaluate and close. She will come evaluate and address the continued bleed. Ortho did evaluate and hemorrhaging improved. He is counseled on close ED return precautions outpatient follow-up. Discharged in stable condition Medications - No data to display REVAL: CRITICAL CARE TIME None CONSULTS: None PROCEDURES: Unless otherwise noted below, none Procedures FINAL IMPRESSION 1. Bleeding 2. Injury of hand, unspecified laterality, initial encounter DISPOSITION Discharge 11/22/2022 09:26:44 PM PATIENT REFERRED TO: No follow-up provider specified. DISCHARGE MEDICATIONS: Discharge Medication List as of 11/22/2022 9:27 PM (Comment: Please note this report has been produced using speech recognition software and may contain errors related to that system including errors in grammar, punctuation, and spelling, as well as words and phrases that may be inappropriate. If ther (more content not included)... Normal [facility] ED Provider Note Emergency Department Encounter [facility] EMERGENCY DEPT Patient: Gladys Vidal : 1945 Date of Evaluation: 11/22/2022 ED Supervising Physician: Swathi Patel DO I independently examined and evaluated Gladys Vidal. This will serve as my Supervisory note and shared attestation. I did perform a substantive portion of the visit including all aspects of the Medical Decision Making. I wore appropriate PPE for the entirety of this encounter. In brief, Gladys Vidal is a 77 y.o. male that presents to the emergency department for left hand injury. The patient was using a chain saw this Thursday morning and did amputate the third and fourth digits. Patient was sent from [place] here. Focused exam: Patient at this time has normal radial pulses, no overt bleeding noted. Patient has normal sensation to the dorsum of the hand. Brief ED course/MDM: Patient did have a x-ray which was independently interpreted by myself showed 4 digits, amputation of one of his digits with a complete amputation of the other. There overread by radiology does show multiple acute fractures amputation. Have had Ortho come evaluate the patient and at this time they are closing the wounds and amputating the other finger. It is good to be discharged home. All diagnostic, treatment, and disposition decisions were made by myself in conjunction with the Resident. I also supervised brown portions of any procedures performed by the Resident. For all further details of the patient's emergency department visit, please see their documentation. (Comment: Please note this report has been produced using speech recognition software and may contain errors related to that system including errors in grammar, punctuation, and spelling, as well as words and phrases that may be inappropriate. If there are any questions or concerns please feel free to contact the dictating provider for clarification.) Swathi Patel DO [employer] Swathi Patel DO 11/23/22 1312 [facility] ED Provider Note EMERGENCY DEPARTMENT ENCOUNTER Pt Name: Gladys Vidal Birthdate 1945 Date of evaluation: 11/22/2022 ED Provider: Jennifer Francisco DO CHIEF COMPLAINT Chief Complaint Patient presents with Hand Injury Left hand, amputation of 3rd and 4th digit with chainsaw this AM, blue slip from [place] HISTORY OF PRESENT ILLNESS (Location/Symptom, Timing/Onset, Context/Setting, Quality, Duration, Modifying Factors, Severity) Note limiting factors. I wore appropriate PPE for the entirety of this encounter. HPI Gladys Vidal is a 77 y.o. male presents today from [facility] for complaints of acute amputation of the third digit and acute comminuted fractures of the fourth digit. As well as overlying lacerations concerning for open fractures. He had his tetanus and Ancef ordered there. He also has a digit block and at this time is not complaining of numbness or tingling but he also had a nerve block done at [facility]. States he feels fine right now. Had a similar incident done previously where he amputated his left thumb. States he was using an ax earlier today and Nursing Notes were reviewed. Limitations to history: None Outside historians: None REVIEW OF SYSTEMS Review of Systems Constitutional: Negative for chills and fever. HENT: Negative for ear pain and sore throat. Eyes: Negative for pain and visual disturbance. Respiratory: Negative for cough and shortness of breath. Cardiovascular: Negative for chest pain and palpitations. Gastrointestinal: Negative for abdominal pain and vomiting. Genitourinary: Negative for dysuria and hematuria. Musculoskeletal: Negative for arthralgias and back pain. Skin: Positive for wound. Negative for color change and rash. Neurological: Negative for seizures and syncope. All other systems reviewed and are negative. Pertinent positives and negatives as per HPI. PAST MEDICAL HISTORY No past medical history on file. SURGICAL HISTORY No past surgical history on file. CURRENT MEDICATIONS Previous Medications No medications on file ALLERGIES Patient has no known allergies. FAMILY HISTORY No family history on file. SOCIAL HISTORY Social History Socioeconomic History Marital status: SCREENINGS PHYSICAL EXAM ED Triage Vitals Temp Heart Rate Resp BP 11/22/22 1356 11/22/22 1356 11/22/22 1356 11/22/22 1359 36.7 ?C (98 ?F) 61 16 (!) 179/111 SpO2 Temp src Heart Rate Source Patient Position 11/22/22 1356 -- -- -- 94 % BP Location FiO2 (%) -- -- Physical Exam Vitals and nursing note reviewed. Constitutional: General: He is not in acute distress. Appearance: He is well-developed. HENT: Head: Normocephalic and atraumatic. Nose: Nose normal. No congestion or rhinorrhea. Mouth/Throat: Mouth: Mucous membranes are moist. Pharynx: Oropharynx is clear. No oropharyngeal exudate or posterior oropharyngeal erythema. Eyes: General: Right eye: No discharge. Left eye: No discharge. Extraocular Movements: Extraocular movements intact. Conjunctiva/sclera: Conjunctivae normal. Pupils: Pupils are equal, round, and reactive to light. Cardiovascular: Rate and Rhythm: Normal rate and regular rhythm. Pulses: Normal pulses. Heart sounds: Normal heart sounds. No murmur heard. Pulmonary: Effort: Pulmonary effort is normal. No respiratory distress. Breath sounds: Normal breath sounds. No stridor. No wheezing, rhonchi or rales. Abdominal: General: Abdomen is flat. Palpations: Abdomen is soft. Tenderness: There is no abdominal tenderness. There is no right CVA tenderness or left CVA tenderness. Musculoskeletal: General: No swelling. Cervical back: Neck supple. Right lower leg: No edema. Left lower leg: No edema. Comments: Patient does have visible deformity to 3rd digit. Bleeding noted at index finger. Overlying laceration noted 4th digit. Palpable radial pulse. Skin: General: Skin is warm and dry. Capillary Refill: Capillary refill takes less than 2 seconds. Neurological: Mental Status: He is alert. Psychiatric: Mood and Affect: Mood normal. DIAGNOSTIC RESULTS Procedures/EKG: EKG was reviewed by myself. Physician EKG interpretation can be found in [facility] RADIOLOGY (Per Emergency Physician): Interpretation per the Radiologist below, if available at the time of this note: XR hand 3+ views left Final Result Multiple acute fractures/amputation with soft tissue swelling and laceration as described. Remote appearing amputation of the second and partially the first digits. Tiny metallic foreign body. Mild osteoarthritis. Report Dictated on Electronically Signed By: Duyen Howe Electronically Signed Date/Time: 11/22/2022 3:42 PM EDT ED BEDSIDE ULTRASOUND: Performed by ED Physician - none LABS: Labs Reviewed - No data to display All other labs were within normal range or not returned as of this dictation. EMERGENCY DEP (more content not included)... Normal [facility] XR HIP LEFT 2-3 VIEWS (ROUTI NE)on 09-24-2021 XR HIP LEFT 2-3 VIEWS (ROUTINE) EXAMINATION: XR HIP LEFT 2-3 VIEWS (ROUTINE) 09/24/2021 9:32 am HISTORY: ORDERING SYSTEM PROVIDED HISTORY: pain, TECHNOLOGIST PROVIDED HISTORY: Illness/Other Reason for exam: LEFT HIP PAIN Cancer History: U Surgery, RadiationHistory: U Encounter Type: Initial Additional signs and symptoms: PREVIOUS HIP REPLACEMENT ORDERING SYSTEM PROVIDED DIAGNOSIS CODES: R52 Pain COMPARISON: None IMPRESSION: Left total hip arthroplasty is well seated. Alignment anatomic. No acute osseous finding. There may be subcutaneous edema lateral to the left hip. Workstation ID: [id number] Dictated by: AYDE CEDEÑO I on ThuSep 24, 2021 3:52:38 PM EDT Transcribed by: AYDE CEDEÑO I on ThuSep 24, 2021 3:52:38 PM EDT Finalized by: AYDE CEDEÑO I on ThuSep 24, 2021 3:52:38 PM EDT [facility] Comment on above: Order Comment: Injur y/Trauma or Illness?:Illness/Other How long have you had these symptoms (acute/chronic)?:Acute Reason for exam?:LEFT HIP PAIN History of cancer?:U Surgeries, chemotherapy, or radiation?:U Type of Exam?:Initial Additional signs and symptoms?:PREVIOUS HIP REPLACEMENT CT LUMBAR SPINE WITHOUT CONT [facility] 09-19-2021 CT LUMBAR SPINE WITHOUT CONTRAST EXAMINATION: CT LUMBAR SPINE WITHOUT CONTRAST HISTORY: ORDERING SYSTEM PROVIDED HISTORY: Lumbar radiculopathy, symptoms persist with conservative treatment, TECHNOLOGIST PROVIDED HISTORY: Illness/Other Reason for exam: Lumbar radiculopathy, symptoms persist with conservative treatment, Lumbar degenerative disc disease, Spinal stenosis of lumbar region with neurogenic claudication Encounter Type: Subsequent/Follow-up Additional signs and symptoms: n ORDERING SYSTEM PROVIDED DIAGNOSIS CODES: M51.36 Lumbar degenerative disc disease M48.062 Spinal stenosis of lumbar region with neurogenic claudication COMPARISON: [facility], most recent 09/11/2021 TECHNIQUE: CT examination of the lumbar spine without IV contrast. Coronal and sagittal reformations were performed. Dose reduction techniques were achieved by using automated exposure control and/or adjustment of mA and/or kV according to patient size and/or use of iterative reconstruction technique. FINDINGS: 5 cbr-cma-aajasun lumbar vertebrae. Unchanged alignment of the lumbar spine. There are postsurgical changes from L3-L5 fusion and laminectomy. Chronic L2 superior endplate compression deformity is noted. The remaining vertebral body heights are maintained. No acute fracture identified. Surgical hardware appears intact and appropriately position. No CT evidence of significant spinal canal stenosis identified. Moderate to severe neural foraminal stenosis is present throughout the lumbar spine, most significant the L5-S1 level. The visualized bony pelvis is congruent with moderate osteoarthritis of the sacroiliac joints. Limited evaluation of the abdominopelvic viscera is without acute abnormality. IMPRESSION: 1. Chronic L2 superior endplate compression fracture. 2. Postsurgical changes from L3-L5 fusion and laminectomy with intact hardware. 3. Degenerative changes without acute osseous abnormality. No CT evidence of severe spinal canal stenosis. Workstation ID: [id number] Dictated by: CÉSAR MARQUEZ on ThuSep 19, 2021 12:57:20 PM EDT Transcribed by: CÉSAR MARQUEZ on ThuSep 19, 2021 12:57:20 PM EDT Finalized by: CÉSAR MARQUEZ on ThuSep 19, 2021 12:57:20 PM EDT [facility] Comment on above: Order Comment: Injur y/Trauma or Illness?:Illness/Other How long have you had these symptoms (acute/chronic)?:Chronic Reason for exam?:Lumbar radiculopathy, symptoms persist with conservative treatment, Lumbar degenerative disc disease, Spinal stenosis of lumbar region with neurogenic claudication Type of Exam?:Subsequent/Follow-up Additional signs and symptoms?:n XR LUMBAR SPINE 2-3 VIEWS (S TANDARD)on 09-11-2021 XR LUMBAR SPINE 2-3 VIEWS (STANDARD) EXAMINATION: XR LUMBAR SPINE 2-3 VIEWS (STANDARD) 09/11/2021 2:03 pm HISTORY: ORDERING SYSTEM PROVIDED HISTORY: pain, TECHNOLOGIST PROVIDED HISTORY: Illness/Other Reason for exam: LOW BACK PAIN RADIATING DOWN LEFT HIP AND LEG Cancer History: U Surgery, RadiationHistory: U Encounter Type: Initial Additional signs and symptoms: HX LOW BACK SURGERY ORDERING SYSTEM PROVIDED DIAGNOSIS CODES: R52 Pain COMPARISON: 02/11/2018 FINDINGS: At the edge of the field again, there is a left THR. Again, status post bilateral transpedicular fusions L3 through L5. Vertical but no horizontal stabilizing bars. Again, status post bilateral laminectomies L3 through L5. Again, modest deformity of the L4 vertebral body. Again, modest superior endplate deformity at L3 anteriorly and in its midportion. This is unchanged and appears chronic. No interval fracture. No dislocation. Again, there is moderate loss of disc space height posteriorly at L2-3. Again, there is significant loss of disc space height posteriorly at L5-S1. SI joints are patent and symmetric. Some degenerative changes again demonstrated. Mild retrolisthesis at L5-S1 IMPRESSION: 1. Postsurgical and chronic findings as described. No interval change. Workstation ID: [id number] Dictated by: GAGE FERREIRA on ThuSep 12, 2021 10:48:55 AM EDT Transcribed by: GAGE FERREIRA on ThuSep 12, 2021 10:48:55 AM EDT Finalized by: GAGE FERREIRA on ThuSep 12, 2021 10:48:55 AM EDT [facility] Comment on above: Order Comment: Injur y/Trauma or Illness?:Illness/Other How long have you had these symptoms (acute/chronic)?:Chronic Reason for exam?:LOW BACK PAIN RADIATING DOWN LEFT HIP AND LEG History of cancer?:U Surgeries, chemotherapy, or radiation?:U Type of Exam?:Initial Additional signs and symptoms?:HX LOW BACK SURGERY SPINE, LUMBOSACRAL MIN 4 VIE WSon 08-16-2021 SPINE, LUMBOSACRAL MIN 4 VIEWS Patient Name: GLADYS VIDAL STUDY: SPINE, LUMBOSACRAL MIN 4 VIEWS; 08/16/2021 12:13 pm INDICATION: RADICULOPATHY, LUMBAR REGION. COMPARISON: 03/01/2015 ACCESSION NUMBER(S): [id number] ORDERING CLINICIAN: TAYLA VICTORIA FINDINGS: Lumbar spine, five views Laminectomy and posterior fusion L3 through L5. Redemonstration of compression fracture deformity of L2 and L4. Moderate multilevel spondylosis. There is mild retrolisthesis of L5 on S1 IMPRESSION: Postsurgical changes without hardware failure. Compression fracture deformities at L2 and L4. Mild retrolisthesis of L5 on S1 Electronically signed by: CHRISTOPHER BOUDREAUX MD [facility] CORONAVIRUS PCR [CCL]on 05-16 COVID 19 Result OSTOMY CARE NURSE Positive Abnormal [facility] Comment on above: Result Comment: Posi tive for COVID19 (SARS CoV2) by PCR.(*) This test was developed and its performance characteristics determined by [facility] [place]. This test has been authorized by FDA under an Emergency Use Authorization (EUA). This test has been validated in accordance with the FDA's Guidance Document Policy for Diagnostics Testing in Laboratories Certified to Perform High Complexity Testing under CLIA prior to Emergency use Authorization for Coronavirus Disease 2019 during the Public Health Emergency issued on August 13, [place] [address] Ochoa Bradley III, M.D. [id number] Performed By: #### [id number] #### [facility],[address] [place] [address] COVID 19 Source OSTOMY CARE NURSE Nasopharyngeal Swab Normal [facility] Comment on above: Result Comment: Johnny ected on 06/06 AT 1244: Previously reported as OSTOMY CARE NURSE SWAB Performed By: #### [id number] #### [facility],[address] [place] [address] Coronavirus 2019on 0 COVID 19 Result OSTOMY CARE NURSE Abnormal Negative for COVID19 (SARS CoV2) by PCR. [facility] Comment on above: Result Comment: Posi tive for This test was developed and its performance characteristics determined by [facility] [place]. This test has been authorized by FDA under an Emergency Use Authorization (EUA). This test has been validated in accordance with the FDA's Guidance Document Policy for Diagnostics Testing in Laboratories Certified to Perform High Complexity Testing under CLIA prior to Emergency use Authorization for Coronavirus Disease 2019 during the Public Health Emergency issued on August 13, 2019. COVID19 (SARS This test was developed and its performance characteristics determined by [facility] [place]. This test has been authorized by FDA under an Emergency Use Authorization (EUA). This test has been validated in accordance with the FDA's Guidance Document Policy for Diagnostics Testing in Laboratories Certified to Perform High Complexity Testing under CLIA prior to Emergency use Authorization for Coronavirus Disease 2019 during the Public Health Emergency issued on August 13, 2019. CoV2) by This test was developed and its performance characteristics determined by [facility] [place]. This test has been authorized by FDA under an Emergency Use Authorization (EUA). This test has been validated in accordance with the FDA's Guidance Document Policy for Diagnostics Testing in Laboratories Certified to Perform High Complexity Testing under CLIA prior to Emergency use Authorization for Coronavirus Disease 2019 during the Public Health Emergency issued on August 13, 2019. PCR.(*) This test was developed and its performance characteristics determined by [facility] [place]. This test has been authorized by FDA under an Emergency Use Authorization (EUA). This test has been validated in accordance with the FDA's Guidance Document Policy for Diagnostics Testing in Laboratories Certified to Perform High Complexity Testing under CLIA prior to Emergency use Authorization for Coronavirus Disease 2019 during the Public Health Emergency issued on August 13, 2019. Coronavirus 2019on 0 COVID 19 Source OSTOMY CARE NURSE Normal [facility] Comment on above: Result Comment: Naso pharyngeal Corrected on 06/06 AT 1244: Previously reported as OSTOMY CARE NURSE SWAB Swab Corrected on 06/06 AT 1244: Previously reported as OSTOMY CARE NURSE SWAB Magnesiumon 11-23-2018 Magnesium mass conc 2.5 Int._Unit/L High 1.6-2.4 [facility] Comment on above: Performed By: #### [id number] #### [employer] [address] [place] [address] Renal Panelon 11-23-2018 Albumin mass conc 3.4 g/dL Normal 3.4-5.0 [facility] Comment on above: Performed By: #### 1 [id number] #### [employer] [address] [place] [address] Anion gap molar conc 13 mmol/L Normal 10-20 [facility] Comment on above: Performed By: #### 1 [id number] #### [employer] [address] [place] [address] Calcium mass conc 8.8 mg/dL Normal 8.6-10.3 [facility] Comment on above: Performed By: #### 1 [id number] #### [employer] [address] [place], [place] [id number] Chloride molar conc 106 mmol/L Normal 98-107 [facility] Comment on above: Performed By: #### 1 [id number] #### [employer] [address] [place] [id number] CO2 molar conc 26.0 mmol/L Normal 21.0-32.0 [facility] Comment on above: Performed By: #### 1 [id number] #### [employer] [address] [place], [place] [id number] Creatinine mass conc 2.2 mg/dL High 0.5-1.3 [facility] Comment on above: Performed By: #### 1 [id number] #### [employer] [address] [place] [address] 78846 Glucose mass conc 176 mg/dL High 70-99 [facility] Comment on above: Performed By: #### 1 [id number] #### [employer] [address] [place] [address] 54018 Phosphate mass conc 3.0 mg/dL Normal 2.5-4.9 [facility] Comment on above: Performed By: #### 1 [id number] #### [employer] [address] [place] [address] 64307 Potassium molar conc 3.9 mmol/L Normal 3.5-5.3 [facility] Comment on above: Performed By: #### 1 [id number] #### [employer] [address] [place] [address] 10380 Sodium molar conc 141 mmol/L Normal 136-145 [facility] Comment on above: Performed By: #### 1 [id number] #### [employer] [address] [place] [address] 31886 Urea nitrogen mass conc 47 mg/dL High 6-23 [facility] Comment on above: Performed By: #### 1 [id number] #### [employer] [address] [place] [address] 79491 Urea nitrogen/Creatinine mass ratio 21.4 ratio Normal 5.4-30.0 [facility] Comment on above: Performed By: #### 1 [id number] #### [employer] [address] [place] [address] 92824 eGFRon 11-23-2018 GFR/1.73 sq M predicted among non-blacks MDRD vol rate/area (S/P/Bld) 37 mL/min/1.73 m2 [facility] Comment on above: Order Comment: Order added by Discern Expert. Performed By: #### 1 [id number] #### [employer] [address] [place] [address] 71478 GFR/1.73 sq M predicted among non-blacks MDRD vol rate/area (S/P/Bld) 30 mL/min/1.73 m2 [facility] Comment on above: Order Comment: Order added by Discern Expert. Performed By: #### 1 [id number] #### [employer] [address] [place] [address] Magnesiumon 11-19-2018 Magnesium mass conc 2.8 Int._Unit/L High 1.6-2.4 [facility] Comment on above: Performed By: #### 2 [id number] #### [employer] [address] [place] [address] Renal Panelon 11-19-2018 Albumin mass conc 3.6 g/dL Normal 3.4-5.0 [facility] Comment on above: Performed By: #### 1 [id number] #### [employer] [address] [place] [address] 92016 Anion gap molar conc 14 mmol/L Normal 10-20 [facility] Comment on above: Performed By: #### 1 [id number] #### [employer] [address] [place] [address] 24401 Calcium mass conc 9.1 mg/dL Normal 8.6-10.3 [facility] Comment on above: Performed By: #### 1 [id number] #### [employer] [address] [place] [address] 41263 Chloride molar conc 103 mmol/L Normal 98-107 [facility] Comment on above: Performed By: #### 1 [id number] #### [employer] [address] [place] [address] 06492 CO2 molar conc 29.0 mmol/L Normal 21.0-32.0 [facility] Comment on above: Performed By: #### 1 [id number] #### [employer] [address] [place] [address] 12306 Creatinine mass conc 2.8 mg/dL High 0.5-1.3 [facility] Comment on above: Performed By: #### 1 [id number] #### [employer] [address] [place] [address] 07943 Glucose mass conc 153 mg/dL High 70-99 [facility] Comment on above: Performed By: #### 1 [id number] #### [employer] [address] [place] [address] 33654 Phosphate mass conc 3.6 mg/dL Normal 2.5-4.9 [facility] Comment on above: Performed By: #### 1 [id number] #### [employer] [address] [place] [address] Potassium molar conc 4.0 mmol/L Normal 3.5-5.3 [facility] Comment on above: Performed By: #### 1 [id number] #### [employer] [address] [place] [address] Sodium molar conc 141 mmol/L Normal 136-145 [facility] Comment on above: Performed By: #### 1 [id number] #### [employer] [address] [place] [address] 49293 Urea nitrogen mass conc 83 mg/dL High 6-23 [facility] Comment on above: Performed By: #### 1 [id number] #### [employer] [address] [place], [place] [address] Urea nitrogen/Creatinine mass ratio 29.6 ratio Normal 5.4-30.0 [facility] Comment on above: Performed By: #### 1 [id number] #### [employer] [address] [place] [address] 24299 eGFRon 11-19-2018 GFR/1.73 sq M predicted among non-blacks MDRD vol rate/area (S/P/Bld) 22 mL/min/1.73 m2 [facility] Comment on above: Order Comment: Order added by Discern Expert. Performed By: #### 1 [id number] #### [employer] [address] [place] [address] 47235 GFR/1.73 sq M predicted among non-blacks MDRD vol rate/area (S/P/Bld) 27 mL/min/1.73 m2 Normal [facility] Comment on above: Order Comment: Order added by Discern Expert. Performed By: #### 1 [id number] #### [employer] [address] [place] [address] 76340 Magnesiumon 11-17-2018 Magnesium mass conc 2.9 mg/dL High 1.6-2.4 [facility] Comment on above: Performed By: #### 2 [id number] #### [employer] [address] [place] [address] 72881 Renal Panelon 11-17-2018 Albumin mass conc 3.8 g/dL Normal 3.4-5.0 [facility] Comment on above: Performed By: #### 1 [id number] #### [employer] [address] [place] [address] Anion gap molar conc 13 mmol/L Normal 10-20 [facility] Comment on above: Performed By: #### 1 [id number] #### [employer] [address] [place] [address] Calcium mass conc 9.1 mg/dL Normal 8.6-10.3 [facility] Comment on above: Performed By: #### 1 [id number] #### [employer] [address] [place] [address] Chloride molar conc 97 mmol/L Low 98-107 [facility] Comment on above: Performed By: #### 1 [id number] #### [employer] [address] [place] [address] CO2 molar conc 32.0 mmol/L Normal 21.0-32.0 [facility] Comment on above: Performed By: #### 1 [id number] #### [employer] [address] [place] [address] Creatinine mass conc 3.2 mg/dL High 0.5-1.3 [facility] Comment on above: Performed By: #### 1 [id number] #### [employer] [address] [place] [address] Glucose mass conc 303 mg/dL High 70-99 [facility] Comment on above: Performed By: #### 1 [id number] #### [employer] [address] [place] [address] Phosphate mass conc 3.6 mg/dL Normal 2.5-4.9 [facility] Comment on above: Performed By: #### 1 [id number] #### [employer] [address] [place] [address] Potassium molar conc 4.1 mmol/L Normal 3.5-5.3 [facility] Comment on above: Performed By: #### 1 [id number] #### [employer] [address] [place] [address] Sodium molar conc 138 mmol/L Normal 136-145 [facility] Comment on above: Performed By: #### 1 [id number] #### [employer] [address] [place] [address] Urea nitrogen mass conc 96 mg/dL High 6-23 [facility] Comment on above: Performed By: #### 1 [id number] #### [employer] [address] [place] [address] Urea nitrogen/Creatinine mass ratio 30.0 ratio Normal 5.4-30.0 [facility] Comment on above: Performed By: #### 1 [id number] #### [employer] [address] [place] [address] eGFRon 11-17-2018 GFR/1.73 sq M predicted among non-blacks MDRD vol rate/area (S/P/Bld) 23 mL/min/1.73 m2 [facility] Comment on above: Order Comment: Order added by Discern Expert. Performed By: #### 1 [id number] #### [employer] [facility] [place] [address] GFR/1.73 sq M predicted among non-blacks MDRD vol rate/area (S/P/Bld) 19 mL/min/1.73 m2 [facility] Comment on above: Order Comment: Order added by Discern Expert. Performed By: #### 1 [id number] #### [employer] [facility] [place] [address] Epidural Injectionon 019 Avni Cruz MD 11/11/2018 4:04 PM Epidural Injection Performed by: Avni Cruz MD Authorized by: Avni Cruz MD Medications: 120 mg triamcinolone acetonide 40 mg/mL Anesthetic used: Lidocaine 1% [facility] Epidural Injectionon 019 Avni Cruz MD 08/10/2018 11:34 AM Epidural Injection Performed by: Avni Cruz MD Authorized by: Avni Cruz MD Medications: 120 mg triamcinolone acetonide 40 mg/mL Anesthetic used: Lidocaine 1% [facility] BONE SCAN - WHOLE BODYon BONE SCAN - WHOLE BODY Final ReportAccession No: [id number] Performed: Mar 18 2018 1:12PMExamination: BONE SCAN - WHOLE BODYNUCLEAR MEDICINE TOTAL BODY BONE SCANHISTORY: Lumbar spine fracture; low back pain; left hip pain.COMPARISON: CT lumbar spine 03/08/2018.METHOD: The patient was injected intravenously with 22.7 mCi of Tc-99mMDP,scintigraphy of the entire skeleton was performed more than three hourslater.FINDINGS: There is no evidence of significant uptake at L2. There is noevidence of increased linear uptake at L4. There is mild heterogeneousuptakein the cervical, thoracic, lumbar spine.There are degenerative changes in the major and minor joints bilaterally.IMPRESSION:No evidence of acute or subacute compression fractures. Degree of uptakeat L2is consistent with a chronic compression fracture.Degenerative changes throughout the spine as well as in the major andminorjoints bilaterally.Interpreting Physician: NASEEM FRAGOSO M.D.Trans: istumb : cc: Normal [facility] XR HIP LEFT 2 VIEWSon 2017 INR Coag RelTime (Bld) EXAM: XR HIP LEFT 3 VIEWS,, 03/10/2018 13:39 PMCOMPARISON: Compared to prior study dated January 04, 2018.CLINICAL INDICATIONS: PAINRELEVANT CLINICAL HISTORY: M25.552:Left hip painFINDINGS:3 images obtained.Soft Tissue: There is no obvious soft tissue swelling. Chondrocalcinosisevident within the symphysis pubis.Bone: No acute osseous abnormality is identified.Hip: Total hip arthroplasty in place. Hardware intact and stable inalignment. No periprosthetic lucency.IMPRESSION: Stable total hip arthroplasty. No acute osseous abnormality. Normal [facility] CT SPINE LUMBAR W/O CONTRAST on 03-08-2018 CT SPINE LUMBAR W/O CONTRAST Final ReportAccession No: [id number] Performed: Mar 08 2018 9:02AMExamination: CT SPINE LUMBAR W/O CONTRASTEXAM: CT SPINE LUMBAR W/O CONTRASTCLINICAL STATEMENT: Low back pain. Previous lumbar spine surgery.COMPARISON: Lumbar spine x-rays, 02/11/2018.TECHNIQUE: CT examination of the lumbar spine without IV contrast.Coronal andsagittal reformations were performed.Dose reduction techniques were achieved by using automated exposurecontroland/or adjustment of mA and/or kV according to patient size and/or use ofiterative reconstruction technique.FINDINGS: There are postoperative changes from previous laminectomy andpediclescrew and ana fixation as well as posterior osseous fusion at L3-L4 andL4-L5.The hardware is intact and in good position. There is good solid osseousfusionposteriorly along the posterior elements at L3-L4 and L4-L5.Grade 1 retrolisthesis at L5-S1 measures 3 mm. Osteopenia. Chroniccompressionfracture at L4 with 40% loss of vertebral body height is stable.Superior endplate compression fracture at L2 with 40% loss of vertebralbodyheight. This may be a subacute compression fracture. No retropulsion ofbonefragments into the spinal canal. This compression fracture is stable fromtherecent lumbar spine x-rays. No new compression fracture.L5-S1, moderate to severe degenerative disc disease with vacuum discphenomenon. Severe facet arthropathy. Grade 1 retrolisthesis. Thesefindingsresult in moderate central canal stenosis with lateral recess stenosisbilaterally. Disc space narrowing, endplate osteophytes and facetarthropathyresult in severe foraminal narrowing bilaterally.L4-L5, the spinal canal is decompressed. No spinal canal stenosis. Noforaminalnarrowing.L3-L4, the spinal canal is decompressed. No significant spinal canalstenosis.No foraminal narrowing.L2-L3, severe facet arthropathy. Ligamentum flavum thickening. Milddegenerative disc disease. Diffuse disc bulge. Moderate central canalstenosis.No foraminal narrowing.Mild degenerative disc disease. No spinal stenosis. No foraminalnarrowing.No paraspinal soft tissue swelling. No paraspinal masses.IMPRESSION:1. There are postoperative changes from previous laminectomy, pediclescrew androd fixation as well as posterior osseous fusion at L3-L4 and L4-L5.Hardwareis intact. There is good solid osseous fusion posteriorly at these levels.2. Chronic compression fracture at L4 is stable.3. Compression fracture at L2 with 40% loss of vertebral body height maybesubacute. This compression fracture is stable from lumbar spine x-raysfrom02/11/2018. No retropulsion of bone fragments into the spinal canal.4. Moderate to severe degenerative disc disease at L5-S1 and severe facetarthropathy. Grade 1 retrolisthesis at this level. These findings resultinmoderate central canal stenosis with stenosis of the lateral recessesbilaterally. Severe bilateral neural foraminal narrowing.5. At L2-L3, there are severe facet arthropathy with ligamentum flavumthickening as well as disc bulge resulting in moderate spinal canalstenosis.Interpreting Physician: YUNIEL ZEPEDA M.D.Trans: bminni : cc: Normal [facility] INJECT FOR MYELO AND/OR CT-S PINEon 03-08-2018 INJECT FOR MYELO AND/OR CT-SPINE Final ReportAccession No: [id number] Performed: Mar 08 2018 9:02AMExamination: INJECT FOR MYELO AND/OR CT-SPINEEXAMINATION: INJECT FOR MYELO AND/OR CT-SPINECLINICAL STATEMENT: Low back pain with previous lumbar spine surgery.Injectionfor CT myelogram.COMPARISON: Plain film examination dated 02/11/2018.FLUOROSCOPY TIME: Fluoro time measures 41 seconds and 2 images wereobtained.FINDINGS: According to the note from the technologist, the myelograminjectionwas attempted, but access could not be obtained. The myelogram wasthereforeaborted and the patient was sent to CT.IMPRESSION:Unsuccessful myelogram injection. Refer to the CT performed the same day.Interpreting Physician: AVNI PALAFOX M.D.Trans: n/a : cc: Normal [facility] History And Physical-Dictate don 03-04-2018 History And Physical-Dictated [facility], [place] [address] [id number] 4DATEPRE-SURGICAL HISTORY AND PHYSICALCHIEF COMPLAINTA 72-year-old male with low left back pain and radiation to the posteriorlateral thigh.HISTORY OF PRESENT ILLNESSThis man underwent a laminectomy and fusion at L3 through L5 in the middle . He recently had a total hip replacement in February of 2017. Over thelast month or so, he has complained of lower back pain, left lateral thighpain, and was suggested by the total joint surgeon that he follow up with hislumbar spine. There has been no precipitating event or injury. On exam,there is left-sided low back discomfort, mild spasm [ ] motor, sensoryreflex asymmetry of each lower extremity. X-rays obtained show previouslaminectomy and fusion with instrumentation L3 through L5 with diskdegeneration L5-S1.In light of his current complaint, it was recommended that he have an MRI.However, he cannot have an MRI, so CT myelogram of the lumbar spine wasadvised.PAST MEDICAL HISTORYIncludes mitral regurgitation, hypertension, hyperlipidemia, heart failure,coronary artery disease, cardiomyopathy, benign prostatic hyperplasia, andatrial fibrillation.ALLERGIESHe has no known drug allergies.MEDICATIONSInclude aspirin, Plavix, Lasix, garlic, Mevacor, Lopressor, Micro-K, Xarelto,and tamsulosin.PHYSICAL EXAMGENERAL APPEARANCE: Alert, oriented.HEENT: Pupils equal, round, reactive. Extraocular muscles are intact.Trachea midline.NECK: Supple. No palpable masses.LUNGS: Clear bilateral.HEART: Normal sinus rhythm. No rub or gallop.ABDOMEN: Soft, nontender. Bowel sounds present x4.SPINE AND EXTREMITIES: As in History of Present Illness. No clubbing,cyanosis, or edema noted.IMPRESSIONStatus post spinal fusion.PLANCT myelogram, lumbar.Dictated by AYDEN Villela MDD 03/04/2018 14:29 [id number] 03/04/2018 15:20 DKF/MODLElectronically Signed By Avni Cruz M.D. on 24 Mar 2018 17:57:[address] [facility] SPINE LUMBAR 2 OR 3 VIEWSon 02-11-2018 SPINE LUMBAR 2 OR 3 VIEWS Final ReportAccession No: [id number] Performed: Feb 11 2018 10:15AMExamination: SPINE LUMBAR 2 OR 3 VIEWSCLINICAL HISTORY: Having left-sided lower back and leg pain. History oflefttotal hip replacement one year ago.LUMBAR SPINE: 02/11/2018COMPARISON: Lumbar spine 03/11/2015.FINDINGS: Three views are provided which demonstrate five lumbar-typevertebralbodies which are normally aligned with previous posterior fusionextending fromL3 through L5 with compression deformity of L4 now with some callusformation.There is compression deformity of the superior endplate of L2, new sincetheprevious examination, however, of unknown chronicity. Degenerative discdiseaseat L3-L4, L4-L5 and L5-S1 persists. No subluxations or hardware associatedcomplications. There is laminectomy at L3, L4 and L5. There is a partiallyvisualized left hip prosthesis in place which is anatomically aligned.Thereare some calcified granulomas in the right aspect of the pelvis. Thevisualizedpelvic bones appear intact. The surrounding soft tissues are normal.IMPRESSION:1. Previous fusion extending from L3 through L5 without significantintervalchange or hardware associated complications.2. Compression deformity of the superior endplate of L2, new sincepreviousstudy, however, of unknown chronicity.3. No obvious acute fractures or subluxations.Interpreting Physician: ITZEL KRISHNAMURTHY M.D.Trans: lcoope : cc: Normal [facility] C Reactive Proteinon 018 CRP mass conc 11.80 mg/L High <10.00 [facility] Comment on above: Performed By: #### C RP ####[place] [id number] [place] [address]#### ESRE ####[place] [address] ESR Westergren - UHEon 01-04 ESR Westergren 44 mm/hr High <20 [facility] Comment on above: Performed By: #### C RP ####[place] [id number] [place] [address]#### ESRE ####[place] [address] XR HIP LEFT 2 VIEWSon 2017 INR Coag RelTime (Bld) EXAM: Three-view left hip VIEWS,, 01/04/2018 11:43 AMCOMPARISON: September 09, 2017CLINICAL INDICATIONS: painRELEVANT CLINICAL HISTORY: Z96.642:Status post total replacement of left hip 30MM Calibration sphere of left hip;AP/LAT view;FINDINGS:3 images obtained.There is redemonstration of a total left hip replacement. No acute fracture orhardware failure. No radiopaque foreign body or pathologic soft tissuecalcifications.Osteoarth ritic changes are noted at the right hip and SI joints.There is partial visualization of a lumbar spine fixationIMPRESSION: Status post total left hip replacement without acute fracture or hardwarefailure Normal [facility] XR Hip 2-3 Views Left + Pelv anna 12-29-2017 XR Hip 2-3 Views Left + Pelvis Exam Date/Time: 12/29/2017 12:09 EDT Reason for Exam: left hip pain Report STUDY: XR Hip 2-3 Views Left + Pelvis; 12/29/2017 12:09 pm INDICATION: left hip pain. COMPARISON: None. ACCESSION NUMBER(S): [id number] ORDERING CLINICIAN: Tayla Victoria TECHNIQUE: A single [...] pm Signed by: Joaquin Garza MD Technologist: NATHANAEL [facility] XR HIP LEFT 2 VIEWSon 2017 XR HIP LEFT 2 VIEWS EXAM: XR HIP LEFT 2 VIEWS VIEWS,, 09/09/2017 14:20 PMCOMPARISON: June 17, 2017CLINICAL INDICATIONS: PAINRELEVANT CLINICAL HISTORY: M25.552:Pain in left hip AP,LAT W/30MM CALIBRATION SPHERE;FINDINGS:3 images obtained.Soft Tissue: There is no obvious soft tissue swelling.Bone: No acute osseous abnormality is identified.Hip: Status post left total hip arthroplasty. The femoral and acetabularcomponents appear unchanged.IMPRESSION: Intact left total hip arthroplasty. No acute osseous abnormality. Normal [facility] Lab Report: Basic Metabolic Profile (BMP)on 07-29-2017 Anion gap 5 mmol/L Invalid Interpretation Code 5-15 [employer] Work Phone: [phone] BUN/Creatinine Ratio 18.9 RATIO Invalid Interpretation Code 10-20 [employer] Work Phone: [phone] Calcium 8.5 mg/dL Invalid Interpretation Code 8.5-10.1 [employer] Work Phone: [phone] Chloride 105 mmol/L Invalid Interpretation Code 98-107 [employer] Work Phone: [phone] CO2 31.0 mmol/L Invalid Interpretation Code 21.0-32.0 [employer] Work Phone: [phone] Creatinine 1.27 mg/dL Invalid Interpretation Code 0.70-1.30 [employer] Work Phone: [phone] eGFR (non-black) 59 mL/min/{1.73_m2} Low >60 [employer] Work Phone: [phone] eGFR (non-black) 71 mL/min/{1.73_m2} Invalid Interpretation Code >60 [employer] Work Phone: [phone] Glucose 100 mg/dL Invalid Interpretation Code 74-106 [employer] Work Phone: [phone] Potassium 4.0 mmol/L Invalid Interpretation Code 3.5-5.1 [employer] Work Phone: [phone] Sodium 141 mmol/L Invalid Interpretation Code 136-145 [employer] Work Phone: [phone] Urea nitrogen 24 mg/dL High 7-18 [employer] Work Phone: [phone] Lab Report: Lipid Profileon 07-29-2017 Cholesterol 156 mg/dL Invalid Interpretation Code 200 [employer] Work Phone: [phone] HDL Cholesterol 47 mg/dL Invalid Interpretation Code [employer] Work Phone: [phone] LDL Cholesterol 83 mg/dL Invalid Interpretation Code 0-130 [employer] Work Phone: [phone] Triglyceride 131 mg/dL Invalid Interpretation Code [employer] Work Phone: [phone] very low density lipoproteins 26 mg/dL Invalid Interpretation Code 5-40 [employer] Work Phone: [phone] Lab Report: Liver Profileon 07-29-2017 Alanine aminotransferase (ALT) 31 U/L Invalid Interpretation Code 16-61 [employer] Work Phone: [phone] Albumin 3.2 g/dL Invalid Interpretation Code 3.2-5.0 [employer] Work Phone: [phone] Alkaline phosphatase (ALP) 59 U/L Invalid Interpretation Code 45-117 [employer] Work Phone: [phone] Aspartate aminotransferase (AST) 51 U/L High 15-37 [employer] Work Phone: [phone] Bilirubin (direct) 0.10 mg/dL Invalid Interpretation Code 0.00-0.30 [employer] Work Phone: [phone] Bilirubin (total) 0.40 mg/dL Invalid Interpretation Code 0.20-1.00 [employer] Work Phone: [phone] Globulin 3.9 g/dL Invalid Interpretation Code 2.2-4.2 [employer] Work Phone: [phone] Protein 7.1 g/dL Invalid Interpretation Code 6.4-8.2 [employer] Work Phone: [phone]) Lab Report: Basic Metabolic Profile (BMP)on 06-09-2017 Anion gap 6 mmol/L Invalid Interpretation Code 5-15 [employer] Work Phone: [phone] BUN/Creatinine Ratio 20.0 RATIO Invalid Interpretation Code 10-20 [employer] Work Phone: [phone] Calcium 8.7 mg/dL Invalid Interpretation Code 8.5-10.1 [employer] Work Phone: [phone] Chloride 108 mmol/L High 98-107 [employer] Work Phone: [phone] CO2 29.0 mmol/L Invalid Interpretation Code 21.0-32.0 [employer] Work Phone: [phone] Creatinine 1.30 mg/dL Invalid Interpretation Code 0.70-1.30 [facility] [employer] Work Phone: [phone] eGFR (non-black) 70 mL/min/{1.73_m2} Invalid Interpretation Code >60 [employer] Work Phone: [phone] eGFR (non-black) 58 mL/min/{1.73_m2} Low >60 [employer] Work Phone: [phone] Glucose 120 mg/dL High 70-110 [facility] [employer] Work Phone: [phone] Potassium 4.0 mmol/L Invalid Interpretation Code 3.5-5.1 [facility] [employer] Work Phone: [phone] Sodium 143 mmol/L Invalid Interpretation Code 136-145 [employer] Work Phone: [phone] Urea nitrogen 26 mg/dL High 7-18 [employer] Work Phone: [phone] Lab Report: CBC W/Diff, Auto matedon 06-01-2017 Basophils/100 leukocytes 0.4 % Invalid Interpretation Code 0-1 [employer] Work Phone: [phone] Eosinophils/100 leukocytes 1.4 % Invalid Interpretation Code 0-5 [facility] [employer] Work Phone: [phone] Erythrocytes (RBC) 4.24 10*6/uL Low 4.6-6.2 [facility] [employer] Work Phone: [phone] Hematocrit (HCT) 39.5 % Low 40-54 [facility] [employer] Work Phone: [phone] Hemoglobin (HGB) 12.7 g/dL Low 13.0-16.5 [facility] [employer] Work Phone: [phone] immature granulocytes, percentage of total cells, blood 0.100 % Invalid Interpretation Code 0.0-0.9 [facility] [employer] Work Phone: [phone] Lymphocytes 1.28 X10 3/UL Invalid Interpretation Code 0.83-4.51 [facility] [employer] Work Phone: [phone] Lymphocytes/100 leukocytes 16.2 % Low 19-41 [facility] Work Phone: [phone] MCH 30.0 pg Invalid Interpretation Code 27.0-32.0 [employer] Work Phone: [phone] MCHC 32.2 G/GL Invalid Interpretation Code 32-36 [facility] Work Phone: [phone] MCV 93.2 fL Invalid Interpretation Code 80-94 [facility] Work Phone: [phone] Monocytes/100 leukocytes 15.3 % High 0-10 [facility] Work Phone: [phone] neutrophil count, blood 5.3 X10 3/UL Invalid Interpretation Code 2.0-7.7 [facility] Work Phone: [phone] Neutrophils/100 leukocytes 66.6 % Invalid Interpretation Code 47-70 [facility] Work Phone: [phone] Platelets 207 10*3/mm3 Invalid Interpretation Code 150-450 [facility] Work Phone: [phone] PMV by Joyce 11.9 fL Invalid Interpretation Code 6.2-12.0 [facility] Work Phone: [phone] RDW-CA 14.7 % High 11.6-14.6 [facility] Work Phone: [phone] red blood cell distribution width, size density 48.0 fL High 35.1-43.9 [facility] Work Phone: [phone] WBC (Leukocytes) 7.9 10*3/uL Invalid Interpretation Code 4.4-11.0 [facility] Work Phone: [phone] Lab Report: T4 Total, Thyrox inon 06-01-2017 Thyroxine (T4) 13.3 ug/dL High 4.5-12.1 [facility] Work Phone: [phone]) Lab Report: Thyroid Stim Hor neymar (TSH)on 06-01-2017 Thyroid stimulating hormone (TSH) 1.28 u[iU]/mL Invalid Interpretation Code 0.358-3.74 [facility] Phone: [phone] Office Visiton 01-16-2017 Dietary management education, guidance, and counseling (procedure) yes Invalid Interpretation Code [facility] Work Phone: [phone] Documentation of current medications (procedure) Done Invalid Interpretation Code [facility] Work Phone: [phone] Protein mass conc Done Invalid Interpretation Code [facility] Work Phone: [phone] 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 Left ventricular Ejection fraction 20 % Invalid Interpretation Code [facility] Work Phone: [phone] Office Visit: [facility] 09-19-19 Documentation of current medications (procedure) Done Invalid Interpretation Code [facility] Work Phone: [phone] Fall risk assessment No Invalid Interpretation Code [facility] Work Phone: [phone] Protein mass conc Done [facility] Work Phone: [phone] Clinical Lists Update: Clini monica Noteon 09-16-2016 Left ventricular Ejection fraction 20 % [facility] Work Phone: [phone] Lab Report: Basic Metabolic Profile (BMP)on 04-21-2016 Anion gap 11 mmol/L Invalid Interpretation Code 5-15 [facility] Work Phone: [phone] Anion gap 4 molar conc 11 Invalid Interpretation Code 5-15 [facility] Work Phone: [phone] Anion gap molar conc 11 mmol/L 5-15 [facility] Work Phone: [phone] Calcium mass conc 8.6 mg/dL Invalid Interpretation Code 8.5-10.1 [facility] Work Phone: [phone] Chloride molar conc 104 mmol/L Invalid Interpretation Code 98-107 [facility] Work Phone: [phone] CO2 24.0 mmol/L Invalid Interpretation Code 21.0-32.0 [facility] Work Phone: [phone] CO2 ppres (BldV) 24.0 mmol/L Invalid Interpretation Code 21.0-32.0 [facility] Work Phone: [phone] Creatinine mass conc 1.25 mg/dL Invalid Interpretation Code 0.70-1.30 [facility] Work Phone: [phone] eGFR (non-black) 73 mL/min/{1.73_m2} Invalid Interpretation Code >60 [facility] Work Phone: [phone] EST GFR - AA 73 mL/min Invalid Interpretation Code >60 [facility] Work Phone: [phone] GFR/1.73 sq M predicted among non-blacks MDRD vol rate/area (S/P/Bld) 60 mL/min/{1.73_m2} Invalid Interpretation Code >60 [facility] Work Phone: [phone] Glucose 82 mg/dL Invalid Interpretation Code 70-110 [facility] Work Phone: [phone] Glucose mass conc 82 mg/dL Invalid Interpretation Code 70-110 [facility] Work Phone: [phone] Potassium molar conc 4.0 mmol/L Invalid Interpretation Code 3.5-5.1 [facility] Work Phone: [phone] Sodium molar conc 139 mmol/L Invalid Interpretation Code 136-145 [facility] Work Phone: [phone] Urea nitrogen mass conc 20 mg/dL High 7-18 [facility] Work Phone: [phone] Urea nitrogen/Creatinine mass ratio 16.0 RATIO Invalid Interpretation Code 10-20 [facility] Work Phone: [phone] Lab Report: CBC-Complete Blo od Cnt No Diffon 04-21-2016 Erythrocyte distribution width Auto Ratio (RBC) 44.0 fL High 35.1-43.9 [facility] Work Phone: [phone] Erythrocyte distribution width Ratio (RBC) 44.0 fL High 35.1-43.9 [facility] Work Phone: [phone] Erythrocyte distribution width Ratio (RBC) 13.3 % 11.6-14.6 [facility] Work Phone: [phone] Erythrocytes (RBC) 4.55 10*6/uL Low 4.6-6.[address] [facility] Work Phone: [phone] Hematocrit (HCT) 41.9 % Invalid Interpretation Code 40-54 [facility] Work Phone: [phone] Hematocrit Volume Fraction (Bld) 41.9 % 40-54 [facility] Work Phone: [phone] Hemoglobin mass conc (Bld) 14.2 g/dL Invalid Interpretation Code 13.0-16.5 [facility] Work Phone: [phone] MCH 31.2 pg Invalid Interpretation Code 27.0-32.0 [facility] Work Phone: [phone] MCH Entitic mass (RBC) 31.2 pg 27.0-32.0 [facility] Work Phone: [phone] MCHC 33.9 G/GL Invalid Interpretation Code 32-36 [facility] Work Phone: [phone] MCHC mass conc (RBC) 33.9 G/GL 32-36 [facility] Work Phone: [phone] MCV 92.1 fL Invalid Interpretation Code 80-94 [facility] Work Phone: [phone] MCV Entitic volume (RBC) 92.1 fL 80-94 [facility] Work Phone: [phone] Platelet mean volume Entitic volume (Bld) 12.6 fL High 6.2-12.0 [facility] Work Phone: [phone] Platelets 197 10*3/mm3 Invalid Interpretation Code 150-450 [facility] Work Phone: [phone] Platelets #/vol (Bld) 197 10*3/mm3 150-450 [facility] Work Phone: [phone] PMV by Joyce 12.6 fL High 6.2-12.0 [facility] Work Phone: [phone] RBC #/vol (Bld) 4.55 10*6/uL Low 4.6-6.2 [facility] Work Phone: [phone] RDW-CA 13.3 % Invalid Interpretation Code 11.6-14.6 [facility] Work Phone: [phone] red blood cell distribution width, size density 44.0 fL High 35.1-43.9 [facility] Work Phone: [phone] WBC #/vol (Bld) 7.7 10*3/uL 4.4-11.0 [facility] Work Phone: [phone] WBC (Leukocytes) 7.7 10*3/uL Invalid Interpretation Code 4.4-11.0 [facility] Work Phone: [phone] Lab Report: Prothrombin Time w/INRon 04-21-2016 INR Coag RelTime (PPP) 1.3 {INR} Invalid Interpretation Code [facility] Work Phone: [phone] INR in blood by coagulation 1.3 {INR} Invalid Interpretation Code [facility] Work Phone: [phone] Prothrombin time (PT) Coag time (PPP) 15.3 s High 11.7-14.9 [facility] Work Phone: [phone] Lab Report: Urinalysis, Rout ine (Dipstick)on 04-21-2016 Albumin Ql (U) Negative Invalid Interpretation Code Negative [facility] Work Phone: [phone] Bilirubin Ql (U) Negative Invalid Interpretation Code Negative [facility] Work Phone: [phone] Clarity Nom (U) Clear Invalid Interpretation Code Clear [facility] Work Phone: [phone] Color Nom (U) Yellow Invalid Interpretation Code Yellow [facility] Work Phone: [phone] Glucose Ql (U) Normal mg/dl Invalid Interpretation Code Normal [facility] Work Phone: [phone] Ketones mass conc (U) Negative Invalid Interpretation Code Negative [facility] Work Phone: [phone] Leukocyte esterase Test strip Ql (U) Negative Invalid Interpretation Code Negative [facility] Work Phone: [phone] Nitrite Urine Negative Invalid Interpretation Code Negative [facility] Work Phone: [phone] Occult Blood, urine Negative Invalid Interpretation Code Negative [facility] Work Phone: [phone] OCCULT BLOOD-UR Negative Invalid Interpretation Code Negative [facility] Work Phone: [phone] pH (U) 5.0 [pH] 5.0 - 8.0 [facility] Work Phone: [phone] Specific gravity Refractometry Relative Density (U) 1.020 Invalid Interpretation Code 1.002-1.03 0 [facility] Work Phone: [phone] Urine, bilirubin presence Negative Invalid Interpretation Code Negative [facility] Work Phone: [phone] Urine, ketones presence Negative Invalid Interpretation Code Negative [facility] Work Phone: [phone] Urine, pH 5.0 [pH] Invalid Interpretation Code 5.0 - 8.0 [facility] Work Phone: [phone] Urine, protein Negative Invalid Interpretation Code Negative [facility] Work Phone: [phone] urobilinogen, urine, by dipstick Normal mg/dl Invalid Interpretation Code Normal [facility] Work Phone: [phone] Office Visiton 04-18-2016 Tobacco smoking status NHIS Tobacco smoking status NHIS Invalid Interpretation Code [facility] Work Phone: [phone] Tobacco smoking status NHIS Former smoker Invalid Interpretation Code [facility] Work Phone: [phone] Tobacco use [facility] Former smoker Invalid Interpretation Code [facility] Work Phone: [phone] Replaced Document: Chasidy E CG Observationson 04-18-2016 EKG QRS axis -3 deg Invalid Interpretation Code [facility] Work Phone: [phone] electrocardiogram interpretation Electronic ventricular pacemaker -possibly demand type Pacemaker ECG, No further analysis INSUFFICIENT DATA Invalid Interpretation Code [facility] Work Phone: [phone] GE use only - for [employer] import when terms are not otherwise specified 429 ms Invalid Interpretation Code [facility] Work Phone: [phone] Interpretation Electronic ventricul ar pacemaker -possibly demand type Pacemaker ECG, No further analysis INSUFFICIENT DATA Invalid Interpretation Code [facility] Work Phone: [phone] P Bask[place] 25 deg Invalid Interpretation Code [facility] Work Phone: [phone] P wave axis, electrocardiogram 25 deg Invalid Interpretation Code [facility] Work Phone: [phone] MO Interval 172 ms Invalid Interpretation Code [facility] Work Phone: [phone] MO interval, electrocardiogram 172 ms Invalid Interpretation Code [facility] Work Phone: [phone] Pulse (Heart Rate) 111 /min Invalid Interpretation Code [facility] Work Phone: [phone] QRS axis, electrocardiogram -3 deg Invalid Interpretation Code [facility] Work Phone: [phone] QRS Duration 114 ms Invalid Interpretation Code [facility] Work Phone: [phone] QRS duration, electrocardiogram 114 ms Invalid Interpretation Code [facility] Work Phone: [phone] QT Interval new path ms Invalid Interpretation Code [facility] Work Phone: [phone] QT interval, electrocardiogram new path ms Invalid Interpretation Code [facility] Work Phone: [phone] QTc [place] 429 ms Invalid Interpretation Code [facility] Work Phone: [phone] T B[place]in -29 deg Invalid Interpretation Code [facility] Work Phone: [phone] T wave axis, electrocardiogram -29 deg Invalid Interpretation Code [facility] Work Phone: [phone] 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 Albumin mass conc 3.7 g/dL Invalid Interpretation Code [facility] Work Phone: [phone] Alkaline phosphatase (ALP) 54 U/L Invalid Interpretation Code [facility] Work Phone: [phone] ALP enzyme act/vol (Bld) 54 U/L Invalid Interpretation Code [facility] Work Phone: [phone] ALT enzyme act/vol 37 U/L Invalid Interpretation Code [facility] Work Phone: [phone] AST enzyme act/vol 55 U/L Invalid Interpretation Code [facility] Work Phone: [phone] Bilirubin mass conc 0.70 mg/dL Invalid Interpretation Code [facility] Work Phone: [phone] Cholesterol in HDL mass conc 34.00 mg/dL Low [facility] Work Phone: [phone] Cholesterol in LDL mass conc 77.8 mg/dL Invalid Interpretation Code [facility] Work Phone: [phone] Cholesterol mass conc 134 mg/dL Invalid Interpretation Code [facility] Work Phone: [phone] Cholesterol.total/C holesterol in HDL mass ratio 3.9 {ratio} Invalid Interpretation Code [facility] Work Phone: [phone] Lipoprotein.pre-bet a mass conc 22.20 mg/dL Invalid Interpretation Code [facility] Work Phone: [phone] Magnesium mass conc 2.3 mg/dL Invalid Interpretation Code [facility] Work Phone: [phone] Protein mass conc 6.6 g/dL Invalid Interpretation Code [facility] Work Phone: [phone] Triglyceride mass conc 111 mg/dL Invalid Interpretation Code [facility] Work Phone: [phone] Office Visiton 03-06-2016 Dietary management education, guidance, and counseling (procedure) yes Invalid Interpretation Code [facility] Phone: [phone] Append: Dr. 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 10-13-2015 basophils as percent of blood leukocytes, manual count 0.0 % Invalid Interpretation Code [facility] Work Phone: [phone] eosinophils as percent of blood leukocytes, manual count 0.1 % Invalid Interpretation Code [facility] Work Phone: [phone] Lymphocytes/100 leukocytes 1.1 % Invalid Interpretation Code [facility] Work Phone: [phone] Lymphocytes/100 WBC (Bld) 1.1 % [facility] Work Phone: [phone] Monocytes/100 leukocytes 0.7 % High [facility] Work Phone: [phone] Monocytes/100 WBC (Bld) 0.7 % High [facility] Work Phone: [phone] neutrophils, band form as percent of blood leukocytes, manual count 4.3 % Invalid Interpretation Code [facility] Work Phone: [phone] 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 Thyrotropin Qn 1.25 u[iU]/mL Invalid Interpretation Code [facility] Work Phone: [phone] Vital Signs Date Time Vital Sign Value Performing Clinician Facility 11-11-2018 13:50-0400 BMI (Body Mass Index) 33.23 kg/m2 [facility] 11-11-2018 13:50-0400 Body weight 111.13 kg [facility] 11-11-2018 13:50-0400 BP Diastolic 46 mm[Hg] [facility] 11-11-2018 13:50-0400 BP Systolic 77 mm[Hg] [facility] 11-11-2018 13:50-0400 Height 182.9 cm [facility] 11-11-2018 13:50-0400 Pulse (Heart Rate) 75 /min [facility] 11-11-2018 13:50-0400 Respiratory Rate 20 /min [facility] 08-10-2018 11:21-0500 BMI (Body Mass Index) 27.8 kg/m2 [facility] 08-10-2018 11:21-0500 BP Diastolic 65 mm[Hg] [facility] 08-10-2018 11:21-0500 BP Systolic 116 mm[Hg] [facility] 08-10-2018 11:21-0500 Height 182.9 cm [facility] 08-10-2018 11:21-0500 Pulse (Heart Rate) 79 /min [facility] 08-10-2018 11:21-0500 Respiratory Rate 20 /min [facility] 08-10-2018 11:21-0500 Weight 92.99 kg [facility] 07-27-2018 10:13-0500 BMI (Body Mass Index) 27.8 kg/m2 [facility] 07-27-2018 10:13-0500 BP Diastolic 71 mm[Hg] [facility] 07-27-2018 10:13-0500 BP Systolic 109 mm[Hg] [facility] 07-27-2018 10:13-0500 Height 182.9 cm [facility] 07-27-2018 10:13-0500 Pulse (Heart Rate) 87 /min [facility] 07-27-2018 10:13-0500 Respiratory Rate 20 /min [facility] 07-27-2018 10:13-0500 Weight 92.99 kg [facility] 03-11-2018 13:40-0400 BMI (Body Mass Index) 27.8 kg/m2 [facility] 03-11-2018 13:40-0400 BP Diastolic 77 mm[Hg] [facility] 03-11-2018 13:40-0400 BP Systolic 115 mm[Hg] [facility] 03-11-2018 13:40-0400 Height 182.9 cm [facility] 03-11-2018 13:40-0400 Pulse (Heart Rate) 80 /min [facility] 03-11-2018 13:40-0400 Weight 92.99 kg [facility] 02-11-2018 10:00-0400 BMI (Body Mass Index) 27.8 kg/m2 [facility] 02-11-2018 10:00-0400 BP Diastolic 64 mm[Hg] [facility] 02-11-2018 10:00-0400 BP Systolic 104 mm[Hg] [facility] 02-11-2018 10:00-0400 Height 182.9 cm [facility] 02-11-2018 10:00-0400 Pulse (Heart Rate) 76 /min [facility] 02-11-2018 10:00-0400 Weight 92.99 kg [facility] 01-16-2017 11:34-0400 BMI (Body Mass Index) 29.97 kg/m2 [facility] Work Phone: 01-16-2017 11:34-0400 BP Diastolic 50 mm[Hg] [facility] Work Phone: 01-16-2017 11:34-0400 BP Systolic 100 mm[Hg] [facility] Work Phone: 01-16-2017 11:34-0400 Height 182.88 cm [facility] Work Phone: 01-16-2017 11:34-0400 Pulse (Heart Rate) 66 /min [facility] Work Phone: 01-16-2017 11:34-0400 Respiratory Rate 18 /min [facility] Work Phone: 01-16-2017 11:34-0400 Weight 100.25 kg [facility] Work Phone: 09-18-2016 14:18-0400 BMI (Body Mass Index) 29.6 kg/m2 Neftalyumi DeFinluis [facility] Work Phone: 09-18-2016 14:18-0400 BP Diastolic 68 mm[Hg] Neftalyumi DeFinis [facility] Work Phone: 09-18-2016 14:18-0400 BP Systolic 118 mm[Hg] Harumi DeFinis [facility] Work Phone: 09-18-2016 14:18-0400 Height 182.88 cm Harumi DeFinis [facility] Work Phone: 09-18-2016 14:18-0400 Pulse (Heart Rate) 64 /min Harumi DeFinis [facility] Work Phone: 09-18-2016 14:18-0400 Respiratory Rate 20 /min Harjackelyn DeFinis [facility] Work Phone: 09-18-2016 14:18-0400 Weight 99.02 kg Neftalyumi DeFinis [facility] Work Phone: 05-21-2016 14:44-0500 BSA (Body Surface Area) 2.19 m2 Harumi DeFinis [facility] Work Phone: 04-18-2016 14:38-0400 Heart rate 111 /min Harumi DeFinis [facility] Work Phone: 04-18-2016 13:51-0400 Pulse Oximetry 97 % Izabella DeFinis [facility] Work Phone: Encounters Encounter Date Encounter Type Care Provider Facility Start: 11-22-2022 End: 11-23-2022 Emergency department patient visit [facility] Start: 10-16-2021 ambulatory AVNI CRUZ [facility] Start: 10-02-2021 Documentation procedure Guadalupe garland MA [facility] Comment on above: Lumbar degenerative disc disease (Primary Dx); Spinal stenosis of lumbar region with neurogenic claudication Lumbar degenerative disc disease (Primary Dx) Start: 09-24-2021 End: 09-25-2021 Orders Only Avni Cruz MD Work Phone: [facility] Comment on above: Pain (Primary Dx) Spinal stenosis of l umbar region with neurogenic claudication (Primary Dx) Start: 09-24-2021 End: 09-24-2021 Office outpatient visit 15 minutes Avni Cruz MD Work Phone: [facility] Comment on above: Lumbar degenerative disc disease (Primary Dx) Start: 09-19-2021 End: 09-20-2021 ambulatory AVNI FREDRICK [facility] Start: 09-12-2021 ambulatory AVNI STRANGE [facility] Start: 09-11-2021 End: 09-12-2021 ambulatory GAKONA FREDRICK [facility] Start: 09-11-2021 End: 09-11-2021 Office outpatient visit 15 minutes Avni Cruz MD Work Phone: [facility] Comment on above: Lumbar degenerative disc disease (Primary Dx); Spinal stenosis of lumbar region with neurogenic claudication Start: 09-04-2021 Orders Only Avni Cruz MD Work Phone: [facility] Comment on above: Pain (Primary Dx) Start: 06-04-2020 End: 06-04-2020 Patient encounter procedure [facility] Tessa ОЛЬГА [facility] Start: 03-14-2019 End: 03-14-2019 Documentation procedure Tavia Cates [facility] Start: 11-11-2018 End: 11-11-2018 Clinical Support Avni Cruz Work Phone: [facility] Comment on above: Spondylolisthesis of lumbosacral region (Primary Dx); Lumbar degenerative disc disease Start: 11-10-2018 End: 11-10-2018 Documentation procedure Tavia Cates [facility] Start: 08-10-2018 End: 08-10-2018 Patient encounter procedure Avni Cruz Work Phone: [facility] Comment on above: Spondylolisthesis of lumbosacral region (Primary Dx); Lumbar degenerative disc disease Start: 08-09-2018 End: 08-09-2018 Documentation procedure Tavia Cates [facility] Start: 07-27-2018 End: 07-27-2018 Office outpatient visit 15 minutes Avni Cruz Work Phone: [facility] Comment on above: Spondylolisthesis of lumbosacral region (Primary Dx); Spinal stenosis of lumbosacral region Start: 05-12-2018 Patient encounter procedure Facility:[facility] Start: 03-18-2018 Patient encounter procedure Avni Yanrhys Facility:[place] Start: 03-11-2018 End: 03-11-2018 Office outpatient visit 15 minutes Avni Cruz Work Phone: [facility] Comment on above: Low back pain withou t sciatica, unspecified back pain laterality, unspecified chronicity (Primary Dx); Closed wedge compression fracture of second lumbar vertebra, initial encounter ([facility]) Start: 03-10-2018 Patient encounter KRISTINA Guevara [facility] Start: 03-08-2018 End: 03-08-2018 Patient encounter procedure Avni Allan Yanrhys Facility:[facility] Start: 02-11-2018 End: 02-11-2018 Patient encounter Avni Cruz Work Phone: [facility] Start: 02-11-2018 End: 02-11-2018 Office outpatient new 30 minutes Avin Cruz Work Phone: [facility] Start: 01-20-2018 Patient encounter KRISTINA Guevara [facility] Start: 01-04-2018 Patient encounter CÉSAR MOSQUEDA [facility] Start: 01-04-2018 Patient encounter CÉSAR MOSQUEDA [facility] Start: 12-29-2017 Patient encounter KRISTINA Guevara [facility] Start: 12-29-2017 Patient encounter procedure Facility:[id number] Start: 09-09-2017 Patient encounter KRISTINA Guevara [facility] Start: 07-05-2017 Emergency department patient visit [facility] Procedures Date Procedure Procedure Detail Performing Clinician Start: 11-11-2018 Inject spine lumbar/sacral Avni Cruz Work Phone: Start: 08-10-2018 Inject spine lumbar/sacral Avni Cruz Work Phone: Start: 03-16-2017 End: 03-21-2017 Interrogation eval remote 90 d 1/2/key cutter ld dfb Annita Carreon PA-C Work Phone: Start: 03-16-2017 End: 05-27-2017 Follow Up Appt 3 months Annita Carreon PA-C Work Phone: Start: 03-16-2017 End: 03-21-2017 Icd device interrogat remote Annita Carreon PA-C Work Phone: Start: 03-16-2017 End: 05-27-2017 Pacer Clinic Annita Carreon PA-C Work Phone: Start: 01-16-2017 End: 01-16-2017 Follow Up Appt 4 months Richard Mccollum Start: 01-16-2017 End: 01-16-2017 EVELINA Aleman MD Start: 01-16-2017 Preoperative cardiovascular examination Preoperative cardiovascular evaluation Moni Moreau RN Start: 01-16-2017 End: 01-16-2017 Dietary management education, guidance, and counseling Moni Moreau RN Start: 01-16-2017 End: 01-16-2017 Follow Up Appt 4 months Richard Mccollum Start: 01-16-2017 End: 01-16-2017 EVELINA Aleman MD Start: 12-04-2016 End: 01-16-2017 Follow Up Appt 3 months Richard Mccollum Start: 12-04-2016 End: 01-16-2017 Pacer Clinic José Aleman MD Start: 12-04-2016 End: 12-07-2016 Prgrmg eval implantable in prsn dual lead dfb José Aleman MD Start: 12-04-2016 End: 01-16-2017 Follow Up Appt 3 months Richard Mccollum Start: 12-04-2016 End: 12-07-2016 Icd device progr eval, dual José Aleman MD Start: 12-04-2016 End: 01-16-2017 Pacer Clinic José Aleman MD Start: 09-18-2016 End: 09-18-2016 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 PA-C Work Phone: Start: 09-18-2016 End: 09-18-2016 Follow Up Appt 4 months Annita Carreon PA-C Work Phone: Start: 09-18-2016 End: 09-18-2016 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 PA-C Work Phone: Start: 09-18-2016 End: 09-18-2016 Follow Up Appt 4 months Annita Carreon PA-C Work Phone: Start: 09-16-2016 End: 09-16-2016 Echocardiography José Aleman MD Start: 09-16-2016 End: 09-16-2016 Echocardiography José Aleman MD Start: 08-21-2016 End: 09-04-2016 Follow Up Appt 3 months Richard Mccollum Start: 08-21-2016 End: 08-22-2016 Interrogation eval remote 90 d 1/2/key cutter ld rosy Aleman MD Start: 08-21-2016 End: 09-04-2016 Pacer Clinic José Aleman MD Start: 08-21-2016 End: 09-04-2016 Follow Up Appt 3 months Richard Mccollum Start: 08-21-2016 End: 08-22-2016 Icd device interrogat remote José Aleman MD Start: 08-21-2016 End: 09-04-2016 Pacer Clinic José Aleman MD Start: 07-23-2016 End: 07-23-2016 Interrogation eval remote 90 d 1/2/key cutter ld rosy Aleman MD Start: 07-23-2016 End: 07-23-2016 Icd device interrogat remote José Aleman MD Start: 07-10-2016 End: 09-04-2016 Follow Up Appt 3 months Richard Mccollum Start: 07-10-2016 End: 09-04-2016 Pacer Clinic José Aleman MD Start: 07-10-2016 End: 07-10-2016 Prgrmg eval implantable in prsn dual lead rosy Aleman MD Start: 07-10-2016 End: 09-04-2016 Follow Up Appt 3 months Richard Mccollum Start: 07-10-2016 End: 07-10-2016 Icd device progr eval, dual José Aleman MD Start: 07-10-2016 End: 09-04-2016 Pacer Clinic José Aleman MD Start: 06-18-2016 End: 06-18-2016 Interrogation eval remote 90 d 1/2/key cutter ld rosy Aleman MD Start: 06-18-2016 End: 06-18-2016 Icd device interrogat remote José lAeman MD Start: 05-21-2016 End: 09-04-2016 Follow Up Appt 3 months Richard Mccollum Start: 05-21-2016 End: 05-21-2016 Follow Up Appt 4 months Richard Mccollum Start: 05-21-2016 End: 05-21-2016 EVELINA Aleman MD Start: 05-21-2016 End: 09-04-2016 Pacer Clinic José Aleman MD Start: 05-21-2016 End: 05-22-2016 Prgrmg eval implantable in prsn dual lead rosy Aleman MD Start: 05-21-2016 End: 09-04-2016 Follow Up Appt 3 months Richard Mccollum Start: 05-21-2016 End: 05-21-2016 Follow Up Appt 4 months Richard Mccollum Start: 05-21-2016 End: 05-22-2016 Icd device progr eval, dual José Aleman MD Start: 05-21-2016 End: 05-21-2016 EVELINA Aleman MD Start: 05-21-2016 End: 09-04-2016 Pacer Clinic José Aleman MD Start: 05-12-2016 End: 05-13-2016 Interrogation eval remote 90 d 1/2/key cutter ld dfb José Aleman MD Start: 05-12-2016 End: 05-13-2016 Icd device interrogat remote José Aleman MD Start: 05-05-2016 End: 09-04-2016 Follow Up Appt 1 month Annita Carreon PA-C Work Phone: Start: 05-05-2016 End: 09-04-2016 Pacer Clinic Annita Carreon PA-C Work Phone: Start: 05-05-2016 End: 05-05-2016 Prgrmg eval implantable in prsn dual lead dfb Annita Carreon PA-C Work Phone: Start: 05-05-2016 End: 09-04-2016 Follow Up Appt 1 month Annita Carreon PA-C Work Phone: Start: 05-05-2016 End: 05-05-2016 Icd device progr eval, dual Annita Carreon PA-C Work Phone: Start: 05-05-2016 End: 09-04-2016 Pacer Clinic Annita Carreon PA-C Work Phone: Start: 04-21-2016 End: 04-21-2016 Urinalysis Harumi DeFinis Start: 04-21-2016 End: 04-22-2016 *UA - Urinalysis w/o Eric Aleman MD Start: 04-21-2016 End: 04-22-2016 CBC W Auto Differential panel - Blood José Aleman MD Start: 04-21-2016 End: 04-22-2016 Chest x-ray José Aleman MD Start: 04-21-2016 End: 04-22-2016 INR in Platelet poor plasma by Coagulation assay José Aleman MD Start: 04-21-2016 End: 05-21-2016 Pacemaker Generator Change José Aleman MD Start: 04-21-2016 End: 04-21-2016 Prgrmg eval implantable in prsn dual lead giorgib José Aleman MD Start: 04-21-2016 End: 04-22-2016 *UA - Urinalysis w/o Eric Aleman MD Start: 04-21-2016 End: 04-22-2016 CBC W Auto Differential panel - Blood José Aleman MD Start: 04-21-2016 End: 04-22-2016 Chest x-ray José Aleman MD Start: 04-21-2016 End: 04-22-2016 Coagulation factor induced.INR assay in platelet poor plasma José Aleman MD Start: 04-21-2016 End: 04-21-2016 Icd device progr eval, dual José Aleman MD Start: 04-21-2016 End: 05-21-2016 Pacemaker Generator Change José Aleman MD Start: 04-18-2016 End: 04-22-2016 *ROMARIO Aleman MD Start: 04-18-2016 End: 04-18-2016 Ecg routine ecg w/least 12 lds w/i&r José Aleman MD Start: 04-18-2016 End: 04-18-2016 MMM José Aleman MD Start: 04-18-2016 End: 04-21-2016 Prgrmg eval implantable in prsn dual lead dfb José Aleman MD Start: 04-18-2016 End: 04-22-2016 *ROMARIO Aleman MD Start: 04-18-2016 End: 04-18-2016 Electrocardiogram, complete José Aleman MD Start: 04-18-2016 End: 04-18-2016 Follow Up Appt 3 months Richard Mccollum Start: 04-18-2016 End: 04-21-2016 Icd device progr eval, dual José Aleman MD Start: 04-18-2016 End: 04-18-2016 EVELINA Aleman MD Start: 04-08-2016 End: 05-21-2016 Pacer Clinic Annita Carreon PA-C Work Phone: Start: 04-08-2016 End: 05-21-2016 Prgrmg eval implantable in prsn dual lead dfb Annita Carreon PA-C Work Phone: Start: 04-08-2016 End: 05-21-2016 Follow Up Appt 3 months Annita Carreon PA-C Work Phone: Start: 04-08-2016 End: 05-21-2016 Icd device progr eval, dual Annita Carreon PA-C Work Phone: Start: 04-08-2016 End: 05-21-2016 Pacer Clinic Annita Carreon PA-C Work Phone: Start: 03-06-2016 End: 03-06-2016 Dietary management education, guidance, and counseling Izabella Maninder Start: 03-06-2016 End: 05-21-2016 Follow Up Appt 1 month José Aleman MD Start: 03-06-2016 End: 03-06-2016 Follow Up Appt 4 months Richard Mccollum Start: 03-06-2016 End: 03-06-2016 EVELINA Aleman MD Start: 03-06-2016 End: 05-21-2016 Pacer Clinic José Aleman MD Start: 03-06-2016 End: 03-07-2016 Prgrmg eval implantable in prsn dual lead giorgib José Aleman MD Start: 03-06-2016 End: 05-21-2016 Follow Up Appt 1 month José Aleman MD Start: 03-06-2016 End: 03-06-2016 Follow Up Appt 4 months Richard Mccollum Start: 03-06-2016 End: 03-07-2016 Icd device progr eval, dual José Aleman MD Start: 03-06-2016 End: 03-06-2016 MMM José Aleman MD Start: 03-06-2016 End: 05-21-2016 Pacer Clinic José Aleman MD Start: 02-01-2016 End: 02-01-2016 MMM Annita Carreon PA-C Work Phone: Start: 02-01-2016 End: 02-01-2016 Prgrmg eval implantable in prsn dual lead dfb Annita Carreon PA-C Work Phone: Start: 02-01-2016 End: 02-01-2016 Follow Up Appt 6 weeks Annita Carreon PA-C Work Phone: Start: 02-01-2016 End: 02-01-2016 MM Annita Carreon PA-C Work Phone: Start: 01-28-2016 End: 01-29-2016 Referral to director government José Aleman MD Start: 01-28-2016 End: 01-29-2016 Referral to director government José Aleman MD Start: 11-15-2015 End: 11-15-2015 Ecg routine ecg w/least 12 lds w/i&r José Aleman MD Start: 11-15-2015 End: 01-21-2016 Echocardiography Annita Carreon PA-C Work Phone: Start: 11-15-2015 End: 01-21-2016 Echocardiography Annita Carreon PA-C Work Phone: Start: 11-15-2015 End: 11-15-2015 Electrocardiogram, complete José Aleman MD Start: 10-31-2015 End: 11-13-2015 Ecg routine ecg w/least 12 lds w/i&r José Aleman MD Start: 10-31-2015 End: 10-31-2015 Echocardiography José Aleman MD Start: 10-31-2015 End: 10-31-2015 Follow Up Appt 3 months Richard Mccollum Start: 10-31-2015 End: 11-13-2015 Cardioversion José Aleman MD Start: 10-31-2015 End: 10-31-2015 Echocardiography José Aleman MD Start: 10-31-2015 End: 10-31-2015 Follow Up Appt 3 months Richard Mccollum Start: 10-29-2015 Placement of stent in coronary artery Status post cardiac stent placement Moni Moreau RN Start: 10-29-2015 Placement of stent in coronary artery Status post cardiac stent placement Izabella Dickens Start: 10-09-2015 End: 10-09-2015 Ecg routine ecg w/least 12 lds w/i&r José Aleman MD Start: 10-09-2015 End: 10-09-2015 MMM José Aleman MD Start: 10-09-2015 End: 10-09-2015 Electrocardiogram, complete José Aleman MD Start: 10-09-2015 End: 10-09-2015 Follow Up Appt 6 weeks José Aleman MD Start: 10-09-2015 End: 10-09-2015 MMRichard Aleman MD Start: 10-08-2015 End: 10-31-2015 *BMP José Aleman MD Start: 10-08-2015 End: 10-31-2015 *BMP José Aleman MD Start: 09-19-2015 End: 09-19-2015 Follow Up Appt 3 months Richard Mccollum Start: 09-19-2015 End: 09-26-2015 Left & Right Heart Cath Richard Mccollum Start: 09-19-2015 End: 09-19-2015 EVELINA Aleman MD Start: 09-19-2015 End: 09-19-2015 Follow Up Appt 3 months Richard Mccollum Start: 09-19-2015 End: 09-26-2015 Left & Right Heart Cath Richard Mccollum Start: 09-19-2015 End: 09-19-2015 EVELINA Aleman MD Start: 09-10-2015 End: 09-19-2015 Echocardiography José Aleman MD Start: 09-10-2015 End: 09-19-2015 Nuclear stress test -Abigail Aleman MD Start: 09-10-2015 End: 09-19-2015 Echocardiography José Aleman MD Start: 09-10-2015 End: 09-19-2015 Nuclear stress test -Abigail Aleman MD Plan of Treatment Date Care Activity Detail Author Start: 07-06-2027 Tetanus vaccination [facility] Start: 09-11-2021 End: 09-11-2021 Patient encounter procedure 09/11/2021 Office Visit Orthopedic Surgery Viau, Avni Strange MD [address] [place] [address] [facility] Start: 02-13-2021 Influenza vaccination Sequenti al Influenza Vaccine (#1) [facility] Start: 02-23-2019 End: 02-23-2019 Clinical Support 02/23/2019 Clinical Support Orthopedic Surgery Avni Cruz MD [address] [place] [address] [phone] [facility] Start: 02-13-2019 Influenza vaccinatio n given [facility] Start: 11-11-2018 End: 11-11-2018 Clinical Support 11/11/2018 Clinical Support Orthopedic Surgery Avni Cruz MD [address] [place] [id number] [phone] [facility] Start: 11-10-2018 End: 11-10-2018 Clinical Support 11/10/2018 Clinical Support Orthopedic Surgery Avni Cruz MD [address] [place] [phone] [facility] Start: 08-10-2018 End: 08-10-2018 Clinical Support 08/10/2018 Clinical Support Orthopedic Surgery Avni Cruz MD [address] [place] [id number] [phone] [facility] Start: 02-13-2018 Influenza vaccination SEQUENTI AL INFLUENZA VACCINE (#1) [facility] Start: 02-13-2018 Influenza vaccinatio n given SEQUENTIAL INFLUENZA VACCINE (#1) [facility] Start: 06-26-2017 End: 06-26-2017 Appointment Appointment [facility] Work Phone: Start: 06-01-2017 End: 06-01-2017 Appointment Appointment [facility] Work Phone: Start: 03-20-2017 Pneumococcal vaccination PNEUM OCOCCAL VACCINE AGE 65+ (2 of 2 - PPSV23) [facility] Start: 03-20-2017 Pneumococcal Vaccine : Age 65+ (1 of 1 - PPSV23) Pneumococcal Vaccine: Age 65+ (1 of 1 - PPSV23) [facility] Start: 03-20-2017 Pneumococcal Vaccine : Age 65+ (2 - PPSV23 or PCV20) Pneumococcal Vaccine: Age 65+ (2 - PPSV23 or PCV20) [facility] Start: 03-16-2017 End: 03-21-2017 Follow Up Appt 3 months Follow Up Appt 3 months [facility] Work Phone: Start: 03-16-2017 End: 03-21-2017 Pacer Clinic Pacer Clinic [facility] Work Phone: Start: 03-16-2017 End: 05-27-2017 Follow Up Appt 3 months Follow Up Appt 3 months [facility] Work Phone: Start: 03-16-2017 End: 05-27-2017 Pacer Clinic Pacer Clinic [facility] Work Phone: Start: 03-12-2017 End: 03-12-2017 Appointment Appointment [facility] Work Phone: Start: 01-16-2017 End: 01-16-2017 Follow Up Appt 4 months Follow Up Appt 4 months [facility] Work Phone: Start: 01-16-2017 End: 01-16-2017 MMM MMM [facility] Work Phone: Start: 01-16-2017 End: 01-16-2017 Appointment Appointment [facility] Work Phone: Start: 01-16-2017 End: 01-16-2017 Follow Up Appt 4 months Follow Up Appt 4 months [facility] Work Phone: Start: 01-16-2017 End: 01-16-2017 MMM MMM [facility] Work Phone: Start: 12-04-2016 End: 01-16-2017 Follow Up Appt 3 months Follow Up Appt 3 months [facility] Work Phone: Start: 12-04-2016 End: 01-16-2017 Pacer Clinic Pacer Clinic [facility] Work Phone: Start: 12-04-2016 End: 01-16-2017 Follow Up Appt 3 months Follow Up Appt 3 months [facility] Work Phone: Start: 12-04-2016 End: 01-16-2017 Pacer Clinic Pacer Clinic [facility] Work Phone: Start: 09-18-2016 End: 09-18-2016 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 [facility] Work Phone: Start: 09-18-2016 End: 09-18-2016 Follow Up Appt 4 months Follow Up Appt 4 months [facility] Work Phone: Start: 09-18-2016 End: 09-18-2016 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 [facility] Work Phone: Start: 09-18-2016 End: 09-18-2016 Follow Up Appt 4 months Follow Up Appt 4 months [facility] Work Phone: Start: 08-21-2016 End: 09-04-2016 Follow Up Appt 3 months Follow Up Appt 3 months [facility] Work Phone: Start: 08-21-2016 End: 09-04-2016 Pacer Clinic Pacer Clinic [facility] Work Phone: Start: 08-21-2016 End: 09-04-2016 Follow Up Appt 3 months Follow Up Appt 3 months [facility] Work Phone: Start: 08-21-2016 End: 09-04-2016 Pacer Clinic Pacer Clinic [facility] Work Phone: Start: 07-10-2016 End: 09-04-2016 Follow Up Appt 3 months Follow Up Appt 3 months [facility] Work Phone: Start: 07-10-2016 End: 09-04-2016 Pacer Clinic Pacer Clinic [facility] Work Phone: Start: 07-10-2016 End: 09-04-2016 Follow Up Appt 3 months Follow Up Appt 3 months [facility] Work Phone: Start: 07-10-2016 End: 09-04-2016 Pacer Clinic Pacer Clinic [facility] Work Phone: Start: 05-21-2016 End: 05-21-2016 Echocardiography Echocardiogram (complete) [facility] Work Phone: Start: 05-21-2016 End: 09-04-2016 Follow Up Appt 3 months Follow Up Appt 3 months [facility] Work Phone: Start: 05-21-2016 End: 05-21-2016 Follow Up Appt 4 months Follow Up Appt 4 months [facility] Work Phone: Start: 05-21-2016 End: 05-21-2016 MMM MMM [facility] Work Phone: Start: 05-21-2016 End: 09-04-2016 Pacer Clinic Pacer Clinic [facility] Work Phone: Start: 05-21-2016 End: 05-21-2016 Echocardiography Echocardiogram (complete) [facility] Work Phone: Start: 05-21-2016 End: 09-04-2016 Follow Up Appt 3 months Follow Up Appt 3 months [facility] Work Phone: Start: 05-21-2016 End: 05-21-2016 Follow Up Appt 4 months Follow Up Appt 4 months [facility] Work Phone: Start: 05-21-2016 End: 05-21-2016 MMM MMM [facility] Work Phone: Start: 05-21-2016 End: 09-04-2016 Pacer Clinic Pacer Clinic [facility] Work Phone: Start: 05-05-2016 End: 09-04-2016 Follow Up Appt 1 month Follow Up Appt 1 month [facility] Work Phone: Start: 05-05-2016 End: 09-04-2016 Pacer Clinic Pacer Clinic [facility] Work Phone: Start: 05-05-2016 End: 09-04-2016 Follow Up Appt 1 month Follow Up Appt 1 month [facility] Work Phone: Start: 05-05-2016 End: 09-04-2016 Pacer Clinic Pacer Clinic [facility] Work Phone: Start: 04-21-2016 End: 04-22-2016 *UA - Urinalysis w/o Micro *UA - Urinalysis w/o Micro [facility] Work Phone: Start: 04-21-2016 End: 04-22-2016 CBC W Auto Differential panel - Blood *CBC without Diff [facility] Work Phone: Start: 04-21-2016 End: 04-22-2016 Chest x-ray X-Ray, Chest, PA & Lateral [facility] Work Phone: Start: 04-21-2016 End: 04-22-2016 INR Coag RelTime (PPP) *PT/INR [facility] Work Phone: Start: 04-21-2016 End: 04-22-2016 Pacemaker Generator Change Pacemaker Generator Change [facility] Work Phone: Start: 04-21-2016 End: 04-22-2016 *UA - Urinalysis w/o Micro *UA - Urinalysis w/o Micro [facility] Work Phone: Start: 04-21-2016 End: 04-22-2016 CBC W Auto Differential panel - Blood *CBC without Diff [facility] Work Phone: Start: 04-21-2016 End: 04-22-2016 Chest x-ray X-Ray, Chest, PA & Lateral [facility] Work Phone: Start: 04-21-2016 End: 04-22-2016 Coagulation factor induced.INR assay in platelet poor plasma *PT/INR [facility] Work Phone: Start: 04-21-2016 End: 04-22-2016 Pacemaker Generator Change Pacemaker Generator Change [facility] Work Phone: Start: 04-18-2016 End: 04-22-2016 *BMP *BMP [facility] Work Phone: Start: 04-18-2016 End: 04-18-2016 Ecg routine ecg w/least 12 lds w/i&r EKG (In office) [facility] Work Phone: Start: 04-18-2016 End: 04-18-2016 Follow Up Appt 3 months Follow Up Appt 3 months [facility] Work Phone: Start: 04-18-2016 End: 04-18-2016 MMM MMM [facility] Work Phone: Start: 04-18-2016 End: 04-22-2016 *BMP *BMP [facility] Work Phone: Start: 04-18-2016 End: 04-18-2016 Electrocardiogram, complete EKG (In office) [facility] Work Phone: Start: 04-18-2016 End: 04-18-2016 Follow Up Appt 3 months Follow Up Appt 3 months [facility] Work Phone: Start: 04-18-2016 End: 04-18-2016 MMM MMM [facility] Work Phone: Start: 04-08-2016 End: 05-21-2016 Follow Up Appt 3 months Follow Up Appt 3 months [facility] Work Phone: Start: 04-08-2016 End: 05-21-2016 Pacer Clinic Pacer Clinic [facility] Work Phone: Start: 04-08-2016 End: 05-21-2016 Follow Up Appt 3 months Follow Up Appt 3 months [facility] Work Phone: Start: 04-08-2016 End: 05-21-2016 Pacer Clinic Pacer Clinic [facility] Work Phone: Start: 03-06-2016 End: 05-21-2016 Follow Up Appt 1 month Follow Up Appt 1 month [facility] Work Phone: Start: 03-06-2016 End: 03-06-2016 Follow Up Appt 4 months Follow Up Appt 4 months [facility] Work Phone: Start: 03-06-2016 End: 03-06-2016 MMM MMM [facility] Work Phone: Start: 03-06-2016 End: 05-21-2016 Pacer Clinic Pacer Clinic [facility] Work Phone: Start: 03-06-2016 End: 05-21-2016 Follow Up Appt 1 month Follow Up Appt 1 month [facility] Work Phone: Start: 03-06-2016 End: 03-06-2016 Follow Up Appt 4 months Follow Up Appt 4 months [facility] Work Phone: Start: 03-06-2016 End: 03-06-2016 MMM MMM [facility] Work Phone: Start: 03-06-2016 End: 05-21-2016 Pacer Clinic Pacer Clinic [facility] Work Phone: Start: 02-01-2016 End: 02-01-2016 Follow Up Appt 6 weeks Follow Up Appt 6 weeks [facility] Work Phone: Start: 02-01-2016 End: 02-01-2016 MMM MMM [facility] Work Phone: Start: 02-01-2016 End: 02-01-2016 Follow Up Appt 6 weeks Follow Up Appt 6 weeks [facility] Work Phone: Start: 02-01-2016 End: 02-01-2016 MMM MMM [facility] Work Phone: Start: 01-28-2016 End: 01-28-2016 Cardiac Referral Cardiac Referral Khang Espinal [facility] [place], [address] [place] [address], [id number] [facility] Work Phone: Start: 01-28-2016 End: 01-28-2016 Cardiac Referral Cardiac Referral Khang Espinal [facility] [place], [address] [place] [address], [phone] [facility] Work Phone: Start: 11-15-2015 End: 11-15-2015 Ecg routine ecg w/least 12 lds w/i&r EKG (In office) [email or web address] Work Phone: Start: 11-15-2015 End: 01-11-2016 Echocardiography Echocardiogram (complete) [email or web address] Work Phone: Start: 11-15-2015 End: 01-11-2016 Echocardiography Echocardiogram (complete) [facility] Work Phone: Start: 11-15-2015 End: 11-15-2015 Electrocardiogram, complete EKG (In office) [email or web address] Work Phone: Start: 10-31-2015 End: 10-31-2015 Cardioversion Cardioversion [facility] Work Phone: Start: 10-31-2015 End: 10-31-2015 Follow Up Appt 3 months Follow Up Appt 3 months [facility] Work Phone: Start: 10-31-2015 End: 10-31-2015 MMM MMM [email or web address] Work Phone: Start: 10-31-2015 End: 10-31-2015 Cardioversion Cardioversion [email or web address] Work Phone: Start: 10-31-2015 End: 10-31-2015 Follow Up Appt 3 months Follow Up Appt 3 months [email or web address] Work Phone: Start: 10-31-2015 End: 10-31-2015 MMM MMM [email or web address] Work Phone: Start: 10-09-2015 End: 10-09-2015 Ecg routine ecg w/least 12 lds w/i&r EKG (In office) [facility] Work Phone: Start: 10-09-2015 End: 10-09-2015 Follow Up Appt 6 weeks Follow Up Appt 6 weeks [facility] Work Phone: Start: 10-09-2015 End: 10-09-2015 MMM MMM [email or web address] Work Phone: Start: 10-09-2015 End: 10-09-2015 Electrocardiogram, complete EKG (In office) [facility] Work Phone: Start: 10-09-2015 End: 10-09-2015 Follow Up Appt 6 weeks Follow Up Appt 6 weeks [facility] Work Phone: Start: 10-09-2015 End: 10-09-2015 MMM MMM [facility] Work Phone: Start: 10-08-2015 End: 10-31-2015 *BMP *BMP [facility] Work Phone: Start: 10-08-2015 End: 10-31-2015 *BMP *BMP [facility] Work Phone: Start: 09-19-2015 End: 09-19-2015 Follow Up Appt 3 months Follow Up Appt 3 months [facility] Work Phone: Start: 09-19-2015 End: 09-19-2015 Left & Right Heart Cath Left & Right Heart Cath [facility] Work Phone: Start: 09-19-2015 End: 09-19-2015 MMM MMM [facility] Work Phone: Start: 09-19-2015 End: 09-19-2015 Follow Up Appt 3 months Follow Up Appt 3 months [facility] Work Phone: Start: 09-19-2015 End: 09-19-2015 Left & Right Heart Cath Left & Right Heart Cath [facility] Work Phone: Start: 09-19-2015 End: 09-19-2015 MMM MMM [facility] Work Phone: Start: 09-10-2015 End: 09-11-2015 Echocardiography Echocardiogram (complete) [facility] Work Phone: Start: 09-10-2015 End: 09-11-2015 Nuclear stress test -Lexiscan Nuclear stress test -Lexiscan [facility] Work Phone: Start: 09-10-2015 End: 09-11-2015 Echocardiography Echocardiogram (complete) [facility] Work Phone: Start: 09-10-2015 End: 09-11-2015 Nuclear stress test -Lexiscan Nuclear stress test -Lexiscan [facility] Work Phone: Start: 2009 Fall risk assessment [facility] Start: 2009 Pneumococcal vaccination PNEUM OCOCCAL VACCINE AGE 65+ (1 of 2 - PCV13) [facility] Start: 1994 Administration of he rpes zoster vaccine ZOSTER VACCINES (1 of 2) [facility] Start: 1994 ZOSTER VACCINES (1 of 2) ZOSTE R VACCINES (1 of 2) [facility] Start: 1962 Hepatitis C screening Hepatitis C Sc reening [facility] Start: 1956 Depression screening using PHQ-9 (Patient Health Questionnaire 9) score Depression Screening (PHQ-2/9) [facility] Start: 1949 COVID-19 Vaccine (1) COVID-19 Vaccin e (1) [facility] Start: 1947 History and physical examination, annual for health maintenance Wellness Visit [facility] Start: 1944 Colonoscopy COLONOSCOPY [facility] Start: 1944 Fall risk assessment Falls Risk Asse ssment [facility] Start: 1944 Prostate specific an tigen measurement PSA Level [facility] Start: 1944 Protein mass conc COLONOSCOPY [facility] Start: 1944 Screening colonoscopy COLONOSCOPY [facility] Start: 1944 Screening for malign ant neoplasm of colon Colorectal Cancer Screening: Colonoscopy [facility] Start: 1944 Tetanus vaccination TETANUS EVERY 10 YR [facility] End: 09-11-2022 CT of lumbar spine without contrast CT Lumbar Spine Without Contrast Imaging Routine Lumbar degenerative disc disease Spinal stenosis of lumbar region with neurogenic claudication 1 Occurrences starting 09/11/2021 until 09/11/2022 [facility] Work Phone: Comment on above: 1 Occurrences starti ng 09/11/2021 until 09/11/2022 End: 02-11-2019 MR Lumbar Spine Without Contrast MR Lumbar Spine Without Contrast Routine Low back pain without sciatica, unspecified back pain laterality, unspecified chronicity 1 Occurrences starting 02/11/2018 until 02/11/2019 [facility] End: 09-24-2022 XR Hip Left 2-3 Views (Routine) XR Hip Left 2-3 Views (Routine) Imaging Routine Pain 1 Occurrences starting 09/24/2021 until 09/24/2022 [facility] Work Phone: Comment on above: 1 Occurrences starti ng 09/24/2021 until 09/24/2022 XR Hip Left 2-3 View s (Routine) XR Hip Left 2-3 Views (Routine) Imaging Routine Pain 09/24/2021 9:32 AM EDT [facility] End: 09-04-2022 XR Lumbar Spine 2-3 Views (Standard) XR Lumbar Spine 2-3 Views (Standard) Imaging Routine Pain 1 Occurrences starting 09/04/2021 until 09/04/2022 [facility] Work Phone: Comment on above: 1 Occurrences starti ng 09/04/2021 until 09/04/2022 Payers Date Payer Category Payer Medicare [employer] [facility] MEDICARE PLAN (HMO) xxxxxxxx 2018-Present xxxxxxxx [id number] 2018 Medicare [id number] 2018 Medicare [id number] 2015 Medicare [id number] 2013 Medicare [id number] 1944 Unknown [id number] 1944 Unknown [id number] 1944 Unknown [id number] 1944 Unknown [id number] 1944 Unknown [id number] 1944 Unknown [id number] 1944 Unknown [id number] 1944 Unknown [id number] [id number] 1944 Unknown [id number] 1944 Unknown [id number] Unknown Social History Date Type Detail Facility Start: 02-11-2018 End: 03-11-2018 Tobacco smoking status NHIS Never smoker [facility] Start: 1945 Sex Assigned At Not on file O [facility] Start: 11-11-2018 End: 09-24-2021 Alcohol intake Current non-drinker of alcohol (finding) [facility] Start: 03-11-2018 Tobacco use and exposure Smokeless t obacco non-user [facility] Start: 09-01-2021 End: 09-24-2021 Exposure to SARS-CoV-2 (event) Not sure [facility] History of Present illness Narrative 10-02-2021 Guadalupe Foy MA - 10/02/2021 12:42 PM EDT Note Date & Type Note Facility 10-02-2021 History of Presen t illness Narrative [employer] denied epidural injection. Ref number- [id number]. Patient notified. documented in this encounter [facility] History of Present illness Narrative 09-24-2021 Avni Cruz MD - 09/24/2021 10:11 AM EDT Note Date & Type Note Facility 09-24-2021 History of Presen t illness Narrative [facility] [address] ([address]) [facility] [address] [facility] [phone] Gladys Vidal . is a 76 y.o. male being seen today, 09/24/21, Chief Complaint Patient presents with Lower Back - Procedure, Follow-up [chief complaint] low back pain radiation left lower extremity HPI Dictation: Returns with persistent symptoms with radicular left leg pain difficulty stand or walk any distance with pain in the posterior calf and plantar aspect of his left foot with CT performed to show evidence of his postsurgical changes L3-L5 with fusion laminectomy chronic L2-3 endplate compression deformity noted no acute findings no significant spinal canal stenosis moderate to severe neural foraminal stenosis is present throughout the lumbar spine most significant at the L5-S1 level [hpi] Physical Exam Dictation: [PE] wrist pain with lumbar flexion paraspinal spasm pain rating is noted in with does seem to be most likely an L5 dermatome which could be consistent with a foraminal narrowing Assessment and Plan Dictation: [AP] and I did remotely recommend further conservative treatment namely p.o. Tylenol I gave him tramadol for pain control and I am recommending a caudal epidural steroid injection with recommendations to follow I have reviewed all relevant histories, medications, allergies, and problem list items with Gladys Vidal during this visit. Review of Systems Constitutional: Negative for chills and fever. HENT: Negative for congestion. Respiratory: Negative for shortness of breath. Cardiovascular: Negative for chest pain. Gastrointestinal: Negative for diarrhea, nausea and vomiting. Neurological: Negative for headaches. Psychiatric/Behavioral: Negative for behavioral problems. There were no vitals taken for this visit. Imaging: No results found. 1. Lumbar degenerative disc disease Return in about 1 week (around 10/01/2021). Avni Cruz MD documented in this encounter [facility] History of Present illness Narrative 09-11-2021 Avni Cruz MD - 09/11/2021 2:49 PM EDT Note Date & Type Note Facility 09-11-2021 History of Presen t illness Narrative [facility] [address] ([address]) [facility] [address] [facility] [phone] Gladys Vidal Sr. is a 76 y.o. male being seen today, 09/11/21, No chief complaint on file. [chief complaint] low back pain radiation left lower extremity HPI Dictation: Has history of prior laminectomy fusion L3-L5 with last CT scan showing central stenosis at 5 1 foraminal narrowing and a chronic fracture of L2 this was performed in February 2018 indicates over the last several weeks is developed progressive difficulty to stand or walk any distance with pain rating down the posterior calf plantar foot of his left leg and what seems to be an S1 dermatome with x-rays again showing changes consistent with prior x-rays CT no acute findings[hpi] Physical Exam Dictation: [PE] does see no mildly positive leg raising test on the left there is no motor sense reflex asymmetry Assessment and Plan Dictation: [AP] S post laminectomy fusion L3-L5 with symptoms consistent with neurogenic claudication as well as radicular left leg pain what seems to be an S1 dermatome plan will obtain a CT unable to have MRI due to defibrillator I have reviewed all relevant histories, medications, allergies, and problem list items with Gladys Vidal SrMariela during this visit. Review of Systems Constitutional: Negative for chills and fever. HENT: Negative for congestion. Respiratory: Negative for shortness of breath. Cardiovascular: Negative for chest pain. Gastrointestinal: Negative for diarrhea, nausea and vomiting. Neurological: Negative for headaches. Psychiatric/Behavioral: Negative for behavioral problems. There were no vitals taken for this visit. Imaging: No results found. 1. Lumbar degenerative disc disease CT Lumbar Spine Without Contrast 2. Spinal stenosis of lumbar region with neurogenic claudication CT Lumbar Spine Without Contrast Return for postop evaluation after scheduled surgery. Avni Cruz MD documented in this encounter [facility] Evaluation note Note Date & Type Note Facility Evaluation note Diagnosis Pain- Primary Generalized pain documented in this encounter [facility] Evaluation note Note Date & Type Note Facility Evaluation note Diagnosis Lumbar degenerative disc disease- Primary Spinal stenosis of lumbar region with neurogenic claudication documented in this encounter [facility] Evaluation note Note Date & Type Note Facility Evaluation note Diagnosis Pain- Primary Generalized pain documented in this encounter [facility] Evaluation note Note Date & Type Note Facility Evaluation note Diagnosis Lumbar degenerative disc disease- Primary documented in this encounter [facility] Evaluation note Note Date & Type Note Facility Evaluation note Diagnosis Spinal stenosis of lumbar region with neurogenic claudication- Primary documented in this encounter [facility] Evaluation note Note Date & Type Note Facility Evaluation note Diagnosis Lumbar degenerative disc disease- Primary Spinal stenosis of lumbar region with neurogenic claudication documented in this encounter [facility] Evaluation note Note Date & Type Note Facility Evaluation note Diagnosis Lumbar degenerative disc disease- Primary documented in this encounter [facility] Summary Purpose Family History No Family History Records FoundNo Family History Records FoundNo Family History Records FoundNo Family History Records FoundNo Family History Records FoundNo Family History Records FoundNo Family History Records FoundNo Family History Records FoundNo Family History Records FoundNo Family History Records FoundNo Family History Records Found Advance Directives No Advanced Directives Records FoundDocuments on File Type Date Recorded 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 Advance Directives and Living Will Documents on File Type Date Recorded 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 Advance Directives and Livin g Will 09/11/2021 1:51 PM Documents on File Type Date Recorded 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 Advance Directives and Livin g Will 09/24/2021 9:25 AM Documents on File Type Date Recorded 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 Advance Directives and Livin g Will 09/24/2021 9:25 AM Assessments Diagnosis Low back pain without sciati ca, unspecified back pain laterality, unspecified chronicity - Primary Diagnosis Low back pain without sciati ca, unspecified back pain laterality, unspecified chronicity - Primary Closed wedge compression fra cture of second lumbar vertebra, initial encounter ([facility]) Diagnosis Spondylolisthesis of lumbosacral region- Primary Spinal stenosis of lumbosacral region Diagnosis Spondylolisthesis of lumbosacral region- Primary Lumbar degenerative disc disease Diagnosis Spondylolisthesis of lumbosacral region- Primary Lumbar degenerative disc disease History of Present Illness * Avni Cruz MD - 07/27/2018 10:59 AM EST [facility] [address] (11) [facility] [address] [facility] [id number] Gladys Rivera Emily ZarateMariela is a 73 y.o. male being seen today, 07/27/18, Chief Complaint Patient presents with Lower Back - Pain, Follow-up [chief complaint] low back pain HPI Dictation: [hpi] patient is here requesting a epidural injection last injection performed 04/08/2018 he indicates almost 100% pain relief lasting for at least a week past 3 months. He does have a diagnosis of adegenerative spinal listhesis 5 on 1 status post laminectomy with foraminal stenosis again he like to avoid surgery and feels he had an excellent response from the epidural injection with all activities daily living been severely aggravating tickly bending lifting standing walking which is restricted for any prolonged period particularly standing Physical Exam Dictation: [PE] restriction lumbar flexion extension paraspinal spasm no gross motor or sensory reflex asymmetry lower extremities Assessment and Plan Dictation: [AP] stenosis is noted with previous excellent response to epidural injection he like to proceed with another injection and will request authorization again through his insurance I have reviewed all relevant histories, medications, allergies, and problem list items with Gladys Khalil Sr. during this visit. Review of Systems Constitutional: Negative for chills and fever. HENT: Negative for congestion. Respiratory: Negative for shortness of breath. Cardiovascular: Negative for chest pain. Gastrointestinal: Negative for diarrhea, nausea and vomiting. Neurological: Negative for headaches. Psychiatric/Behavioral: Negative for behavioral problems. BP 109/71 Pulse 87 Resp (!) 20 Ht 6' Wt 93 kg (205 lb) BMI 27.80 kg/m Imaging: No results found. SNOMED CT(R) 1. Spondylolisthesis of lumbosacral region SPONDYLOLISTHESIS L5/S1 LEVEL 2. Spinal stenosis of lumbosacral region SPINAL STENOSIS Return in about 2 weeks (around 08/10/2018). Avni Cruz MD in this encounter* Avni Cruz MD - 08/10/2018 11:34 AM EST Associated Order(s): Epidural Injection Post-Procedure Diagnose(s): Spondylolisthesis of lumbosacral region; Lumbar degenerative disc disease Epidural Injection Performed by: Avni Cruz MD Authorized by: Avni Cruz MD Medications: 120 mg triamcinolone acetonide 40 mg/mL Anesthetic used: Lidocaine 1% PF * Avni Cruz MD - 08/10/2018 11:33 AM EST PROCEDURE NOTE Name: Gladys Vidal Sr. Date of Procedure: @DATE@ Surgeon: Avni Cruz MD Procedure Performed: Caudal Epidural Steroid Injection Procedure Diagnosis: SNOMED CT(R) 1. Spondylolisthesis of lumbosacral region SPONDYLOLISTHESIS L5/S1 LEVEL 2. Lumbar degenerative disc disease DEGENERATION OF LUMBAR INTERVERTEBRAL DISC This procedure is being done for therapeutic purposes. INDICATIONS FOR PROCEDURE: The patient agrees to the procedure after risks and benefits were discussed and questions were answered. The patient has failed other treatment modalities prior to the procedure. These modalities include, but are not limited to, medication trials, physical therapy, and other modalities of pain management. Subsequent procedures are only performed if the patient continuesto have pain or symptomology that warrants the procedure. DESCRIPTION OF PROCEDURE: The patient was taken to the examination room and informed consent was obtained. The patient was placed on the table in prone position. The patient's skin was prepped and draped in standard surgical fashion with Betadine. Skin was anesthetized using 1% preservative free lidocaine. An 22 gauge spinal needle was inserted in caudal space lumbar spine . After placement confirmed , a total of 120 MG of Kenalog was injected without any complications. The needle was withdrawnintact. The patient tolerated the procedure well and was subsequently discharged in stable condition without sequela. Procedure/Injection verified with Time Out Yes Procedures * Avni Cruz MD - 08/10/2018 11:32 AM EST [facility] [address] (11) [facility] [address] [facility] [phone] Gladys Vidal Sr. is a 73 y.o. male being seen today, 08/10/18, Chief Complaint Patient presents with Pain back [chief complaint] chronic low back pain HPI Dictation: [hpi] returns her chronic low back pain for which epidural injections relieve his pain at least 80%with a diagnosis of a degenerative spinal listhesis 511 degenerative disc disease status post laminectomy with foraminal stenosis surgery requesting injection with good response to prior injections of greatest pain in 6 or 7 out of 10 today for activity of daily living been equally active Physical Exam Dictation: [PE] increased pain lumbar flexion paraspinal spasm no radicular pain Assessment and Plan Dictation: [AP] epidural standard caudal approach performed I will see him back in 3 months or as needed I have reviewed all relevant histories, medications, allergies, and problem list items with Gladys Khalil Sr. during this visit. Review of Systems Constitutional: Negative for chills and fever. HENT: Negative for congestion. Respiratory: Negative for shortness of breath. Cardiovascular: Negative for chest pain. Gastrointestinal: Negative for diarrhea, nausea and vomiting. Neurological: Negative for headaches. Psychiatric/Behavioral: Negative for behavioral problems. BP 116/65 Pulse 79 Resp (!) 20 Ht 6' Wt 93 kg (205 lb) BMI 27.80 kg/m Imaging: No results found. SNOMED CT(R) 1. Spondylolisthesis of lumbosacral region SPONDYLOLISTHESIS L5/S1 LEVEL 2. Lumbar degenerative disc disease DEGENERATION OF LUMBAR INTERVERTEBRAL DISC Return in about 3 months (around 11/07/2018), or if symptoms worsen or fail to improve. Avni Cruz MD in this encounter* Tavia Cates LPN - 11/10/2018 2:59 PM EDT [employer] appeal approved the epidural injection with auth# [id number] from 11-10-18 to 02-10-19. documented in this encounter* Tavia Cates LPN - 03/14/2019 10:32 AM EDT Spoke with Sandee (spouse) to inform that [employer] denied the Appeal for the epidural injection and theonly other thing to offer is to refer him to pain management. Sandee said No, that's alright he will just keep taking Tylenol. documented in this encounter* Avni Cruz MD - 11/11/2018 4:04 PM EDT Associated Order(s): Epidural Injection Post-Procedure Diagnose(s): Spondylolisthesis of lumbosacral region; Lumbar degenerative disc disease Epidural Injection Performed by: Avni Cruz MD Authorized by: Avni Cruz MD Medications: 120 mg triamcinolone acetonide 40 mg/mL Anesthetic used: Lidocaine 1% PF * Avni Cruz MD - 11/11/2018 4:04 PM EDT PROCEDURE NOTE Name: Gladys Vidal Date of Procedure: @DATE@ Surgeon: Avni Cruz MD Procedure Performed: Caudal Epidural Steroid Injection Procedure Diagnosis: SNOMED CT(R) 1. Spondylolisthesis of lumbosacral region SPONDYLOLISTHESIS L5/S1 LEVEL 2. Lumbar degenerative disc disease DEGENERATION OF LUMBAR INTERVERTEBRAL DISC This procedure is being done for therapeutic purposes. INDICATIONS FOR PROCEDURE: The patient agrees to the procedure after risks and benefits were discussed and questions were answered. The patient has failed other treatment modalities prior to the procedure. These modalities include, but are not limited to, medication trials, physical therapy, and other modalities of pain management. Subsequent procedures are only performed if the patient continuesto have pain or symptomology that warrants the procedure. DESCRIPTION OF PROCEDURE: The patient was taken to the examination room and informed consent was obtained. The patient was placed on the table in prone position. The patient's skin was prepped and draped in standard surgical fashion with Betadine. Skin was anesthetized using 1% preservative free lidocaine. An 22 gauge spinal needle was inserted in caudal space lumbar spine . After placement confirmed , a total of 120 MG of Kenalog was injected without any complications. The needle was withdrawnintact. The patient tolerated the procedure well and was subsequently discharged in stable condition without sequela. Procedure/Injection verified with Time Out Yes Procedures * Avni Cruz MD - 11/11/2018 4:03 PM EDT [facility] [address] (11) [facility] [address] [facility] [phone] Gladys Vidal is a 73 y.o. male being seen today, 05/30/19, Chief Complaint Patient presents with Pain back [chief complaint] low back pain HPI Dictation: [hpi] spans diagnosis again of a degenerative's spondylolisthesis 5 1 with degenerative disc disease. History of previous laminectomy indicates that the epidural injection relieves his pain approximately 80% for up to 3 months or longer for that reason is here to request another injection Physical Exam Dictation: [PE] low back pain with paraspinal spasm increase the lumbar motion no radicular component Assessment and Plan Dictation: [AP] chronic back pain with diagnosis as noted plan epidural injection standard caudal approach will see him in 3 months or as needed I have reviewed all relevant histories, medications, allergies, and problem list items with Gladys Khalil Sr. during this visit. Review of Systems Constitutional: Negative for chills and fever. HENT: Negative for congestion. Respiratory: Negative for shortness of breath. Cardiovascular: Negative for chest pain. Gastrointestinal: Negative for diarrhea, nausea and vomiting. Neurological: Negative for headaches. Psychiatric/Behavioral: Negative for behavioral problems. BP (!) 77/46 Pulse 75 Resp (!) 20 Ht 6' Wt 111.1 kg (245 lb) BMI 33.23 kg/m Imaging: No results found. SNOMED CT(R) 1. Spondylolisthesis of lumbosacral region SPONDYLOLISTHESIS L5/S1 LEVEL 2. Lumbar degenerative disc disease DEGENERATION OF LUMBAR INTERVERTEBRAL DISC Return in about 3 months (around 02/11/2019), or if symptoms worsen or fail to improve. Avni Cruz MD documented in this encounter* Tavia Cates LPN - 08/09/2018 8:28 AM EST [employer] Appeal approved the epidural injection with auth# [id number] from 08-08-18 to 11-05-18. Appeal case # is [id number]. in this encounter Reason for Referral Specialty Diagnoses / Procedures Referred By Edmund t Referred To Contact Radiology Diagnoses Lumbar degenerative disc disease Spinal stenosis of lumbar region with neurogenic claudication Procedures CT Lumbar Spine Without Contrast Avni Cruz MD [address] [place] [id number] Referral ID Status Reason Start Date Expiration Date V isits Requested Visits Authorized [id number] New Request 09/11/2021 09/11/2022 1 1 Specialty Diagnoses / Procedures Referred By Contjesús t Referred To Contact Anesthesiology Diagnoses Lumbar degenerative disc disease Spinal stenosis of lumbar region with neurogenic claudication Avni Cruz MD [address] [place] [address] Navin Cruz MD [address] [place] [id number] Referral ID Status Reason Start Date Expiration Date Visits Requested Visits Authorized [id number] Pending Review Patient Preference 10/02/2021 10/02/2022 1 1 Additional Source Comments (unrecognized sect ion and content) No Status Records FoundNo Status Records FoundNo Status Records FoundNo Status Records FoundNo Status Records FoundNo Status Records FoundNo Status Records FoundNo Status Records FoundNo Status Records FoundNo Status Records FoundNo Status Records Found INFORMATION SOURCE (unrecogn ized section and content) DATE CREATED AUTHOR 12/07/2017 [employer] [facility] DATE CREATED AUTHOR AUTHOR'S ORGANIZ ATION 04/09/2018 [facility] DATE CREATED AUTHOR AUTHOR'S ORGANIZ ATION 05/24/2018 [facility] DATE CREATED AUTHOR AUTHOR'S ORGANIZ ATION 06/23/2018 [facility] DATE CREATED AUTHOR AUTHOR'S ORGANIZ ATION 11/24/2018 [facility] DATE CREATED AUTHOR AUTHOR'S ORGANIZ ATION 06/07/2020 [facility] DATE CREATED AUTHOR AUTHOR'S ORGANIZ ATION 06/13/2020 [facility] DATE CREATED AUTHOR AUTHOR'S ORGANIZ ATION 08/18/2021 [facility] DATE CREATED AUTHOR AUTHOR'S ORGANIZ ATION 09/25/2021 [facility] DATE CREATED AUTHOR AUTHOR'S ORGANIZ ATION 10/18/2021 [facility] DATE CREATED AUTHOR AUTHOR'S ORGANIZ ATION 12/10/2022 [facility] Reason for Visit (unrecogniz ed section and content) Reason Comments Pain Follow-up Reason Comments Pain back Reason Comments Procedure Follow-up Reason Onset Date Comments Medication Refill 09/24/2021 Reason Onset Date Comments Medication Refill 10/02/2021 Care Teams (unrecognized sec tion and content) Automatic Chief Relationship Specialty Start Date End Date Tayla Victoria MD PCP - General Family Medicine 09/28/15 Automatic Chief Relationship Specialty Start Date End Date Tayla Victoria MD [address] [place] [address] PCP - General Family Medicine 09/11/21 Automatic Chief Relationship Specialty Start Date End Date Tayla Victoria MD [address] [place] [address] PCP - General Family Medicine 09/11/21 Automatic Chief Relationship Specialty Start Date End Date Tayla Victoria MD [address] [place] [address] PCP - General Family Medicine 09/11/21 Automatic Chief Relationship Specialty Start Date End Date Tayla Victoria MD [address] [place] [address] PCP - General Family Medicine 09/11/21 Automatic Chief Relationship Specialty Start Date End Date Tayla Victoria MD [address] [place] [address] PCP - General Family Medicine 09/11/21 Automatic Chief Relationship Specialty Start Date End Date Tayla Victoria MD [address] [place] [address] PCP - General Family Medicine 09/11/21 Automatic Chief Relationship Specialty Start Date End Date Tayla Victoria MD [address] [place] [address] PCP - General Family Medicine 09/11/21 FOR RECORDS PERTAINING TO PATIENTS WHO ARE OR HAVE BEEN ENROLLED IN A CHEMICAL DEPENDENCY/SUBSTANCEABUSE PROGRAM, SOME INFORMATION MAY BE OMITTED. This clinical summary was aggregated from multiple sources. Caution should be exercised in using it in the provision of clinical care. This summary normalizes information from multiple sources, and as a consequence, information in this document may materially change the coding, format and clinical context of patient data. In addition, data may be omitted in some cases. CLINICAL DECISIONS SHOULD BE BASED ON THE PRIMARY CLINICAL RECORDS. [facility]. provides no warranty or guarantee of the accuracy or completeness of information in this document.
--- NOTE | 2024-04-05 12:24 | STRESSREP ---
Stress Test Report Pharmacologic myocardial perfusion stress test. 79-year-old man with a history of cardiomyopathy Resting EKG demonstrates sinus rhythm with a rate of 83 bpm. Multiple premature ventricular complexes are noted. Resting blood pressure is 130/84 mmHg. 0.4 mg of regadenoson was infused per usual protocol followed by rapid intravenous saline flush injection. Continuous EKG monitoring was performed. The maximum heart rate was 105 bpm which was 75% of max impacted heart rate the maximum workload was 1 metabolic equivalent. At rest there were no ST or T wave changes noted to suggest ischemia and at peak infusion nonspecific ST changes were noted which did not meet the criteria for ischemia. No clinical angina is noted. The final blood pressure was 130/60 mmHg. Myocardial perfusion protocol. 10 point mCi of technetium 99m sestamibi was injected at rest. 0.4 mg of regadenoson was infused per usual protocol. At peak infusion 32.1 mCi of technetium 99m sestamibi was injected stress images were obtained stress and rest images were reconstructed and compared in the short axis vertical long and horizontal long axis. Gated images were also obtained. Perfusion SPECT analysis: Review of the stress images demonstrate normal uptake of tracer noted in all areas of the myocardium except for the apex with reduced perfusion. The resting images similar demonstrated normal uptake of tracer noted in all areas of the myocardium except for the apex with reduced perfusion. No areas of reversibility are noted to suggest ischemia and no previous infarct is noted. Gated SPECT analysis: The gated ejection fraction is 23%. Conclusion: Normal pharmacologic myocardial perfusion stress test. Markedly reduced ejection fraction. Cardiomyopathy present
== END | disposition home or self-care (01) ==
PROVIDERS: PCP Internal Medicine; Referring Provider Physician Assistant Medical; Visit Provider Physician Assistant Medical
DX: I25.10 Atherosclerotic heart disease of native coronary artery without angina pectoris (principal); Z95.5 Presence of coronary angioplasty implant and graft
CPT/HCPCS: 78452; 93017; A9500; J2785

== ENCOUNTER → 2024-04-20 | Outpatient (CLI) | payer MEDICARE, SELFPAY ==
[2024-04-20 11:16] LABS: Absolute Lymphocyte Count 1.88 X10^3/uL (0.83-4.51); Absolute Neutrophil Count 7.2 X10^3/uL (2.0-7.7); Basophil# 0.04 X10^3/uL; Basophil% 0.4 % (0-1); Eosinophil# 0.05 X10^3/uL; Eosinophils% 0.5 % (0-5); Hematocrit 43.7 % (40-54); Hemoglobin 13.8 g/dL (13.0-16.5); Lymphocyte # 1.88 X10^3/ul (0.83-4.51); Lymphocyte % 18.5 % (19-41); Mean Corp Hgb Conc 31.6 g/dL (32-36); Mean Corpuscular Hgb 30.7 pg (27.0-32.0); Mean Corpuscular Volume 97.3 fL (80-94); Mean Platelet Vol. 11.6 fl (6.2-12.0); Monocyte# 0.99 X10^3/uL; Monocyte% 9.8 % (0-10); NRBC Flagged by Analyzer 0 % (0-5); Neutrophil # 7.15 X10^3/uL (2.7-7.7); Neutrophil % 70.4 % (47-70); Platelet Count 217 K/mm3 (150-450); Red Blood Count 4.49 M/mm3 (4.6-6.2); White Blood Count 10.2 K/mm3 (4.4-11.0)
[2024-04-20 11:48] LABS: ALB/GLOB Ratio 0.8 RATIO (0.9-2.4); AST(SGOT) 47 U/L (15-37); Alanine Aminotransfer ALT/SGPT 27 U/L (16-61); Albumin, Serum 3.1 g/dL (3.2-5.0); Alkaline Phosphatase 65 U/L (45-117); Anion Gap 5 (5-15); BUN 25 mg/dL (7-18); BUN/Creat Ratio 14.4 RATIO (10-20); Chloride 108 mmol/L (98-107); Cholesterol 119 mg/dL (200); Creatinine, Serum 1.74 mg/dL (0.70-1.30); EST Glomerular Filtration Rate 40 mL/min (>60); Est Glom Filt Rate - Afr Amer 49 mL/min (>60); Glucose 142 mg/dL (74-106); High Density Lipoprotein 51 mg/dL; Potassium 4.2 mmol/L (3.5-5.1); Protein, Total 7.1 g/dL (6.4-8.2); Sodium Level 140 mmol/L (136-145); Triglycerides 101 mg/dL; Very Low Density Lipoprotein 20 mg/dL (5-40)
[2024-04-21 09:10] LABS: Phosphorus 2.8 mg/dL (2.5-4.9)
== END | disposition home or self-care (01) ==
LOC: LAB 10:45
PROVIDERS: Physician Assistant Medical; PCP Internal Medicine; Referring Provider Internal Medicine Nephrology; Visit Provider Internal Medicine Nephrology
DX: N18.32 Chronic kidney disease, stage 3b (principal); I48.0 Paroxysmal atrial fibrillation; I42.8 Other cardiomyopathies; I25.10 Atherosclerotic heart disease of native coronary artery without angina pectoris; Z79.01 Long term (current) use of anticoagulants; Z79.899 Other long term (current) drug therapy
CPT/HCPCS: 36415; 80053; 80061; 84100; 84443; 85025

== ENCOUNTER → 2024-05-03 | Outpatient (CLI) | payer MEDICARE, SELFPAY ==
--- NOTE | 2024-05-03 07:44 | ECHOCS_ITS ---
Reason For Study: CARDIOMYOPATHY Procedure This was a 2D Doppler, Color Flow transthoracic echocardiogram. The study was technically difficult. Contrast injection was performed. Exam performed in department. Left Ventricle Normal LV size. The left ventricular ejection fraction is 30 %. There is moderate to severe global hypokinesis of the left ventricle. Right Ventricle Normal RV size. ICD or pacer leads identified within the right ventricle. Normal systolic function. Atria The left atrium is moderately enlarged. Normal right atrium. Mitral Valve Normal mitral valve. Tricuspid Valve Normal tricuspid valve. Mild tricuspid valve insufficiency. Pulmonary artery systolic pressure is 22 mmHg. Aortic Valve Trisinus/trileaflet aortic valve. Pulmonic Valve Normal pulmonic valve. Great Vessels Normal aortic root. Pericardium/Pleural No pericardial effusion. Medication 22 gauge I.V. with prn adaptor inserted into left arm. Diluted definity 3ml given slow IV push to enhance endocardial definition. MMode/2D Measurements & Calculations LVIDd: 5.8 cm IVSd: 1.2 cm LVOT diam: 2.4 cm LVIDs: 5.2 cm LVPWd: 1.0 cm RVDd: 3.6 cm FS: 9.6 % LVOT area: 4.4 cm2 asc Aorta Diam: 3.9 cm LAV(MOD-bp): 94.4 ml LVAd ap4: 53.0 cm2 LAV(MOD-bp) Indexed: 41.4 ml/m2 LVLd ap4: 8.9 cm LAV(MOD-sp2): 100.4 ml EDV(MOD-sp4): 243.2 ml LAV(MOD-sp4): 86.8 ml EDV(sp4-el): 268.8 ml LVAs ap4: 39.8 cm2 LVLs ap4: 7.6 cm ESV(MOD-sp4): 163.3 ml ESV(sp4-el): 176.3 ml EF(MOD-sp4): 32.9 % EF(sp4-el): 34.4 % LVAd ap2: 48.9 cm2 SV(MOD-sp4): 80.0 ml SV(MOD-sp2): 63.9 ml LVLd ap2: 8.9 cm SI(MOD-sp4): 35.1 ml/m2 SI(MOD-sp2): 28.0 ml/m2 EDV(MOD-sp2): 217.2 ml EDV(sp2-el): 228.7 ml LVAs ap2: 37.9 cm2 LVLs ap2: 7.7 cm ESV(MOD-sp2): 153.2 ml ESV(sp2-el): 158.1 ml EF(MOD-sp2): 29.4 % SV(sp4-el): 92.5 ml Ao sinus diam: 3.[address] Junction: 3.4 cm LA dimension(2D): 4.6 cm LA A4 area: 27.1 cm2 RA A4 area: 15.4 cm2 TAPSE: 2.0 cm Time Measurements MV dec time: 0.20 sec Doppler Measurements & Calculations MV E max toni: 79.8 cm/sec Lat Peak E' Toni: 3.0 cm/sec Med Peak E' Toni: 5.6 cm/sec E/E' lat: 26.6 E/E' med: 14.1 Ao V2 max: 112.0 cm/sec LV V1 max: 82.5 cm/sec SV(LVOT): 79.6 ml Ao max P.0 mmHg LV V1 max P.7 mmHg Ao V2 mean: 83.6 cm/sec LV V1 mean P.4 mmHg Ao mean P.0 mmHg LV V1 mean: 55.5 cm/sec Ao V2 VTI: 25.5 cm LV V1 VTI: 17.9 cm AV (velocity ratio): 0.70 JESSA(I,D): 3.1 cm2 JESSA(V,D): 3.3 cm2 PA V2 max: 66.6 cm/sec TR max toni: 216.9 cm/sec TR max P.8 mmHg ECHO/Echo Complete W/ Contrast Interpretation Summary The left ventricular ejection fraction is 30 %. Normal LV size. ICD or pacer leads identified within the right ventricle. Contrast injection was performed. Ordering Physician: Annita Carreon Referring Physician: Annita Carreon Performed By: Elena Orellana RDCS
== END | disposition home or self-care (01) ==
LOC: CVS 07:43
PROVIDERS: PCP Internal Medicine; Referring Provider Physician Assistant Medical; Visit Provider Physician Assistant Medical
DX: I42.8 Other cardiomyopathies (principal)
CPT/HCPCS: 93306; Q9957; A4216; C8929

== ENCOUNTER 2024-08-14 07:44 | Emergency (ER) | payer MEDICARE, SELFPAY ==
[2024-08-14 07:45] VITALS: BP 119/98; PULSE 82; RESP 18; TEMP 36; O2SAT 93; BMI 29.9
--- NOTE | 2024-08-14 08:18 | ED.VIS.DENTA ---
HPI History of Present Illness Chief Complaint: Dental Narrative Narrative: Chief complaint and HPI: Bleeding from gums. 79-year-old male with past medical history of CAD, paroxysmal atrial fibrillation on Eliquis presents for evaluation of bleeding gums. Patient states that he got multiple teeth pulled on Thursday by Dr. Villalobos in [place]. He states last night he developed bleeding in the mouth. He states that he was told to apply gauze. He states that he did this but it continued to bleed which is why he presents for evaluation. He denies any fever, chills, chest pain, shortness of breath. He states that he had slight lightheadedness last night but this has resolved. Patient states that he called Dr. Villalobos's office but it stated that if there is an emergency to present to the emergency department and so he followed their direction. He has been able to eat or drink. He denies any difficulty with swallowing. Review of systems: See HPI Medications: As listed on the chart Allergies: As listed on the chart PFSH: Per chart Vital signs: As listed on the chart. Reviewed. Physical exam: Gen: A&O x3, NAD Head: Normocephalic, atraumatic Eyes: No sclera icterus, conjunctiva clear, PERRL, EOMI ENT: Moist mucous membranes, posterior oropharynx unremarkable, uvula midline, tonsils not enlarged, no tonsillar exudates, patient had his 15th and 16th tooth pulled. There are stitches in place. No active bleeding. Patient had tooth #1 and 2 pulled as well. There is a large clot overlying the sites. No active bleeding. No swelling. No abscess or signs of infection. Tolerating secretions. Dried blood in the mouth from previous bleeding. Neck: Trachea midline, No JVD, Full ROM, no swelling CV: RRR, no murmurs, no peripheral edema Resp: Lungs CTA BL, no w/r/c Neuro: Alert, oriented, grossly intact Psych: Cooperative, appropriate mood and affect [facility] Medical History Wears hearing aid Wears dentures Wears glasses Ambulates with cane Walker as ambulation aid Gout Arthritis History of renal disease Anemia High cholesterol Easy bruising Excessive bleeding Back pain Gastric reflux Non-smoker On home oxygen therapy COPD (chronic obstructive pulmonary disease) Chronic cough History of stress test History of echocardiogram Hypertension History of atrial fibrillation Closed fracture of right distal radius Paroxysmal atrial fibrillation Pneumonia due to COVID-19 virus (06/10/20) Stage III chronic kidney disease Acute respiratory failure with hypoxia Chronic systolic (congestive) heart failure Obesity Non-ischemic cardiomyopathy Paroxysmal atrial flutter Incarcerated left inguinal hernia Ascites Bilateral hydrocele Atrial flutter with rapid ventricular response (10/18/18) Essential (primary) hypertension Severe left ventricular systolic dysfunction Persistent atrial fibrillation BPH (benign prostatic hyperplasia) Atherosclerosis of coronary artery of [place] heart without angina pectoris Hyperlipidemia Home Medications ?Medication ?Instructions ?Recorded ?Last Taken ?Type acetaminophen 650 mg 650 mg PO Q6H PRN PRN Pain 1-10 Or 06/11/20 Unknown History tablet,extended release Fever inhalational spacing device 06/14/20 Unknown Rx ferrous sulfate 325 mg (65 mg 325 mg PO BID Check with primary 10/16/20 05/14/22 History iron) tablet doctor handicap placcard #2 ea 04/17/21 Unknown Rx tramadol 50 mg tablet 50 mg PO DAILY PRN Pain 10/17/21 05/14/22 History aspirin 81 mg tablet,delayed 81 mg PO DAILY #1 TAB 12/17/22 Unknown Rx release (Adult Aspirin Regimen) cholecalciferol (vitamin D3) 25 2,000 unit PO DAILY Check with 09/15/23 Unknown History mcg (1,000 unit) capsule primary doctor mecobalamin (vitamin B12) 1,000 1,000 mcg PO DAILY 09/15/23 Unknown History mcg chewable tablet omeprazole 40 mg capsule,delayed 40 mg PO BID 09/15/23 Unknown History release albuterol sulfate 90 mcg/actuation 2 puff inhalation Q6H PRN PRN 12/23/23 Unknown Rx aerosol inhaler Shortness Of Breath #8.5 grams amiodarone 200 mg tablet 200 mg PO DAILY #90 tabs 03/16/24 Unknown Rx allopurinol 100 mg tablet 100 mg PO DAILY Check with primary 04/04/24 Unknown Rx doctor #90 tabs rosuvastatin 20 mg tablet 20 mg PO DAILY #90 TABLETS 04/21/24 Unknown Rx tamsulosin 0.4 mg capsule 0.8 mg (2 x 0.4 mg) PO DAILY #180 04/21/24 Unknown Rx caps carvedilol 3.125 mg tablet 3.125 mg PO BID #60 tabs 05/03/24 Unknown Rx furosemide 40 mg tablet 40 mg PO DAILY #90 tabs 05/05/24 Unknown Rx apixaban 5 mg tablet 5 mg PO BID Check with primary 07/08/24 Unknown Rx doctor #180 tabs Allergy/AdvReac Type Severity Reaction Status Date / Time No Known Allergies Allergy Verified 08/14/24 07:44 Family History Brother Diabetes Heart disease Hypertension Hyperlipidemia Mother Heart disease Diabetes Hypertension Father Heart disease Diabetes Hypertension Surgical History Hx of inguinal hernia surgery History of back surgery History of implantable cardiac defibrillator (ICD) (02/2016) History of colonoscopy (2016) History of umbilical hernia repair 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 Yumiko Mazariegos MD) household members: spouse current occupational status: retired current occupation: [employer] Smoking Status: Never smoker Electronic Cigarette Use: not used second hand exposure: No alcohol intake: current alcohol intake frequency: holidays/special occasions only substance use type: does not use caffeine: No what type of physical activity do you participate in: walking frequency: daily duration: < 15 minutes/day seatbelt use: never do you feel safe at home: Yes EXAM Physical Exam Const Vital Signs: 08/14/24 07:45 Temperature 96.8 F L Temperature Source Temporal Pulse Rate 82 Respiratory Rate 18 Blood Pressure 119/98 H Blood Pressure Mean 105 Pulse Ox 93 Oxygen Delivery Method Room Air MDM MDM MDM Narrative Medical decision making narrative: 79-year-old male with past medical history of CAD, paroxysmal atrial fibrillation on Eliquis presents for evaluation of bleeding gums. Patient had multiple teeth pulled on Thursday. See physical exam. No active bleeding. Clot in place. Will not disrupt clot at this time. Given that he had some lightheadedness that has now resolved will get coags and H&H. Patient will be monitored in our emergency department until then. I spoke with Dr. Villalobos on the phone. Plan is for her to see the patient in the office at 10:30 AM. CBC without anemia. INR 1.6. On reevaluation, patient is still not bleeding. Vitals are stable. Patient stable to discharge to the dentist office. He was educated not to eat he had to go straight there. If it rebleeds in the car to apply pressure. He confirmed understanding the plan. Impression: 1. Bleeding gums status post teeth extraction 2. History of Eliquis use Lab Data Labs: Laboratory Results - last 24 hr 08/14/24 08:20 Hgb 13.9 PT 19.5 H INR 1.6 APTT 29.6 Discharge Plan Triage Chief Complaint: Dental ED Provider: Amarjit Olson Dx/Rx/DC Orders Clinical Impression: Bleeding Instructions: Teeth Gums Health Prescriptions: No Action ferrous sulfate 325 mg (65 mg iron) tablet 325 mg PO BID cholecalciferol (vitamin D3) 25 mcg (1,000 unit) capsule 2,000 unit PO DAILY (DME) handicap placcard See Rx Instructions .Route .MEDSUPPLY Qty: 2 0RF Rx Instructions: Dx: Cardiomyopathy Duration: lifetime tramadol 50 mg tablet 50 mg PO DAILY PRN (Reason: Pain) aspirin [Adult Aspirin Regimen] 81 mg tablet,delayed release (DR/EC) 81 mg PO DAILY Qty: 1 0RF omeprazole 40 mg capsule,delayed release(DR/EC) 40 mg PO BID mecobalamin (vitamin B12) 1,000 mcg tablet,chewable 1,000 mcg PO DAILY albuterol sulfate 90 mcg/actuation HFA aerosol inhaler 2 puff inhalation Q6H PRN PRN (Reason: Shortness Of Breath) Qty: 8.5 1RF amiodarone 200 mg tablet 200 mg PO DAILY Qty: 90 4RF acetaminophen 650 MG tablet extended release 650 mg PO Q6H PRN PRN (Reason: Pain 1-10 Or Fever) (DME) inhalational spacing device 1 EACH spacer 1 ea INHALATION PRN 0RF allopurinol 100 mg tablet 100 mg PO DAILY Qty: 90 1RF rosuvastatin 20 mg tablet 20 mg PO DAILY Qty: 90 1RF tamsulosin 0.4 mg capsule 0.8 mg PO DAILY Qty: 180 1RF carvedilol 3.125 mg tablet 3.125 mg PO BID Qty: 60 11RF Rx Instructions: must administer with a meal/food furosemide 40 mg tablet 40 mg PO DAILY Qty: 90 1RF apixaban 5 mg tablet 5 mg PO BID Qty: 180 0RF Primary Care Provider: Yumiko Mazariegos Referrals: Yumiko Mazariegos MD [Primary Care Provider] - 3-5 Days Activity Restrictions/Additional Instructions: You are to meet with your dentist, Dr. Villalobos at 10:30 AM this morning. If you rebleed in the car. Apply pressure. Print Language: Erit[place] Disposition Disposition: Home, Self Care
[2024-08-14 08:28] LABS: Hemoglobin 13.9 g/dL (13.0-16.5)
[2024-08-14 08:37] LABS: International Normalized Ratio 1.6; Prothrombin Time (Protime)PT. 19.5 SECONDS (11.7-14.9)
[2024-08-14 08:38] LABS: Partial Thromboplast Time 29.6 Seconds (24.1-36.2)
== END 2024-08-14 09:18 | disposition home or self-care (01) ==
PROVIDERS: Emergency Provider Surgery; PCP Internal Medicine; Visit Provider Surgery
DX: K91.840 Postprocedural hemorrhage of a digestive system organ or structure following a digestive system procedure (principal); I13.0 Hypertensive heart and chronic kidney disease with heart failure and stage 1 through stage 4 chronic kidney disease, or unspecified chronic kidney disease; I50.22 Chronic systolic (congestive) heart failure; J44.9 Chronic obstructive pulmonary disease, unspecified; I48.0 Paroxysmal atrial fibrillation; N18.30 Chronic kidney disease, stage 3 unspecified; I25.10 Atherosclerotic heart disease of native coronary artery without angina pectoris; E78.00 Pure hypercholesterolemia, unspecified; N40.0 Benign prostatic hyperplasia without lower urinary tract symptoms; Z79.82 Long term (current) use of aspirin; Z79.01 Long term (current) use of anticoagulants; Z98.818 Other dental procedure status
CPT/HCPCS: 85018; 85610; 85730; 99282

== ENCOUNTER 2024-08-21 00:57 | Emergency (ER) | payer MEDICARE, SELFPAY ==
[2024-08-21 00:58] VITALS: BP 144/83; PULSE 81; RESP 18; TEMP 36.1; O2SAT 98; BMI 30.7
--- NOTE | 2024-08-21 01:43 | ED.VIS.DENTA ---
HPI History of Present Illness Chief Complaint: Dental Informant: patient and spouse/S.O. Narrative Narrative: Post dental extraction with liam. 9 days from extraction upper teeth total 4. He is on Eliquis. Performed by Dr. Villalobos in [place]. He states continued on Eliquis throughout the procedure. He was seen this past Thursday a week ago for bleeding that was not active in the ED follow-up with dentist same day states a stitch was placed. Small intermittent bleeds over 2 days however since 3 PM 10 hours ago has been more persistent. They have been trying biting on gauze as discussed with your dentist previously. Spouse tried: Dentist throughout the day however no callback they decided come here. Last Eliquis was this evening at supper. Patient on Eliquis for history of paroxysmal A-fib he has ischemic cardiomyopathy with AICD. Prior similar symptoms: Yes [facility] Medical History Wears hearing aid Wears dentures Wears glasses Ambulates with cane Walker as ambulation aid Gout Arthritis History of renal disease Anemia High cholesterol Easy bruising Excessive bleeding Back pain Gastric reflux Non-smoker On home oxygen therapy COPD (chronic obstructive pulmonary disease) Chronic cough History of stress test History of echocardiogram Hypertension History of atrial fibrillation Closed fracture of right distal radius Paroxysmal atrial fibrillation Pneumonia due to COVID-19 virus (06/10/20) Stage III chronic kidney disease Acute respiratory failure with hypoxia Chronic systolic (congestive) heart failure Obesity Non-ischemic cardiomyopathy Paroxysmal atrial flutter Incarcerated left inguinal hernia Ascites Bilateral hydrocele Atrial flutter with rapid ventricular response (10/18/18) Essential (primary) hypertension Severe left ventricular systolic dysfunction Persistent atrial fibrillation BPH (benign prostatic hyperplasia) Atherosclerosis of coronary artery of [place] heart without angina pectoris Hyperlipidemia Home Medications ?Medication ?Instructions ?Recorded ?Last Taken ?Type acetaminophen 650 mg 650 mg PO Q6H PRN PRN Pain 1-10 Or 06/11/20 Unknown History tablet,extended release Fever inhalational spacing device 06/14/20 Unknown Rx ferrous sulfate 325 mg (65 mg 325 mg PO BID Check with primary 10/16/20 05/14/22 History iron) tablet doctor handicap placcard #2 ea 04/17/21 Unknown Rx tramadol 50 mg tablet 50 mg PO DAILY PRN Pain 10/17/21 05/14/22 History aspirin 81 mg tablet,delayed 81 mg PO DAILY #1 TAB 12/17/22 Unknown Rx release (Adult Aspirin Regimen) cholecalciferol (vitamin D3) 25 2,000 unit PO DAILY Check with 09/15/23 Unknown History mcg (1,000 unit) capsule primary doctor mecobalamin (vitamin B12) 1,000 1,000 mcg PO DAILY 09/15/23 Unknown History mcg chewable tablet omeprazole 40 mg capsule,delayed 40 mg PO BID 09/15/23 Unknown History release albuterol sulfate 90 mcg/actuation 2 puff inhalation Q6H PRN PRN 12/23/23 Unknown Rx aerosol inhaler Shortness Of Breath #8.5 grams amiodarone 200 mg tablet 200 mg PO DAILY #90 tabs 03/16/24 Unknown Rx allopurinol 100 mg tablet 100 mg PO DAILY Check with primary 04/04/24 Unknown Rx doctor #90 tabs rosuvastatin 20 mg tablet 20 mg PO DAILY #90 TABLETS 04/21/24 Unknown Rx tamsulosin 0.4 mg capsule 0.8 mg (2 x 0.4 mg) PO DAILY #180 04/21/24 Unknown Rx caps carvedilol 3.125 mg tablet 3.125 mg PO BID #60 tabs 05/03/24 Unknown Rx furosemide 40 mg tablet 40 mg PO DAILY #90 tabs 05/05/24 Unknown Rx apixaban 5 mg tablet 5 mg PO BID Check with primary 07/08/24 Unknown Rx doctor #180 tabs Allergy/AdvReac Type Severity Reaction Status Date / Time No Known Allergies Allergy Verified 08/21/24 01:04 Family History Brother Diabetes Heart disease Hypertension Hyperlipidemia Mother Heart disease Diabetes Hypertension Father Heart disease Diabetes Hypertension Surgical History Hx of inguinal hernia surgery History of back surgery History of implantable cardiac defibrillator (ICD) (02/2016) History of colonoscopy (2016) History of umbilical hernia repair 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) History of cardioversion (10/26/18) History of total left hip arthroplasty (02/24/17) History of coronary artery stent placement (10/12/15) Social History household members: spouse current occupational status: retired current occupation: [employer] Smoking Status: Never smoker Electronic Cigarette Use: not used second hand exposure: No alcohol intake: current alcohol intake frequency: holidays/special occasions only substance use type: does not use caffeine: No what type of physical activity do you participate in: walking frequency: daily duration: < 15 minutes/day seatbelt use: never do you feel safe at home: Yes ROS ROS ED Constitutional Constitutional ED: Denies chills, fever(s) or sweats ENT ENT ED: Reports other Details: Bleeding gums ; Denies sore throat Cardiovascular Cardiovascular: Denies chest pain, leg edema, palpitations or racing heartbeat Respiratory/Chest Respiratory/Chest: Denies cough, dyspnea or dyspnea on exertion Gastrointestinal Gastrointestinal: Denies abdominal pain, diarrhea, nausea or vomiting Genitourinary Genitourinary ED: Denies dysuria, hematuria or urinary frequency Musculoskeletal Musculoskeletal: Denies back pain, extremity pain or neck pain Integumentary Denies rash or wounds Neurologic Neurologic: Denies headache(s), paresthesias or weakness EXAM Physical Exam Const Vital Signs: 08/21/24 00:58 Temperature 97.0 F L Temperature Source Temporal Pulse Rate 81 Respiratory Rate 18 Blood Pressure 144/83 H Blood Pressure Mean 103 Pulse Ox 98 Oxygen Delivery Method Room Air Positive well nourished and well developed General Appearance ED: well developed and NAD HEENT Reports moist mucous membranes HEENT Narrative: Edentulous upper teeth. Post extraction right upper gum 2 and 3 with clot noted, postextraction gumline of tooth 13 and 15 with no active bleeding. After clot was removed right upper gum, appears more bleeding noted from the gumline of tooth #2. normocephalic Eyes General Eye ED: Yes normal appearance of both eyes Neck full ROM Chest Wall Chest: Negative for tenderness Resp normal respiratory effort and normal air movement Effort and Inspection: symmetric chest movement; Negative for respiratory distress Cardio regular rate, regular rhythm and no murmurs Peripheral Pulses: pulses 2+ throughout GI normal to inspection, nondistended, normoactive bowel sounds and non-tender Palpation: Negative for guarding or rebound tenderness present Extremity normal to inspection General Extremety ED: Negative for edema or tenderness General Extremity: Negative for edema Neuro oriented x3 and no sensory deficits noted Sensorium / Orientation: awake and alert Skin no rashes or lesions noted and no wounds MDM MDM MDM Narrative Medical decision making narrative: Interventions / MDM: Differential diagnosis: Post dental extraction bleed, chronic anticoagulation Diagnosis considered but do not suspect: N/A My EKG interpretation: N/A Imaging independently reviewed and interpreted by myself: N/A External documents reviewed: N/A Test considered but not ordered:N/A ED course: Clot was removed from right upper gum bleeding appears to be gumline of tooth #2. Teabag was placed. Will reevaluate. 0155: no bleeding with pressure however teabag removed, still small rebleed gums at tooth #2. Teabag replaced, will monitor, discussed we will plan on injection with lidocaine epinephrine and attempt stitching help with additional control. 0205: Verbal consent obtained from patient for injections for potential suturing. Total of 2 cc 1% lidocaine with epinephrine used for local analgesia. After an exercise, exam of the gums furthermore, there is not much gum tissue to help puller over the bleeding mid section. Did not want to cause more trauma with needle. Teabag was placed again, will plan for TXA placement on the gums. 0325: Of note, time change with sprain forward of 1 hour. 2 cc liquid TXA placed on gauze, placed on gums with pressure. Will monitor. 0400: Gauze removed. No current bleeding. Will monitor in the ED for Recurrent bleeds. 0425: Bleeding was controlled, allowed him drink a little bit of water, he had a few coughing episodes afterwards. Evaluation of the gums noted small rebleed. 2 cc TXA on the gauze placed again to the gums. 0515: Removed gauze, still slow bleed gumline at tooth #2, additional wet TXA on gauze placed again. Will reevaluate. 0550: Gauze removed no bleeding at this time. Small clot did form inside the gum at this time. Will monitor. 0620: No rebleeding. He will continue to eat soft foods to chew on the left side. Discussed holding his aspirin and his Eliquis for the next 3 days. He will call his dentist for follow-up. does have teabags at home to use if it rebleeds. Discussed uncontrolled from a rebleed, return to ED. All questions were answered. Re-evaluation: stable Disposition discussed with patient/family/significant other: Patient and spouse Case discussed with consulting clinician: N/A This note was generated with Embrace dictation software. It may contain incorrect words, spelling, and punctuation that were not noted in checking the note before signing. Discharge Plan Triage Chief Complaint: Dental ED Provider: Jorge Luis Carmichael Dx/Rx/DC Orders Clinical Impression: Post-op bleeding, Chronic anticoagulation, Bleeding gums Prescriptions: No Action ferrous sulfate 325 mg (65 mg iron) tablet 325 mg PO BID cholecalciferol (vitamin D3) 25 mcg (1,000 unit) capsule 2,000 unit PO DAILY (DME) handicap placcard See Rx Instructions .Route .MEDSUPPLY Qty: 2 0RF Rx Instructions: Dx: Cardiomyopathy Duration: lifetime tramadol 50 mg tablet 50 mg PO DAILY PRN (Reason: Pain) aspirin [Adult Aspirin Regimen] 81 mg tablet,delayed release (DR/EC) 81 mg PO DAILY Qty: 1 0RF omeprazole 40 mg capsule,delayed release(DR/EC) 40 mg PO BID mecobalamin (vitamin B12) 1,000 mcg tablet,chewable 1,000 mcg PO DAILY albuterol sulfate 90 mcg/actuation HFA aerosol inhaler 2 puff inhalation Q6H PRN PRN (Reason: Shortness Of Breath) Qty: 8.5 1RF amiodarone 200 mg tablet 200 mg PO DAILY Qty: 90 4RF acetaminophen 650 MG tablet extended release 650 mg PO Q6H PRN PRN (Reason: Pain 1-10 Or Fever) (DME) inhalational spacing device 1 EACH spacer 1 ea INHALATION PRN 0RF allopurinol 100 mg tablet 100 mg PO DAILY Qty: 90 1RF rosuvastatin 20 mg tablet 20 mg PO DAILY Qty: 90 1RF tamsulosin 0.4 mg capsule 0.8 mg PO DAILY Qty: 180 1RF carvedilol 3.125 mg tablet 3.125 mg PO BID Qty: 60 11RF Rx Instructions: must administer with a meal/food furosemide 40 mg tablet 40 mg PO DAILY Qty: 90 1RF apixaban 5 mg tablet 5 mg PO BID Qty: 180 0RF Primary Care Provider: Yumiko Mazariegos Referrals: Yumiko Mazariegos MD [Primary Care Provider] - Activity Restrictions/Additional Instructions: Post dental extraction 9 days ago. Rebleed. This was controlled emergency department with TXA. Hold your aspirin and your Eliquis for 3 days. Call your dentist for follow-up evaluation. If rebleeds at home, bite down on gauze or teabags is done in the emergency department. If not controlled, return to the ED for reevaluation. Print Language: Kosovan Disposition Disposition: Home, Self Care
[2024-08-21] MEDS: Lidocaine 1% /Epi 1:100 (20ml) 20 ML Vial INFILT (03:15)
[2024-08-21] MEDS: TRANEXAMIC ACID 1,000 MG/10 ML ML OPERA.SITE (03:17)
[2024-08-21 06:22] VITALS: BP 111/68; PULSE 80; RESP 18; TEMP 36.6; O2SAT 94
== END 2024-08-21 06:26 | disposition home or self-care (01) ==
PROVIDERS: Emergency Provider Emergency Medicine; PCP Internal Medicine; Visit Provider Emergency Medicine
DX: K91.840 Postprocedural hemorrhage of a digestive system organ or structure following a digestive system procedure (principal); I13.0 Hypertensive heart and chronic kidney disease with heart failure and stage 1 through stage 4 chronic kidney disease, or unspecified chronic kidney disease; I50.22 Chronic systolic (congestive) heart failure; J44.9 Chronic obstructive pulmonary disease, unspecified; I48.0 Paroxysmal atrial fibrillation; N18.30 Chronic kidney disease, stage 3 unspecified; E78.00 Pure hypercholesterolemia, unspecified; I25.10 Atherosclerotic heart disease of native coronary artery without angina pectoris; I25.5 Ischemic cardiomyopathy; Z79.01 Long term (current) use of anticoagulants; Z79.82 Long term (current) use of aspirin; Z79.899 Other long term (current) drug therapy; Z95.810 Presence of automatic (implantable) cardiac defibrillator
CPT/HCPCS: 99282

== ENCOUNTER → 2024-09-14 | Outpatient (CLI) | payer MEDICARE, SELFPAY ==
[2024-09-14 09:52] LABS: Absolute Lymphocyte Count 1.17 X10^3/uL (0.83-4.51); Absolute Neutrophil Count 4.7 X10^3/uL (2.0-7.7); Basophil# 0.04 X10^3/uL; Basophil% 0.6 % (0-1); Eosinophil# 0.07 X10^3/uL; Hematocrit 41.5 % (40-54); Hemoglobin 13.7 g/dL (13.0-16.5); Lymphocyte # 1.17 X10^3/ul (0.83-4.51); Lymphocyte % 17.5 % (19-41); Mean Corpuscular Hgb 30.5 pg (27.0-32.0); Mean Corpuscular Volume 92.4 fL (80-94); Mean Platelet Vol. 12.1 fl (6.2-12.0); Monocyte# 0.72 X10^3/uL; Monocyte% 10.8 % (0-10); NRBC Flagged by Analyzer 0 % (0-5); Neutrophil # 4.65 X10^3/uL (2.7-7.7); Neutrophil % 69.7 % (47-70); Platelet Count 174 K/mm3 (150-450); RBC Distribution Width CV 15.6 % (11.6-14.6); RBC Distribution Width SD 52.3 fl (35.1-43.9); Red Blood Count 4.49 M/mm3 (4.6-6.2); White Blood Count 6.7 K/mm3 (4.4-11.0)
[2024-09-14 10:37] LABS: ALB/GLOB Ratio 1.2 RATIO (0.9-2.4); AST(SGOT) 98 U/L (<=37); Alanine Aminotransfer ALT/SGPT 44 U/L (<=46); Albumin, Serum 3.4 g/dL (3.4-4.8); Alkaline Phosphatase 83 U/L (40-129); Anion Gap 12 (5-15); BUN 19 mg/dL (4-19); BUN/Creat Ratio 10.5 RATIO (10-20); Carbon Dioxide 25.3 mmol/L (21.0-32.0); Chloride 103 mmol/L (98-108); Creatinine, Serum 1.82 mg/dL (0.70-1.20); EST Glomerular Filtration Rate 37 (>60); Globulin 2.8 g/dL (2.2-4.2); Glucose 130 mg/dL (70-99); Potassium 3.7 mmol/L (3.3-5.1); Pro- Brain NATRIURETIC PEPTIDE 9321 pg/mL (<=1800); Protein, Total 6.2 g/dL (5.9-8.4); Sodium Level 140 mmol/L (133-145); Total Bilirubin 0.81 mg/dL (0.00-1.30)
[2024-09-14 11:11] LABS: Free T3 2.3 pg/mL (2.18-3.98); Vitamin B12 > 4000 pg/mL (180-914)
[2024-09-16 13:08] LABS: Vitamin D 1,25-Dihydroxy 37.3 pg/mL (24.8-81.5)
== END | disposition home or self-care (01) ==
LOC: LAB 09:25
PROVIDERS: PCP Internal Medicine; Referring Provider Physician Assistant Medical; Visit Provider Physician Assistant Medical
DX: I48.92 Unspecified atrial flutter (principal); I42.8 Other cardiomyopathies; E55.9 Vitamin D deficiency, unspecified; R06.09 Other forms of dyspnea; I25.10 Atherosclerotic heart disease of native coronary artery without angina pectoris; R53.83 Other fatigue; Z79.01 Long term (current) use of anticoagulants; Z79.899 Other long term (current) drug therapy
CPT/HCPCS: 36415; 80053; 82607; 82652; 83880; 84439; 84443; 84481; 85025

== ENCOUNTER → 2024-09-16 | Outpatient (CLI) | payer MEDICARE, SELFPAY ==
--- NOTE | 2024-09-16 14:06 | CT_ITS ---
PROCEDURE: BRAIN/HEAD WITHOUT CONTRAST 09/16/2024 REASON FOR EXAM: HEAD TRAUMA, ON BLOOD THINNER TECHNIQUE: Head CT without intravenous contrast. Coronal and Sagittal reconstruction series were provided. One or more dose reduction techniques were used (e.g., Automated exposure control, adjustment of the mA and/or kV according to patient size, use of iterative reconstruction technique. RADIATION DOSE SUMMARY: CTDlvol: 47.06 mGy DLP: 960.91 mGycm COMPARISON: None FINDINGS: Brain: Low density in the periventricular white matter suggests mild chronic small vessel ischemic changes. Atherosclerotic plaque formation of the cavernous portions of the internal carotid arteries bilaterally. CSF Spaces: Mild generalized cerebral atrophy Sinuses/Mastoids: Partial opacification of the right sphenoid sinus. Bones: No abnormality. CT/Brain/Head without Contrast IMPRESSION: CHRONIC CHANGES. NO ACUTE FINDINGS. Partial opacification of the right sphenoid sinus. Reading Location: [place] [id number]
--- NOTE | 2024-09-16 14:10 | RAD_ITS ---
PROCEDURE: CHEST PA AND LATERAL 09/16/2024 REASON FOR EXAM: PRE-PROCEDURE TECHNIQUE: Frontal and lateral views of the chest. COMPARISON: None available FINDINGS: Appearance of mild vascular congestion suggested. Bilateral costophrenic angle blunting possible small pleural effusions. Streaky opacity at the left base may represent atelectasis. The cardiac and mediastinal contours appear within limits. Dual lead AICD. Partially imaged lumbar hardware. Superior endplate compression deformity suggested possibly L2. Aortic atherosclerotic calcifications. RAD/Chest PA and Lateral IMPRESSION: Appearance of mild vascular congestion suggested. Bilateral costophrenic angle blunting possible small pleural effusions. Streaky opacity at the left base may represent atelectasis. Reading Location: [id number]
== END | disposition home or self-care (01) ==
PROVIDERS: PCP Internal Medicine; Referring Provider Physician Assistant Medical; Visit Provider Physician Assistant Medical
DX: Z01.818 Encounter for other preprocedural examination (principal); I48.92 Unspecified atrial flutter; S09.90XA Unspecified injury of head, initial encounter; X58.XXXA Exposure to other specified factors, initial encounter; Z79.01 Long term (current) use of anticoagulants
CPT/HCPCS: 70450; 71046

== ENCOUNTER 2024-09-22 08:31 | Day surgery (SDC) | payer MEDICARE, SELFPAY ==
[2024-09-21 08:57] VITALS: BMI 29.4
--- NOTE | 2024-09-22 10:22 | PCM.OP.PRO2 ---
Problems Associated Problem List Diagnoses (1) Paroxysmal atrial fibrillation: Non-invasive Procedural Procedure Information Date of Procedure: 09/22/24 Pre-Procedure Diagnosis: Atrial fibrillation Post-Procedure Diagnosis: Same Procedure Performed:: DC cardioversion Procedure Time Out: Procedure Start Time: Procedure Stop Time: Special Medications: Intravenous etomidate 4 mg Description of procedure: The patient was brought to cardiac catheterization lab in the postabsorptive nonsedated state. Informed consent was obtained. Anterior-posterior pads were applied. The patient was seen by Dr. Obregon of the critical care division. The patient was administered 4 mg of intravenous etomidate. 200 J of synchronized DC biphasic energy were applied with prompt reversal at this AV sequential paced. Patient will be follow-up as per protocol. Complications Complications: No
--- NOTE | 2024-09-22 10:35 | PRO.PCM_ITS ---
Procedures Pulmonary Pulmonary Procedures /Diagnostic Testin Con Sedation Non-invasive Procedural Procedure Information Date of Procedure: 09/22/24 Description of procedure: CONSCIOUS SEDATION REPORT DATE OF SERVICE: September 22, 2024 BRIEF HISTORY OF PRESENT ILLNESS: The patient is an 79-year-old male presented to [facility] to undergo an elective outpatient cardioversion due to atrial fibrillation. The patient denied any prior anesthetic complications. He is systemically anticoagulated on Eliquis, without any recent missed doses. His last surface echocardiogram demonstrated an ejection fraction of approximately 30%. PHYSICAL EXAMINATION: VITAL SIGNS: Reviewed and were acceptable. GENERAL: The patient is a male, in no apparent distress, speaking in full sentences. HEENT: Normocephalic, atraumatic. Mucous membranes are moist and pink. Good mouth opening noted. Trachea is midline. CHEST: S1, S2 irregularly irregular. No murmurs, rubs or gallops were noted. LUNGS: Clear to auscultation bilaterally without appreciable wheezes, rales or rhonchi. ABDOMEN: Soft, nontender, nondistended. Positive bowel sounds. EXTREMITIES: There is no clubbing, cyanosis or edema. ASA Class: II DESCRIPTION OF PROCEDURE: After confirmation of informed consent, the patient's anesthesia plan was reviewed in detail. Etomidate was chosen. Risks and benefits were reviewed and the patient agreed to proceed. At 1007, the patient was given 4 mg of etomidate. The patient achieved an appropriate level of sedation and was given a 200 joule synchronized cardioversion by Dr. Aleman at the bedside. This was successful in achieving normal sinus rhythm. The patient was monitored until 1021, at which time hr reached his baseline mental status and function. The patient tolerated the procedure well. COMPLICATIONS: None ESTIMATED BLOOD LOSS: None RECOMMENDATIONS: Okay to recover in usual fashion.
== END 2024-09-22 11:20 | disposition home or self-care (01) ==
PROVIDERS: PCP Internal Medicine; Referring Provider Internal Medicine Cardiovascular Disease; Visit Provider Internal Medicine Cardiovascular Disease
DX: I48.0 Paroxysmal atrial fibrillation (principal); J44.9 Chronic obstructive pulmonary disease, unspecified; I42.8 Other cardiomyopathies; I25.10 Atherosclerotic heart disease of native coronary artery without angina pectoris; R53.83 Other fatigue; I10 Essential (primary) hypertension; E78.5 Hyperlipidemia, unspecified; Z79.01 Long term (current) use of anticoagulants; Z79.82 Long term (current) use of aspirin; Z79.899 Other long term (current) drug therapy; Z95.5 Presence of coronary angioplasty implant and graft; Z95.810 Presence of automatic (implantable) cardiac defibrillator
CPT/HCPCS: 92960; 93005

== ENCOUNTER → 2024-09-30 | Outpatient (CLI) | payer MEDICARE, SELFPAY ==
[2024-09-30 13:40] LABS: Anion Gap 12 (5-15); BUN 16 mg/dL (4-19); BUN/Creat Ratio 9.6 RATIO (10-20); Calcium,Total 8.8 mg/dL (7.6-11.0); Carbon Dioxide 22.5 mmol/L (21.0-32.0); Chloride 103 mmol/L (98-108); Creatinine, Serum 1.63 mg/dL (0.70-1.20); EST Glomerular Filtration Rate 42 (>60); Glucose 129 mg/dL (70-99); Potassium 4.2 mmol/L (3.3-5.1); Sodium Level 138 mmol/L (133-145)
== END | disposition home or self-care (01) ==
LOC: LAB 11:23
PROVIDERS: PCP Internal Medicine; Referring Provider Physician Assistant Medical; Visit Provider Physician Assistant Medical
DX: R53.83 Other fatigue (principal)
CPT/HCPCS: 36415; 80048

== ENCOUNTER → 2024-10-31 | Outpatient (CLI) | payer MEDICARE, SELFPAY ==
--- NOTE | 2024-10-31 16:15 | RAD_ITS ---
PROCEDURE: LUMBAR SPINE 2 OR 3 VIEWS 10/31/2024 REASON FOR EXAM: RADICULOPATHY, LUMBAR REGION TECHNIQUE: 2 view(s) of the lumbar spine, AP and lateral COMPARISON: None available FINDINGS: The patient is rotated to the left. 5 [id number] lumbar vertebral body types identified. Status post L3 through L5 bilateral posterior fusion/fixation and laminectomies. A moderate superior endplate compression fracture deformity with mild anterior wedging L4, age indeterminate. Hardware appears intact and anatomic. Question appearance of calcification anterior aspect of the disc space L3-4. Mild retrolisthesis L2 on L3 and posterior disc space narrowing. [id number] superior endplate compression deformity and anterior wedging L2. L1-2 spondylosis/discogenic change. L5-S1 spondylosis/discogenic change. Aortoiliac atherosclerotic calcification. Partially imaged left hip replacement noted. [id number]-[id number] amount of visualized proximal and transverse colonic stool with at least 5 ovoid uniformly similar ingested appearing foci. RAD/Lumbar Spine 2 or 3 Views IMPRESSION: L2 and L4 age indeterminate compression fracture deformities as above, clinical ly correlate. Multilevel spondylosis/discogenic change with bilateral posterior fusion/fixati on L3-L4 with apparent laminectomies. [id number] amount of visualized proximal and transverse colonic stool wi th at least 5 ovoid uniformly similar ingested appearing foci. Reading Location: [id number]
== END | disposition home or self-care (01) ==
LOC: RAD 16:07
PROVIDERS: PCP Internal Medicine; Referring Provider Anesthesiology Pain Medicine; Visit Provider Anesthesiology Pain Medicine
DX: M54.16 Radiculopathy, lumbar region (principal)
CPT/HCPCS: 72100

== ENCOUNTER → 2024-11-30 | Outpatient (CLI) | payer MEDICARE, SELFPAY | END | disposition home or self-care (01) | PROVIDERS: PCP Internal Medicine; Referring Provider Nurse Practitioner Gerontology; Visit Provider Nurse Practitioner Gerontology | DX: Z79.899 Other long term (current) drug therapy (principal) | CPT/HCPCS: 94060; 94726; 94729 ==

== ENCOUNTER → 2025-02-01 | Outpatient (CLI) | payer MEDICARE, SELFPAY ==
[2025-02-01 10:18] LABS: Hematocrit 38.9 % (40-54); Hemoglobin 12.9 g/dL (13.0-16.5); Mean Corp Hgb Conc 33.2 g/dL (32-36); Mean Corpuscular Volume 95.6 fL (80-94); Mean Platelet Vol. 11.7 fl (6.2-12.0); Platelet Count 184 K/mm3 (150-450); RBC Distribution Width CV 14.1 % (11.6-14.6); RBC Distribution Width SD 49.5 fl (35.1-43.9); Red Blood Count 4.07 M/mm3 (4.6-6.2); White Blood Count 7.4 K/mm3 (4.4-11.0)
[2025-02-01 11:05] LABS: Albumin, Serum 3.5 g/dL (3.4-4.8); Anion Gap 13 (5-15); BUN 28 mg/dL (4-19); BUN/Creat Ratio 18.2 RATIO (10-20); Calcium,Total 9.0 mg/dL (7.6-11.0); Carbon Dioxide 24.1 mmol/L (21.0-32.0); Chloride 102 mmol/L (98-108); Glucose 136 mg/dL (70-99); Potassium 4.4 mmol/L (3.3-5.1)
[2025-02-01 12:00] LABS: PTHIN 78 pg/mL (11-61)
== END | disposition home or self-care (01) ==
LOC: LAB 09:24
PROVIDERS: PCP Internal Medicine; Referring Provider Internal Medicine Nephrology; Visit Provider Internal Medicine Nephrology
DX: N18.32 Chronic kidney disease, stage 3b (principal); D50.9 Iron deficiency anemia, unspecified; N25.81 Secondary hyperparathyroidism of renal origin
CPT/HCPCS: 36415; 80069; 83970; 85027